=== PATIENT | female | born 1985 | race Caucasian/White ===

== ENCOUNTER 2016-07-10 13:30 | Outpatient (CLI) | payer MEDICAID ==
--- NOTE | 2016-07-10 15:38 | Ultrasound Report ---
LEFT BREAST ULTRASOUND: 07/10/2016 CLINICAL INDICATION: Palpable abnormalities. TECHNIQUE: Real-time scanning was performed with computer help desk representative static images obtained. FINDINGS: Ultrasound of the left breast was performed, directed to the palpable abnormality identifi ed by the patient at the 9 o'clock position, as well as the location described on the order at the 7 o'clock periareolar location. Unremarkable parenchymal lobules are seen at both sites. No discrete solid or cystic mass is identifi ed. No sonographically suspicious findings are seen. IMPRESSION: NEGATIVE EXAMINATION. RECOMMENDATION: ROUTINE ANNUAL SCREENING, TO COMMENCE AT AGE 40, UNLESS OTHERWISE CLINICALLY INDICATE D. BIRADS CATEGORY 1-NEGATIVE. JOB #: [id number] EXT JOB #:[id number]
--- NOTE | 2016-07-10 15:45 | Mammography Report ---
DIGITAL DIAGNOSTIC BILATERAL MAMMOGRAM: 07/10/2016 CLINICAL INDICATION: Palpable abnormality left breast. TECHNIQUE: Bilateral CC and MLO views, left true lateral view. A marker was placed at the site of pal pable abnormality identified by the patient at the time of the examination, at the 9 o'clock position approximately 10 cm from the nipple. This location is different from the site indicated on the requi sition (7 o'clock 1 cm from the nipple). This is the patient's baseline examination. FINDINGS: The breasts demonstrate scattered fibroglandular densities bilaterally. No suspicious mass es, clustered microcalcifications, or regions of architectural distortion are identified. Please also refer to left breast ultrasound of the same day. IMPRESSION: NEGATIVE EXAMINATION. RECOMMENDATION: CONTINUED CLINICAL SURVEILLANCE. ROUTINE ANNUAL SCREENING, TO COMMENCE AT AGE 40, UNL ESS OTHERWISE CLINICALLY INDICATED. BIRADS CATEGORY 1-NEGATIVE. STANDARD QUALIFYING STATEMENTS 1. This examination was reviewed with the aid of Computer-Aided Detection (CAD). 2. A negative or benign imaging report should not delay biopsy if clinically suspicious findings are present. Consider surgical consultation if warranted. More than 5% of cancers are not identified by i ing. 3. Dense breasts may obscure an underlying neoplasm. JOB #: [id number] EXT JOB #:[id number]
== END 2016-07-10 13:31 | disposition home or self-care (01) ==
LOC: DI 13:30
PROVIDERS: ATTEND Nurse Practitioner Gerontology
DX: N63 Unspecified lump in breast (principal); N64.4 Mastodynia
CPT/HCPCS: 76642; 77066

== ENCOUNTER 2017-05-16 08:00 | Outpatient (CLI) | payer MEDICAID | END 2017-05-16 08:01 | LOC: LAB.R 08:00 | PROVIDERS: ATTEND Nurse Practitioner | DX: N89.8 Other specified noninflammatory disorders of vagina (principal) | CPT/HCPCS: 87491; 87591 ==

== ENCOUNTER 2017-05-18 17:00 | Outpatient (CLI) | payer MEDICAID | END 2017-05-18 17:01 | disposition home or self-care (01) | LOC: LAB 17:00 | PROVIDERS: ATTEND Nurse Practitioner | DX: N91.2 Amenorrhea, unspecified (principal) | CPT/HCPCS: 36415; 84702 ==

== ENCOUNTER 2017-07-10 10:35 | Emergency (ER) | payer MEDICAID ==
--- NOTE | 2017-07-10 12:10 | ED Physician Documentation ---
PD HPI NECK PAIN - Stated complaint Stated Complaint: NECK/BACK PX - Chief complaint Chief Complaint: General - History obtained from History obtained from: Patient - History of Present Illness Timing - onset: How many days ago (5-6) Timing - duration: Days Timing - details: Gradual onset, Still present, Waxing and waning Location: Upper (trapezius area mostly right, with muscle pain on ROM neck and with shoulder lifting. 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 No: Trauma Similar symptoms before: Has not had sx before Recently seen: Not recently seen Review of Systems Constitutional: denies: Fever, Chills, Myalgias Nose: denies: Rhinorrhea / runny nose, Congestion Throat: denies: Sore throat Respiratory: denies: Dyspnea, Cough Skin: denies: Rash, Lesions Neurologic: denies: Focal weakness, Numbness PD PAST MEDICAL HISTORY - Past Medical History Past Medical History: No Musculoskeletal: None - Past Surgical History Past Surgical History: No - Present Medications Home Medications: Ambulatory Orders Medication Instructions Recorded Confirmed Atomoxetine HCl 07/10/17 Dexamethasone [Decadron] 4 mg PO DAILY #5 tablet 07/10/17 HYDROcod/ACETAM 5/325 [[place] 5/325] 1 tab PO Q6H PRN #15 tablet 07/10/17 Lisinopril 10 mg PO 07/10/17 07/10/17 Methocarbamol [Robaxin] 500 mg PO Q6H PRN #25 tablet 07/10/17 - Allergies Allergies/Adverse Reactions: Allergies Allergy/AdvReac Type Severity Reaction Status Date / Time No Known Drug Allergies Allergy Verified 07/10/17 11:03 - Social History Does the pt smoke?: Yes Smoking Status: Current every day smoker Does the pt drink ETOH?: Yes Does the pt have substance abuse?: No - Immunizations Immunizations are current?: Yes PD ED PE NORMAL - Vitals Vital signs reviewed: Yes - General General: Alert and oriented X 3, Well developed/nourished - Neck Neck: Supple, no meningeal sign, No bony TTP (but is tender in lateral muscle at trapezius right side mostly, without rash nor sores. Has focal most tender spot lower lateral cervical area. Trigger point injection done there. ), No adenopathy - Respiratory Respiratory: Clear bilaterally - Abdomen Abdomen: Soft, Non tender - Back Back: No spinal TTP - Derm Derm: Normal color, Warm and dry, No rash - Neuro Neuro: Alert and oriented X 3, No motor deficit, No sensory deficit Results - Vitals Vitals: Vital Signs - 24 hr 07/10/17 07/10/17 11:01 13:20 Temperature 36.5 C Heart Rate 100 103 H Respiratory 14 18 Rate Blood Pressure 140/87 H 120/90 H O2 Saturation 100 100 Oxygen O2 Source Room air PD MEDICAL DECISION MAKING - ED course Complexity details: considered differential (gradual onset in muscular distribution without red flags. ), d/w patient Departure - Departure Disposition: 01 Home, Self Care Clinical Impression: Acute strain of neck muscle Qualifiers: Encounter type: initial encounter Qualified Code(s): S16.1XXA - Strain of muscle, fascia and tendon at neck level, initial encounter Condition: Stable Record reviewed to determine appropriate education?: Yes Instructions: ED Neck Pain No Trauma Follow-Up: Sarah Jett DNP [Primary Care Provider] - Prescriptions: Dexamethasone [Decadron] 4 mg PO DAILY #5 tablet HYDROcod/ACETAM 5/325 [[place] 5/325] 1 tab PO Q6H PRN #15 tablet PRN Reason: Pain Methocarbamol [Robaxin] 500 mg PO Q6H PRN #25 tablet PRN Reason: Spasms Comments: Heat and gentle stretching for the neck muscles often. Physical treatment such as chiropractic and massage are good for this as well. Continue some anti- inflammatories such as ibuprofen or naproxen 2-3 tablets twice daily for the next week. Also add Decadron steroid anti-inflammatory orally. We did do a local injection in the neck muscles to try to help there as well. Robaxin muscle relaxant for stiffness and spasm. Add Tylenol or hydrocodone if needed for pain. This should taper down over the next several days and be improved over days to a week. Recheck if not improved during that timeframe. Discharge Date/Time: 07/10/17 13:20
[2017-07-10] MEDS ORDERED: LIDOCAINE 2% 10 ML MDV SUBQ STA (12:36)
[2017-07-10] MEDS ORDERED: TRIAMCINOLONE 40 MG/ML VIAL IM STA (12:36)
[2017-07-10] MEDS ORDERED: METHOCARBAMOL 500 MG TABLET PO STA (12:37)
[2017-07-10] MEDS ORDERED: HYDROcod/ACETAM 5/325 MG TABLET PO STA (12:37)
[2017-07-10] MEDS ORDERED: KETOROLAC 60 MG/2 ML VIAL IM STA (12:37)
[2017-07-10 13:28] VITALS: BP 120/90
== END 2017-07-10 13:20 | disposition home or self-care (01) ==
LOC: ED 10:35
DX: S16.1XXA Strain of muscle, fascia and tendon at neck level, initial encounter (principal); X58.XXXA Exposure to other specified factors, initial encounter; F17.200 Nicotine dependence, unspecified, uncomplicated
CPT/HCPCS: 96372; 99283; A9270

== ENCOUNTER 2017-08-06 11:13 | Outpatient (CLI) | payer MEDICAID ==
--- NOTE | 2017-08-06 11:52 | XRAY Report ---
Procedure Date: 08/06/2017 Accession Number: [id number] / [id number] Procedure: XRN - Cervical Spine 2 View CPT Code: FULL RESULT: EXAM: Cervical Spine 2 View DATE: 08/06/2017 11:30 AM CLINICAL HISTORY: CERVICALGIA COMPARISON: None. TECHNIQUE: 3 views. FINDINGS: Alignment: Reversal of the normal cervical lordosis. Bones: The cervical vertebral bodies and posterior elements are well visualized from the skull base through C7-T1. No fractures or bone lesions. Disks: Normal. Disk heights are maintained. Facets: No degenerative disease. Soft Tissues: Normal. No prevertebral soft tissue swelling. The visualized lung apices are clear. IMPRESSION: Reversal of the normal cervical lordosis. No evidence of acute fracture. RADIA
== END 2017-08-06 11:14 | disposition home or self-care (01) ==
LOC: DI.N 11:13
PROVIDERS: ATTEND Nurse Practitioner
DX: M54.2 Cervicalgia (principal); M41.82 Other forms of scoliosis, cervical region
CPT/HCPCS: 72040

== ENCOUNTER 2017-08-19 13:35 | Emergency (ER) | payer MEDICAID ==
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
[2017-08-19] MEDS ORDERED: IBUPROFEN 600 MG TABLET PO STA (14:28)
[2017-08-19] MEDS ORDERED: HYDROcod/ACETAM 5/325 MG TABLET PO STA (14:28)
[2017-08-19 14:47] VITALS: BP 126/96
== END 2017-08-19 14:45 | disposition home or self-care (01) ==
LOC: ED 13:35
DX: H72.91 Unspecified perforation of tympanic membrane, right ear (principal); S01.311A Laceration without foreign body of right ear, initial encounter; W51.XXXA Accidental striking against or bumped into by another person, initial encounter; F17.200 Nicotine dependence, unspecified, uncomplicated
CPT/HCPCS: 99283; A9270

== ENCOUNTER 2017-09-03 08:00 | Outpatient (CLI) | payer MEDICAID | END 2017-09-03 08:01 | LOC: LAB.N 08:00 | PROVIDERS: ATTEND Nurse Practitioner | DX: N91.2 Amenorrhea, unspecified (principal) | CPT/HCPCS: 36415; 84702 ==

== ENCOUNTER 2018-01-20 07:43 | Outpatient (CLI) | payer OTHER, MEDICAID | END 2018-01-20 23:59 | disposition critical access hospital (66) | LOC: EMS 07:43 | PROVIDERS: ATTEND Surgery | DX: M54.9 Dorsalgia, unspecified (principal); V48.4XXA Person boarding or alighting a car injured in noncollision transport accident, initial encounter; Y92.413 State road as the place of occurrence of the external cause | CPT/HCPCS: A0425; A0429; A0999 ==

== ENCOUNTER 2018-01-20 08:06 | Emergency (ER) | payer MEDICAID ==
[2018-01-20] MEDS ORDERED: HYDROmorphone 1 MG/ML CARPUJECT IVP STA ×3 (08:39→12:05)
[2018-01-20] MEDS ORDERED: ONDANSETRON 4 MG/2 ML VIAL IVP STA ×2 (08:39→11:32)
[2018-01-20 08:54] LABS: BASOPHILS # (AUTO) 0.1 10^3/uL (0.0-0.1); BASOPHILS % (AUTO) 0.7 %; EOSINOPHILS # (AUTO) 0.1 10^3/uL (0.0-0.7); EOSINOPHILS % (AUTO) 0.4 %; HGB - HEMOGLOBIN 14.4 g/dL (12.0-16.0); LYMPHOCYTES # (AUTO) 4.2 10^3/uL (1.5-3.5); LYMPHOCYTES % (AUTO) 27.7 %; MEAN CORPUSCULAR HEMOGLOBIN 31.2 pg (27.0-31.0); MEAN CORPUSCULAR HGB CONC 33.4 g/dL (32.0-36.0); MEAN CORPUSCULAR VOLUME 93.5 fL (81.0-99.0); MEAN PLATELET VOLUME 7.8 fL (7.9-10.8); MONOCYTES # (AUTO) 0.7 10^3/uL (0.0-1.0); MONOCYTES % (AUTO) 4.5 %; NEUTROPHILS # (AUTO) 10.1 10^3/uL (1.5-6.6); NEUTROPHILS % (AUTO) 66.7 %; PLT - PLATELET COUNT 359 10^3/uL (130-450); RED CELL DISTRIBUTION WIDTH 14.2 % (12.0-15.0); WHITE BLOOD COUNT 15.2 x10^3/uL (4.8-10.8)
[2018-01-20 09:06] LABS: ALBUMIN 4.8 g/dL (3.2-5.5); ALBUMIN/GLOBULIN RATIO 1.5 (1.0-2.2); BILIRUBIN,TOTAL 0.2 mg/dL (0.2-1.0); CALCIUM 8.7 mg/dL (8.5-10.3); CREATININE 0.6 mg/dL (0.4-1.0); TOTAL PROTEIN 8.1 g/dL (6.7-8.2)
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
[2018-01-20] MEDS ORDERED: LIDOCAINE PATCH 5% TOP STA (14:34)
[2018-01-20] MEDS ORDERED: PROMETHAZINE INJ 25 MG in SODIUM CHLORIDE 0.9% 50 ML IV STA (14:51)
[2018-01-20] MEDS ORDERED: oxyCODONE 5 MG TABLET PO STA (15:44)
[2018-01-20 16:42] VITALS: BP 112/53
[2018-01-20] MEDS ORDERED: SODIUM CHLORIDE 0.9% 1,000 ML IV ONE (16:47)
== END 2018-01-20 17:24 | disposition home or self-care (01) ==
LOC: EDUNIT# → ED 08:06
DX: S30.0XXA Contusion of lower back and pelvis, initial encounter (principal); S32.2XXA Fracture of coccyx, initial encounter for closed fracture; Y92.410 Unspecified street and highway as the place of occurrence of the external cause; F17.200 Nicotine dependence, unspecified, uncomplicated; F43.8 Other reactions to severe stress
CPT/HCPCS: 36415; 72100; 72220; 73502; 80053; 83690; 84702; 85025; 96365; 96366; 96375; 96376; 99284; A9270; J1170; J7040

== ENCOUNTER 2018-03-12 21:14 | Emergency (ER) | payer MEDICAID, OTHER ==
[2018-03-12] MEDS ORDERED: LORazepam 2 MG/ML VIAL ONE ×2 (21:21→21:25)
[2018-03-12] MEDS: LORazepam 2 MG/ML VIAL IVP STA ×2 (21:24→21:38)
[2018-03-12] MEDS: PHENYTOIN INJ 1,000 MG in SODIUM CHLORIDE 0.9% 100ML 100 ML IV STA (21:33)
[2018-03-12 21:39] LABS: BASOPHILS # (AUTO) 0.1 10^3/uL (0.0-0.1); BASOPHILS % (AUTO) 1.1 %; EOSINOPHILS # (AUTO) 0.1 10^3/uL (0.0-0.7); EOSINOPHILS % (AUTO) 0.6 %; HGB - HEMOGLOBIN 14.2 g/dL (12.0-16.0); LYMPHOCYTES # (AUTO) 4.3 10^3/uL (1.5-3.5); MEAN CORPUSCULAR HGB CONC 34.2 g/dL (32.0-36.0); MEAN CORPUSCULAR VOLUME 93.7 fL (81.0-99.0); MEAN PLATELET VOLUME 7.7 fL (7.9-10.8); MONOCYTES # (AUTO) 0.5 10^3/uL (0.0-1.0); MONOCYTES % (AUTO) 4.5 %; NEUTROPHILS % (AUTO) 54.8 %; PLT - PLATELET COUNT 361 10^3/uL (130-450); RED BLOOD COUNT 4.43 10^6/uL (4.20-5.40)
[2018-03-12 21:42] LABS: KETONES, SERUM (ACETEST) NEGATIVE (NEGATIVE)
[2018-03-12] MEDS ORDERED: PROPOFOL 1000 MG/100 ML 0 ML IV ONE ×2 (21:43→21:46)
[2018-03-12] MEDS ORDERED: ETOMIDATE 40 MG/20 ML VIAL IVP ONE (21:45)
[2018-03-12] MEDS ORDERED: MIDAZOLAM 2 MG/2 ML VIAL ONE (21:45)
[2018-03-12] MEDS ORDERED: ROCURONIUM 50 MG/5 ML VIAL IVP ONE (21:46)
[2018-03-12] MEDS ORDERED: SUCCINYLCHOLINE 200 MG/10 ML VIAL ONE (21:46)
[2018-03-12] MEDS ORDERED: KETAMINE 500 MG/10 ML VIAL ONE (21:46)
[2018-03-12] MEDS ORDERED: PROPOFOL 200 MG/20 ML VIAL IVP ONE (21:46)
[2018-03-12 21:49] LABS: ACETAMINOPHEN < 10 ug/mL (10-30); ALBUMIN 4.6 g/dL (3.2-5.5); ALBUMIN/GLOBULIN RATIO 1.5 (1.0-2.2); ALKALINE PHOSPHATASE 53 IU/L (42-121); ALT ALANINE AMINOTRANSFERASE 18 IU/L (10-60); AST ASPARTATE AMINOTRANSFERASE 22 IU/L (10-42); BILIRUBIN,TOTAL 0.2 mg/dL (0.2-1.0); BUN - BLOOD UREA NITROGEN 7 mg/dL (6-20); CARBON DIOXIDE - CO2 22 mmol/L (21-32); CHLORIDE 107 mmol/L (101-111); CREATININE 0.9 mg/dL (0.4-1.0); GFR - MDRD 73 (>89); GLUCOSE 84 mg/dL (70-100); LIPASE 38 U/L (22-51); SALICYLATE < 6.0 mg/dL; SODIUM 139 mmol/L (135-145); TOTAL PROTEIN 7.7 g/dL (6.7-8.2)
--- NOTE | 2018-03-12 21:51 | ED Physician Documentation ---
PD HPI SEIZURE - Stated complaint Stated Complaint: STATUS ELIPTICUS - Chief complaint Chief Complaint: Neuro - Additional information Additional information: 32-year-old female was brought in by EMS for status epilepticus. The patient according to her boyfriend has a history of seizure disorder but the boyfriend is unsure of her past medical history. The patient was at a constitution party this evening and had consumed some alcohol when she had a witnessed tonic-clonic seizure and EMS was called. EMS arrived and found the patient to be having generalized tonic-clonic movement Seizure activity. Per EMS the patient had 30 minutes of Seizure activity despite receiving 10 mg of Versed. The patient did have a period of seizure cessation but her seizure resumed upon arriving in the emergency department. The patient arrived with full generalized tonic-clonic activity.No history was obtained from the patient secondary to her state. 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 and currettage - Present Medications Home Medications: Ambulatory Orders Medication Instructions Recorded Confirmed Atomoxetine HCl 07/10/17 Dexamethasone [Decadron] 4 mg PO DAILY #5 tablet 07/10/17 HYDROcod/ACETAM 5/325 [[place] 5/325] 1 tab PO Q6H PRN #15 tablet 07/10/17 Lisinopril 10 mg PO 07/10/17 07/10/17 Methocarbamol [Robaxin] 500 mg PO Q6H PRN #25 tablet 07/10/17 HYDROcod/ACETAM 5/325 [[place] 5/325] 1 tab PO Q6H PRN #15 tablet 08/19/17 Ofloxacin 5 drops RIGHTEAR TID #1 bottle 08/19/17 Quetiapine Fumarate [Seroquel] 50 mg 08/19/17 oxyCODONE/ACET 5/325 [Percocet 5 1 - 2 each PO Q4-6H PRN #15 tablet 01/20/18 mg/325 mg] - Allergies Allergies/Adverse Reactions: Allergies Allergy/AdvReac Type Severity Reaction Status Date / Time codeine Allergy Mild Nausea Verified 08/19/17 13:57 - Social History Does the pt smoke?: Yes Smoking Status: Current every day smoker Does the pt drink ETOH?: Yes Does the pt have substance abuse?: No - Immunizations Immunizations are current?: Yes PD ED PE NORMAL - General General: Other (The patient is unresponsive with generalized shaking) - HEENT HEENT: Atraumatic, PERRL, Pharynx benign, Other (No tongue laceration) - Cardiac Cardiac: RRR (Regular tachycardia), Strong equal pulses - Respiratory Respiratory: No respiratory distress, Clear bilaterally - Abdomen Abdomen: Soft, Non distended - Derm Derm: Normal color - Extremities Extremities: No deformity - Neuro Neuro: Other (Unresponsive with generalized tonic-clonic seizure activity) - Psych Psych: Normal affect Results - Vitals Vitals: Vital Signs - 24 hr 03/12/18 03/12/18 03/12/18 21:25 21:51 22:15 Temperature 37.2 C Heart Rate 124 H 115 H 97 Respiratory 22 21 16 Rate Blood Pressure 119/53 L 120/69 105/57 L O2 Saturation 99 100 100 03/12/18 03/12/18 03/12/18 22:28 22:40 23:09 Temperature 36.3 C L Heart Rate 94 87 87 Respiratory 17 16 14 Rate Blood Pressure 103/67 104/59 L 103/68 O2 Saturation 100 100 100 03/12/18 03/13/18 03/13/18 23:38 00:03 00:18 Temperature Heart Rate 86 85 89 Respiratory 20 12 14 Rate Blood Pressure 93/62 99/59 L 99/61 O2 Saturation 96 97 97 Oxygen O2 Source Room air - Labs Labs: Laboratory Tests 03/12/18 03/12/18 03/12/18 21:29 21:29 21:29 WBC 11.0 H RBC 4.43 Hgb 14.2 Hct 41.5 MCV 93.7 MCH 32.0 H MCHC 34.2 RDW 13.0 Plt Count 361 MPV 7.7 L Neut # (Auto) 6.0 Lymph # (Auto) 4.3 H [place] # (Auto) 0.5 Eos # (Auto) 0.1 Baso # (Auto) 0.1 Absolute Nucleated RBC 0.00 Nucleated RBC % 0.0 Sodium 139 Potassium 4.5 Chloride 107 Carbon Dioxide 22 Anion Gap 10.0 BUN 7 Creatinine 0.9 Estimated GFR (MDRD) 73 L Glucose 84 Calcium 9.0 Phosphorus 4.0 Magnesium 2.0 Total Bilirubin 0.2 AST 22 ALT 18 Alkaline Phosphatase 53 Total Protein 7.7 Albumin 4.6 Globulin 3.1 Albumin/Globulin Ratio 1.5 Lipase 38 TSH 4.45 Free T4 0.87 Prolactin Urine Color Urine Clarity Urine pH Ur Specific [place] Urine Protein Urine Glucose (UA) Urine Ketones Urine Occult Blood Urine Nitrite Urine Bilirubin Urine Urobilinogen Ur Leukocyte Esterase Ur Microscopic Review Urine Culture Comments Urine HCG, Qual Salicylates < 6.0 Urine Opiates Screen Ur Oxycodone Screen Urine Methadone Screen Ur Propoxyphene Screen Acetaminophen < 10 L Ur Barbiturates Screen Ur Tricyclics Screen Ur Phencyclidine Scrn Ur Amphetamine Screen U Methamphetamines Scrn U Benzodiazepines Scrn Urine Cocaine Screen U Cannabinoids Screen Ethyl Alcohol 112.6 Serum Ketones NEGATIVE 03/12/18 03/12/18 03/12/18 21:29 22:21 22:21 WBC RBC Hgb Hct MCV MCH MCHC RDW Plt Count MPV Neut # (Auto) Lymph # (Auto) [place] # (Auto) Eos # (Auto) Baso # (Auto) Absolute Nucleated RBC Nucleated RBC % Sodium Potassium Chloride Carbon Dioxide Anion Gap BUN Creatinine Estimated GFR (MDRD) Glucose Calcium Phosphorus Magnesium Total Bilirubin AST ALT Alkaline Phosphatase Total Protein Albumin Globulin Albumin/Globulin Ratio Lipase TSH Free T4 Prolactin 54.55 Urine Color YELLOW Urine Clarity CLEAR Urine pH 6.0 Ur Specific [place] 1.015 1.015 Urine Protein NEGATIVE Urine Glucose (UA) NEGATIVE Urine Ketones NEGATIVE Urine Occult Blood NEGATIVE Urine Nitrite NEGATIVE Urine Bilirubin NEGATIVE Urine Urobilinogen 0.2 (NORMAL) Ur Leukocyte Esterase NEGATIVE Ur Microscopic Review NOT INDICATED Urine Culture Comments NOT INDICATED Urine HCG, Qual NEGATIVE Salicylates Urine Opiates Screen NEGATIVE Ur Oxycodone Screen NEGATIVE Urine Methadone Screen NEGATIVE Ur Propoxyphene Screen NEGATIVE Acetaminophen Ur Barbiturates Screen NEGATIVE Ur Tricyclics Screen NEGATIVE Ur Phencyclidine Scrn NEGATIVE Ur Amphetamine Screen NEGATIVE U Methamphetamines Scrn NEGATIVE U Benzodiazepines Scrn POSITIVE H Urine Cocaine Screen NEGATIVE U Cannabinoids Screen NEGATIVE Ethyl Alcohol Serum Ketones PD MEDICAL DECISION MAKING - ED course ED course: The patient had generalized seizure activity for roughly 35-40 minutes in the emergency department. The patient received 10 mg of Ativan and 2 mg doses and was loaded with Keppra and Dilantin. Once the seizure broke the patient Was answering questions briefly and then the high dose of benzodiazepines kicked in and the patient's been appropriately sedated. Given the prolonged seizure-like activity the patient will require transfer for further investigation with EEG. The case was discussed with the neurologist at [facility] Dr. Pat who agrees with the plan for transfer for further workup. The patient's boyfriend was updated. - Critical Care Time(min): 30 Time Includes: Direct patient care, Review records, Reassess patient, Document care, Coordinate care, Medical consult Data interpretation: Labs Procedures excluded from critical care time: EKG Departure - Departure Disposition: 02 Transfer Acute Care Hosp Clinical Impression: Status epilepticus Condition: Fair
[2018-03-12] MEDS: levETIRAcetam INJ 1,000 MG in SODIUM CHLORIDE 0.9% 100ML 100 ML IV STA (21:58)
[2018-03-12 22:26] LABS: MUDS CUTOFF CONCENTRATIONS CUTOFF CONC BELOW:
--- NOTE | 2018-03-12 22:27 | CT Report ---
Reason: Status epilepticus Procedure Date: 03/12/2018 Accession Number: [id number] / [id number] Procedure: CT - Head W/O CPT Code: FULL RESULT: EXAM: CT HEAD EXAM DATE: 03/12/2018 10:14 PM. CLINICAL HISTORY: Status epilepticus. COMPARISON: None. TECHNIQUE: Multiaxial CT images were obtained from the foramen magnum to the vertex. Reformats: Sagittal and coronal. IV contrast: None. In accordance with CT protocol optimization, one or more of the following dose reduction techniques were utilized for this exam: automated exposure control, adjustment of mA and/or KV based on patient size, or use of iterative reconstructive technique. FINDINGS: Parenchyma: No intraparenchymal hemorrhage. No evidence of mass, midline shift, or CT findings of infarction. Mccray-white differentiation is distinct. Extraaxial Spaces: Normal for age. No subdural or epidural collections identified. Ventricles: Normal in size and position. Sinuses and Orbits: Imaged paranasal sinuses, orbits, and mastoids show no significant abnormality. Bones: No evidence of fracture or calvarial defect. Other: None. IMPRESSION: 1. Negative CT head without contrast. RADIA
[2018-03-12 22:30] LABS: BILIRUBIN,URINE NEGATIVE (NEGATIVE); GLUCOSE, URINE (UA) NEGATIVE (NEGATIVE); KETONES,URINE (UA) NEGATIVE (NEGATIVE); LEUKOCYTE ESTERASE, URINE NEGATIVE (NEGATIVE); NITRITE,URINE NEGATIVE (NEGATIVE); OCCULT BLOOD,URINE NEGATIVE (NEGATIVE); PROTEIN,URINE NEGATIVE (NEGATIVE); UROBILINOGEN,URINE 0.2 (NORMAL) E.U./dL (NORMAL)
[2018-03-12 22:35] LABS: CLARITY,URINE CLEAR (CLEAR); HCG UR QUAL NEGATIVE
[2018-03-12 22:39] LABS: THYROID STIMULATING HORMONE 4.45 uIU/mL (0.34-5.60)
[2018-03-12 22:40] LABS: AMPHETAMINE SCREEN,URINE NEGATIVE (NEGATIVE); BENZODIAZEPINES SCREEN, URINE POSITIVE (NEGATIVE); COCAINE SCREEN URINE NEGATIVE (NEGATIVE); METHADONE SCREEN, URINE NEGATIVE (NEGATIVE); METHAMPHETAMINES SCREEN, URINE NEGATIVE (NEGATIVE); OPIATE SCREEN, URINE NEGATIVE (NEGATIVE); OXYCODONE SCREEN, URINE NEGATIVE (NEGATIVE); PROPOXYPHENE SCREEN, URINE NEGATIVE (NEGATIVE); TRICYCLIC ANTIDEPRESSANT,URINE NEGATIVE (NEGATIVE)
[2018-03-12 22:41] LABS: FREE T4 (FREE THYROXINE) 0.87 ng/dL (0.58-1.64)
[2018-03-12] MEDS: SODIUM CHLORIDE 0.9% 1,000 ML IV ONE (23:38)
[2018-03-13 01:05] VITALS: BP 102/67
== END 2018-03-13 01:16 | disposition short-term general hospital (02) ==
LOC: EDUNIT# → ED 21:14
DX: G40.901 Epilepsy, unspecified, not intractable, with status epilepticus (principal); I48.4 Atypical atrial flutter; I44.0 Atrioventricular block, first degree; F17.200 Nicotine dependence, unspecified, uncomplicated
CPT/HCPCS: 36415; 51702; 70450; 80053; 80306; 80307; 80320; 80329; 81001; 81003; 81025; 82009; 83690; 83735; 84100; 84146; 84439; 84443; 85025; 87086; 93005; 96361; 96365; 96367; 96375; 99285; 99291

== ENCOUNTER 2018-03-25 23:22 | Outpatient (CLI) | payer MEDICAID | END 2018-03-25 23:23 | disposition critical access hospital (66) | LOC: EMS 23:22 | PROVIDERS: ATTEND Surgery | DX: R56.9 Unspecified convulsions (principal) | CPT/HCPCS: A0425; A0427; A0999 ==

== ENCOUNTER 2018-03-25 23:54 | Emergency (ER) | payer MEDICAID ==
[2018-03-26] MEDS ORDERED: SODIUM CHLORIDE 0.9% 1,000 ML IV ONE (00:07)
--- NOTE | 2018-03-26 00:10 | ED Physician Documentation ---
History of Present Illness - Stated complaint Stated Complaint: SEIZURES - Chief complaint Chief Complaint: Neuro - Additonal information Additional information: 32-year-old female was brought in by EMS for a possible seizure. It is reported that the patient was convulsing. The patient was given Versed which stopped her convulsions and Arrives groggy and sleepy and not answering questions. No reports of trauma or injury. History is limited secondary to the patient's recent seizure and benzodiazepine administration Review of Systems Unable to obtain: Other (Status post seizure and benzodiazepine administration) PD PAST MEDICAL HISTORY - Past Medical History Cardiovascular: None Respiratory: None Neuro: None DRY ROOM OPERATOR: Ovarian cancer HEENT: None Musculoskeletal: None - Past Surgical History Past Surgical History: No /DRY ROOM OPERATOR: Dilation and currettage - Present Medications Home Medications: Ambulatory Orders Medication Instructions Recorded Confirmed Atomoxetine HCl 07/10/17 Dexamethasone [Decadron] 4 mg PO DAILY #5 tablet 07/10/17 HYDROcod/ACETAM 5/325 [[place] 5/325] 1 tab PO Q6H PRN #15 tablet 07/10/17 Lisinopril 10 mg PO DAILY 07/10/17 03/13/18 Methocarbamol [Robaxin] 500 mg PO Q6H PRN #25 tablet 07/10/17 HYDROcod/ACETAM 5/325 [[place] 5/325] 1 tab PO Q6H PRN #15 tablet 08/19/17 Ofloxacin 5 drops RIGHTEAR TID #1 bottle 08/19/17 Quetiapine Fumarate [Seroquel] 100 mg PO BID 08/19/17 03/13/18 oxyCODONE/ACET 5/325 [Percocet 5 1 - 2 each PO Q4-6H PRN #15 tablet 01/20/18 mg/325 mg] Benzphetamine HCl 25 mg PO DAILY 03/13/18 03/13/18 Duloxetine HCl 60 mg PO DAILY 03/13/18 03/13/18 Meloxicam 7.5 mg PO DAILY 03/13/18 03/13/18 Propranolol [Inderal] 10 mg PO BID 03/13/18 03/13/18 Topiramate [Topamax] 25 mg PO BID 03/13/18 03/13/18 - Allergies Allergies/Adverse Reactions: Allergies Allergy/AdvReac Type Severity Reaction Status Date / Time codeine Allergy Mild Nausea Verified 03/26/18 00:35 - Social History Does the pt smoke?: Yes Smoking Status: Current every day smoker Does the pt drink ETOH?: Yes Does the pt have substance abuse?: No - Immunizations Immunizations are current?: Yes - POLST Patient has POLST: No PD ED PE NORMAL - General General: Other (The patient is arousable, follows basic commands and no evidence of trauma) - HEENT HEENT: Atraumatic, PERRL - Cardiac Cardiac: RRR (Tachycardia with regular rhythm) - Respiratory Respiratory: No respiratory distress - Derm Derm: Normal color - Extremities Extremities: No deformity - Neuro Neuro: Other (The patient's moving all 4 extremities and has no focal neurologic deficit but is groggy) Results - Vitals Vitals: Vital Signs - 24 hr 03/25/18 03/26/18 03/26/18 23:57 00:21 00:26 Temperature 36.3 C L Heart Rate 117 H 112 H 127 H Respiratory 16 15 14 Rate Blood Pressure 109/57 L 108/64 108/64 O2 Saturation 97 100 97 03/26/18 00:32 Temperature Heart Rate Respiratory 20 Rate Blood Pressure O2 Saturation 97 Oxygen O2 Source Room air - Labs Labs: Laboratory Tests 03/26/18 00:10 WBC 8.5 RBC 4.11 L Hgb 12.9 Hct 39.0 MCV 94.9 MCH 31.5 H MCHC 33.2 RDW 13.3 Plt Count 307 MPV 7.4 L Neut # (Auto) 3.9 Lymph # (Auto) 4.0 H [place] # (Auto) 0.4 Eos # (Auto) 0.1 Baso # (Auto) 0.1 Absolute Nucleated RBC 0.00 Nucleated RBC % 0.0 PD MEDICAL DECISION MAKING - ED course ED course: Upon returning to her neurologic baseline the patient became agitated once her significant other arrived. The patient pulled out her IV and left the emergency department AGAINST MEDICAL ADVICE. She was advised to return at any point for reevaluation Departure - Departure Disposition: 07 Against Medical Advice Clinical Impression: Convulsions Qualifiers: Convulsion type: unspecified Qualified Code(s): R56.9 - Unspecified convulsions Condition: Good Instructions: ED Seizure Recurrent Ch Follow-Up: Sarah Jett DNP [Primary Care Provider] - Within 1 week Comments: Return for any worsening or any concerns
[2018-03-26 00:22] VITALS: BP 108/64
[2018-03-26 00:24] LABS: BASOPHILS # (AUTO) 0.1 10^3/uL (0.0-0.1); BASOPHILS % (AUTO) 0.8 %; EOSINOPHILS # (AUTO) 0.1 10^3/uL (0.0-0.7); EOSINOPHILS % (AUTO) 0.8 %; HGB - HEMOGLOBIN 12.9 g/dL (12.0-16.0); LYMPHOCYTES % (AUTO) 47.6 %; MEAN CORPUSCULAR HEMOGLOBIN 31.5 pg (27.0-31.0); MEAN CORPUSCULAR HGB CONC 33.2 g/dL (32.0-36.0); MEAN CORPUSCULAR VOLUME 94.9 fL (81.0-99.0); MEAN PLATELET VOLUME 7.4 fL (7.9-10.8); MONOCYTES # (AUTO) 0.4 10^3/uL (0.0-1.0); MONOCYTES % (AUTO) 4.5 %; NEUTROPHILS # (AUTO) 3.9 10^3/uL (1.5-6.6); NEUTROPHILS % (AUTO) 46.3 %; PLT - PLATELET COUNT 307 10^3/uL (130-450); RED BLOOD COUNT 4.11 10^6/uL (4.20-5.40); RED CELL DISTRIBUTION WIDTH 13.3 % (12.0-15.0); WHITE BLOOD COUNT 8.5 x10^3/uL (4.8-10.8)
[2018-03-26 00:47] LABS: ALBUMIN 3.9 g/dL (3.2-5.5); ALBUMIN/GLOBULIN RATIO 1.4 (1.0-2.2); ALKALINE PHOSPHATASE 39 IU/L (42-121); ALT ALANINE AMINOTRANSFERASE 18 IU/L (10-60); AST ASPARTATE AMINOTRANSFERASE 17 IU/L (10-42); BILIRUBIN,TOTAL 0.3 mg/dL (0.2-1.0); BUN - BLOOD UREA NITROGEN 10 mg/dL (6-20); CALCIUM 8.7 mg/dL (8.5-10.3); CARBON DIOXIDE - CO2 19 mmol/L (21-32); CHLORIDE 110 mmol/L (101-111); CREATININE 0.6 mg/dL (0.4-1.0); GFR - MDRD 116 (>89); GLUCOSE 96 mg/dL (70-100); LIPASE 33 U/L (22-51); SODIUM 140 mmol/L (135-145); TOTAL PROTEIN 6.6 g/dL (6.7-8.2)
[2018-03-26 00:48] LABS: HCG,QUALITATIVE BLOOD NEGATIVE
== END 2018-03-26 01:00 | disposition left against medical advice (07) ==
LOC: EDBD → EDUNIT# → ED 23:54
DX: R56.9 Unspecified convulsions (principal); C56.9 Malignant neoplasm of unspecified ovary; F17.200 Nicotine dependence, unspecified, uncomplicated
CPT/HCPCS: 36415; 80053; 83690; 84703; 85025; 99283; 99284

== ENCOUNTER 2018-03-26 14:54 | Outpatient (CLI) | payer MEDICAID | END 2018-03-26 14:55 | disposition critical access hospital (66) | LOC: EMS 14:54 | PROVIDERS: ATTEND Surgery | DX: R41.82 Altered mental status, unspecified (principal) | CPT/HCPCS: A0425; A0429; A0999 ==

== ENCOUNTER 2018-03-26 15:13 | Emergency (ER) | payer MEDICAID ==
--- NOTE | 2018-03-26 15:21 | ED Physician Documentation ---
PD HPI FOCAL NEURO - Stated complaint Stated Complaint: AMS - Chief complaint Chief Complaint: Neuro - History obtained from History obtained from: Patient, EMS - History of Present Illness Timing - onset: Other (This is a 32-year-old woman moved to the area about 2-1/2 years ago. Starting about 4 years ago she started to have issues with seizures and psychogenic nonepileptic seizures/pseudoseizures at a facility in [place]. She was maintained on Topamax as well as some other psychiatric medications. Recently she has had increasing pseudoseizure frequency, she thinks related to increased stress at home. She admits to heavy intermittent drinking, she denies drinking today but says she does not remember when her last drink was. She was here last night for seizure activity but abruptly signed out AGAINST MEDICAL ADVICE. She followed up in the office today and was noted to have left-sided facial droop and right-sided deficits and EMS was summoned. 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 HEENT: None Musculoskeletal: None - Past Surgical History Past Surgical History: No /CONSOLE ASSEMBLER: Dilation and currettage - Present Medications Home Medications: Ambulatory Orders Medication Instructions Recorded Confirmed Atomoxetine HCl 2 tab PO DAILY 07/10/17 03/26/18 Lisinopril 10 mg PO DAILY 07/10/17 03/26/18 Methocarbamol [Robaxin] 500 mg PO Q6H PRN #25 tablet 07/10/17 03/26/18 Quetiapine Fumarate [Seroquel] 100 mg PO DAILY PM 08/19/17 03/26/18 Benzphetamine HCl 25 mg PO DAILY 03/13/18 03/26/18 Meloxicam 7.5 mg PO DAILY 03/13/18 03/26/18 Propranolol [Inderal] 10 mg PO BID 03/13/18 03/26/18 Topiramate [Topamax] 25 mg PO BID 03/13/18 03/26/18 EPINEPHrine [Epinephrine] 0.3 mg IJ PRN PRN 03/26/18 03/26/18 Guanfacine HCl [Intuniv] 1 mg PO DAILY 03/26/18 03/26/18 Ondansetron [Ondansetron Odt] 4 mg PO Q6HR PRN 03/26/18 03/26/18 Vortioxetine Hydrobromide 10 mg PO DAILY 03/26/18 03/26/18 [Brintellix] busPIRone [Buspar] 10 mg PO BID 03/26/18 03/26/18 - Allergies Allergies/Adverse Reactions: Allergies Allergy/AdvReac Type Severity Reaction Status Date / Time codeine Allergy Mild Nausea Verified 03/26/18 00:35 - Social History Does the pt smoke?: Yes Smoking Status: Current every day smoker Does the pt drink ETOH?: Yes Does the pt have substance abuse?: No - Family History Family history: reports: Non contributory - Immunizations Immunizations are current?: Yes - POLST Patient has POLST: No PD ED PE NORMAL - Vitals Vital signs reviewed: Yes - General General: Alert and oriented X 3, Other (She is slightly somnolent with slow slurred speech and bilateral nystagmus.) - HEENT HEENT: PERRL, EOMI - Neck Neck: Supple, no meningeal sign, No bony TTP - Cardiac Cardiac: RRR, No murmur - Respiratory Respiratory: No respiratory distress, Clear bilaterally - Abdomen Abdomen: Normal bowel sounds, Soft, Non tender - Back Back: No CVA TTP, No spinal TTP - Derm Derm: Normal color, Warm and dry - Neuro Neuro: Alert and oriented X 3, Normal speech Eye Opening: Spontaneous Motor: Obeys Commands Verbal: Oriented GCS Score: 15 - Psych Psych: Normal mood, Normal affect Results - Vitals Vitals: Vital Signs - 24 hr 03/26/18 03/26/18 15:12 18:00 Temperature 36.1 C L 36.3 C L Heart Rate 96 95 Respiratory 16 19 Rate Blood Pressure 137/99 H 123/78 O2 Saturation 98 98 Oxygen O2 Source Room air - EKG (time done) 1529 Rate: Rate (enter#) (91) Rhythm: NSR [place]: Normal QRS: Low voltage Ischemia: Non specific changes Computer interpretation: Agree with computer - Labs Labs: Laboratory Tests 03/26/18 03/26/18 03/26/18 15:26 15:26 15:26 WBC 8.6 RBC 4.02 L Hgb 12.8 Hct 38.4 MCV 95.4 MCH 31.9 H MCHC 33.4 RDW 13.5 Plt Count 315 MPV 7.6 L Neut # (Auto) 4.6 Lymph # (Auto) 3.2 [place] # (Auto) 0.6 Eos # (Auto) 0.1 Baso # (Auto) 0.1 Absolute Nucleated RBC 0.00 Nucleated RBC % 0.0 Sodium 134 L Potassium 3.8 Chloride 102 Carbon Dioxide 24 Anion Gap 8.0 BUN 12 Creatinine 0.8 Estimated GFR (MDRD) 83 L Glucose 89 Calcium 9.1 Total Bilirubin 0.4 AST 18 ALT 17 Alkaline Phosphatase 45 Total Creatine Kinase 46 Total Protein 6.9 Albumin 4.1 Globulin 2.8 Albumin/Globulin Ratio 1.5 Lipase 30 TSH 3.90 Ur Specific [place] Urine HCG, Qual Salicylates < 6.0 Urine Opiates Screen Ur Oxycodone Screen Urine Methadone Screen Ur Propoxyphene Screen Acetaminophen < 10 L Ur Barbiturates Screen Ur Tricyclics Screen Ur Phencyclidine Scrn Ur Amphetamine Screen U Methamphetamines Scrn U Benzodiazepines Scrn Urine Cocaine Screen U Cannabinoids Screen Ethyl Alcohol < 5.0 03/26/18 03/26/18 16:06 16:06 WBC RBC Hgb Hct MCV MCH MCHC RDW Plt Count MPV Neut # (Auto) Lymph # (Auto) [place] # (Auto) Eos # (Auto) Baso # (Auto) Absolute Nucleated RBC Nucleated RBC % Sodium Potassium Chloride Carbon Dioxide Anion Gap BUN Creatinine Estimated GFR (MDRD) Glucose Calcium Total Bilirubin AST ALT Alkaline Phosphatase Total Creatine Kinase Total Protein Albumin Globulin Albumin/Globulin Ratio Lipase TSH Ur Specific [place] >=1.030 H Urine HCG, Qual NEGATIVE Salicylates Urine Opiates Screen NEGATIVE Ur Oxycodone Screen NEGATIVE Urine Methadone Screen NEGATIVE Ur Propoxyphene Screen NEGATIVE Acetaminophen Ur Barbiturates Screen NEGATIVE Ur Tricyclics Screen POSITIVE H Ur Phencyclidine Scrn NEGATIVE Ur Amphetamine Screen NEGATIVE U Methamphetamines Scrn NEGATIVE U Benzodiazepines Scrn NEGATIVE Urine Cocaine Screen NEGATIVE U Cannabinoids Screen NEGATIVE Ethyl Alcohol - Rads (name of study) CT Head Radiology: EMP read contemporaneously (Normal) PD MEDICAL DECISION MAKING - ED course ED course: This is a 32-year-old woman who carries a diagnosis of pseudoseizures who presents with increasing seizure frequency. She has slow slurred speech here and appears slightly altered but is a decent historian. Workup is basically negative in the emergency department and she after discussion requested transfer for definitive diagnosis and treatment and we called [facility] at 5:25 PM. She received lorazepam in the department for further seizure prophylaxis. She was accepted by Dr. Karri Mortensen at 7 PM and cobras were completed. She needs transfer to a higher level of care for neurologic consultation. She is stable for transport. Departure - Departure Disposition: 02 Transfer Acute Care Hosp Clinical Impression: Status epilepticus Convulsions Qualifiers: Convulsion type: unspecified Qualified Code(s): R56.9 - Unspecified convulsions Condition: Serious
[2018-03-26] MEDS ORDERED: SODIUM CHLORIDE 0.9% 1,000 ML IV ONE (15:23)
[2018-03-26] MEDS ORDERED: LORazepam 2 MG/ML VIAL IVP STA (15:23)
[2018-03-26 15:36] LABS: BASOPHILS # (AUTO) 0.1 10^3/uL (0.0-0.1); BASOPHILS % (AUTO) 1.1 %; EOSINOPHILS # (AUTO) 0.1 10^3/uL (0.0-0.7); HGB - HEMOGLOBIN 12.8 g/dL (12.0-16.0); LYMPHOCYTES # (AUTO) 3.2 10^3/uL (1.5-3.5); LYMPHOCYTES % (AUTO) 37.9 %; MEAN CORPUSCULAR HEMOGLOBIN 31.9 pg (27.0-31.0); MEAN CORPUSCULAR HGB CONC 33.4 g/dL (32.0-36.0); MEAN CORPUSCULAR VOLUME 95.4 fL (81.0-99.0); MEAN PLATELET VOLUME 7.6 fL (7.9-10.8); MONOCYTES # (AUTO) 0.6 10^3/uL (0.0-1.0); MONOCYTES % (AUTO) 6.7 %; NEUTROPHILS # (AUTO) 4.6 10^3/uL (1.5-6.6); NEUTROPHILS % (AUTO) 53.3 %; PLT - PLATELET COUNT 315 10^3/uL (130-450); RED BLOOD COUNT 4.02 10^6/uL (4.20-5.40); RED CELL DISTRIBUTION WIDTH 13.5 % (12.0-15.0); WHITE BLOOD COUNT 8.6 x10^3/uL (4.8-10.8)
[2018-03-26 15:46] LABS: ACETAMINOPHEN < 10 ug/mL (10-30); ALBUMIN 4.1 g/dL (3.2-5.5); ALBUMIN/GLOBULIN RATIO 1.5 (1.0-2.2); ALKALINE PHOSPHATASE 45 IU/L (42-121); ALT ALANINE AMINOTRANSFERASE 17 IU/L (10-60); AST ASPARTATE AMINOTRANSFERASE 18 IU/L (10-42); BILIRUBIN,TOTAL 0.4 mg/dL (0.2-1.0); BUN - BLOOD UREA NITROGEN 12 mg/dL (6-20); CALCIUM 9.1 mg/dL (8.5-10.3); CARBON DIOXIDE - CO2 24 mmol/L (21-32); CHLORIDE 102 mmol/L (101-111); CK- CREATINE KINASE 46 IU/L (22-269); CREATININE 0.8 mg/dL (0.4-1.0); GFR - MDRD 83 (>89); GLUCOSE 89 mg/dL (70-100); LIPASE 30 U/L (22-51); SALICYLATE < 6.0 mg/dL; SODIUM 134 mmol/L (135-145); TOTAL PROTEIN 6.9 g/dL (6.7-8.2)
--- NOTE | 2018-03-26 16:02 | CT Report ---
Reason: szs Procedure Date: 03/26/2018 Accession Number: [id number] / [id number] Procedure: CT - HEAD WO CPT Code: FULL RESULT: EXAM: CT HEAD EXAM DATE: 03/26/2018 03:46 PM. CLINICAL HISTORY: Seizures COMPARISON: HEAD W/O 03/12/2018 10:06 PM. TECHNIQUE: Multiaxial CT images were obtained from the foramen magnum to the vertex. Reformats: Sagittal and coronal. IV contrast: None. In accordance with CT protocol optimization, one or more of the following dose reduction techniques were utilized for this exam: automated exposure control, adjustment of mA and/or KV based on patient size, or use of iterative reconstructive technique. FINDINGS: Parenchyma: No intraparenchymal hemorrhage. No evidence of mass, midline shift, or CT findings of infarction. Mccray-white differentiation is distinct. Extraaxial Spaces: Normal for age. No subdural or epidural collections identified. Ventricles: Normal in size and position. Sinuses and Orbits: Imaged paranasal sinuses, orbits, and mastoids show no significant abnormality. Bones: No evidence of fracture or calvarial defect. Other: None. IMPRESSION: No acute intracranial CT abnormality. RADIA
[2018-03-26 16:15] LABS: MUDS CUTOFF CONCENTRATIONS CUTOFF CONC BELOW:
[2018-03-26 16:24] LABS: HCG UR QUAL NEGATIVE
[2018-03-26 16:31] LABS: AMPHETAMINE SCREEN,URINE NEGATIVE (NEGATIVE); BENZODIAZEPINES SCREEN, URINE NEGATIVE (NEGATIVE); COCAINE SCREEN URINE NEGATIVE (NEGATIVE); METHAMPHETAMINES SCREEN, URINE NEGATIVE (NEGATIVE); OPIATE SCREEN, URINE NEGATIVE (NEGATIVE); TRICYCLIC ANTIDEPRESSANT,URINE POSITIVE (NEGATIVE)
[2018-03-26 16:32] LABS: METHADONE SCREEN, URINE NEGATIVE (NEGATIVE); OXYCODONE SCREEN, URINE NEGATIVE (NEGATIVE); PROPOXYPHENE SCREEN, URINE NEGATIVE (NEGATIVE)
[2018-03-26] MEDS ORDERED: KETOROLAC 30 MG/ML VIAL IVP STA (16:52)
[2018-03-26 18:11] VITALS: BP 123/78
== END 2018-03-26 20:39 | disposition short-term general hospital (02) ==
LOC: EDUNIT# → ED 15:13
DX: G40.901 Epilepsy, unspecified, not intractable, with status epilepticus (principal); R47.81 Slurred speech; C56.9 Malignant neoplasm of unspecified ovary; F17.200 Nicotine dependence, unspecified, uncomplicated; R94.31 Abnormal electrocardiogram [ECG] [EKG]
CPT/HCPCS: 36415; 70450; 80053; 80306; 80307; 80320; 80329; 81025; 82550; 83690; 84443; 84703; 85025; 93005; 96361; 96374; 96375; 99283; 99284; 99285; J2060

== ENCOUNTER 2018-04-06 18:37 | Outpatient (CLI) | payer MEDICAID ==
--- NOTE | 2018-04-06 22:01 | MRI Report ---
Reason: SEIZURE DISORDER Procedure Date: 04/06/2018 Accession Number: [id number] / [id number] Procedure: MRI - Brain W/O CPT Code: FULL RESULT: EXAM: MRI BRAIN WITHOUT CONTRAST EXAM DATE: 04/06/2018 06:50 PM. CLINICAL HISTORY: SEIZURE DISORDER. COMPARISON: Prior head CT 03/26/2018. TECHNIQUE: Multiplanar, multisequence T1-weighted and fluid-sensitive MR sequences of the brain were performed. Sequences optimized for routine brain and temporal lobe evaluation. Other: None. IV Contrast: None. FINDINGS: Brain Volume: Normal for age. Parenchyma/Dura: No mass, acute infarct or hemorrhage. No white matter lesions identified. The hippocampi are symmetric in size and signal characteristics. Ventricles/Cisterns: No hydrocephalus. No abnormal extra-axial fluid collection or hemorrhage. Orbits: Symmetric and unremarkable. Sella [place]: Unremarkable. IAC: Symmetric and unremarkable. Vasculature: Normal signal flow void is seen in the major arterial structures at the skull base. Sinuses: No acute appearing sinus disease. Bones: No focal pathologic appearing marrow signal changes. Other: None. IMPRESSION: 1. Normal brain MRI. RADIA
== END 2018-04-06 18:38 | disposition home or self-care (01) ==
LOC: DI 18:37
PROVIDERS: ATTEND Nurse Practitioner
DX: G40.909 Epilepsy, unspecified, not intractable, without status epilepticus (principal)
CPT/HCPCS: 70551

== ENCOUNTER 2018-07-15 15:11 | Outpatient (CLI) | payer MEDICAID ==
[2018-07-15 18:40] LABS: HCG,QUALITATIVE BLOOD POSITIVE
== END 2018-07-15 15:12 | disposition home or self-care (01) ==
LOC: LAB.F 15:11
PROVIDERS: ATTEND Registered Nurse
DX: Z33.1 Pregnant state, incidental (principal)
CPT/HCPCS: 36415; 84703

== ENCOUNTER 2018-07-23 15:23 | Outpatient (CLI) | payer MEDICAID ==
--- NOTE | 2018-07-26 22:20 | Ultrasound Report ---
Reason: TEST POSITIVE Procedure Date: 07/23/2018 Accession Number: [id number] / [id number] Procedure: US - OB First Trimester CPT Code: FULL RESULT: EXAM: FIRST TRIMESTER OBSTETRIC ULTRASOUND (Less than 11 weeks) EXAM DATE: 07/23/2018 04:14 PM. CLINICAL HISTORY: TEST POSITIVE. LMP: Unknown. COMPARISONS: None. TECHNIQUE: Transabdominal and transvaginal ultrasound examination with static image documentation. ASSESSMENT: Gestational Sac: Single intrauterine. Mean gestational sac diameter: 15 mm = 5 weeks 5 days. Embryo: CRL (crown-rump length) 3.1 mm = 5 weeks 6 days. Cardiac activity: 123 beats per minute. Yolk sac: 2.3 mm. Amniotic fluid: Not accurately assessed at this gestational age. Early placenta: Not visible at this gestational age. Other: No perigestational fluid collection demonstrated. MATERNAL STRUCTURES: Uterus: Retroverted. Unremarkable. Cervix: Closed. Right Ovary/Adnexa: The ovary measures 3.8 x 2.8 x 2.3 cm, volume 13 cc. 2.3 cm corpus luteum.. Left Ovary/Adnexa: The ovary measures 3.0 x 2.2 x 1.9 cm, volume 7 cc. Unremarkable. Free Fluid: None. Other: None. IMPRESSION: 1. Single viable intrauterine at EGA 5 weeks 6 days with ROCÍO 03/19/2019 based on crown-rump length. 2. Assigned dating is ROCÍO 03/19/2019 based on current ultrasound. RADIA
== END 2018-07-23 15:24 | disposition home or self-care (01) ==
LOC: DI 15:23
PROVIDERS: ATTEND Obstetrics & Gynecology
DX: Z32.01 Encounter for pregnancy test, result positive (principal)
CPT/HCPCS: 76801; 76817

== ENCOUNTER 2018-08-06 14:46 | Outpatient (CLI) | payer MEDICAID ==
[2018-08-06 15:09] LABS: BASOPHILS # (AUTO) 0.1 10^3/uL (0.0-0.1); BASOPHILS % (AUTO) 0.5 %; EOSINOPHILS # (AUTO) 0.1 10^3/uL (0.0-0.7); EOSINOPHILS % (AUTO) 0.9 %; HGB - HEMOGLOBIN 12.7 g/dL (12.0-16.0); LYMPHOCYTES # (AUTO) 3.5 10^3/uL (1.5-3.5); LYMPHOCYTES % (AUTO) 30.3 %; MEAN CORPUSCULAR HEMOGLOBIN 31.8 pg (27.0-31.0); MEAN CORPUSCULAR VOLUME 93.3 fL (81.0-99.0); MEAN PLATELET VOLUME 9.6 fL (7.9-10.8); MONOCYTES # (AUTO) 0.8 10^3/uL (0.0-1.0); MONOCYTES % (AUTO) 6.6 %; NEUTROPHILS # (AUTO) 7.1 10^3/uL (1.5-6.6); NEUTROPHILS % (AUTO) 61.2 %; PLT - PLATELET COUNT 339 10^3/uL (130-450); RED CELL DISTRIBUTION WIDTH 12.7 % (12.0-15.0); WHITE BLOOD COUNT 11.6 x10^3/uL (4.8-10.8)
[2018-08-07 08:25] LABS: HEPATITIS B SURFACE ANTIGEN NON-REACTIVE (NON-REACTIVE)
[2018-08-07 15:47] LABS: HIV AG/AB 4TH GEN NON-REACTIVE (NON-REACTIVE)
== END 2018-08-06 14:47 | disposition home or self-care (01) ==
LOC: LAB 14:46
PROVIDERS: ATTEND Obstetrics & Gynecology
DX: Z36.89 Encounter for other specified antenatal screening (principal)
CPT/HCPCS: 36415; 81599; 85025; 86592; 86762; 86850; 86900; 86901; 87340; 87389

== ENCOUNTER 2018-09-08 12:30 | Observation (INO) | payer MEDICAID ==
[2018-09-08] MEDS ORDERED: SODIUM CHLORIDE 0.9% 1,000 ML IV STA (12:51)
[2018-09-08] MEDS ORDERED: ONDANSETRON 4 MG/2 ML VIAL IVP STA (12:51)
[2018-09-08 13:23] LABS: BASOPHILS # (AUTO) 0.1 10^3/uL (0.0-0.1); BASOPHILS % (AUTO) 0.7 %; EOSINOPHILS # (AUTO) 0.1 10^3/uL (0.0-0.7); EOSINOPHILS % (AUTO) 0.6 %; HGB - HEMOGLOBIN 12.7 g/dL (12.0-16.0); LYMPHOCYTES # (AUTO) 2.7 10^3/uL (1.5-3.5); LYMPHOCYTES % (AUTO) 19.4 %; MEAN CORPUSCULAR HEMOGLOBIN 31.3 pg (27.0-31.0); MEAN CORPUSCULAR HGB CONC 33.1 g/dL (32.0-36.0); MEAN CORPUSCULAR VOLUME 94.6 fL (81.0-99.0); MEAN PLATELET VOLUME 9.4 fL (7.9-10.8); MONOCYTES # (AUTO) 0.6 10^3/uL (0.0-1.0); MONOCYTES % (AUTO) 4.5 %; NEUTROPHILS # (AUTO) 10.4 10^3/uL (1.5-6.6); PLT - PLATELET COUNT 381 10^3/uL (130-450); RED BLOOD COUNT 4.06 10^6/uL (4.20-5.40); RED CELL DISTRIBUTION WIDTH 13.4 % (12.0-15.0)
[2018-09-08 13:32] LABS: ALBUMIN 4.1 g/dL (3.2-5.5); ALBUMIN/GLOBULIN RATIO 1.3 (1.0-2.2); BILIRUBIN,TOTAL 0.5 mg/dL (0.2-1.0); CALCIUM 9.5 mg/dL (8.5-10.3); CREATININE 0.8 mg/dL (0.4-1.0); TOTAL PROTEIN 7.2 g/dL (6.7-8.2)
[2018-09-08] MEDS ORDERED: HYDROmorphone 1 MG/ML CARPUJECT IVP STA ×5 (14:07→22:30)
[2018-09-08 14:10] LABS: CLARITY,URINE CLEAR (CLEAR); LEUKOCYTE ESTERASE, URINE NEGATIVE (NEGATIVE); NITRITE,URINE NEGATIVE (NEGATIVE); PROTEIN,URINE NEGATIVE (NEGATIVE); UROBILINOGEN,URINE 0.2 (NORMAL) E.U./dL (NORMAL)
[2018-09-08 14:11] LABS: BILIRUBIN,URINE NEGATIVE (NEGATIVE); GLUCOSE, URINE (UA) NEGATIVE (NEGATIVE); KETONES,URINE (UA) NEGATIVE (NEGATIVE); OCCULT BLOOD,URINE NEGATIVE (NEGATIVE)
--- NOTE | 2018-09-08 14:14 | ED Physician Documentation ---
History of Present Illness - Stated complaint Stated Complaint: FEMALE - Chief complaint Chief Complaint: Abd Pain - History obtained from History obtained from: Patient - History of Present Illness Timing: How many days ago (2) Pain level max: 9 Pain level now: 9 - Additonal information Additional information: 33-year-old female states that she had an elective approximately a week ago in [place]. This was done with what sounds like manual extraction. She has had pain since that time, became suddenly worsening today. Increased bleeding today as well. Has had nausea and vomiting. No fevers. Nothing makes it better or worse. Review of Systems Constitutional: denies: Fever, Chills Throat: denies: Sore throat Cardiac: denies: Chest pain / pressure Respiratory: denies: Cough : denies: Dysuria, Frequency, Hesitancy Skin: denies: Rash Musculoskeletal: denies: Neck pain, Back pain Neurologic: denies: Focal weakness, Numbness, Headache PD PAST MEDICAL HISTORY - Past Medical History Cardiovascular: None Respiratory: None Neuro: None Endocrine/Autoimmune: None MANGLE CATCHER: Ovarian cancer : None HEENT: None Psych: Depression, Anxiety, Bipolar disorder, Panic attacks Musculoskeletal: None Derm: None - Past Surgical History Past Surgical History: No /MANGLE CATCHER: Dilation and currettage - Present Medications Home Medications: Ambulatory Orders Medication Instructions Recorded Confirmed Atomoxetine HCl 2 tab PO DAILY 07/10/17 03/26/18 Lisinopril 10 mg PO DAILY 07/10/17 03/26/18 Methocarbamol [Robaxin] 500 mg PO Q6H PRN #25 tablet 07/10/17 03/26/18 Quetiapine Fumarate [Seroquel] 100 mg PO DAILY PM 08/19/17 03/26/18 Benzphetamine HCl 25 mg PO DAILY 03/13/18 03/26/18 Meloxicam 7.5 mg PO DAILY 03/13/18 03/26/18 Propranolol [Inderal] 10 mg PO BID 03/13/18 03/26/18 Topiramate [Topamax] 25 mg PO BID 03/13/18 03/26/18 EPINEPHrine [Epinephrine] 0.3 mg IJ PRN PRN 03/26/18 03/26/18 Guanfacine HCl [Intuniv] 1 mg PO DAILY 03/26/18 03/26/18 Ondansetron [Ondansetron Odt] 4 mg PO Q6HR PRN 03/26/18 03/26/18 Vortioxetine Hydrobromide 10 mg PO DAILY 03/26/18 03/26/18 [Brintellix] busPIRone [Buspar] 10 mg PO BID 03/26/18 03/26/18 - Allergies Allergies/Adverse Reactions: Allergies Allergy/AdvReac Type Severity Reaction Status Date / Time codeine Allergy Mild Nausea Verified 09/08/18 12:33 - Social History Does the pt smoke?: Yes Smoking Status: Current every day smoker Does the pt drink ETOH?: Yes Does the pt have substance abuse?: No - Immunizations Immunizations are current?: Yes - POLST Patient has POLST: No PD ED PE NORMAL - Vitals Vital signs reviewed: Yes - General General: Alert and oriented X 3, No acute distress, Well developed/nourished - HEENT HEENT: PERRL, Moist mucous membranes - Neck Neck: Supple, no meningeal sign - Cardiac Cardiac: RRR - Respiratory Respiratory: No respiratory distress, Clear bilaterally - Abdomen Abdomen: Soft, Non distended, Other (Diffusely tender to palpation across the lower abdomen. Positive guarding and rebound.) - Female Female : Pt declined - Back Back: No CVA TTP, No spinal TTP - Derm Derm: Warm and dry - Extremities Extremities: No edema - Neuro Neuro: Alert and oriented X 3 - Psych Psych: Normal mood, Normal affect Results - Vitals Vitals: Vital Signs - 24 hr 09/08/18 09/08/18 09/08/18 12:33 14:31 16:54 Temperature 36.8 C 36.5 C Heart Rate 115 H 90 80 Respiratory 18 12 16 Rate Blood Pressure 144/66 H 150/105 H 143/100 H O2 Saturation 98 97 100 09/08/18 09/08/18 09/08/18 18:05 19:23 20:33 Temperature 36.9 C Heart Rate 80 78 87 Respiratory 14 16 18 Rate Blood Pressure 145/98 H 156/105 H 144/103 H O2 Saturation 99 99 99 09/08/18 09/08/18 20:57 21:47 Temperature Heart Rate 77 77 Respiratory 16 16 Rate Blood Pressure 132/112 H 143/106 H O2 Saturation 100 98 Oxygen O2 Source Room air - Labs Labs: Laboratory Tests 0809/08/18 09/08/18 13:15 13:15 13:15 WBC 14.0 H RBC 4.06 L Hgb 12.7 Hct 38.4 MCV 94.6 MCH 31.3 H MCHC 33.1 RDW 13.4 Plt Count 381 MPV 9.4 Neut # (Auto) 10.4 H Lymph # (Auto) 2.7 [place] # (Auto) 0.6 Eos # (Auto) 0.1 Baso # (Auto) 0.1 Absolute Nucleated RBC 0.00 Nucleated RBC % 0.0 Sodium 139 Potassium 4.2 Chloride 105 Carbon Dioxide 23 Anion Gap 11.0 BUN 12 Creatinine 0.8 Estimated GFR (MDRD) 83 L Glucose 98 Calcium 9.5 Total Bilirubin 0.5 AST 25 ALT 27 Alkaline Phosphatase 47 Total Protein 7.2 Albumin 4.1 Globulin 3.1 Albumin/Globulin Ratio 1.3 Lipase 25 HCG, Quant 176.60 Urine Color Urine Clarity Urine pH Ur Specific [place] Urine Protein Urine Glucose (UA) Urine Ketones Urine Occult Blood Urine Nitrite Urine Bilirubin Urine Urobilinogen Ur Leukocyte Esterase Ur Microscopic Review Urine Culture Comments Blood Type Antibody Screen 09/08/18 09/08/18 13:15 13:56 WBC RBC Hgb Hct MCV MCH MCHC RDW Plt Count MPV Neut # (Auto) Lymph # (Auto) [place] # (Auto) Eos # (Auto) Baso # (Auto) Absolute Nucleated RBC Nucleated RBC % Sodium Potassium Chloride Carbon Dioxide Anion Gap BUN Creatinine Estimated GFR (MDRD) Glucose Calcium Total Bilirubin AST ALT Alkaline Phosphatase Total Protein Albumin Globulin Albumin/Globulin Ratio Lipase HCG, Quant Urine Color YELLOW Urine Clarity CLEAR Urine pH 6.0 Ur Specific [place] 1.015 Urine Protein NEGATIVE Urine Glucose (UA) NEGATIVE Urine Ketones NEGATIVE Urine Occult Blood NEGATIVE Urine Nitrite NEGATIVE Urine Bilirubin NEGATIVE Urine Urobilinogen 0.2 (NORMAL) Ur Leukocyte Esterase NEGATIVE Ur Microscopic Review NOT INDICATED Urine Culture Comments NOT INDICATED Blood Type A POSITIVE Antibody Screen NEGATIVE - Rads (name of study) CT abd/pelvis Radiology: Prelim report reviewed, EMP read contemporaneously, See rad report (No acute intra-abdominal or pelvic abnormality identified. There is probably a small amount of fluid within the endometrial cavity of the uterus. No free intraperitoneal fluid or free air. ) pelvic US Radiology: Prelim report reviewed, EMP read contemporaneously, See rad report (The endometrium is thickened and heterogeneous, particularly at the fundus. There is a 0.5 x 0.3 cm cystic structure at the fundus. This is in a similar location to the gestational sac on the prior ultrasound exam, but smaller. These findings are considered abnormal and retained products of conception may be present. 2. Arterial and venous blood flow are present to the ovaries bilaterally. ) PD MEDICAL DECISION MAKING - ED course Complexity details: reviewed results, re-evaluated patient, considered differential, d/w patient, d/w family, d/w datapower consultant ED course: 33-year-old female with abdominal pain after an elective . Concern for possible perforation, therefore CT scan was performed. This did not show any perforation. Concern for retained products of conception which were visualized on ultrasound. Discussed the case with OB, Dr. Lancaster who recommends ampicillin and gentamicin. He will take her to the operating room for further care. This document was made in part using voice recognition software. While efforts are made to proofread this document, sound alike and grammatical errors may occur. Departure - Departure Disposition: ED Transfer to [facility] Clinical Impression: Retained products of conception, Endometritis Condition: Stable
[2018-09-08] MEDS ORDERED: IOVERSOL 320 100 ML VIAL IVP ONE ×2 (14:36→14:53)
--- NOTE | 2018-09-08 15:25 | CT Report ---
Reason: diffsue abd pain, s/p d C Procedure Date: 09/08/2018 Accession Number: [id number] / [id number] Procedure: CT - Abdomen/Pelvis W CPT Code: FULL RESULT: EXAM: CT ABDOMEN AND PELVIS EXAM DATE: 09/08/2018 02:52 PM. CLINICAL HISTORY: Diffuse abdominal pain, s/p d/C. COMPARISONS: Pelvic ultrasound 07/23/2018 3:38 PM. TECHNIQUE: Routine helical CT imaging was performed through the abdomen and pelvis. IV contrast: 90 cc Optiray 320. Enteric contrast: No. Reconstructions: Coronal and sagittal. In accordance with CT protocol optimization, one or more of the following dose reduction techniques were utilized for this exam: automated exposure control, adjustment of mA and/or KV based on patient size, or use of iterative reconstructive technique. FINDINGS: Lung Bases: Unremarkable. Liver: Normal. No masses. Gallbladder/Bile Ducts: Unremarkable. Spleen: Normal size. There is a calcified granuloma near the inferior margin of the spleen (series 3 image 19). Pancreas: Normal. Adrenal Glands: Normal. Kidneys: There is a 10 mm cortical cyst in the interpolar region of the left kidney (series 3 image 27). No masses or hydronephrosis. Peritoneal Cavity/Bowel: Normal. No free fluid, free air or adenopathy. No masses or acute inflammatory process. No dilated loops of small bowel. There is a moderate amount of formed stool in the colon and rectum. The ascending colon is decompressed. The appendix is well visualized and normal. Pelvic Organs: The uterus is retroflexed. There is probably a small amount of fluid in the endometrial cavity. The uterus is otherwise unremarkable. The bilateral ovaries are unremarkable. The bladder is normal. Vasculature: No aneurysms or other significant abnormality. Bones: No significant abnormality. Other: None. IMPRESSION: No acute intra-abdominal or pelvic abnormality identified. There is probably a small amount of fluid within the endometrial cavity of the uterus. No free intraperitoneal fluid or free air. RADIA
[2018-09-08] MEDS ORDERED: SODIUM CHLORIDE 0.9% 1,000 ML IV ONE (15:48)
[2018-09-08] MEDS ORDERED: GENTAMICIN PER PHARMACY IV STA (16:13)
[2018-09-08] MEDS ORDERED: SODIUM CHLORIDE 0.9% IV STA (16:13)
[2018-09-08] MEDS ORDERED: AMPICILLIN/SULBACTAM 3 GM in SODIUM CHLORIDE 0.9% MINIBAG 100 ML IV STA (16:16)
[2018-09-08] MEDS ORDERED: MORPHINE 2 MG/ML CARPUJECT IVP STA (16:42)
[2018-09-08] MEDS ORDERED: GENTAMICIN IV ONE (17:00)
[2018-09-08] MEDS ORDERED: SODIUM CHLORIDE 0.9% IV ONE (17:00)
--- NOTE | 2018-09-08 17:01 | Ultrasound Report ---
Reason: pelvic pain s/p D C, poss retained POC? Procedure Date: 09/08/2018 Accession Number: [id number] / [id number] Procedure: US - Pelvic w/Transvag+Doppler Comp CPT Code: FULL RESULT: EXAM: PELVIC ULTRASOUND WITH DOPPLERS CLINICAL HISTORY: Pelvic pain s/p D C, poss retained POC?. COMPARISON: ABDOMEN/PELVIS W/ 09/08/2018 2:43 PM 07/23/2018 3:38 PM. Pelvic ultrasound exam 07/23/2018. TECHNIQUE: Realtime transabdominal imaging performed to identify the uterus and adnexa and as an overview of other pelvic structures, followed by transvaginal imaging for better assessment of the endometrium and adnexa, with static image documentation. Color flow imaging and Doppler spectral analysis was performed to evaluate blood flow to the ovaries given pelvic pain and clinical concern for ovarian torsion. FINDINGS: Uterus: 8.8 x 5.4 x 6.8 cm, volume 169 cc. Retroverted position. Heterogeneous echogenicity pattern. Masses: None. Endometrium: Measures up to 18 mm at the fundus. Heterogeneous endometrium. There is a cystic structure in the fundus measuring 0.5 x 0.3 cm. No focal hypervascular solid masses are appreciated. Cervix: Unremarkable. Right Ovary: 3.1 x 3.1 x 2.1 cm, volume 10.5 cc. Normal echotexture. Arterial and venous blood flow are present. PSV 8.6 cm/sec. RI 0.6. Adnexa are unremarkable. There is a 1.9 cm corpus luteum. Left Ovary: 2.6 x 1.7 x 3.1 cm, volume 7.1 cc. Normal echotexture. Arterial and venous blood flow are present. PSV 5.3 cm/sec. RI 0.5. Adnexa are unremarkable. Free Fluid: None. Other: None. IMPRESSION: 1. The endometrium is thickened and heterogeneous, particularly at the fundus. There is a 0.5 x 0.3 cm cystic structure at the fundus. This is in a similar location to the gestational sac on the prior ultrasound exam, but smaller. These findings are considered abnormal and retained products of conception may be present. 2. Arterial and venous blood flow are present to the ovaries bilaterally. RADIA
[2018-09-08] MEDS ORDERED: GLYCOPYRROLATE 1 MG/5 ML VIAL IVP ONE (19:04)
[2018-09-08] MEDS ORDERED: fentaNYL 100 MCG/2 ML VIAL IVP ONE (19:04)
[2018-09-08] MEDS ORDERED: PROPOFOL 200 MG/20 ML VIAL IVP ONE (19:04)
[2018-09-08] MEDS ORDERED: MIDAZOLAM 2 MG/2 ML VIAL IVP ONE (19:04)
[2018-09-08] MEDS ORDERED: ONDANSETRON 4 MG/2 ML VIAL IVP ONE (19:04)
[2018-09-08] MEDS ORDERED: METHYLERGONOVINE 0.2 MG/ML AMP IVP ONE (19:04)
[2018-09-08] MEDS ORDERED: LIDOCAINE-MPF 2% 5 ML VIAL IM ONE (19:04)
[2018-09-08] MEDS ORDERED: DEXAMETHASONE 4 MG/ML VIAL IVP ONE (19:04)
--- NOTE | 2018-09-08 19:10 | PREOP HISTORY & PHYSICAL ---
DATE OF SERVICE: 09/08/2018 Physician: Robert Lancaster MD IDENTIFICATION: A 33-year-old G2, P1, AB1 female. HISTORY OF PRESENT ILLNESS: Patient states that she had a suction D and C in an office setting Sunday before last. She states that she experienced a lot of pain during the procedure. She states that subsequent to this, her pain has continued. It has gotten progressively worse with time. She relates her pain is currently a 5/10. She developed chills as well as abdominal pain after her procedure. She was called and told to come to the ED for evaluation. PAST MEDICAL HISTORY: Positive for hypertension, cervical cancer in situ. PAST SURGICAL HISTORY: D and C. She has also had what appears to be a cone biopsy. ALLERGIES: CODEINE. CURRENT MEDICATIONS: Lisinopril. HABITS: Patient smokes 10 cigarettes per day. Drinks alcohol on weekends. Denies use of any drugs. Occasionally vapes THC. 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 FAMILY HISTORY: Positive for a grandmother with an unknown form of cancer. PHYSICAL EXAMINATION GENERAL: Patient is a well-developed, well-nourished white female. She is in minimal distress at this time. VITAL SIGNS: Temperature 36.5, heart rate 80, blood pressure 143/100, respiratory rate 16, saturating 100% on room air. HEENT: Pupils are equal and round. Extraocular muscles intact. Mouth is clear. Thyroid is not palpably enlarged. HEART: Regular rate and rhythm without murmurs. LUNGS: Lung heredia are clear without rales or wheezes. BACK: No spinal or CVA tenderness. ABDOMEN: Good bowel sounds. There is tenderness diffusely over the pelvis. STUDIES: Ultrasound was performed, which showed evidence of an 18 mm tissue inside the uterus. There was also evidence of a small cyst. LABORATORY DATA: Her CBC shows a white count of 14,000. Hemoglobin is 12.7. Hematocrit is 30.4. Platelets are 38.4. Electrolytes are all within normal limits. Her quantitative hCG has fallen to 176. IMPRESSION: A 33-year-old G2, P1, AB1 status post dilatation and curettage with retained products of conception. This appears to be infected at this time. So at this point, we are recommending a sharp and suction with D and C with hysteroscopy. Risks and benefits were explained to patient, including those, but not limited to bleeding, infection, injury to the pelvic organs, which include the uterus, tubes, ovaries, bowel, bladder. She is aware of the potential for DVT with PE, as well as uterine perforation. TD: 09/08/2018 17:57 MTDD
--- NOTE | 2018-09-08 22:52 | ANESTHESIA ---
Pre-Anesthesia VS, & Labs - Diagnosis vaginal bleeding s/p D&C, abd pain - Procedure Myosure D&C Vital Signs: Temp Pulse Resp BP Pulse Ox 36.9 C 71 16 136/108 H 100 09/08/18 19:23 09/08/18 22:33 09/08/18 22:33 09/08/18 22:33 09/08/18 22:33 Height 5 ft 2 in Weight (kg) 76.204 kg Body Mass Index 30.7 - NPO >8 hours - Is Patient ?: No - Lab Results Current Lab Results: Laboratory Tests 09/08/18 13:15: Blood Type A POSITIVE, Antibody Screen NEGATIVE 09/08/18 13:15: HCG, Quant 176.60 09/08/18 13:15: Sodium 139, Potassium 4.2, Chloride 105, Carbon Dioxide 23, Anion Gap 11.0, BUN 12, Creatinine 0.8, Estimated GFR (MDRD) 83 L, Glucose 98, Calcium 9.5, Total Bilirubin 0.5, AST 25, ALT 27, Alkaline Phosphatase 47, Total Protein 7.2, Albumin 4.1, Globulin 3.1, Albumin/Globulin Ratio 1.3, Lipase 25 09/08/18 13:15: WBC 14.0 H, RBC 4.06 L, Hgb 12.7, Hct 38.4, MCV 94.6, MCH 31.3 H , MCHC 33.1, RDW 13.4, Plt Count 381, MPV 9.4, Neut # (Auto) 10.4 H, Lymph # (Auto) 2.7, [place] # (Auto) 0.6, Eos # (Auto) 0.1, Baso # (Auto) 0.1, Absolute Nucleated RBC 0.00, Nucleated RBC % 0.0 Lab results reviewed: Yes Fish Bones: 09/08/18 13:15 09/08/18 13:15 Home Medications and Allergies Atomoxetine HCl 2 tab PO DAILY 07/10/17 Lisinopril 10 mg PO DAILY 07/10/17 Quetiapine Fumarate [Seroquel] 100 mg PO DAILY PM 08/19/17 Benzphetamine HCl 25 mg PO DAILY 03/13/18 Meloxicam 7.5 mg PO DAILY 03/13/18 Propranolol [Inderal] 10 mg PO BID 03/13/18 Topiramate [Topamax] 25 mg PO BID 03/13/18 EPINEPHrine [Epinephrine] 0.3 mg IJ PRN PRN 03/26/18 Guanfacine HCl [Intuniv] 1 mg PO DAILY 03/26/18 Ondansetron [Ondansetron Odt] 4 mg PO Q6HR PRN 03/26/18 Vortioxetine Hydrobromide [Brintellix] 10 mg PO DAILY 03/26/18 busPIRone [Buspar] 10 mg PO BID 03/26/18 Allergies/Adverse Reactions: Allergies Allergy/AdvReac Type Severity Reaction Status Date / Time codeine Allergy Mild Nausea Verified 09/08/18 12:33 Anes History & Medical History - Anesthetic History Anesthesia Complications: reports: No previous complications Family history of Anesthesia Complications: Denies Family history of Malignant Hyperthermia: Denies - Medical History Cardiovascular: reports: None Pulmonary: reports: None Urinary: reports: None Neuro: reports: None Musculoskeletal: reports: None Endocrine/Autoimmune: reports: None Blood Disorders: reports: None Skin: reports: None Smoking Status: Current every day smoker - Surgical History Gynecologic: Dilation and currettage Exam General: Alert, Oriented x3, Cooperative Dental: WNL Mouth Openin Fingerbreadth Neck Mobility: Normal Mallampati classification: II Thyromental Distance: 4-6 cm Respiratory: Lungs clear, Normal breath sounds Cardiovascular: Regular rate Neurological: Normal speech Mental/Cognitive Status: Alert/Oriented X3, Normal for patient Plan Anesthesia Type: General Consent for Procedure(s) Verified and Reviewed: Yes Code Status: Attempt Resuscitation ASA classification: 2-Mild systemic disease Is this case an emergency?: Yes
[2018-09-08] MEDS ORDERED: SODIUM CHLORIDE 0.9% 300 ML IV ONE (23:00)
[2018-09-08] MEDS ORDERED: BUPIVACAINE 0.25%-EPI 1:200000 PF 30 ML VIAL ONE (23:05)
[2018-09-08] MEDS ORDERED: LACTATED RINGERS 1,000 ML IV ONE (23:17)
[2018-09-08] MEDS ORDERED: METHYLERGONOVINE 0.2 MG/ML AMP ONE (23:53)
[2018-09-08] MEDS ORDERED: CARBOPROST TROMETHAMINE 250 MCG/ML AMP IM ONE (23:53)
[2018-09-09] MEDS ORDERED: oxyCODONE 5 MG TABLET PO PRN (00:17)
--- NOTE | 2018-09-09 00:30 | OPERATIVE REPORT ---
Operative Report - General Procedure Date: 09/08/18 Planned Procedure: Hysterscopic resection of retained POC Pre-Op Diagnosis: retained POR with endomyometritis Procedure Performed: Hysterscopic resection of retained POC Post Op Diagnosis: retained POR with endomyometritis - Procedure Note Primary Surgeon: Robert Lancaster MD Anesthesia Provider: Douglas Lyons Anesthesia Technique: General LMA Pathology: POC IV Fluids (mL): 700 Estimated Blood Loss (mL): 100 Urine Output (mL): 80 Complications: 1400 ml of NS deficit from Hysterscopy - Other Other Information/Narrative: Dictation # [id number]
[2018-09-09] MEDS ORDERED: HYDROmorphone 0.5 MG/0.5 ML SYRINGE ONE (00:36)
[2018-09-09] MEDS ORDERED: GENTAMICIN IV SCH (01:00)
[2018-09-09] MEDS ORDERED: GENTAMICIN PER PHARMACY 80 MG in SODIUM CHLORIDE 0.9% 100ML 100 ML IV SCH (01:00)
[2018-09-09] MEDS ORDERED: SODIUM CHLORIDE 0.9% IV SCH (01:00)
[2018-09-09 01:03] LABS: CALCIUM 7.9 mg/dL (8.5-10.3); CREATININE 0.8 mg/dL (0.4-1.0)
[2018-09-09] MEDS: LACTATED RINGERS 1,000 ML IV SCH ×2 (01:35→13:06)
[2018-09-09] MEDS: KETOROLAC 30 MG/ML VIAL IVP SCH ×4 (01:50→19:07)
[2018-09-09] MEDS: ONDANSETRON 4 MG/2 ML VIAL IVP PRN ×3 (01:58→15:00)
[2018-09-09] MEDS: ACETAMINOPHEN 500 MG TABLET PO SCH ×3 (02:10→16:53)
--- NOTE | 2018-09-09 03:28 | OPERATIVE REPORT ---
DATE OF SERVICE: 09/09/2018 Physician: Robert Lancaster MD PREOPERATIVE DIAGNOSES 1. Retained products of conception. 2. Endometritis. POSTOPERATIVE DIAGNOSES 1. Retained products of conception. 2. Endometritis. PROCEDURE PERFORMED: Hysteroscopy with resection of retained products of conception. SURGEON: Robert Lancaster MD ANESTHESIA: General via laryngeal mask airway with Douglas Lyons CRNA. FINDINGS: Uterus sounded to 9 cm. Upon inserting the hysteroscope, there is evidence of retained products of conception attached to the anterior portion of the uterus. Both cornua appear to be free of disease. PROCEDURE: Following adequate anesthesia via LMA, patient was placed in the dorsal lithotomy position in [facility]. At this point, she was prepped and draped in the usual fashion. A timeout was performed. At this point, the concerns about uterine perforations were raised. Speculum was then placed in the vagina, cervix visualized, grasped with a single-tooth tenaculum. Uterus was sounded to roughly 9 cm. At this point, it was dilated up to 6 mm, and then a Juliane resection hysteroscope was placed. At this point, the cornua were visualized both places; however, there was some difficulty with suction at this time. This was rectified, and then the resectoscope was placed and the endometrial tissue/retained products of conception removed expeditiously. The inside of the uterus was noted to be empty. Photographs were taken. At this point, there was noted to have a deficit of 1400 mL of normal saline. The procedure was immediately terminated. There was some bleeding that came from the cervix, and the patient was administered Methergine 0.2 mg IM. The bleeding stopped. A paracervical block was accomplished using 0.25% Marcaine with epinephrine, 10 mL in each uterosacral ligament. The patient tolerated the procedure well and was taken to recovery in stable condition. Sponge and needle counts correct. TD: 09/09/2018 00:28 [facility]
[2018-09-09] MEDS: HYDROmorphone 2 MG/ML VIAL IVP PRN ×9 (04:08→21:16)
[2018-09-09 05:35] LABS: BASOPHILS # (AUTO) 0.1 10^3/uL (0.0-0.1); BASOPHILS % (AUTO) 0.4 %; EOSINOPHILS % (AUTO) 0.1 %; HGB - HEMOGLOBIN 11.2 g/dL (12.0-16.0); LYMPHOCYTES # (AUTO) 1.6 10^3/uL (1.5-3.5); LYMPHOCYTES % (AUTO) 14.5 %; MEAN CORPUSCULAR HEMOGLOBIN 31.3 pg (27.0-31.0); MEAN CORPUSCULAR HGB CONC 32.7 g/dL (32.0-36.0); MEAN CORPUSCULAR VOLUME 95.8 fL (81.0-99.0); MEAN PLATELET VOLUME 9.4 fL (7.9-10.8); MONOCYTES # (AUTO) 0.2 10^3/uL (0.0-1.0); MONOCYTES % (AUTO) 1.7 %; NEUTROPHILS # (AUTO) 9.2 10^3/uL (1.5-6.6); NEUTROPHILS % (AUTO) 82.9 %; PLT - PLATELET COUNT 319 10^3/uL (130-450); RED BLOOD COUNT 3.58 10^6/uL (4.20-5.40); RED CELL DISTRIBUTION WIDTH 13.4 % (12.0-15.0); WHITE BLOOD COUNT 11.1 x10^3/uL (4.8-10.8)
[2018-09-09] MEDS ORDERED: AMPICILLIN 2 GM in SODIUM CHLORIDE 0.9% MINIBAG 100 ML IV SCH (06:00)
[2018-09-09] MEDS: NICOTINE 14 MG PATCH TOP SCH (08:01)
[2018-09-09] MEDS ORDERED: DOCUSATE SODIUM 100 MG CAPSULE PO SCH (09:00)
--- NOTE | 2018-09-09 09:18 | PROVIDER PROGRESS NOTE ---
Subjective - General Admit Date: 09/09/18 Procedure Date: 09/08/18 Post Op Days: 1 Procedure Performed: Hysterscopy with D&C - Review of Systems Cardiovascular: positive: No symptoms Gastrointestinal: positive: No symptoms, Flatus Genitourinary: positive: Pain (7/10 Pt is having difficulty with sadie control.) Objective - Patient Data Reviewed Vital Signs: Yes Vital Signs: Vital Signs x48h Temp Pulse Pulse Resp BP Pulse Ox 09/09/18 08:00 37.0 C 83 18 123/90 H 96 09/09/18 04:45 36.8 C 61 18 119/64 97 09/09/18 03:47 36.3 C L 74 16 144/106 H 97 09/09/18 02:47 36.2 C L 58 L 18 144/93 H 98 09/09/18 02:22 36.2 C L 62 18 148/95 H 98 09/09/18 01:26 36.0 C L 88 18 98 Weight: Weight 09/07/18 09/08/18 09/09/18 23:59 23:59 23:59 Weight (kg) 76.204 kg Intake & Output: Intake and Output Totals x24h 09/07/18 09/08/18 09/09/18 23:59 23:59 23:59 Intake Total 2170.5 1513.667 Output Total 950 Balance 2170.5 563.667 - Lab Results Lab Results: 09/09/18 05:25 09/09/18 00:51 Other Lab Results: Lab Results x24hrs 09/09/18 09/09/18 09/08/18 Range/Units 05:25 00:51 13:56 WBC 11.1 H (4.8-10.8) x10^3/uL RBC 3.58 L (4.20-5.40) 10^6/uL Hgb 11.2 L (12.0-16.0) g/dL Hct 34.3 L (37.0-47.0) % MCV 95.8 (81.0-99.0) fL MCH 31.3 H (27.0-31.0) pg MCHC 32.7 (32.0-36.0) g/dL RDW 13.4 (12.0-15.0) % Plt Count 319 (130-450) 10^3/uL MPV 9.4 (7.9-10.8) fL Neut # (Auto) 9.2 H (1.5-6.6) 10^3/uL Lymph # (Auto) 1.6 (1.5-3.5) 10^3/uL Carver # (Auto) 0.2 (0.0-1.0) 10^3/uL Eos # (Auto) 0.0 (0.0-0.7) 10^3/uL Baso # (Auto) 0.1 (0.0-0.1) 10^3/uL Absolute Nucleated RBC 0.00 x10^3/uL Nucleated RBC % 0.0 /100WBC Sodium 142 (135-145) mmol/L Potassium 3.7 (3.5-5.0) mmol/L Chloride 109 (101-111) mmol/L Carbon Dioxide 21 (21-32) mmol/L Anion Gap 12.0 (6-13) BUN 7 (6-20) mg/dL Creatinine 0.8 (0.4-1.0) mg/dL Estimated GFR (MDRD) 83 L (>89) Glucose 100 (70-100) mg/dL Calcium 7.9 L (8.5-10.3) mg/dL Total Bilirubin (0.2-1.0) mg/dL AST (10-42) IU/L ALT (10-60) IU/L Alkaline Phosphatase (42-121) IU/L Total Protein (6.7-8.2) g/dL Albumin (3.2-5.5) g/dL Globulin (2.1-4.2) g/dL Albumin/Globulin Ratio (1.0-2.2) Lipase (22-51) U/L HCG, Quant mIU/mL Urine Color YELLOW Urine Clarity CLEAR (CLEAR) Urine pH 6.0 (5.0-7.5) PH Ur Specific Monroe 1.015 (1.002-1.030) Urine Protein NEGATIVE (NEGATIVE) mg/dL Urine Glucose (UA) NEGATIVE (NEGATIVE) mg/dL Urine Ketones NEGATIVE (NEGATIVE) mg/dL Urine Occult Blood NEGATIVE (NEGATIVE) Urine Nitrite NEGATIVE (NEGATIVE) Urine Bilirubin NEGATIVE (NEGATIVE) Urine Urobilinogen 0.2 (NORMAL) (NORMAL) E.U./dL Ur Leukocyte Esterase NEGATIVE (NEGATIVE) Ur Microscopic Review NOT INDICATED Urine Culture Comments NOT INDICATED Blood Type Antibody Screen 09/08/18 09/08/18 09/08/18 Range/Units 13:15 13:15 13:15 WBC (4.8-10.8) x10^3/uL RBC (4.20-5.40) 10^6/uL Hgb (12.0-16.0) g/dL Hct (37.0-47.0) % MCV (81.0-99.0) fL MCH (27.0-31.0) pg MCHC (32.0-36.0) g/dL RDW (12.0-15.0) % Plt Count (130-450) 10^3/uL MPV (7.9-10.8) fL Neut # (Auto) (1.5-6.6) 10^3/uL Lymph # (Auto) (1.5-3.5) 10^3/uL Carver # (Auto) (0.0-1.0) 10^3/uL Eos # (Auto) (0.0-0.7) 10^3/uL Baso # (Auto) (0.0-0.1) 10^3/uL Absolute Nucleated RBC x10^3/uL Nucleated RBC % /100WBC Sodium 139 (135-145) mmol/L Potassium 4.2 (3.5-5.0) mmol/L Chloride 105 (101-111) mmol/L Carbon Dioxide 23 (21-32) mmol/L Anion Gap 11.0 (6-13) BUN 12 (6-20) mg/dL Creatinine 0.8 (0.4-1.0) mg/dL Estimated GFR (MDRD) 83 L (>89) Glucose 98 (70-100) mg/dL Calcium 9.5 (8.5-10.3) mg/dL Total Bilirubin 0.5 (0.2-1.0) mg/dL AST 25 (10-42) IU/L ALT 27 (10-60) IU/L Alkaline Phosphatase 47 (42-121) IU/L Total Protein 7.2 (6.7-8.2) g/dL Albumin 4.1 (3.2-5.5) g/dL Globulin 3.1 (2.1-4.2) g/dL Albumin/Globulin Ratio 1.3 (1.0-2.2) Lipase 25 (22-51) U/L HCG, Quant 176.60 mIU/mL Urine Color Urine Clarity (CLEAR) Urine pH (5.0-7.5) PH Ur Specific Monroe (1.002-1.030) Urine Protein (NEGATIVE) mg/dL Urine Glucose (UA) (NEGATIVE) mg/dL Urine Ketones (NEGATIVE) mg/dL Urine Occult Blood (NEGATIVE) Urine Nitrite (NEGATIVE) Urine Bilirubin (NEGATIVE) Urine Urobilinogen (NORMAL) E.U./dL Ur Leukocyte Esterase (NEGATIVE) Ur Microscopic Review Urine Culture Comments Blood Type A POSITIVE Antibody Screen NEGATIVE 09/08/18 Range/Units 13:15 WBC 14.0 H (4.8-10.8) x10^3/uL RBC 4.06 L (4.20-5.40) 10^6/uL Hgb 12.7 (12.0-16.0) g/dL Hct 38.4 (37.0-47.0) % MCV 94.6 (81.0-99.0) fL MCH 31.3 H (27.0-31.0) pg MCHC 33.1 (32.0-36.0) g/dL RDW 13.4 (12.0-15.0) % Plt Count 381 (130-450) 10^3/uL MPV 9.4 (7.9-10.8) fL Neut # (Auto) 10.4 H (1.5-6.6) 10^3/uL Lymph # (Auto) 2.7 (1.5-3.5) 10^3/uL Carver # (Auto) 0.6 (0.0-1.0) 10^3/uL Eos # (Auto) 0.1 (0.0-0.7) 10^3/uL Baso # (Auto) 0.1 (0.0-0.1) 10^3/uL Absolute Nucleated RBC 0.00 x10^3/uL Nucleated RBC % 0.0 /100WBC Sodium (135-145) mmol/L Potassium (3.5-5.0) mmol/L Chloride (101-111) mmol/L Carbon Dioxide (21-32) mmol/L Anion Gap (6-13) BUN (6-20) mg/dL Creatinine (0.4-1.0) mg/dL Estimated GFR (MDRD) (>89) Glucose (70-100) mg/dL Calcium (8.5-10.3) mg/dL Total Bilirubin (0.2-1.0) mg/dL AST (10-42) IU/L ALT (10-60) IU/L Alkaline Phosphatase (42-121) IU/L Total Protein (6.7-8.2) g/dL Albumin (3.2-5.5) g/dL Globulin (2.1-4.2) g/dL Albumin/Globulin Ratio (1.0-2.2) Lipase (22-51) U/L HCG, Quant mIU/mL Urine Color Urine Clarity (CLEAR) Urine pH (5.0-7.5) PH Ur Specific Monroe (1.002-1.030) Urine Protein (NEGATIVE) mg/dL Urine Glucose (UA) (NEGATIVE) mg/dL Urine Ketones (NEGATIVE) mg/dL Urine Occult Blood (NEGATIVE) Urine Nitrite (NEGATIVE) Urine Bilirubin (NEGATIVE) Urine Urobilinogen (NORMAL) E.U./dL Ur Leukocyte Esterase (NEGATIVE) Ur Microscopic Review Urine Culture Comments Blood Type Antibody Screen - Current Medications Current Medications: Current Medications Generic Name Dose Route Start Last Admin Trade Name Freq PRN Reason Stop Dose Admin Acetaminophen 1,000 mg 09/09/18 01:00 09/09/18 08:08 Tylenol PO 1,000 mg Q8H BRANDY Administration Hydromorphone HCl 2 mg 09/09/18 03:52 09/09/18 08:01 Dilaudid (Vial) IVP 2 mg Q2H PRN Administration PAIN Ampicillin Sodium 2 gm/ Sodium 100 mls @ 100 mls/hr 09/09/18 06:00 09/09/18 07:15 Chloride IV Infused Q6HR BRANDY Infusion Lactated Ringer's 1,000 mls @ 100 mls/hr 09/09/18 01:00 09/09/18 07:53 Lr IV 100 mls/hr .Q10H BRANDY Infusion Gentamicin Sulfate 80 mg/ 102 mls @ 200 mls/hr 09/09/18 01:00 09/09/18 03:07 Sodium Chloride IV Infused Q8H BRANDY Infusion Ketorolac Tromethamine 30 mg 09/09/18 01:00 09/09/18 06:32 Toradol Inj (30mg) IVP 09/14/18 00:59 30 mg Q6H BRANDY Administration Nicotine 1 patch 09/09/18 09:00 09/09/18 08:01 Nicoderm TOP 1 patch DAILY BRANDY Administration Ondansetron HCl 4 mg 09/09/18 01:43 09/09/18 08:01 Zofran Inj IVP 4 mg Q6HR PRN Administration Nausea / Vomiting - Physical Exam General Appearance: positive: Mild distress (working with pain control) Respiratory: positive: Chest non-tender, No respiratory distress, Breath sounds nml Cardiovascular: positive: Regular rate & rhythm, No murmur, No gallop Abdomen: positive: Nml bowel sounds, No distention, Tenderness (generalized tenderness without rebound) Back: negative: CVA tenderness (R), CVA tenderness (L) Skin: positive: Color nml, No rash, Warm, Dry Neurologic/Psychiatric: positive: Oriented x3 Impression/Plan - Problem List Problem List: S/P hysterscopy with resection of retained POC. retension od 1400 ml NS. white count decreasing. bowel function returning. continue with pain control. antibiotics per pharmacy.
[2018-09-09] MEDS: oxyCODONE 5 MG TABLET PO PRN ×4 (09:55→22:54)
[2018-09-09] MEDS: DOCUSATE SODIUM 100 MG CAPSULE PO SCH ×2 (11:58→21:15)
[2018-09-09] MEDS: AMPICILLIN/SULBACTAM 3 GM in SODIUM CHLORIDE 0.9% MINIBAG 100 ML IV SCH ×2 (11:58→19:23)
[2018-09-09] MEDS: PROCHLORPERAZINE 10 MG/2 ML VIAL IVP PRN ×3 (13:22→21:15)
[2018-09-09] MEDS ORDERED: SODIUM CHLORIDE FLUSH 0.9% 10 ML SYRINGE ONE ×2 (16:57→17:13)
[2018-09-09] MEDS ORDERED: PROPANOLOL PO SCH (21:00)
[2018-09-09] MEDS ORDERED: QUEtiapine 100 MG TABLET PO SCH (21:00)
[2018-09-09] MEDS ORDERED: busPIRone 5 MG TABLET PO SCH (21:00)
[2018-09-09] MEDS: TOPIRAMATE 25 MG TABLET PO SCH (21:15)
[2018-09-09] MEDS: QUEtiapine 100 MG TABLET PO SCH (21:15)
[2018-09-09] MEDS: GENTAMICIN IV SCH (21:16)
[2018-09-09] MEDS: SODIUM CHLORIDE 0.9% IV SCH (21:16)
[2018-09-09] MEDS ORDERED: SODIUM CHLORIDE 0.9% 100ML 100 ML IV ONE (21:19)
[2018-09-10] MEDS: LACTATED RINGERS 1,000 ML IV SCH ×3 (00:37→21:24)
[2018-09-10] MEDS: AMPICILLIN/SULBACTAM 3 GM in SODIUM CHLORIDE 0.9% MINIBAG 100 ML IV SCH ×4 (00:37→17:32)
[2018-09-10] MEDS: HYDROmorphone 2 MG/ML VIAL IVP PRN ×5 (00:37→09:50)
[2018-09-10] MEDS: PROCHLORPERAZINE 10 MG/2 ML VIAL IVP PRN ×2 (01:18→05:15)
[2018-09-10] MEDS: KETOROLAC 30 MG/ML VIAL IVP SCH ×2 (01:19→06:54)
[2018-09-10] MEDS: ACETAMINOPHEN 500 MG TABLET PO SCH ×3 (01:19→17:32)
[2018-09-10] MEDS ORDERED: SODIUM CHLORIDE FLUSH 0.9% 10 ML SYRINGE ONE ×7 (01:32→22:32)
[2018-09-10 05:53] LABS: BASOPHILS # (AUTO) 0.1 10^3/uL (0.0-0.1); BASOPHILS % (AUTO) 0.6 %; EOSINOPHILS # (AUTO) 0.1 10^3/uL (0.0-0.7); EOSINOPHILS % (AUTO) 1.1 %; HGB - HEMOGLOBIN 9.2 g/dL (12.0-16.0); LYMPHOCYTES % (AUTO) 47.7 %; MEAN CORPUSCULAR HEMOGLOBIN 32.3 pg (27.0-31.0); MEAN CORPUSCULAR HGB CONC 32.7 g/dL (32.0-36.0); MEAN CORPUSCULAR VOLUME 98.6 fL (81.0-99.0); MEAN PLATELET VOLUME 9.8 fL (7.9-10.8); MONOCYTES # (AUTO) 0.5 10^3/uL (0.0-1.0); MONOCYTES % (AUTO) 6.3 %; NEUTROPHILS # (AUTO) 3.7 10^3/uL (1.5-6.6); NEUTROPHILS % (AUTO) 43.9 %; PLT - PLATELET COUNT 275 10^3/uL (130-450); RED BLOOD COUNT 2.85 10^6/uL (4.20-5.40); RED CELL DISTRIBUTION WIDTH 13.5 % (12.0-15.0); WHITE BLOOD COUNT 8.4 x10^3/uL (4.8-10.8)
[2018-09-10 06:02] LABS: ALBUMIN 3.2 g/dL (3.2-5.5); ALBUMIN/GLOBULIN RATIO 1.4 (1.0-2.2); BILIRUBIN,TOTAL 0.5 mg/dL (0.2-1.0); CALCIUM 8.1 mg/dL (8.5-10.3); CREATININE 0.7 mg/dL (0.4-1.0); TOTAL PROTEIN 5.5 g/dL (6.7-8.2)
[2018-09-10] MEDS: ONDANSETRON 4 MG/2 ML VIAL IVP PRN (07:03)
[2018-09-10] MEDS: oxyCODONE 5 MG TABLET PO PRN ×4 (07:42→19:53)
[2018-09-10] MEDS ORDERED: BRINTELLIX 10 MG PO SCH (09:00)
[2018-09-10] MEDS ORDERED: LISINOPRIL 5 MG TABLET PO SCH (09:00)
[2018-09-10] MEDS ORDERED: [UNRECOGNIZED DRUG - OTHER] PO SCH (09:00)
[2018-09-10] MEDS: QUEtiapine 100 MG TABLET PO SCH ×2 (09:22→21:24)
[2018-09-10] MEDS: DOCUSATE SODIUM 100 MG CAPSULE PO SCH ×2 (09:22→21:25)
[2018-09-10] MEDS: POLYETHYLENE GLYCOL 3350 17 GM PACKET PO SCH (09:22)
[2018-09-10] MEDS: TOPIRAMATE 25 MG TABLET PO SCH ×2 (09:22→21:26)
[2018-09-10] MEDS: lamoTRIgine 25 MG TABLET PO SCH (09:22)
[2018-09-10] MEDS: NICOTINE 14 MG PATCH TOP SCH (09:23)
[2018-09-10] MEDS: NIFEdipine ER 30 MG TABLET PO SCH (09:50)
[2018-09-10 11:18] LABS: BASOPHILS # (AUTO) 0.1 10^3/uL (0.0-0.1); BASOPHILS % (AUTO) 0.6 %; EOSINOPHILS # (AUTO) 0.1 10^3/uL (0.0-0.7); EOSINOPHILS % (AUTO) 0.8 %; HGB - HEMOGLOBIN 9.2 g/dL (12.0-16.0); LYMPHOCYTES # (AUTO) 3.8 10^3/uL (1.5-3.5); MEAN CORPUSCULAR HEMOGLOBIN 31.7 pg (27.0-31.0); MEAN CORPUSCULAR HGB CONC 32.6 g/dL (32.0-36.0); MEAN CORPUSCULAR VOLUME 97.2 fL (81.0-99.0); MEAN PLATELET VOLUME 9.2 fL (7.9-10.8); MONOCYTES # (AUTO) 0.5 10^3/uL (0.0-1.0); MONOCYTES % (AUTO) 5.2 %; NEUTROPHILS # (AUTO) 4.2 10^3/uL (1.5-6.6); NEUTROPHILS % (AUTO) 49.1 %; PLT - PLATELET COUNT 266 10^3/uL (130-450); RED CELL DISTRIBUTION WIDTH 13.4 % (12.0-15.0); WHITE BLOOD COUNT 8.6 x10^3/uL (4.8-10.8)
[2018-09-10] MEDS: IBUPROFEN 800 MG TABLET PO PRN ×2 (11:19→21:25)
[2018-09-10] MEDS: GUANFACINE 2 MG PO SCH (11:20)
[2018-09-10 11:31] LABS: ALBUMIN 3.3 g/dL (3.2-5.5); ALBUMIN/GLOBULIN RATIO 1.4 (1.0-2.2); BILIRUBIN,TOTAL 0.3 mg/dL (0.2-1.0); CALCIUM 8.4 mg/dL (8.5-10.3); CREATININE 0.8 mg/dL (0.4-1.0); TOTAL PROTEIN 5.6 g/dL (6.7-8.2)
[2018-09-10 13:30] LABS: GENTAMICIN,RANDOM 1.1 ug/mL
[2018-09-10] MEDS: ARIPIPRAZOLE PO SCH (16:48)
[2018-09-10] MEDS: SODIUM CHLORIDE 0.9% IV SCH (22:45)
[2018-09-10] MEDS: GENTAMICIN IV SCH (22:45)
[2018-09-11] MEDS: ACETAMINOPHEN 500 MG TABLET PO SCH ×4 (00:31→16:59)
[2018-09-11] MEDS: oxyCODONE 5 MG TABLET PO PRN ×5 (00:32→16:59)
[2018-09-11] MEDS: AMPICILLIN/SULBACTAM 3 GM in SODIUM CHLORIDE 0.9% MINIBAG 100 ML IV SCH ×4 (00:35→17:30)
[2018-09-11] MEDS: IBUPROFEN 800 MG TABLET PO PRN ×2 (00:35→11:40)
[2018-09-11] MEDS: TOPIRAMATE 25 MG TABLET PO SCH (09:03)
[2018-09-11] MEDS: NIFEdipine ER 30 MG TABLET PO SCH (09:03)
[2018-09-11] MEDS: DOCUSATE SODIUM 100 MG CAPSULE PO SCH (09:03)
[2018-09-11] MEDS: NICOTINE 14 MG PATCH TOP SCH (09:03)
[2018-09-11] MEDS: ARIPIPRAZOLE PO SCH (09:04)
[2018-09-11] MEDS: GUANFACINE 2 MG PO SCH (09:04)
[2018-09-11] MEDS: POLYETHYLENE GLYCOL 3350 17 GM PACKET PO SCH (09:04)
[2018-09-11] MEDS: QUEtiapine 100 MG TABLET PO SCH (09:15)
[2018-09-11] MEDS: lamoTRIgine 25 MG TABLET PO SCH (09:16)
[2018-09-11] MEDS ORDERED: SODIUM CHLORIDE FLUSH 0.9% 10 ML SYRINGE ONE ×3 (10:33→12:43)
[2018-09-11] MEDS: LACTATED RINGERS 1,000 ML IV SCH ×2 (11:19→13:19)
[2018-09-11 15:57] VITALS: BP 130/84
--- NOTE | 2018-09-11 18:44 | POST OP PROGRESS NOTE ---
Subjective - General Admit Date: 09/09/18 Procedure Date: 09/08/18 Post Op Days: 3 Procedure Performed: Hysterscopy with D&C - Review of Systems General: positive: No symptoms (C/O pelvic pain improving.). negative: Fever Cardiovascular: positive: No symptoms Gastrointestinal: positive: No symptoms, Flatus Genitourinary: positive: Pain (7/10 Pt is having difficulty with sadie control.)
--- NOTE | 2018-09-11 18:48 | PROVIDER PROGRESS NOTE ---
Subjective - General Admit Date: 09/09/18 Procedure Date: 09/08/18 Post Op Days: 3 Procedure Performed: Hysterscopy with D&C - Review of Systems General: positive: No symptoms (C/O pelvic pain improving.). negative: Fever Cardiovascular: positive: No symptoms Gastrointestinal: positive: No symptoms, Flatus Genitourinary: positive: Pain (7/10 Pt is having difficulty with sadie control.) Objective - Patient Data Reviewed Vital Signs: Yes Vital Signs: Vital Signs x48h Temp Pulse Resp BP Pulse Ox 09/11/18 15:00 37.2 C 66 16 130/84 H 98 09/11/18 11:42 36.6 C Intake & Output: Intake and Output Totals x24h 09/09/18 09/10/18 09/11/18 23:59 23:59 23:59 Intake Total 4152.501 5395.000 2640.500 Output Total 2750 5350 205 Balance 1402.501 45.000 2435.500 - Lab Results Lab Results: 09/10/18 11:10 09/10/18 11:10 - Current Medications Current Medications: Current Medications Generic Name Dose Route Start Last Admin Trade Name Freq PRN Reason Stop Dose Admin Acetaminophen 1,000 mg 09/09/18 01:00 09/11/18 16:59 Tylenol PO 1,000 mg Q8H BRANDY Administration Docusate Sodium 100 mg 09/09/18 10:45 09/11/18 09:03 Colace 100mg Capsule PO 100 mg BID BRANDY Administration Lactated Ringer's 1,000 mls @ 100 mls/hr 09/09/18 01:00 09/11/18 13:19 Lr IV Not Given .Q10H BRANDY Ampicillin Sodium/Sulbactam 100 mls @ 200 mls/hr 09/09/18 12:00 09/11/18 17:30 Sodium 3 gm/ Sodium Chloride IV Not Given Q6HR BRANDY Gentamicin Sulfate 420 mg/ 110.5 mls @ 110.5 mls/hr 09/09/18 22:00 09/11/18 00:21 Sodium Chloride IV Infused Q24H BRANDY Infusion Ibuprofen 800 mg 09/10/18 09:20 09/11/18 11:40 Motrin PO 800 mg BID PRN Administration PAIN Lamotrigine 50 mg 09/10/18 09:00 09/11/18 09:16 Lamictal PO 50 mg DAILY BRANDY Administration Nicotine 1 patch 09/09/18 09:00 09/11/18 09:03 Nicoderm TOP 1 patch DAILY BRANDY Administration Nifedipine 30 mg 09/10/18 09:00 09/11/18 09:03 Procardia Xl PO 30 mg DAILY BRANDY Administration Ondansetron HCl 4 mg 09/09/18 01:43 09/10/18 07:03 Zofran Inj IVP 4 mg Q6HR PRN Administration Nausea / Vomiting Oxycodone HCl 10 mg 09/09/18 09:13 09/11/18 16:59 Roxicodone PO 10 mg Q4HR PRN Administration PAIN Aripiprazole 4 Mg 1 each 09/10/18 18:00 09/11/18 09:04 Tablet PO Not Given DAILY BRANDY Guanfacin Er 2 Mg 1 each 09/10/18 09:00 09/11/18 09:04 PO Not Given DAILY BRANDY Polyethylene Glycol 17 gm 09/10/18 09:00 09/11/18 09:04 Miralax PO 17 gm DAILY BRANDY Administration Prochlorperazine Edisylate 10 mg 09/09/18 13:07 09/10/18 05:15 Compazine Inj IVP 10 mg Q4HR PRN Administration Nausea / Vomiting Quetiapine Fumarate 100 mg 09/09/18 21:00 09/11/18 09:15 Seroquel PO 100 mg BID BRANDY Administration Ranitidine HCl 150 mg 09/09/18 10:00 09/11/18 09:03 Zantac PO 150 mg DAILY BRANDY Administration Topiramate 25 mg 09/09/18 21:00 09/11/18 09:03 Topamax PO 25 mg BID BRANDY Administration - Physical Exam General Appearance: positive: No acute distress, Alert Eyes Bilateral: positive: Normal inspection Respiratory: positive: Chest non-tender, No respiratory distress, Breath sounds nml Cardiovascular: positive: Regular rate & rhythm, No murmur, No gallop Abdomen: positive: Nml bowel sounds, Tenderness (Supra pubic mild). negative: No distention, Rebound Back: negative: CVA tenderness (R), CVA tenderness (L) Neurologic/Psychiatric: positive: Oriented x3 Impression/Plan - Problem List Problem List: POD # 3 Afebrile 48 hours Improving Send home with instructions to rTC clinic next week. Discharge meds Augmentin 875/125 Oxycodone 10 mg #20 Colace 100 mg
[2018-09-11] MEDS ORDERED: AMOX/CLAV 875 MG/125 MG TABLET PO SCH ×2 (19:00→21:00)
--- NOTE | 2018-09-18 12:51 | DISCHARGE SUMMARY ---
Physician: Robert Lancaster MD DATE OF ADMISSION: 09/09/2018 DATE OF DISCHARGE: 09/11/2018 ADMITTING DIAGNOSES 1. Status post dilatation and curettage for therapeutic . 2. Post-abortal endometritis. DISCHARGE DIAGNOSES 1. Status post dilatation and curettage for therapeutic . 2. Post-abortal endometritis. PROCEDURE PERFORMED: Hysteroscopic resection of retained products of conception. HISTORY OF PRESENT ILLNESS: Patient is a 33-year-old is 2, para 1, AB 1 female who had a suction D and C done in [place] the Sunday before last. She had difficulty with a lot of pain during the procedure. She also states that the pain continued. This has gotten progressively worse with time. She has had chills, but has been unable to document any fevers. She presented to the ED for evaluation. At the time of evaluation, she had a very tender uterus and she had an ultrasound, which showed evidence of 1.8 mm tissue inside the uterus. For this reason, she was taken to the operating room for hysteroscopy with resection of retained POC. LABORATORIES: CBC on admission showed a white count of 14.0 with a left shift, hemoglobin was 12.7. Postoperatively, her white count fell to 8.6 and her hemoglobin also fell to 9.2. She had no further bleeding. Platelet count remained stable with a michael on discharge of 266. Electrolytes were all within normal limits. Her quantitative hCG on admission was 176.6. ULTRASOUND: Report showed evidence of a 1.8 cm retained products of conception. PATHOLOGY: Report showed evidence of fragments of endometrium, decidualized myometrium, but no chorionic villi identified. HOSPITAL COURSE: Patient was taken to the operating room, at which time a hysteroscopic resection of the endometrial tissue was performed. Her postoperative course was remarkable in that she had difficulty with pain control. Because of the issues of infection, she was placed on Unasyn as well as gentamicin. Her tenderness on the uterus did decrease at the time. However, she still had some difficulty pain with discharge. DISCHARGE MEDICATIONS 1. Augmentin 2. Motrin. 3. Oxycodone. 4. Colace. She is instructed to follow up in the clinic in roughly 1 week. TD: 09/18/2018 12:30 [facility]
== END 2018-09-11 19:05 | disposition home or self-care (01) ==
LOC: ED 12:30 → SDS 17:57 → MS2 09-09 00:17 → OBS 09-10 23:41
PROVIDERS: ADMIT Obstetrics & Gynecology; ATTEND Obstetrics & Gynecology
PROC: 10D18ZZ Extraction of Products of Conception, Retained, Via Natural or Artificial Opening Endoscopic (ICD-10-PCS; principal; 2018-09-08 23:00)
DX: O07.0 Genital tract and pelvic infection following failed attempted termination of pregnancy (principal); F31.9 Bipolar disorder, unspecified; F41.0 Panic disorder [episodic paroxysmal anxiety]; I10 Essential (primary) hypertension; F17.210 Nicotine dependence, cigarettes, uncomplicated; Z85.43 Personal history of malignant neoplasm of ovary; Z79.899 Other long term (current) drug therapy
CPT/HCPCS: 36415; 59812; 74177; 76830; 76856; 80048; 80053; 80170; 81003; 83690; 84702; 85025; 86850; 86900; 86901; 93975; 96361; 96365; 96366; 96367; 96375; 96376; 99284; 99285; A9270; G0378; J1170; J1580; J7120; Q9967; 81001; 87086

== ENCOUNTER 2018-11-08 08:00 | Outpatient (CLI) | payer MEDICAID | END 2018-11-08 23:59 | disposition home or self-care (01) | LOC: LAB.R 08:00 | PROVIDERS: ATTEND Obstetrics & Gynecology | DX: Z32.01 Encounter for pregnancy test, result positive (principal); O23.41 Unspecified infection of urinary tract in pregnancy, first trimester | CPT/HCPCS: 87086 ==

== ENCOUNTER 2018-11-16 08:43 | Outpatient (CLI) | payer MEDICAID ==
--- NOTE | 2018-11-16 11:24 | Ultrasound Report ---
Reason: POSITIVE TEST Procedure Date: 11/16/2018 Accession Number: [id number] / [id number] Procedure: US - OB First Trimester CPT Code: FULL RESULT: EXAM: FIRST TRIMESTER OBSTETRIC ULTRASOUND (Less than 11 weeks) EXAM DATE: 11/16/2018 08:46 AM. CLINICAL HISTORY: POSITIVE TEST. History of termination in October 2018. LMP: 09/16/2018. COMPARISONS: PEL NON OB W/TV DOP 09/08/2018 4:02 PM Pelvic ultrasound 07/23/2018.. TECHNIQUE: Transabdominal and transvaginal ultrasound examination with static image documentation. CLINICAL DATES: EGA 8 weeks 5 days with ROCÍO 06/23/2019 based on LMP. ASSESSMENT: Gestational Sac: There is an irregular flattened probable intrauterine gestational sac. Mean gestational sac diameter: 17.3 mm = 6 weeks 4 days. Alternatively, this could represent perigestational fluid collection around a very small ovoid gestational sac. Embryo: Not visualized. Cardiac activity: Not visualized. Yolk sac: There is a probable ovoid yolk sac measuring 4.4 mm. Alternatively, this could represent a very small gestational sac. Amniotic fluid: Not accurately assessed at this gestational age. Early placenta: Not visible at this gestational age. Other: As noted above, irregular flattened fluid collection in the endometrial space could represent a partially collapsed gestational sac or perigestational fluid. MATERNAL STRUCTURES: Uterus: Retroverted. Unremarkable. Cervix: Closed. Right Ovary/Adnexa: The ovary measures 3.3 x 2.7 x 4.7 cm, volume 21.9 cc. There is a corpus luteum measuring 1.9 x 1.5 x 2.0. Left Ovary/Adnexa: The ovary measures 2.8 x 1.7 x 3.7 cm, volume 9.4 cc. Unremarkable. Free Fluid: None. Other: None. IMPRESSION: There is an irregular flattened intrauterine fluid collection which contains a very small 4.4 mm ovoid cystic structure. This may represent a collapsing gestational sac containing a yolk sac. Alternatively, this could represent a tiny gestational sac with adjacent perigestational fluid collection. No embryo visualized. Findings are consistent with intrauterine of uncertain viability. Recommend correlation with serial beta-hCG, and follow-up ultrasound in 7-10 days to assess for viability. ALLIE The call report notification system was initiated by Dr. Adi Stover at 11:20 AM on 11/16/2018. ADDENDUM: 11/16/18 11:31 The above call report findings were discussed with network security consultant covering physician Dr. Lancaster by Dr. Adi Stover at 11:31 AM on 11/16/2018.
== END 2018-11-16 08:44 | disposition home or self-care (01) ==
LOC: DI 08:43
PROVIDERS: ATTEND Obstetrics & Gynecology
DX: Z32.01 Encounter for pregnancy test, result positive (principal)
CPT/HCPCS: 76801

== ENCOUNTER 2018-11-22 09:04 | Outpatient (CLI) | payer MEDICAID | END 2018-11-22 09:05 | disposition home or self-care (01) | LOC: LAB 09:04 | PROVIDERS: ATTEND Obstetrics & Gynecology | DX: Z32.01 Encounter for pregnancy test, result positive (principal) | CPT/HCPCS: 36415; 84702; 86850; 86900; 86901 ==

== ENCOUNTER 2018-11-25 09:22 | Outpatient (CLI) | payer MEDICAID | END 2018-11-25 09:23 | disposition home or self-care (01) | LOC: LAB 09:22 | PROVIDERS: ATTEND Obstetrics & Gynecology | DX: Z32.01 Encounter for pregnancy test, result positive (principal) | CPT/HCPCS: 36415; 84702 ==

== ENCOUNTER 2018-11-26 14:58 | Outpatient (CLI) | payer MEDICAID ==
--- NOTE | 2018-11-27 19:05 | Ultrasound Report ---
Reason: TEST POSITIVE Procedure Date: 11/26/2018 Accession Number: [id number] / [id number] Procedure: US - OB First Trimester CPT Code: FULL RESULT: EXAM: FIRST TRIMESTER OBSTETRIC ULTRASOUND (Less than 11 weeks) EXAM DATE: 11/26/2018 03:13 PM. CLINICAL HISTORY: TEST POSITIVE. LMP: Uncertain. COMPARISONS: OB FIRST TRIMESTER 11/16/2018 8:46 AM. TECHNIQUE: Transabdominal and transvaginal ultrasound examination with static image documentation. CLINICAL DATES: EGA unknown ASSESSMENT: Gestational Sac: Single intrauterine. Mean gestational sac diameter: 12 mm = 6 weeks 0 days. Embryo: Questionable pole CRL (crown-rump length) 3 mm = 5 weeks 6 days. Cardiac activity: Not seen . Yolk sac: 3 mm. Amniotic fluid: Not accurately assessed at this gestational age. Early placenta: Not visible at this gestational age. Other: Small 2 x 1.4 cm perigestational fluid collection demonstrated. MATERNAL STRUCTURES: Uterus: Retroverted. Unremarkable. Cervix: Closed. Right Ovary/Adnexa: The ovary measures 4.2 x 2.1 x 2.7 cm, volume 12.3 cc. Unremarkable. 2.4 x 1.7 x 1.7 cm corpus luteum cyst Left Ovary/Adnexa: The ovary measures 2.8 x 1.7 x 3 cm, volume 7.5 cc. Unremarkable. Free Fluid: None. Other: None. IMPRESSION: Intrauterine gestational and yolk sacs are seen with a questionable pole and no cardiac activity. A small perigestational hemorrhages present. Suggest follow-up ultrasound in 7-10 days for reassessment of viability.
== END 2018-11-26 14:59 | disposition home or self-care (01) ==
LOC: DI 14:58
PROVIDERS: ATTEND Obstetrics & Gynecology
DX: Z32.01 Encounter for pregnancy test, result positive (principal); N83.11 Corpus luteum cyst of right ovary
CPT/HCPCS: 76801; 76817

== ENCOUNTER 2018-11-29 09:08 | Outpatient (CLI) | payer MEDICAID | END 2018-11-29 09:09 | disposition home or self-care (01) | LOC: LAB 09:08 | PROVIDERS: ATTEND Obstetrics & Gynecology | DX: Z32.01 Encounter for pregnancy test, result positive (principal) | CPT/HCPCS: 36415; 84702 ==

== ENCOUNTER 2018-12-06 19:07 | Outpatient (CLI) | payer MEDICAID ==
--- NOTE | 2018-12-10 13:26 | Ultrasound Report ---
Reason: TEST POSITIVE Procedure Date: 12/06/2018 Accession Number: [id number] / [id number] Procedure: US - OB First Trimester CPT Code: Final Report FULL RESULT: EXAM: FIRST TRIMESTER OBSTETRIC ULTRASOUND (Less than 11 weeks) EXAM DATE: 12/06/2018 07:45 PM. CLINICAL HISTORY: test positive. Follow-up OB ultrasound for IUP of unclear viability. Rising hCG but abnormal pattern. LMP: Presently stated as unsure. The LMP was stated as 09/16/2018 at the time of the first ultrasound on 11/16/2018. COMPARISONS: OB FIRST TRIMESTER 11/26/2018 3:13 PM. Ultrasound 11/16/2018. TECHNIQUE: Transabdominal and transvaginal ultrasound examination with static image documentation. CLINICAL DATES: EGA 11 weeks 4 days with ROCÍO 06/23/2019 based on physician stated and based on the previously provided LMP. ASSESSMENT: Gestational Sac: Single intrauterine. Mean gestational sac diameter: 15 mm = 6 weeks 2 days. Embryo: CRL (crown-rump length) 6 mm = 6 weeks 3 days. Cardiac activity: 119 beats per minute. Yolk sac: 4 mm. Amniotic fluid: Not accurately assessed at this gestational age. Early placenta: Not visible at this gestational age. Other: No perigestational fluid collection demonstrated. MATERNAL STRUCTURES: Uterus: Retroverted. Unremarkable. Cervix: Closed. Right Ovary/Adnexa: The ovary measures 2.8 x 1.9 x 4.0 cm, volume 11.6 cc. Unremarkable apart from a 1.9 cm presumed corpus luteum, previously measuring 2.4 cm. Left Ovary/Adnexa: The ovary measures 2.2 x 1.5 x 2.3 cm, volume 4 cc. Unremarkable. Free Fluid: None. Other: None. IMPRESSION: 1. Single viable intrauterine at EGA 6 weeks 3 days with ROCÍO 07/29/2019 based on crown-rump length, which is discordant with clinical dates. 2. Assigned dating is ROCÍO 07/29/2019 based on current ultrasound (CRL). ALLIE
== END 2018-12-06 19:08 | disposition home or self-care (01) ==
LOC: DI 19:07
PROVIDERS: ATTEND Obstetrics & Gynecology
DX: Z32.01 Encounter for pregnancy test, result positive (principal)
CPT/HCPCS: 76801; 76817

== ENCOUNTER 2018-12-16 08:16 | Outpatient (CLI) | payer MEDICAID ==
--- NOTE | 2018-12-19 05:08 | Ultrasound Report ---
Reason: Procedure Date: 12/16/2018 Accession Number: [id number] / [id number] Procedure: US - OB First Trimester CPT Code: Final Report FULL RESULT: EXAM: FIRST TRIMESTER OBSTETRIC ULTRASOUND (Less than 11 weeks) EXAM DATE: 12/16/2018 09:20 AM. CLINICAL HISTORY: . LMP: Unknown. COMPARISONS: OB FIRST TRIMESTER 12/06/2018 7:20 PM. TECHNIQUE: Transabdominal and transvaginal ultrasound examination with static image documentation. CLINICAL DATES: EGA 7 weeks 6 days with ROCÍO 07/29/2019 based on prior ultrasound. ASSESSMENT: Gestational Sac: Single intrauterine. Mean gestational sac diameter: 19.8 mm = 6 weeks 6 days. Embryo: CRL (crown-rump length) 15.2 mm = 7 weeks 6 days. Cardiac activity: 173 beats per minute. Yolk sac: 3 mm. Amniotic fluid: Not accurately assessed at this gestational age. Early placenta: Not visible at this gestational age. Other: No perigestational fluid collection demonstrated. MATERNAL STRUCTURES: Uterus: Retroverted. Unremarkable. Cervix: Closed. Right Ovary/Adnexa: The ovary measures 3.4 x 2.4 x 2.3 cm, volume 10 cc. Unremarkable. Left Ovary/Adnexa: The ovary measures 3.4 x 2.0 x 1.9 cm, volume 7 cc. Unremarkable. Free Fluid: None. Other: None. IMPRESSION: 1. Single viable intrauterine at EGA 7 weeks 6 days with ROCÍO 07/29/2019 based on crown-rump length, which is concordant with previous ultrasound. 2. Assigned dating is ROCÍO 07/29/2019 based on previous ultrasound. RADIA
== END 2018-12-16 08:17 | disposition home or self-care (01) ==
LOC: DI 08:16
PROVIDERS: ATTEND Obstetrics & Gynecology
DX: Z33.1 Pregnant state, incidental (principal)
CPT/HCPCS: 76801; 76817

== ENCOUNTER 2019-01-05 10:28 | Emergency (ER) | payer MEDICAID ==
[2019-01-05 10:49] LABS: BILIRUBIN,URINE NEGATIVE (NEGATIVE); GLUCOSE, URINE (UA) NEGATIVE (NEGATIVE); KETONES,URINE (UA) TRACE mg/dL (NEGATIVE); LEUKOCYTE ESTERASE, URINE TRACE (NEGATIVE); NITRITE,URINE NEGATIVE (NEGATIVE); OCCULT BLOOD,URINE LARGE (NEGATIVE); PROTEIN,URINE TRACE mg/dL (NEGATIVE); UROBILINOGEN,URINE 0.2 (NORMAL) E.U./dL (NORMAL)
[2019-01-05 10:54] LABS: CLARITY,URINE CLEAR (CLEAR)
[2019-01-05 11:05] LABS: BACTERIA,URINE Rare /HPF (None Seen); HCG UR QUAL POSITIVE; RBC,URINE 0-5 /HPF (0-5); SQUAMOUS EPITHELIAL CELL,UR FEW Squamous (<= Few)
--- NOTE | 2019-01-05 12:04 | ED Physician Documentation ---
PD HPI FEMALE - Stated complaint Stated Complaint: 10 WKS PREG/BLEEDING - Chief complaint Chief Complaint: Abd Pain - Additional information Additional information: Patient was actually seen by Dr. Flores in the chart was opened by me in error. 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: Ovarian cancer : None HEENT: None Psych: Depression, Anxiety, Bipolar disorder, Panic attacks Musculoskeletal: None Derm: None - Past Surgical History Past Surgical History: No /ENROLLMENT MANAGEMENT VICE PRESIDENT: Dilation and currettage - Present Medications Home Medications: Ambulatory Orders Medication Instructions Recorded Confirmed Quetiapine Fumarate [Seroquel] 100 mg PO BID 08/19/17 09/09/18 EPINEPHrine [Epinephrine] 0.3 mg IJ PRN PRN 03/26/18 03/26/18 Lamotrigine [Lamotrigine ER] 50 mg PO DAILY 09/09/18 09/09/18 Nifedipine [Nifedipine ER] 30 mg PO DAILY 09/09/18 09/09/18 Hydrocodone/Acetaminophen 1 - 2 each PO Q6H PRN #7 tablet 01/05/19 [Hydrocodon-Acetaminophen 5-325] Ondansetron Odt [Zofran] 4 mg TL Q6H PRN #10 tablet 01/05/19 - Allergies Allergies/Adverse Reactions: Allergies Allergy/AdvReac Type Severity Reaction Status Date / Time codeine Allergy Mild Nausea Verified 01/05/19 10:33 - Social History Does the pt smoke?: Yes Smoking Status: Current every day smoker Does the pt drink ETOH?: Yes Does the pt have substance abuse?: No - Immunizations Immunizations are current?: Yes - POLST Patient has POLST: No Results - Vitals Vitals: Vital Signs - 24 hr 01/05/19 01/05/19 01/05/19 10:30 13:50 15:10 Temperature 36.9 C 36.7 C Heart Rate 93 75 77 Respiratory 18 18 18 Rate Blood Pressure 126/70 126/80 124/81 H O2 Saturation 99 98 100 Oxygen O2 Source Room air - Labs Labs: Laboratory Tests 01/05/19 01/05/19 01/05/19 10:00 12:07 12:07 WBC 9.0 RBC 4.39 Hgb 13.4 Hct 40.3 MCV 91.8 MCH 30.5 MCHC 33.3 RDW 12.9 Plt Count 339 MPV 9.9 Neut # (Auto) 5.2 Lymph # (Auto) 2.9 [place] # (Auto) 0.6 Eos # (Auto) 0.1 Baso # (Auto) 0.1 Absolute Nucleated RBC 0.00 Nucleated RBC % 0.0 Sodium Potassium Chloride Carbon Dioxide Anion Gap BUN Creatinine Estimated GFR (MDRD) Glucose Calcium Total Bilirubin AST ALT Alkaline Phosphatase Total Protein Albumin Globulin Albumin/Globulin Ratio Lipase Urine Color YELLOW Urine Clarity CLEAR Urine pH 6.0 Ur Specific [place] 1.025 Urine Protein TRACE Urine Glucose (UA) NEGATIVE Urine Ketones TRACE Urine Occult Blood LARGE H Urine Nitrite NEGATIVE Urine Bilirubin NEGATIVE Urine Urobilinogen 0.2 (NORMAL) Ur Leukocyte Esterase TRACE H Urine RBC 0-5 Urine WBC 0-3 Ur Squamous Epith Cells FEW Squamous Urine Bacteria Rare Ur Microscopic Review INDICATED Urine Culture Comments INDICATED Urine HCG, Qual POSITIVE Blood Type A POSITIVE 01/05/19 12:07 WBC RBC Hgb Hct MCV MCH MCHC RDW Plt Count MPV Neut # (Auto) Lymph # (Auto) [place] # (Auto) Eos # (Auto) Baso # (Auto) Absolute Nucleated RBC Nucleated RBC % Sodium 136 Potassium 4.3 Chloride 102 Carbon Dioxide 27 Anion Gap 7.0 BUN 11 Creatinine 0.6 Estimated GFR (MDRD) 115 Glucose 100 Calcium 10.0 Total Bilirubin 0.5 AST 17 ALT 19 Alkaline Phosphatase 33 L Total Protein 7.3 Albumin 4.5 Globulin 2.8 Albumin/Globulin Ratio 1.6 Lipase 34 Urine Color Urine Clarity Urine pH Ur Specific [place] Urine Protein Urine Glucose (UA) Urine Ketones Urine Occult Blood Urine Nitrite Urine Bilirubin Urine Urobilinogen Ur Leukocyte Esterase Urine RBC Urine WBC Ur Squamous Epith Cells Urine Bacteria Ur Microscopic Review Urine Culture Comments Urine HCG, Qual Blood Type Departure - Departure Disposition: Home, Self Care Clinical Impression: Miscarriage Condition: Good Instructions: ED Miscarriage Incom Follow-Up: Maria Luisa Yoo MD [Provider Admit Priv/Credential] - Tomorrow Prescriptions: Hydrocodone/Acetaminophen [Hydrocodon-Acetaminophen 5-325] 1 - 2 each PO Q6H PRN #7 tablet PRN Reason: pain Ondansetron Odt [Zofran] 4 mg TL Q6H PRN #10 tablet PRN Reason: Nausea / Vomiting Comments: You unfortunately appear to be having a miscarriage today. Please follow-up with your OB tomorrow in clinic, they can discuss with you the options of giving some medications to help expel the products from your uterus, or other treatments if needed. If you are having severe persistent bleeding, or if the pain is not controlled with medications we have given you, or you are having other concerning symptoms return to the emergency department. Try using nonnarcotic medication such as Tylenol and ibuprofen for your pain, and you may use the Vicodin sparingly if needed for breakthrough pain. You may also use the Zofran for nausea, do not combine this with Reglan, together they might lead to arrhythmias of the heart. Do not drink alcohol or drive while taking narcotic pain medication. Note that many narcotic pain relievers also contain Tylenol/acetaminophen. Please ensure that your total dose of acetaminophen from all sources does not exceed 3 g (3000 mg) per day. You may get constipated while on this medication. Take a stool softener such as Colace twice a day while you are on it. Also add an [id number]-rbi-[id number] laxative such as senna or MiraLAX on any day that you do not have a bowel movement. If you received a narcotic pain medication or sedative while in the emergency department, do not drive for the next 24 hours. Discharge Date/Time: 01/05/19 15:12
--- NOTE | 2019-01-05 12:07 | ED Physician Documentation ---
History of Present Illness - Stated complaint Stated Complaint: 10 WKS PREG/BLEEDING - Chief complaint Chief Complaint: Abd Pain - Additonal information Additional information: This is a G2, P1 33-year-old female at 10 weeks by LMP who follows with Dr. Garcia Of OB who presents with bleeding. Patient states that this began 48 hours ago, she had a slight amount of spotting after intercourse and this is progressed to a bit more bleeding. She denies any cramping. She did have an ultrasound which showed intrauterine with cardiac activity noted. She denies any pain, does have slight nausea. No vomiting. No dysuria. She does not know her blood type. 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: Dilation and currettage - Present Medications Home Medications: Ambulatory Orders Medication Instructions Recorded Confirmed Quetiapine Fumarate [Seroquel] 100 mg PO BID 08/19/17 09/09/18 EPINEPHrine [Epinephrine] 0.3 mg IJ PRN PRN 03/26/18 03/26/18 Lamotrigine [Lamotrigine ER] 50 mg PO DAILY 09/09/18 09/09/18 Nifedipine [Nifedipine ER] 30 mg PO DAILY 09/09/18 09/09/18 Hydrocodone/Acetaminophen 1 - 2 each PO Q6H PRN #7 tablet 01/05/19 [Hydrocodon-Acetaminophen 5-325] Ondansetron Odt [Zofran] 4 mg TL Q6H PRN #10 tablet 01/05/19 Ibuprofen 800 mg PO Q6HR PRN #30 tablet 01/07/19 Methocarbamol 500 mg PO TID PRN #15 tablet 01/07/19 Oxycodone HCl/Acetaminophen 1 - 2 each PO Q6H PRN #12 tablet 01/07/19 [Percocet 5-325 mg Tablet] - Allergies Allergies/Adverse Reactions: Allergies Allergy/AdvReac Type Severity Reaction Status Date / Time codeine Allergy Mild Nausea Verified 01/07/19 16:25 - Social History Does the pt smoke?: Yes Smoking Status: Current every day smoker Does the pt drink ETOH?: Yes Does the pt have substance abuse?: No - Immunizations Immunizations are current?: Yes - POLST Patient has POLST: No PD ED PE NORMAL - Vitals Vital signs reviewed: Yes - General General: Alert and oriented X 3, No acute distress - HEENT HEENT: PERRL - Neck Neck: Supple, no meningeal sign - Cardiac Cardiac: RRR, No murmur - Respiratory Respiratory: Clear bilaterally - Abdomen Abdomen: Soft, Non tender, Non distended - Derm Derm: Warm and dry - Extremities Extremities: No deformity - Neuro Neuro: Alert and oriented X 3 - Psych Psych: Normal mood, Normal affect Results - Vitals Vitals: Oxygen O2 Source Room air - Labs Labs: Microbiology 01/05/19 10:00 Urine Culture - Final Urine,Clean Catch NO AEROBIC GROWTH AT 24 HOURS Laboratory Tests 01/05/19 01/05/19 01/05/19 10:00 12:07 12:07 WBC 9.0 RBC 4.39 Hgb 13.4 Hct 40.3 MCV 91.8 MCH 30.5 MCHC 33.3 RDW 12.9 Plt Count 339 MPV 9.9 Neut # (Auto) 5.2 Lymph # (Auto) 2.9 [place] # (Auto) 0.6 Eos # (Auto) 0.1 Baso # (Auto) 0.1 Absolute Nucleated RBC 0.00 Nucleated RBC % 0.0 Sodium Potassium Chloride Carbon Dioxide Anion Gap BUN Creatinine Estimated GFR (MDRD) Glucose Calcium Total Bilirubin AST ALT Alkaline Phosphatase Total Protein Albumin Globulin Albumin/Globulin Ratio Lipase Urine Color YELLOW Urine Clarity CLEAR Urine pH 6.0 Ur Specific [place] 1.025 Urine Protein TRACE Urine Glucose (UA) NEGATIVE Urine Ketones TRACE Urine Occult Blood LARGE H Urine Nitrite NEGATIVE Urine Bilirubin NEGATIVE Urine Urobilinogen 0.2 (NORMAL) Ur Leukocyte Esterase TRACE H Urine RBC 0-5 Urine WBC 0-3 Ur Squamous Epith Cells FEW Squamous Urine Bacteria Rare Ur Microscopic Review INDICATED Urine Culture Comments INDICATED Urine HCG, Qual POSITIVE Blood Type A POSITIVE 01/05/19 12:07 WBC RBC Hgb Hct MCV MCH MCHC RDW Plt Count MPV Neut # (Auto) Lymph # (Auto) [place] # (Auto) Eos # (Auto) Baso # (Auto) Absolute Nucleated RBC Nucleated RBC % Sodium 136 Potassium 4.3 Chloride 102 Carbon Dioxide 27 Anion Gap 7.0 BUN 11 Creatinine 0.6 Estimated GFR (MDRD) 115 Glucose 100 Calcium 10.0 Total Bilirubin 0.5 AST 17 ALT 19 Alkaline Phosphatase 33 L Total Protein 7.3 Albumin 4.5 Globulin 2.8 Albumin/Globulin Ratio 1.6 Lipase 34 Urine Color Urine Clarity Urine pH Ur Specific [place] Urine Protein Urine Glucose (UA) Urine Ketones Urine Occult Blood Urine Nitrite Urine Bilirubin Urine Urobilinogen Ur Leukocyte Esterase Urine RBC Urine WBC Ur Squamous Epith Cells Urine Bacteria Ur Microscopic Review Urine Culture Comments Urine HCG, Qual Blood Type PD MEDICAL DECISION MAKING - ED course Complexity details: considered differential (Miscarriage, threatened miscarriage, montrell-gestational bleed, UTI) ED course: Pt presents with bleeding and cramping in , abdomen is benign and labs are unremarkable and her blood type is Rh+. US unfortunately shows no cardiac activity, consistent with demise. I discussed this result with the patient. I also spoke with Dr. Carr of OB, who states that patient can follow up in clinic tomorrow for re-evaluation and discussion of treatment options. Contact information for OB was provided to the patient. I discussed return precautions and prescribed pain and nausea medications for symptom control in the interim, with instructions on safe use. Patient agrees and was discharged home in the care of her partner. Departure - Departure Disposition: 01 Home, Self Care Clinical Impression: Miscarriage Condition: Good Instructions: ED Miscarriage Incom Follow-Up: Maria Luisa Yoo MD [Provider Admit Priv/Credential] - Tomorrow Prescriptions: Hydrocodone/Acetaminophen [Hydrocodon-Acetaminophen 5-325] 1 - 2 each PO Q6H PRN #7 tablet PRN Reason: pain Ondansetron Odt [Zofran] 4 mg TL Q6H PRN #10 tablet PRN Reason: Nausea / Vomiting Comments: You unfortunately appear to be having a miscarriage today. Please follow-up with your OB tomorrow in clinic, they can discuss with you the options of giving some medications to help expel the products from your uterus, or other treatments if needed. If you are having severe persistent bleeding, or if the pain is not controlled with medications we have given you, or you are having other concerning symptoms return to the emergency department. Try using nonnarcotic medication such as Tylenol and ibuprofen for your pain, and you may use the Vicodin sparingly if needed for breakthrough pain. You may also use the Zofran for nausea, do not combine this with Reglan, together they might lead to arrhythmias of the heart. Do not drink alcohol or drive while taking narcotic pain medication. Note that many narcotic pain relievers also contain Tylenol/acetaminophen. Please ensure that your total dose of acetaminophen from all sources does not exceed 3 g (3000 mg) per day. You may get constipated while on this medication. Take a stool softener such as Colace twice a day while you are on it. Also add an [id number] laxative such as senna or MiraLAX on any day that you do not have a bowel movement. If you received a narcotic pain medication or sedative while in the emergency department, do not drive for the next 24 hours. Discharge Date/Time: 01/05/19 15:12
[2019-01-05 12:43] LABS: BASOPHILS # (AUTO) 0.1 10^3/uL (0.0-0.1); BASOPHILS % (AUTO) 0.7 %; EOSINOPHILS # (AUTO) 0.1 10^3/uL (0.0-0.7); EOSINOPHILS % (AUTO) 1.4 %; HGB - HEMOGLOBIN 13.4 g/dL (12.0-16.0); LYMPHOCYTES # (AUTO) 2.9 10^3/uL (1.5-3.5); LYMPHOCYTES % (AUTO) 32.4 %; MEAN CORPUSCULAR HEMOGLOBIN 30.5 pg (27.0-31.0); MEAN CORPUSCULAR HGB CONC 33.3 g/dL (32.0-36.0); MEAN CORPUSCULAR VOLUME 91.8 fL (81.0-99.0); MEAN PLATELET VOLUME 9.9 fL (7.9-10.8); MONOCYTES # (AUTO) 0.6 10^3/uL (0.0-1.0); NEUTROPHILS # (AUTO) 5.2 10^3/uL (1.5-6.6); NEUTROPHILS % (AUTO) 58.2 %; PLT - PLATELET COUNT 339 10^3/uL (130-450); RED BLOOD COUNT 4.39 10^6/uL (4.20-5.40); RED CELL DISTRIBUTION WIDTH 12.9 % (12.0-15.0)
[2019-01-05 13:12] LABS: ALBUMIN 4.5 g/dL (3.2-5.5); ALBUMIN/GLOBULIN RATIO 1.6 (1.0-2.2); BILIRUBIN,TOTAL 0.5 mg/dL (0.2-1.0); CREATININE 0.6 mg/dL (0.4-1.0); TOTAL PROTEIN 7.3 g/dL (6.7-8.2)
--- NOTE | 2019-01-05 13:55 | Ultrasound Report ---
Reason: Bleeding, 10 wks preg Procedure Date: 01/05/2019 Accession Number: [id number] / [id number] Procedure: US - OB First Trimester CPT Code: Final Report FULL RESULT: EXAM: FIRST TRIMESTER OBSTETRIC ULTRASOUND (Less than 11 weeks) EXAM DATE: 01/05/2019 01:39 PM. CLINICAL HISTORY: Bleeding, 10 wks preg. LMP: Unknown. COMPARISONS: Obstetric ultrasound from 12/16/2018. TECHNIQUE: Transabdominal and transvaginal ultrasound examination with static image documentation. CLINICAL DATES: EGA 10 weeks 5 days with ROCÍO 07/29/2019 based on prior ultrasound. ASSESSMENT: Gestational Sac: Single intrauterine. Mean gestational sac diameter: 36.7 mm = 9 weeks 0 days. Embryo: CRL (crown-rump length) 19.6 mm = 8 weeks 4 days. Cardiac activity: None detected. Yolk sac: Not evaluated. Amniotic fluid: Not accurately assessed at this gestational age. Early placenta: Not visible at this gestational age. Other: There is a small crescentic hypoechoic collection inferior to the gestational sac, which may represent small montrell-gestational hemorrhage. It measures 1.4 x 0.5 x 1.2 cm. MATERNAL STRUCTURES: Uterus: Retroverted. Unremarkable. Cervix: Closed. Right Ovary/Adnexa: The ovary measures 4.2 x 1.9 x 2.1 cm, volume 8.8 cc. There is a corpus luteum measuring 1.8 x 1.8 x 0.9 cm. Left Ovary/Adnexa: The ovary measures 2.7 x 1.6 x 2.6 cm, volume 5.7 cc. Unremarkable. Free Fluid: None. Other: None. IMPRESSION: Intrauterine with discordant size (compared to gestational age from prior ultrasound) and no detectable cardiac activity. Findings are compatible with failed early . ALLIE The call report notification system was initiated by Dr. Emanuel Peralta at 01:46 PM on 01/05/2019. The above call report findings were discussed with Dr. Faheem Flores by Dr. Emanuel Peralta at 01:53 PM on 01/05/2019.
[2019-01-05 15:11] VITALS: BP 124/81
== END 2019-01-05 15:12 | disposition home or self-care (01) ==
LOC: ED 10:28
DX: O03.9 Complete or unspecified spontaneous abortion without complication (principal); F17.200 Nicotine dependence, unspecified, uncomplicated
CPT/HCPCS: 36415; 76801; 76817; 80053; 81001; 81003; 81025; 83690; 85025; 86900; 86901; 87086; 99284

== ENCOUNTER 2019-01-06 10:49 | Day surgery (SDC) | payer MEDICAID ==
[2019-01-06] MEDS ORDERED: DEXAMETHASONE 4 MG/ML VIAL IVP ONE (10:50)
[2019-01-06] MEDS ORDERED: PROPOFOL 200 MG/20 ML VIAL IVP ONE (10:50)
[2019-01-06] MEDS ORDERED: LACTATED RINGERS 1,000 ML IV ONE ×2 (11:06→13:36)
[2019-01-06] MEDS ORDERED: LIDOCAINE 1%-EPI 1:100000 20 ML MDV ONE (11:08)
[2019-01-06] MEDS ORDERED: ACETAMINOPHEN 1,000 MG/100 ML 100 ML IV ONE (11:37)
--- NOTE | 2019-01-06 11:40 | ANESTHESIA ---
Pre-Anesthesia VS, & Labs - Diagnosis Missed AB - Procedure Suction D&C Vital Signs: Temp Pulse Resp BP Pulse Ox 36.6 C 89 16 112/72 100 01/06/19 11:07 01/06/19 11:07 01/06/19 11:07 01/06/19 11:07 01/06/19 11:07 Height 5 ft 2 in Weight (kg) 79.3 kg Body Mass Index 30.7 - NPO Last Fluid Intake: 0630 milk - Is Patient ?: Yes (missed AB) Home Medications and Allergies Quetiapine Fumarate [Seroquel] 100 mg PO BID 08/19/17 EPINEPHrine [Epinephrine] 0.3 mg IJ PRN PRN 03/26/18 Lamotrigine [Lamotrigine ER] 50 mg PO DAILY 09/09/18 Nifedipine [Nifedipine ER] 30 mg PO DAILY 09/09/18 Allergies/Adverse Reactions: Allergies Allergy/AdvReac Type Severity Reaction Status Date / Time codeine Allergy Mild Nausea Verified 01/05/19 10:33 Anes History & Medical History - Anesthetic History Anesthesia Complications: reports: No previous complications - Medical History Cardiovascular: reports: Hypertension Pulmonary: reports: None Gastrointestinal: reports: None Urinary: reports: None Neuro: reports: None Musculoskeletal: reports: None Endocrine/Autoimmune: reports: None Blood Disorders: reports: None Skin: reports: Eczema Smoking Status: Former smoker (Quit 10 Weeks ago) Psychosocial: reports: Anxiety, Other (PTSD) - Surgical History Gynecologic: Dilation and currettage Exam General: Alert, Oriented x3, Cooperative, No acute distress Dental: WNL Mouth Openin Fingerbreadth Neck Mobility: Normal Mallampati classification: II Thyromental Distance: greater than 6 cm Respiratory: Lungs clear, Normal breath sounds, No respiratory distress, No accessory muscle use Cardiovascular: Regular rate, Normal S1, Normal S2, No murmurs Mental/Cognitive Status: Alert/Oriented X3, Normal for patient Plan Anesthesia Type: General Consent for Procedure(s) Verified and Reviewed: Yes Code Status: Attempt Resuscitation ASA classification: 2-Mild systemic disease Is this case an emergency?: No
[2019-01-06] MEDS ORDERED: fentaNYL 100 MCG/2 ML VIAL ONE (11:50)
[2019-01-06] MEDS ORDERED: CITRIC ACID/SODIUM CITRATE 15 ML UDC PO ONE (11:50)
[2019-01-06] MEDS ORDERED: HYDROcod/ACETAM 5/325 MG TABLET PO PRN (12:52)
[2019-01-06] MEDS ORDERED: ONDANSETRON 4 MG/2 ML VIAL IVP PRN (12:52)
[2019-01-06] MEDS ORDERED: IBUPROFEN 600 MG TABLET PO PRN (12:55)
[2019-01-06] MEDS ORDERED: MIDAZOLAM 2 MG/2 ML VIAL ONE (13:03)
[2019-01-06] MEDS ORDERED: KETOROLAC 15 MG/ML VIAL ONE ×2 (13:11→13:12)
[2019-01-06] MEDS: HYDROmorphone 0.5 MG/0.5 ML SYRINGE IVP PRN ×2 (13:27→13:35)
[2019-01-06 14:32] VITALS: BP 116/73
--- NOTE | 2019-01-06 16:04 | OPERATIVE REPORT ---
DATE OF SERVICE: 01/06/2019 Physician: Adams Carr DO PREOPERATIVE DIAGNOSIS: Missed . POSTOPERATIVE DIAGNOSIS: Missed . PROCEDURE PERFORMED: Suction dilation and evacuation. SURGEON: Adams Carr DO ANESTHESIA: General. ESTIMATED BLOOD LOSS: 250 mL WOUND CLASSIFICATION: 2. COUNTS: Sponge count was correct. Needle count was not indicated. SURGICAL FINDINGS: The uterus sounded to a depth of 11 cm. The cervix was only slightly dilated. T he uterus is retroflexed. When the patient was relaxed, there was a grade 2-3 uterine prolapse. PROCEDURE IN DETAIL: The patient was taken to the operative suite, placed on the surgical table in s upine position. Under general anesthesia, she was placed in [place] stirrups, prepped and draped in th e usual fashion. A timeout then took place. Once the timeout was complete, a weighted speculum was placed in the vaginal vault and the cervix visualized. A single-tooth tenaculum was placed onto the anterior lip of the cervix. The cervix was then dilated to 10 mm. An 8 mm suction curette was then advanced through the straightened endocervical canal into the endometrial cavity. It is of note that prior to dilating the cervix, the uterus had been sounded to a depth of 11 cm. The suction curette did remove a large amount of tissue. Polyp forceps were then used, which found some remnants of tiss ue. A sharp curette was then used to loosen further products of conception. Once these were removed , no further bleeding was noted. The uterus was then explored and no other signs of products of conc eption were noted. The single-tooth tenaculum was removed from the anterior lip of the cervix. No s igns of bleeding were noted. Hemostasis followed. The vaginal vault was then cleared of all blood c lots and debris. The weighted speculum was removed from the vaginal vault. The patient was taken to recovery room in stable condition. TD: 01/06/2019 13:06
== END 2019-01-06 10:50 | disposition home or self-care (01) ==
LOC: SDS 10:49
PROVIDERS: ATTEND Obstetrics & Gynecology
PROC: 10D17ZZ Extraction of Products of Conception, Retained, Via Natural or Artificial Opening (ICD-10-PCS; principal; 2019-01-06 12:00)
DX: O02.1 Missed abortion (principal); I10 Essential (primary) hypertension; F17.210 Nicotine dependence, cigarettes, uncomplicated
CPT/HCPCS: 59820; A9270; J0131; J1170; J7120

== ENCOUNTER 2019-01-07 16:11 | Emergency (ER) | payer MEDICAID ==
--- NOTE | 2019-01-07 16:44 | ED Physician Documentation ---
History of Present Illness - Stated complaint Stated Complaint: FEMALE - POST OP - Chief complaint Chief Complaint: Abd Pain - Additonal information Additional information: This is a 33-year-old female who I saw recently, presents with increasing abdominal pain after a D&C. Patient had a miscarriage which was diagnosed on ultrasound, she followed up with OB and had a dilation and evacuation in the OR yesterday with Dr. Carr, she had some pain afterwards but this was controlled by pain medications. This morning she had increasing pain and she also has had some nausea. She states the pain is severe and located mostly over the left lower quadrant but also extending to the suprapubic region and towards the right lower quadrant. She describes it as cramping and constant. She has not had any significant vaginal bleeding. She tried taking ibuprofen, in addition to some hydrocodone, and this did not give her significant relief. No fever. Review of Systems Constitutional: denies: Fever Cardiac: denies: Chest pain / pressure Respiratory: denies: Dyspnea GI: reports: Abdominal Pain, Nausea : denies: Dysuria Skin: denies: Rash PD PAST MEDICAL HISTORY - Past Medical History Cardiovascular: Hypertension Respiratory: None Neuro: None Endocrine/Autoimmune: None GI: None BUSINESS OFFICE SPECIALIST: Ovarian cancer : None HEENT: None Psych: Depression, Anxiety, Post traumatic stress disorder Musculoskeletal: None Derm: Eczema - Past Surgical History Past Surgical History: No /BUSINESS OFFICE SPECIALIST: Dilation and currettage - Present Medications Home Medications: Ambulatory Orders Medication Instructions Recorded Confirmed Quetiapine Fumarate [Seroquel] 100 mg PO BID 08/19/17 09/09/18 EPINEPHrine [Epinephrine] 0.3 mg IJ PRN PRN 03/26/18 03/26/18 Lamotrigine [Lamotrigine ER] 50 mg PO DAILY 09/09/18 09/09/18 Nifedipine [Nifedipine ER] 30 mg PO DAILY 09/09/18 09/09/18 Hydrocodone/Acetaminophen 1 - 2 each PO Q6H PRN #7 tablet 01/05/19 [Hydrocodon-Acetaminophen 5-325] Ondansetron Odt [Zofran] 4 mg TL Q6H PRN #10 tablet 01/05/19 Ibuprofen 800 mg PO Q6HR PRN #30 tablet 01/07/19 Methocarbamol 500 mg PO TID PRN #15 tablet 01/07/19 Oxycodone HCl/Acetaminophen 1 - 2 each PO Q6H PRN #12 tablet 01/07/19 [Percocet 5-325 mg Tablet] - Allergies Allergies/Adverse Reactions: Allergies Allergy/AdvReac Type Severity Reaction Status Date / Time codeine Allergy Mild Nausea Verified 01/07/19 16:25 - Social History Does the pt smoke?: Yes Smoking Status: Former smoker (Quit 10 Weeks ago) Does the pt drink ETOH?: Yes Does the pt have substance abuse?: No - Immunizations Immunizations are current?: Yes - POLST Patient has POLST: No PD ED PE NORMAL - Vitals Vital signs reviewed: Yes - General General: Alert and oriented X 3, Other (Uncomfortable but nontoxic-appearing) - HEENT HEENT: PERRL - Neck Neck: Supple, no meningeal sign - Cardiac Cardiac: RRR, No murmur - Respiratory Respiratory: Clear bilaterally - Abdomen Abdomen: Other (Abdomen is nondistended, she is tenderness to pubic region in the left lower quadrant, to lesser extent in the right lower quadrant. Upper abdomen is nontender) - Derm Derm: Warm and dry - Extremities Extremities: No deformity - Neuro Neuro: Alert and oriented X 3 - Psych Psych: Normal mood, Normal affect Results - Vitals Vitals: Vital Signs - 24 hr 01/07/19 01/07/19 01/07/19 16:25 19:30 21:50 Temperature 36.8 C 36.2 C L 36.4 C L Heart Rate 106 H 81 73 Respiratory 17 12 12 Rate Blood Pressure 137/85 H 124/90 H 109/77 O2 Saturation 99 99 98 01/07/19 23:34 Temperature 36.9 C Heart Rate 74 Respiratory 20 Rate Blood Pressure 138/93 H O2 Saturation 98 Oxygen O2 Source Room air - Labs Labs: Laboratory Tests 01/07/19 01/07/19 01/07/19 17:16 17:16 19:03 WBC 9.6 RBC 3.94 L Hgb 11.7 L Hct 35.4 L MCV 89.8 MCH 29.7 MCHC 33.1 RDW 12.9 Plt Count 320 MPV 9.5 Neut # (Auto) 4.0 Lymph # (Auto) 4.9 H [place] # (Auto) 0.6 Eos # (Auto) 0.1 Baso # (Auto) 0.1 Absolute Nucleated RBC 0.00 Nucleated RBC % 0.0 Sodium 139 Potassium 4.0 Chloride 104 Carbon Dioxide 25 Anion Gap 10.0 BUN 11 Creatinine 0.8 Estimated GFR (MDRD) 83 L Glucose 101 H Calcium 9.4 Total Bilirubin 0.4 AST 18 ALT 18 Alkaline Phosphatase 33 L Total Protein 7.3 Albumin 4.4 Globulin 2.9 Albumin/Globulin Ratio 1.5 Lipase 32 Urine Color YELLOW Urine Clarity CLEAR Urine pH 7.0 Ur Specific [place] 1.010 Urine Protein NEGATIVE Urine Glucose (UA) NEGATIVE Urine Ketones NEGATIVE Urine Occult Blood TRACE-INTA Urine Nitrite NEGATIVE Urine Bilirubin NEGATIVE Urine Urobilinogen 0.2 (NORMAL) Ur Leukocyte Esterase NEGATIVE Ur Microscopic Review NOT INDICATED Urine Culture Comments NOT INDICATED - Rads (name of study) US pelvic Radiology: Other (Generally indistinct endometrial complex, appears to be normal flow to ovaries) CT abd/pelvis W Radiology: Other (No acute process, mild endometrial thickening and stool in the colon) PD MEDICAL DECISION MAKING - ED course Complexity details: considered differential (Hematoma, post-surgical pain, post- surgical complication, ovarian torsion, diverticulitis, UTI) ED course: Pt is very uncomfortable on exam, she was given morphine and zofran. I spoke with Dr. Carr who recommended US. Labs show a mild anemia, but only slightly less than prior values and patient is not having bleeding. No leukocytosis. UA negative for infection. US results reviewed with Dr. Carr, who states the endometrial complex seen is expected post-procedure. He suggested that potentially pain could be from a devolving fibroid that had it's blood flow disrupted. I re-evaluated patient, who continued to be in signficiant pain. She required multiple doses of IV pain medication. CT abd/pelvis was obtained to rule out other abdominal process and was unremarkable. On re-evaluation she is feeling somewhat improved. I reviewed the results and patient requested to go home. Her vital signs are unremarkable and she is not having any signficant bleeding. I discussed strict return precuations, close SUBSTATION OPERATOR HELPER follow up, and pain control. Pt agrees and was discharged in the care of her partner. Departure - Departure Disposition: 01 Home, Self Care Clinical Impression: Abdominal pain Condition: Good Follow-Up: Adams Carr DO [Provider Admit Priv/Credential] - Within 3 Days Prescriptions: Ibuprofen 800 mg PO Q6HR PRN #30 tablet PRN Reason: Pain Methocarbamol 500 mg PO TID PRN #15 tablet PRN Reason: Pain Oxycodone HCl/Acetaminophen [Percocet 5-325 mg Tablet] 1 - 2 each PO Q6H PRN #12 tablet PRN Reason: pain Comments: You were seen today for abdominal pain, this is likely secondary to pain from the procedure yesterday. Sometimes if blood is disrupted to a fibroid the fibroid will start to degenerate, which can be quite painful. Your ultrasound and CT did not show signs of any other unexpected process today. You may take the medications as prescribed for pain, use the narcotic medication sparingly and only if necessary. The methocarbamol can also be sedating, so do not take these at the same time, Stagger them. Please follow-up with Dr. Carr in the next week. If you are developing fever, severe pain that is not controlled with these medications, persistent vomiting, or other concerning symptoms return to the emergency department Discharge Date/Time: 01/07/19 23:50
[2019-01-07] MEDS ORDERED: ONDANSETRON 4 MG/2 ML VIAL IVP STA ×2 (16:55→23:20)
[2019-01-07] MEDS ORDERED: SODIUM CHLORIDE 0.9% 1,000 ML IV ONE (16:55)
[2019-01-07] MEDS ORDERED: MORPHINE 2 MG/ML CARPUJECT IVP STA ×2 (16:55→17:46)
[2019-01-07 17:21] LABS: BASOPHILS # (AUTO) 0.1 10^3/uL (0.0-0.1); BASOPHILS % (AUTO) 0.8 %; MEAN PLATELET VOLUME 9.5 fL (7.9-10.8); MONOCYTES % (AUTO) 5.9 %; RED CELL DISTRIBUTION WIDTH 12.9 % (12.0-15.0)
[2019-01-07 17:27] LABS: EOSINOPHILS # (AUTO) 0.1 10^3/uL (0.0-0.7); EOSINOPHILS % (AUTO) 0.9 %; HGB - HEMOGLOBIN 11.7 g/dL (12.0-16.0); LYMPHOCYTES # (AUTO) 4.9 10^3/uL (1.5-3.5); LYMPHOCYTES % (AUTO) 50.6 %; MEAN CORPUSCULAR HEMOGLOBIN 29.7 pg (27.0-31.0); MEAN CORPUSCULAR HGB CONC 33.1 g/dL (32.0-36.0); MEAN CORPUSCULAR VOLUME 89.8 fL (81.0-99.0); MONOCYTES # (AUTO) 0.6 10^3/uL (0.0-1.0); NEUTROPHILS % (AUTO) 41.4 %; PLT - PLATELET COUNT 320 10^3/uL (130-450); RED BLOOD COUNT 3.94 10^6/uL (4.20-5.40); WHITE BLOOD COUNT 9.6 x10^3/uL (4.8-10.8)
[2019-01-07 17:34] LABS: ALBUMIN 4.4 g/dL (3.2-5.5); ALBUMIN/GLOBULIN RATIO 1.5 (1.0-2.2); BILIRUBIN,TOTAL 0.4 mg/dL (0.2-1.0); CALCIUM 9.4 mg/dL (8.5-10.3); CREATININE 0.8 mg/dL (0.4-1.0); TOTAL PROTEIN 7.3 g/dL (6.7-8.2)
[2019-01-07] MEDS ORDERED: HYDROmorphone 1 MG/ML CARPUJECT IVP STA ×2 (18:11→21:02)
[2019-01-07 19:08] LABS: BILIRUBIN,URINE NEGATIVE (NEGATIVE); GLUCOSE, URINE (UA) NEGATIVE (NEGATIVE); KETONES,URINE (UA) NEGATIVE (NEGATIVE); LEUKOCYTE ESTERASE, URINE NEGATIVE (NEGATIVE); NITRITE,URINE NEGATIVE (NEGATIVE); OCCULT BLOOD,URINE TRACE-INTA (NEGATIVE); PROTEIN,URINE NEGATIVE (NEGATIVE); UROBILINOGEN,URINE 0.2 (NORMAL) E.U./dL (NORMAL)
[2019-01-07 19:16] LABS: CLARITY,URINE CLEAR (CLEAR)
--- NOTE | 2019-01-07 19:23 | Ultrasound Report ---
Reason: Dilation and evacuation yest, increased pain, L>R Procedure Date: 01/07/2019 Accession Number: [id number] / [id number] Procedure: US - Pelvic w/Transvag+Doppler Comp CPT Code: Final Report FULL RESULT: EXAM: PELVIC ULTRASOUND WITH DOPPLERS CLINICAL HISTORY: Dilation and evacuation yest, increased pain, left worse than right. COMPARISON: Early OB ultrasound 01/05/2019. TECHNIQUE: Realtime transabdominal pelvic scan, with image documentation. Patient declined transvaginal scan. Color flow imaging and Doppler spectral analysis was performed to evaluate blood flow to the ovaries given pelvic pain and clinical concern for ovarian torsion. FINDINGS: Uterus: Retroverted 11.1 x 5.7 x 7.4 cm, volume 244 cc. Previous intrauterine gestational sac and embryo are no longer seen. Indistinct endometrial complex, where seen estimated at 13.6 mm thick. No focal mass identified. Cervix: No gross abnormality identified. Right Ovary: 2.3 x 1.6 x 1.1 cm, volume 2.1 cc. No cyst or focal lesion identified. Arterial and venous blood flow are present, though evaluation is technically difficult and somewhat limited. Left Ovary: Likely seen, 2.1 x 1.6 x 1.5 cm, volume 2.7 cc. No cyst or focal lesion identified. Some Doppler signal present within. Evaluation is technically limited. Free Fluid: None. Other: No obvious adnexal mass. Patient requested termination of exam due to pain. IMPRESSION: 1. Interval evacuation of endometrial contents. Generally indistinct endometrial complex. No focal mass identified. 2. Technically limited transabdominal evaluation of the ovaries. Doppler flow are likely present bilaterally. Patient declined transvaginal scan. 3. No obvious adnexal mass or free fluid. No apparent abnormality to explain the reported pain. RADIA
[2019-01-07] MEDS ORDERED: HYDROmorphone 2 MG/ML VIAL IVP STA ×2 (19:37→23:20)
[2019-01-07] MEDS ORDERED: IOVERSOL 320 100 ML VIAL IVP ONE ×2 (21:20→21:48)
--- NOTE | 2019-01-07 22:23 | CT Report ---
Reason: D C yesterday. severe LLQ pain Procedure Date: 01/07/2019 Accession Number: [id number] / [id number] Procedure: CT - Abdomen/Pelvis W CPT Code: Final Report FULL RESULT: EXAM: CT ABDOMEN AND PELVIS EXAM DATE: 01/07/2019 09:45 PM. CLINICAL HISTORY: D AND C yesterday. Severe LLQ pain. COMPARISONS: ABDOMEN/PELVIS W/ 09/08/2018 2:43 PM. TECHNIQUE: Routine helical CT imaging was performed through the abdomen and pelvis. IV contrast: OPTI 320 100ML. Enteric contrast: No. Reconstructions: Coronal and sagittal. In accordance with CT protocol optimization, one or more of the following dose reduction techniques were utilized for this exam: automated exposure control, adjustment of mA and/or KV based on patient size, or use of iterative reconstructive technique. FINDINGS: Lung Bases: Mild bibasilar atelectasis. Liver: Normal. No masses. Gallbladder/Bile Ducts: Unremarkable. Spleen: Normal. Pancreas: Normal. Adrenal Glands: Normal. Kidneys: Small left renal cyst. No masses or hydronephrosis. Peritoneal Cavity/Bowel: No bowel obstruction seen. No free air or free fluid. Moderate stool in the colon. No diverticulitis seen. No lymphadenopathy. Appendix appears normal. Pelvic Organs: Mild endometrial thickening or fluid. The visualized pelvic organs are otherwise unremarkable. Vasculature: No aneurysms or other significant abnormality. Bones: No significant abnormality. Other: None. IMPRESSION: 1. No acute inflammatory or obstructive process seen in the abdomen or pelvis. 2. Mild endometrial thickening or fluid. 3. Moderate stool in the colon. RADIA
[2019-01-07 23:35] VITALS: BP 138/93
== END 2019-01-07 23:50 | disposition home or self-care (01) ==
LOC: ED 16:11
DX: R10.32 Left lower quadrant pain (principal); I10 Essential (primary) hypertension; Z87.891 Personal history of nicotine dependence; Z98.890 Other specified postprocedural states
CPT/HCPCS: 36415; 74177; 76830; 76856; 80053; 81003; 83690; 85025; 93975; 96361; 96374; 96375; 96376; 99284; J1170; Q9967; 81001; 87086

== ENCOUNTER 2019-02-22 06:04 | Emergency (ER) | payer MEDICAID ==
[2019-02-22 07:31] VITALS: BP 122/96
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
[2019-02-22] MEDS ORDERED: KETOROLAC 60 MG/2 ML VIAL IM STA (07:38)
[2019-02-22] MEDS ORDERED: HYDROcod/ACETAM 5/325 MG TABLET PO STA (08:44)
--- NOTE | 2019-02-22 08:55 | XRAY Report ---
Reason: trauma; pain Procedure Date: 02/22/2019 Accession Number: [id number] / [id number] Procedure: XR - Wrist 3 View LT CPT Code: Final Report FULL RESULT: EXAM: LEFT WRIST RADIOGRAPHY EXAM DATE: 02/22/2019 08:21 AM. CLINICAL HISTORY: Trauma; pain. COMPARISON: None available. TECHNIQUE: 3 views. FINDINGS: Bones: Normal. No fractures or bone lesions. Joints: Normal. No subluxations. Soft Tissues: Normal. No soft tissue swelling. IMPRESSION: Negative left wrist. RADIA
--- NOTE | 2019-02-22 08:57 | XRAY Report ---
Reason: trauma; pain Procedure Date: 02/22/2019 Accession Number: [id number] / [id number] Procedure: XR - Elbow 3 View LT CPT Code: Final Report FULL RESULT: EXAM: LEFT ELBOW RADIOGRAPHY EXAM DATE: 02/22/2019 08:22 AM. CLINICAL HISTORY: Trauma; pain. COMPARISON: None. TECHNIQUE: 3 views. FINDINGS: Bones: There is an acute intra-articular fracture of the anterior aspect of the radial head without significant displacement. Distal humerus and proximal ulna are intact. Joints: Moderate joint effusion. No subluxation. No narrowing or osteophyte formation. Soft Tissues: Normal. No soft tissue swelling. IMPRESSION: Left radial head fracture without significant displacement. RADIA
--- NOTE | 2019-02-22 08:58 | XRAY Report ---
Reason: trauma; pain Procedure Date: 02/22/2019 Accession Number: [id number] / [id number] Procedure: XR - Knee 4 View LT CPT Code: Final Report FULL RESULT: EXAM: LEFT KNEE RADIOGRAPHY EXAM DATE: 02/22/2019 08:22 AM. CLINICAL HISTORY: Trauma; pain. COMPARISON: None. TECHNIQUE: 4 views. FINDINGS: Bones: Normal. No fractures or bone lesions. Joints: Normal. No effusion. No subluxations. Soft Tissues: Normal. No soft tissue swelling. IMPRESSION: Normal left knee radiography. RADIA
== END 2019-02-22 09:27 | disposition home or self-care (01) ==
LOC: ED 06:04
DX: S52.125A Nondisplaced fracture of head of left radius, initial encounter for closed fracture (principal); S83.92XA Sprain of unspecified site of left knee, initial encounter; S80.02XA Contusion of left knee, initial encounter; Y04.2XXA Assault by strike against or bumped into by another person, initial encounter; I10 Essential (primary) hypertension; Z87.891 Personal history of nicotine dependence
CPT/HCPCS: 29105; 73080; 73110; 73564; 96372; 99284; A9270

== ENCOUNTER 2019-02-24 14:24 | Emergency (ER) | payer MEDICAID ==
[2019-02-24] MEDS ORDERED: oxyCODONE 5 MG TABLET PO STA (15:51)
--- NOTE | 2019-02-24 15:53 | ED Physician Documentation ---
History of Present Illness - Stated complaint Stated Complaint: MED REFILL, KNEE PX - Chief complaint Chief Complaint: General - History obtained from History obtained from: Patient - History of Present Illness Timing: Other (She was seen here a couple of days ago with a radial head fracture and a knee sprain, she is run out of medications for the pain and needs more plus, the medicine was not strong enough to begin with. No new injuries. She is not driving today.) Review of Systems Constitutional: reports: Reviewed and negative Cardiac: reports: Reviewed and negative Respiratory: reports: Reviewed and negative PD PAST MEDICAL HISTORY - Past Medical History Cardiovascular: Hypertension Respiratory: None Neuro: None Endocrine/Autoimmune: None GI: None FEATHER SHAPER: Ovarian cancer : None HEENT: None Psych: Depression, Anxiety, Post traumatic stress disorder Musculoskeletal: None Derm: Eczema - Past Surgical History Past Surgical History: No /FEATHER SHAPER: Dilation and currettage - Present Medications Home Medications: Ambulatory Orders Medication Instructions Recorded Confirmed Quetiapine Fumarate [Seroquel] 100 mg PO BID 08/19/17 09/09/18 EPINEPHrine [Epinephrine] 0.3 mg IJ PRN PRN 03/26/18 03/26/18 Lamotrigine [Lamotrigine ER] 50 mg PO DAILY 09/09/18 09/09/18 NIFEdipine [Nifedipine ER] 30 mg PO DAILY 09/09/18 09/09/18 Hydrocodone/Acetaminophen 1 - 2 each PO Q6H PRN #7 tablet 01/05/19 [Hydrocodon-Acetaminophen 5-325] Ondansetron Odt [Zofran] 4 mg TL Q6H PRN #10 tablet 01/05/19 Ibuprofen 800 mg PO Q6HR PRN #30 tablet 01/07/19 Oxycodone HCl/Acetaminophen 1 - 2 each PO Q6H PRN #12 tablet 01/07/19 [Percocet 5-325 mg Tablet] methocarbamoL [Methocarbamol] 500 mg PO TID PRN #15 tablet 01/07/19 Hydrocodone/Acetaminophen 1 - 2 each PO Q6H PRN #14 tablet 02/22/19 [Hydrocodon-Acetaminophen 5-325] Oxycodone HCl/Acetaminophen 1 - 2 each PO Q6H PRN #14 tablet 02/24/19 [Percocet 5-325 mg Tablet] - Allergies Allergies/Adverse Reactions: Allergies Allergy/AdvReac Type Severity Reaction Status Date / Time codeine Allergy Mild Nausea Verified 01/07/19 16:25 - Social History Does the pt smoke?: Yes Smoking Status: Former smoker Does the pt drink ETOH?: Yes Does the pt have substance abuse?: No - Immunizations Immunizations are current?: Yes - POLST Patient has POLST: No PD ED PE NORMAL - Vitals Vital signs reviewed: Yes - General General: Alert and oriented X 3, No acute distress - Extremities Extremities: Other (Left arm is in a splint, fingers are pink warm and dry with good refill and motion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, Normal speech Results - Vitals Vitals: Vital Signs - 24 hr 02/24/19 14:36 Temperature 36.6 C Heart Rate 102 H Respiratory 16 Rate Blood Pressure 143/99 H O2 Saturation 100 Oxygen O2 Source Room air Departure - Departure Disposition: 01 Home, Self Care Clinical Impression: Fracture of radial head, left, closed Qualifiers: Encounter type: subsequent encounter Fracture alignment: nondisplaced Fracture healing: with routine healing Qualified Code(s): S52.125D - Nondisplaced fracture of head of left radius, subsequent encounter for closed fracture with routine healing Condition: Good Record reviewed to determine appropriate education?: Yes Prescriptions: Oxycodone HCl/Acetaminophen [Percocet 5-325 mg Tablet] 1 - 2 each PO Q6H PRN #14 tablet PRN Reason: pain Comments: Follow through with the referrals as you are ready planning, return for new or worsening symptoms. Keep the splint on and dry. Do not drink or drive while taking narcotic pain medication. Note that many narcotic pain relievers also contain Tylenol/acetaminophen. Please ensure that your total dose of acetaminophen from all sources does not exceed 3 g (3000 mg) per day. You may get constipated while on this medication. Take a stool softener such as Colace twice a day while you are on it. Also add an [id number] laxative such as senna or MiraLAX on any day that you do not have a bowel movement. If you received a narcotic pain medication or sedative while in the emergency department, do not drive for the next 24 hours.
[2019-02-24 16:00] VITALS: BP 140/96
== END 2019-02-24 16:00 | disposition home or self-care (01) ==
LOC: ED 14:24
DX: S52.125A Nondisplaced fracture of head of left radius, initial encounter for closed fracture (principal); X58.XXXA Exposure to other specified factors, initial encounter; Z76.0 Encounter for issue of repeat prescription; I10 Essential (primary) hypertension; Z87.891 Personal history of nicotine dependence
CPT/HCPCS: 99282; 99283; A9270

== ENCOUNTER 2019-03-24 13:32 | Emergency (ER) | payer MEDICAID ==
[2019-03-24 13:50] VITALS: BP 126/65
== END 2019-03-24 14:30 | disposition left against medical advice (07) ==
LOC: ED 13:32
DX: Z53.21 Procedure and treatment not carried out due to patient leaving prior to being seen by health care provider (principal)

== ENCOUNTER 2019-08-06 16:26 | Outpatient (CLI) | payer MEDICAID ==
--- NOTE | 2019-08-07 12:13 | Ultrasound Report ---
PROCEDURE: OB First Trimester INDICATIONS: POSITIVE PREG TEST OUTSIDE/PRIOR DATING DATA: Last menstrual period (LMP): 06/20/2019. LMP-based estimated date of delivery (ROCÍO): 03/26/2020. First dating scan (date and location): 08/06/[address] Yoo's office. Estimated date of delivery (ROCÍO) from first dating scan: 03/26/2020. TECHNIQUE: Real-time scanning was performed of the fetus and maternal pelvic organs, with image documentation. COMPARISON: None. FINDINGS: Embryo: There is an intrauterine with a gestational sac, yolk sac, and pole visualiz ed. The crown-rump length measures approximately 1.2 cm corresponding to a gestational age of 7 weeks 2 days. There is heart motion with a rate of 1 45 bpm. No perigestational fluid collections. Measurement variability in dating: +/- 4 weeks by LMP, +/- 7 days by mean sac diameter (use before 6 weeks gestation if crown-rump length not able to be measured), +/- 5 days by crown-rump length (6-12 weeks gestation). Maternal organs: The ovaries appear grossly within normal size limits. There is a thick-walled cyst i n the left ovary measuring up to approximately 2.6 cm likely representing a corpus luteal cyst. Limit ed images through the kidneys demonstrate no hydronephrosis. There is a probable column of Guill[place] in the right kidney. A left renal cyst is noted measuring up to 1.6 cm. IMPRESSION: 1. Single living intrauterine with calculated gestational age of 7 weeks 2 days correspondi ng to an estimated delivery date of 03/18/2020. 2. Probable corpus luteal cyst in the left ovary. Reviewed by: Héctor Dominguez MD on 08/07/2019 12:12 PM PDT Approved by: Héctor Dominguez MD on 08/07/2019 12:12 PM PDT Station ID: [id number]
--- NOTE | 2019-08-08 10:58 | Ultrasound Report ---
PROCEDURE: OB Transvaginal INDICATIONS: POSITIVE PREG TEST, DATING TECHNIQUE: Sonographic images of the maternal pelvic organs are identified. COMPARISON: None. FINDINGS: Intrauterine is identified with heart rate of 145 bpm. [place]-rump length measures 1.8 cm corresponding to 7 weeks 2 days. Left corpus luteal cyst is present. Probable maternal column of Guillermo is noted in the right kidney. Left renal cyst is present. IMPRESSION: 1. Single live intrauterine with ultrasound gestational age of 7 weeks 2 days corresponding to ultrasound ROCÍO of 03/26/2020. Reviewed by: Maylin Dennis MD on 08/08/2019 10:57 AM PDT Approved by: Maylin Dennis MD on 08/08/2019 10:57 AM PDT Station ID: [id number]
== END 2019-08-06 16:27 | disposition home or self-care (01) ==
LOC: DI 16:26
PROVIDERS: ATTEND Obstetrics & Gynecology
DX: Z32.01 Encounter for pregnancy test, result positive (principal)
CPT/HCPCS: 76801; 76817

== ENCOUNTER 2019-08-19 07:00 | Outpatient (CLI) | payer MEDICAID ==
[2019-08-19 19:25] LABS: BILIRUBIN,URINE NEGATIVE (NEGATIVE); GLUCOSE, URINE (UA) NEGATIVE (NEGATIVE); KETONES,URINE (UA) NEGATIVE (NEGATIVE); LEUKOCYTE ESTERASE, URINE NEGATIVE (NEGATIVE); NITRITE,URINE NEGATIVE (NEGATIVE); OCCULT BLOOD,URINE NEGATIVE (NEGATIVE); PROTEIN,URINE NEGATIVE (NEGATIVE); UROBILINOGEN,URINE 0.2 (NORMAL) E.U./dL (NORMAL)
[2019-08-19 19:40] LABS: CLARITY,URINE CLEAR (CLEAR)
[2019-08-19 19:41] LABS: BACTERIA,URINE None Seen /HPF (None Seen); RBC,URINE None Seen /HPF (0-5); SQUAMOUS EPITHELIAL CELL,UR MANY Squamous (<= Few)
[2019-08-19 22:22] LABS: TRICHOMONAS VAGINALIS DNA NEGATIVE (NEGATIVE)
== END 2019-08-19 23:59 | disposition home or self-care (01) ==
LOC: LAB.R 07:00
PROVIDERS: ATTEND Obstetrics & Gynecology
DX: Z36.89 Encounter for other specified antenatal screening (principal)
CPT/HCPCS: 81001; 87086; 87491; 87591; 87661

== ENCOUNTER 2019-12-10 15:20 | Outpatient (CLI) | payer MEDICAID ==
--- NOTE | 2019-12-11 08:48 | Ultrasound Report ---
PROCEDURE: OB Detailed Eval INDICATIONS: ENCOUNTER FOR OTHER SPECIFIED SCREENING OUTSIDE/PRIOR DATING DATA: Last menstrual period (LMP): 06/20/2019. LMP-based estimated date of delivery (ROCÍO): 03/26/2020. First dating scan (date and location): 08/06/2019. Estimated date of delivery (ROCÍO) from first dating scan: 03/22/2020. TECHNIQUE: Real-time scanning was performed of the fetus, with image documentation and biometric measurements. Endovaginal scanning: Performed COMPARISON: None. FINDINGS: General: A single living intrauterine gestation is present. Presentation: Cephalic with spine to maternal left Placenta: Placental position is posterior, without previa. Amniotic fluid index: 14.5 cm, normal at the 47th percentile for gestational age. heart rate: 136 beats per minute. Maternal cervical canal: 4.6 cm long and closed biometrics: Biparietal diameter: 6.2 centimeters Head circumference: 23.2 centimeters Abdominal circumference: 21.8 cm Femur length: 4.9 cm Estimated gestational age from initial scan: not applicable. Composite gestational age from present scan: 25 weeks 3 days Estimated weight and percentile: 894 g, 76th percentile Measurement variability in biometric dating: +/- 10 days from 12-20 weeks gestation, +/- 2 weeks from 20-30 weeks gestation, +/- 3 weeks at 30 weeks gestation or later. Anatomic survey: Neuro: Ventricles are normal at less than 10 mm. Cisterna magna is normal at 3-11 mm. Cerebellum i s normal in size and morphology. Nuchal skin fold: Normal at less than 6 mm between 14 and 20 weeks gestational age. Face: Nose and lips, facial profile are normal. Spine: No evidence for spina bifida. Heart: 4-chambered heart is present, with normal ventricular outflow tracts. Diaphragm: Diaphragm is intact. Stomach: Left-sided stomach is present. Kidneys: No hydronephrosis. Normal is less than 5 mm in 2nd trimester, less than 7 mm in 3rd trimester. Cord: 3 vessel cord has orthotopic insertion. Bladder: Normal in size. Extremities: All 4 extremities are visualized. IMPRESSION: Normal anatomic survey. Reviewed by: Rohan Barrios MD on 12/11/2019 8:46 AM PST Approved by: Rohan Barrios MD on 12/11/2019 8:46 AM PST Station ID: [id number]
== END 2019-12-10 15:21 | disposition home or self-care (01) ==
LOC: DI 15:20
PROVIDERS: ATTEND Obstetrics & Gynecology
DX: O09.892 Supervision of other high risk pregnancies, second trimester (principal); Z3A.25 25 weeks gestation of pregnancy
CPT/HCPCS: 76811

== ENCOUNTER 2020-01-14 07:41 | Outpatient (CLI) | payer MEDICAID ==
[2020-01-14 09:01] LABS: HGB - HEMOGLOBIN 11.2 g/dL (12.0-16.0); MEAN CORPUSCULAR HEMOGLOBIN 30.5 pg (27.0-31.0); MEAN CORPUSCULAR HGB CONC 32.7 g/dL (32.0-36.0); MEAN CORPUSCULAR VOLUME 93.5 fL (81.0-99.0); MEAN PLATELET VOLUME 9.7 fL (7.9-10.8); RED BLOOD COUNT 3.67 10^6/uL (4.20-5.40); RED CELL DISTRIBUTION WIDTH 12.8 % (12.0-15.0); WHITE BLOOD COUNT 10.7 x10^3/uL (4.8-10.8)
== END 2020-01-14 07:42 | disposition home or self-care (01) ==
LOC: LAB 07:41
PROVIDERS: ATTEND Obstetrics & Gynecology
DX: O09.899 Supervision of other high risk pregnancies, unspecified trimester (principal); Z13.21 Encounter for screening for nutritional disorder
CPT/HCPCS: 36415; 82306; 82950; 85027

== ENCOUNTER 2020-01-27 10:48 | Outpatient (CLI) | payer MEDICAID ==
[2020-01-27 11:03] LABS: MEAN CORPUSCULAR HEMOGLOBIN 30.5 pg (27.0-31.0); MEAN CORPUSCULAR HGB CONC 32.7 g/dL (32.0-36.0); MEAN CORPUSCULAR VOLUME 93.4 fL (81.0-99.0); MEAN PLATELET VOLUME 9.4 fL (7.9-10.8); RED BLOOD COUNT 3.93 10^6/uL (4.20-5.40); RED CELL DISTRIBUTION WIDTH 12.8 % (12.0-15.0); WHITE BLOOD COUNT 10.8 x10^3/uL (4.8-10.8)
[2020-01-27 11:16] LABS: ALBUMIN 3.3 g/dL (3.2-5.5); ALBUMIN/GLOBULIN RATIO 0.9 (1.0-2.2); BILIRUBIN,TOTAL 0.3 mg/dL (0.2-1.0); CALCIUM 9.1 mg/dL (8.5-10.3); CREATININE 0.6 mg/dL (0.4-1.0); TOTAL PROTEIN 6.9 g/dL (6.7-8.2)
[2020-01-27 12:59] LABS: CREATININE,URINE 182.8 mg/dL; PROTEIN/CREATININE RATIO,URINE 0.1 (<=0.2)
== END 2020-01-27 10:49 | disposition home or self-care (01) ==
LOC: LAB 10:48
PROVIDERS: ATTEND Obstetrics & Gynecology
DX: O09.899 Supervision of other high risk pregnancies, unspecified trimester (principal); Z13.21 Encounter for screening for nutritional disorder
CPT/HCPCS: 36415; 80053; 82306; 82570; 84156; 85027

== ENCOUNTER 2020-02-09 13:22 | Outpatient (CLI) | payer MEDICAID ==
[2020-02-09 13:42] LABS: HGB - HEMOGLOBIN 12.3 g/dL (12.0-16.0); MEAN CORPUSCULAR HEMOGLOBIN 30.1 pg (27.0-31.0); MEAN CORPUSCULAR VOLUME 91.4 fL (81.0-99.0); MEAN PLATELET VOLUME 9.8 fL (7.9-10.8); RED BLOOD COUNT 4.08 10^6/uL (4.20-5.40); RED CELL DISTRIBUTION WIDTH 13.5 % (12.0-15.0); WHITE BLOOD COUNT 11.8 x10^3/uL (4.8-10.8)
[2020-02-09 13:47] LABS: ALBUMIN 3.3 g/dL (3.2-5.5); ALBUMIN/GLOBULIN RATIO 0.9 (1.0-2.2); BILIRUBIN,TOTAL 0.4 mg/dL (0.2-1.0); CREATININE 0.6 mg/dL (0.4-1.0); TOTAL PROTEIN 6.9 g/dL (6.7-8.2)
== END 2020-02-09 13:23 | disposition home or self-care (01) ==
LOC: LAB 13:22
PROVIDERS: ATTEND Obstetrics & Gynecology
DX: O09.899 Supervision of other high risk pregnancies, unspecified trimester (principal); O10.919 Unspecified pre-existing hypertension complicating pregnancy, unspecified trimester; Z3A.00 Weeks of gestation of pregnancy not specified
CPT/HCPCS: 36415; 80053; 84443; 85027

== ENCOUNTER 2020-02-19 15:31 | Outpatient (CLI) | payer MEDICAID ==
--- NOTE | 2020-02-20 08:48 | Ultrasound Report ---
PROCEDURE: OB F/U or Repeat INDICATIONS: SUPERVISION OF HIGH RISK OUTSIDE/PRIOR DATING DATA: Last menstrual period (LMP): 06/20/2019 LMP-based estimated date of delivery (ROCÍO): 03/26/2020. First dating scan (date and location): 08/06/2019. Estimated date of delivery (ROCÍO) from first dating scan: 03/22/2020. TECHNIQUE: Real-time scanning was performed of the fetus, with image documentation and biometric measurements. Endovaginal scanning: Not performed COMPARISON: 08/06/2019, 12/10/2019. FINDINGS: General: A single living intrauterine gestation is present. Presentation: Cephalic Placenta: Placental position is posterior, without previa. Amniotic fluid index: 14.8 cm, 55th percentile for gestational age.Largest pocket measures 4.7 cm. heart rate: 158 beats per minute. biometrics: Biparietal diameter: 8.5 cm, 33 weeks 3 days Head circumference: 31.8 cm, 35 weeks 6 days Abdominal circumference: 33.8 cm, 37 weeks 5 days Femur length: 6.9 cm, 35 weeks 3 days Estimated gestational age from initial scan: 35 weeks 3 days Composite gestational age from present scan: 35 weeks 6 days Estimated weight and percentile: 2967 g, 79th percentile Measurement variability in biometric dating: +/- 10 days from 12-20 weeks gestation, +/- 2 weeks from 20-30 weeks gestation, +/- 3 weeks at 30 weeks gestation or more. Other: Not applicable. IMPRESSION: Single living intrauterine fetus in cephalic presentation. Expected interval growth as above Reviewed by: Randolph Beatty MD on 02/20/2020 8:46 AM PST Approved by: Randolph Beatty MD on 02/20/2020 8:46 AM PST Station ID: [id number]
== END 2020-02-19 15:32 | disposition home or self-care (01) ==
LOC: DI 15:31
PROVIDERS: ATTEND Obstetrics & Gynecology
DX: O09.893 Supervision of other high risk pregnancies, third trimester (principal); Z36.88 Encounter for antenatal screening for fetal macrosomia

== ENCOUNTER 2020-03-02 08:00 | Outpatient (CLI) | payer MEDICAID | END 2020-03-02 23:59 | disposition home or self-care (01) | LOC: LAB.R 08:00 | PROVIDERS: ATTEND Obstetrics & Gynecology | DX: Z36.85 Encounter for antenatal screening for Streptococcus B (principal) | CPT/HCPCS: 87797 ==

== ENCOUNTER 2020-03-19 19:52 | Inpatient (IN) | payer MEDICAID ==
[2020-03-19] MEDS ORDERED: miSOPROStoL 200 MCG TABLET BC PRN (20:47)
[2020-03-19] MEDS ORDERED: SODIUM CHLORIDE FLUSH 0.9% 10 ML SYRINGE IVP PRN (20:47)
[2020-03-19] MEDS ORDERED: fentaNYL 100 MCG/2 ML VIAL IVP PRN (20:47)
[2020-03-19] MEDS ORDERED: TRANEXAMIC ACID IN NACL 1,000 MG/100 ML BAG IV PRN (20:47)
[2020-03-19] MEDS ORDERED: OXYTOCIN 10 UNIT/ML VIAL IM PRN (20:47)
[2020-03-19] MEDS ORDERED: LACTATED RINGERS 1,000 ML IV PRN (20:47)
[2020-03-19] MEDS ORDERED: OXYTOCIN/SODIUM CHLORIDE 500 ML IV PRN (20:47)
[2020-03-19] MEDS ORDERED: CARBOPROST TROMETHAMINE 250 MCG/ML AMP IM PRN (20:47)
[2020-03-19] MEDS ORDERED: TERBUTALINE 1 MG/ML VIAL SUBQ PRN (20:47)
[2020-03-19] MEDS ORDERED: LIDOCAINE-MPF 1% 30 ML VIAL ID PRN (20:47)
[2020-03-19] MEDS ORDERED: METHYLERGONOVINE 0.2 MG/ML VIAL IM PRN (20:47)
--- NOTE | 2020-03-19 20:57 | HISTORY & PHYSICAL EXAMINATION ---
Admit History - Smoking Status: Current every day smoker - Other Maternal History Other Maternal History: CC: IOL for chronic HTN HPI: Here for IOL Pt didnt follow up after her echo, not seen since 37w. ROS: no vag bleeding, leaking of fluid, or decreased movement. Some contractions that were pretty painful today. No cough, fever, or ill contacts. PMH: Seizure disorder Bipolar 1, depression, PTSD, anxiety Chronic headaches Hypothyroid Chronic hypertension PSH: D&C x3 Allergies: NKDA. Codeine causes stomach pain. Meds: Levothyroxine 50mcg daily, Iron, Vit D, PNV, ASA 81mg, lamictal 100mg daily, abilify 5mg daily, Adderall 30mg extended daily, folate, seroquil 100mg daily SH: Routine THC use for nausea. Quit smoking early preg. No alcohol or drug use. FH: no anesthesia problems OB hx: . Term vaginal delivery 8# uncomplicated. TAB x1, SAB with D&C x1 Dating: US on 08/16/2019 at 7w2d gives ROCÍO 03/18/2019; definitive LMP 06/20/19--> ROCÍO 03/26/2019 A pos/Rub imm NIPT 46 XX with MFM. Normal NT. AFP ordered but not completed. FAS 76%ile, 3VC CL 4.7 cm posterior echo with mild tricuspid regurg, cleared for delivery here. 02/19/20 EFW 79%ile Tdap 01/27/20 Glucola 103 Influenza given HSV: Denies. GBS neg O: AVSS Alert, smiling, NAD. States she is going to have a panic attack but appears calm and composed Abd soft, nt/nd Fundus nontender Vertex by miguel. 8.75# by miguel SVE 2/long/high/posterior/firm A/P: 34yo at 40w1d by 7w US, here for IOL due to chronic HTN. --IOL: not ripe, not nona, will start with misoprostol and transition to pitocin PRN. --Fetus: Normal anatomy except for tricuspid regurg. 79%ile on 02/19/20. Normal genetic screening. Category 1 NST -- Tricuspid regurg on echo. Peds cardiology recommends no cardiology evel or echo unless there are new concerns. Echo recommended at 1- 2mos of life with Cardiology at [facility]. --Labor: GBS neg, wants nitrox, may want an epidural but wants to avoid. --HTN: entered on nifedipine, was on Lisinopril prior to that. Now off meds. Will get PIH labs. --Bipolar 1 and other mood disorders: continue current meds --Hypothyroid: last TSH high-normal at 5.2. Recheck now. Continue replacement. --: watch mood carefully. s/p Tdap and flu vax. Rh +, RI, -- NOT recommended on Adderall. Patient plans to stop adderall so that she can feed. Peds notified of maternofetal history. Meds/Allgy - Home Medications Home Medications: Ambulatory Orders Medication Instructions Recorded Confirmed Quetiapine Fumarate [Seroquel] 100 mg PO BID 08/19/17 09/09/18 EPINEPHrine [Epinephrine] 0.3 mg IJ PRN PRN 03/26/18 03/26/18 Lamotrigine [Lamotrigine ER] 50 mg PO DAILY 09/09/18 09/09/18 NIFEdipine [Nifedipine ER] 30 mg PO DAILY 09/09/18 09/09/18 Hydrocodone/Acetaminophen 1 - 2 each PO Q6H PRN #7 tablet 01/05/19 [Hydrocodon-Acetaminophen 5-325] Ondansetron Odt [Zofran] 4 mg TL Q6H PRN #10 tablet 01/05/19 Ibuprofen 800 mg PO Q6HR PRN #30 tablet 01/07/19 Oxycodone HCl/Acetaminophen 1 - 2 each PO Q6H PRN #12 tablet 01/07/19 [Percocet 5-325 mg Tablet] methocarbamoL [Methocarbamol] 500 mg PO TID PRN #15 tablet 01/07/19 Hydrocodone/Acetaminophen 1 - 2 each PO Q6H PRN #14 tablet 02/22/19 [Hydrocodon-Acetaminophen 5-325] Oxycodone HCl/Acetaminophen 1 - 2 each PO Q6H PRN #14 tablet 02/24/19 [Percocet 5-325 mg Tablet] Cefdinir 300 mg PO BID #20 capsule 09/15/19 Oxycodone HCl/Acetaminophen 1 - 2 each PO Q6H PRN #7 tablet 09/15/19 [Percocet 5-325 mg Tablet] Phenazopyridine HCl [Pyridium] 200 mg PO TID PRN #6 tablet 09/15/19 - Allergies Allergies/Adverse Reactions: Allergies Allergy/AdvReac Type Severity Reaction Status Date / Time codeine Allergy Mild Nausea Verified 09/15/19 13:11 acetaminophen [From Vicodin] Allergy Nausea Verified 09/15/19 13:11 hydrocodone [From Vicodin] Allergy Nausea Verified 09/15/19 13:11
[2020-03-19 21:23] LABS: BASOPHILS % (AUTO) 0.4 %; EOSINOPHILS # (AUTO) 0.1 10^3/uL (0.0-0.7); EOSINOPHILS % (AUTO) 0.5 %; HGB - HEMOGLOBIN 12.9 g/dL (12.0-16.0); LYMPHOCYTES # (AUTO) 2.7 10^3/uL (1.5-3.5); LYMPHOCYTES % (AUTO) 25.3 %; MEAN CORPUSCULAR HEMOGLOBIN 30.3 pg (27.0-31.0); MEAN CORPUSCULAR HGB CONC 33.6 g/dL (32.0-36.0); MEAN CORPUSCULAR VOLUME 90.1 fL (81.0-99.0); MEAN PLATELET VOLUME 10.1 fL (7.9-10.8); MONOCYTES # (AUTO) 0.7 10^3/uL (0.0-1.0); MONOCYTES % (AUTO) 6.8 %; NEUTROPHILS # (AUTO) 7.1 10^3/uL (1.5-6.6); NEUTROPHILS % (AUTO) 66.1 %; PLT - PLATELET COUNT 281 10^3/uL (130-450); RED BLOOD COUNT 4.26 10^6/uL (4.20-5.40); RED CELL DISTRIBUTION WIDTH 13.9 % (12.0-15.0); WHITE BLOOD COUNT 10.8 x10^3/uL (4.8-10.8)
[2020-03-19] MEDS: miSOPROStoL 100 MCG TABLET BC SCH (21:41)
[2020-03-19] MEDS: ARIPiprazole 5 MG TABLET PO SCH (22:04)
[2020-03-19] MEDS: QUEtiapine 100 MG TABLET PO SCH (22:05)
[2020-03-19 22:11] LABS: CREATININE,URINE 128.5 mg/dL; PROTEIN/CREATININE RATIO,URINE 0.1 (<=0.2)
[2020-03-19] MEDS: ONDANSETRON 4 MG/2 ML VIAL IVP PRN (22:34)
[2020-03-19] MEDS: SODIUM CHLORIDE FLUSH 0.9% 10 ML SYRINGE IVP SCH (22:34)
[2020-03-19 23:11] LABS: ALBUMIN 3.1 g/dL (3.2-5.5); ALBUMIN/GLOBULIN RATIO 0.8 (1.0-2.2); BILIRUBIN,TOTAL 0.2 mg/dL (0.2-1.0); CALCIUM 10.1 mg/dL (8.5-10.3); CREATININE 0.7 mg/dL (0.4-1.0); TOTAL PROTEIN 6.8 g/dL (6.7-8.2)
[2020-03-19] MEDS: ZOLPIDEM 5 MG TABLET PO PRN (23:19)
[2020-03-19] MEDS: DOCUSATE SODIUM 100 MG CAPSULE PO SCH (23:19)
[2020-03-20] MEDS: miSOPROStoL 100 MCG TABLET BC SCH (02:08)
[2020-03-20] MEDS: FAMOTIDINE 20 MG/2 ML VIAL IVP PRN ×2 (03:26→21:19)
[2020-03-20] MEDS: SODIUM CHLORIDE FLUSH 0.9% 10 ML SYRINGE IVP SCH ×3 (03:27→21:20)
[2020-03-20] MEDS ORDERED: OXYTOCIN/SODIUM CHLORIDE 500 ML IV SCH (07:00)
[2020-03-20] MEDS: DOCUSATE SODIUM 100 MG CAPSULE PO SCH ×2 (08:32→19:26)
[2020-03-20] MEDS ORDERED: ARIPiprazole 5 MG TABLET PO SCH (09:00)
[2020-03-20] MEDS: ONDANSETRON 4 MG/2 ML VIAL IVP PRN ×2 (09:41→16:51)
[2020-03-20] MEDS ORDERED: ROPIVACAINE 0.2% 200 MG/100 ML BAG EP ONE (09:48)
--- NOTE | 2020-03-20 10:30 | ANESTHESIA ---
Pre-Anesthesia VS, & Labs - Diagnosis Active Labor - Procedure Vaginal delivery Vital Signs: Temp Pulse Resp BP Pulse Ox 36.6 C 03/19/20 22:17 Height: 5 ft 4 in Weight (kg): 97.069 kg Body Mass Index: 36.7 BMI Classification: Obese - NPO Other (labor) - Is Patient ?: Yes - Lab Results Current Lab Results: Laboratory Tests 03/19/20 21:15: Sodium 137, Potassium 3.7, Chloride 103, Carbon Dioxide 22, Anion Gap 12.0, BUN 14, Creatinine 0.7, Estimated GFR (MDRD) 96, Glucose 95, Calcium 10.1, Total Bilirubin 0.2, AST 20, ALT 22, Alkaline Phosphatase 112, Total Protein 6.8, Albumin 3.1 L, Globulin 3.7, Albumin/Globulin Ratio 0.8 L 03/19/20 21:15: Blood Type A POSITIVE, Antibody Screen NEGATIVE 03/19/20 21:15: TSH 5.38 03/19/20 21:15: WBC 10.8, RBC 4.26, Hgb 12.9, Hct 38.4, MCV 90.1, MCH 30.3, MCHC 33.6, RDW 13.9, Plt Count 281, MPV 10.1, Neut # (Auto) 7.1 H, Lymph # (Auto) 2.7, [place] # (Auto) 0.7, Eos # (Auto) 0.1, Baso # (Auto) 0.0, Absolute Nucleated RBC 0.00, Nucleated RBC % 0.0 Fish Bones: 03/19/20 21:15 03/19/20 21:15 Home Medications and Allergies Active Medications Acetaminophen (Acetaminophen 325 Mg Tablet) 650 mg PO Q6H PRN PRN Reason: pain Aripiprazole (Aripiprazole 5 Mg Tablet) 5 mg PO HS [facility] Last Admin: 03/19/20 22:04 Dose: 5 mg Documented by: Carboprost Tromethamine (Carboprost Tromethamine 250 Mcg/Ml Amp) 250 mcg IM Q15 M PRN PRN Reason: Step 4: Hemorrhage protocol Stop: 03/24/20 20:47 Docusate Sodium (Docusate Sodium 100 Mg Capsule) 100 mg PO BID [facility] Last Admin: 03/20/20 08:32 Dose: Not Given Documented by: Famotidine (Famotidine 20 Mg/2 Ml Vial) 20 mg IVP BID PRN PRN Reason: Heartburn Last Admin: 03/20/20 03:26 Dose: 20 mg Documented by: Fentanyl (Fentanyl 100 Mcg/2 Ml Vial) 50 mcg IVP Q1H PRN PRN Reason: PAIN Last Admin: 03/20/20 09:20 Dose: 50 mcg Documented by: Oxytocin/Sodium Chloride (Pitocin/Sodium Chloride) 500 mls @ 999 mls/hr IV PRN PRN; Protocol PRN Reason: POST- HEMORR PREVENTION Stop: 03/24/20 20:47 Tranexamic Acid (Tranexamic 1,000 Mg/100ml-Nacl) 1,000 mg in 100 mls @ 600 mls/hr IV .ONCE PRN PRN Reason: EBL >1200mL and within 3hr Stop: 03/24/20 20:47 Lactated Ringer's (Lr) 1,000 mls @ 150 mls/hr IV .Q6H40M PRN PRN Reason: med use or vomiting Last Admin: 03/20/20 08:18 Dose: 150 mls/hr Documented by: Oxytocin/Sodium Chloride (Pitocin/Sodium Chloride) 500 mls @ 1 mls/hr IV TITR BRANDY; Protocol Lamotrigine (Lamotrigine 100 Mg Tablet) 100 mg PO DAILY BRANDY Levothyroxine Sodium (Levothyroxine 25 Mcg Tablet) 50 mcg PO QDAC BRANDY Lidocaine HCl (Lidocaine-Mpf 1% 30 Ml Vial) 30 ml ID .ONCE PRN PRN Reason: PERINEAL REPAIR Stop: 03/24/20 20:47 Methylergonovine Maleate (Methylergonovine 0.2 Mg/Ml Vial) 0.2 mg IM .ONCE PRN PRN Reason: Step 2: Hemorrhage protocol Stop: 03/24/20 20:47 Metoclopramide HCl (Metoclopramide 10 Mg/2 Ml Vial) 10 mg IVP Q6H PRN PRN Reason: Nausea / Vomiting Misoprostol (Misoprostol 200 Mcg Tablet) 800 mcg BC .ONCE PRN PRN Reason: Step 3: Hemorrhage protocol Stop: 03/24/20 20:47 Ondansetron HCl (Ondansetron 4 Mg/2 Ml Vial) 4 mg IVP Q4H PRN PRN Reason: Nausea / Vomiting Last Admin: 03/20/20 09:41 Dose: 4 mg Documented by: Oxytocin (Oxytocin 10 Unit/Ml Vial) 10 unit IM .ONCE PRN PRN Reason: Step one: If no IV access Stop: 03/24/20 20:47 Quetiapine Fumarate (Quetiapine 100 Mg Tablet) 100 mg PO QPM [facility] Last Admin: 03/19/20 22:05 Dose: 100 mg Documented by: Sodium Chloride (Sodium Chloride Flush 0.9% 10 Ml Syringe) 10 ml IVP PRN PRN PRN Reason: NEEDED PER PROVIDER ORDERS Sodium Chloride (Sodium Chloride Flush 0.9% 10 Ml Syringe) 10 ml IVP 0100,0900,1700 [facility] Last Admin: 03/20/20 03:27 Dose: 10 ml Documented by: Terbutaline Sulfate (Terbutaline 1 Mg/Ml Vial) 0.25 mg SUBQ Q1H PRN PRN Reason: category 3 tracing w/MD order Zolpidem Tartrate (Zolpidem 5 Mg Tablet) 5 mg PO QPM PRN PRN Reason: Insomnia Last Admin: 03/19/20 23:19 Dose: 5 mg Documented by: Quetiapine Fumarate [Seroquel] 100 mg PO BID 08/19/17 EPINEPHrine [Epinephrine] 0.3 mg IJ PRN PRN 03/26/18 Lamotrigine [Lamotrigine ER] 50 mg PO DAILY 09/09/18 NIFEdipine [Nifedipine ER] 30 mg PO DAILY 09/09/18 Allergies/Adverse Reactions: Allergies Allergy/AdvReac Type Severity Reaction Status Date / Time codeine Allergy Mild Nausea Verified 09/15/19 13:11 acetaminophen [From Vicodin] Allergy Nausea Verified 09/15/19 13:11 hydrocodone [From Vicodin] Allergy Nausea Verified 09/15/19 13:11 Anes History & Medical History - Anesthetic History Anesthesia Complications: reports: No previous complications - Medical History Cardiovascular: reports: Hypertension (chronic) Pulmonary: reports: None Gastrointestinal: reports: None Urinary: reports: None Neuro: reports: Seizure disorder Musculoskeletal: reports: None Endocrine/Autoimmune: reports: HyPOthyroidism Blood Disorders: reports: None Skin: reports: Eczema Smoking Status: Current every day smoker Psychosocial: reports: Depression (Bipolar 1), Cannabis History of Cancer?: No - Surgical History Gynecologic: Dilation and currettage - Obstetrical History : 4 Parity: 1 Events: positive: Other (Chronic hypertension) Exam General: Alert, Oriented x3, Cooperative, No acute distress Dental: WNL Mouth Openin Fingerbreadth Neck Mobility: Normal Mallampati classification: II Thyromental Distance: 4-6 cm Mental/Cognitive Status: Alert/Oriented X3, Normal for patient Plan Anesthesia Type: Epidural (With dural puncture) Consent for Procedure(s) Verified and Reviewed: Yes Code Status: Attempt Resuscitation ASA classification: 1-Healthy patient Is this case an emergency?: No
[2020-03-20] MEDS ORDERED: ePHEDrine 50 MG/ML VIAL IVP PRN (10:32)
[2020-03-20] MEDS ORDERED: NALOXONE 0.4 MG/ML VIAL IVP PRN (10:32)
[2020-03-20] MEDS ORDERED: ROPIVACAINE 0.2% 200 MG/100 ML BAG EP PRN (10:32)
[2020-03-20] MEDS: METOCLOPRAMIDE 10 MG/2 ML VIAL IVP PRN (10:55)
[2020-03-20] MEDS: DEXTROSE 5%-LACTATED RINGERS 1,000 ML IV SCH (11:10)
[2020-03-20] MEDS ORDERED: CALCIUM CARBONATE CHEW 500 MG TABLET PO PRN (11:11)
[2020-03-20] MEDS: lamoTRIgine 100 MG TABLET PO SCH ×2 (11:27→12:06)
[2020-03-20] MEDS: LEVOTHYROXINE 25 MCG TABLET PO SCH ×2 (11:27→12:06)
--- NOTE | 2020-03-20 14:50 | PROVIDER PROGRESS NOTE ---
Subjective - Subjective Subjective: Pt assessed around 12:15 and again now. Received an epidural and is comfortable--having occasional vaginal pressure and that is all. SVE check prior to epidural was 4-5cm. Tracing category 1. SVE check 2h later was 5-6h with contraction frequency 2-3 in 10min. Pitocin augmention was restarted at 1mU/min and increased to 3mU/min. Around 13:30, pt developed variables with late timing, michael 110-120, and then one with a michael of 80. Pit turned off. Pt was found to have SROM clear. SVE 7-8cm, head well-applied, no cord. Repositioned frequently, oxygen applied, terbutaline drawn up at bedside but not given. IUPC placed without difficulty. Amnioinfusion bolus started. Baby had maintained a normal baseline throughout, did have a period of minimal variability. Now baseline is 140, mod variablity present, no accel, no decel. UC spontaneous 3 in 10min, individual UC with MVU 25-30. Recheck SVE with IUPC placement was 8/80/0. Ephedrine given for SBP in 90s. Will give fetus time to recover, consider resuming pitocin PRN. Objective - Vital Signs/Intake & Output Intake & Output: Intake & Output 03/17/20 03/18/20 03/19/20 03/20/20 23:59 23:59 23:59 23:59 Intake Total 2500 Output Total 225 Balance 2275 - Lab Results Fish Bones: 03/19/20 21:15 03/19/20 21:15 Other Labs: Lab Results x24hrs 03/19/20 03/19/20 03/19/20 Range/Units 21:50 21:15 21:15 WBC (4.8-10.8) x10^3/uL RBC (4.20-5.40) 10^6/uL Hgb (12.0-16.0) g/dL Hct (37.0-47.0) % MCV (81.0-99.0) fL MCH (27.0-31.0) pg MCHC (32.0-36.0) g/dL RDW (12.0-15.0) % Plt Count (130-450) 10^3/uL MPV (7.9-10.8) fL Neut # (Auto) (1.5-6.6) 10^3/uL Lymph # (Auto) (1.5-3.5) 10^3/uL [place] # (Auto) (0.0-1.0) 10^3/uL Eos # (Auto) (0.0-0.7) 10^3/uL Baso # (Auto) (0.0-0.1) 10^3/uL Absolute Nucleated RBC x10^3/uL Nucleated RBC % /100WBC Sodium 137 (135-145) mmol/L Potassium 3.7 (3.5-5.0) mmol/L Chloride 103 (101-111) mmol/L Carbon Dioxide 22 (21-32) mmol/L Anion Gap 12.0 (6-13) BUN 14 (6-20) mg/dL Creatinine 0.7 (0.4-1.0) mg/dL Estimated GFR (MDRD) 96 (>89) Glucose 95 (70-100) mg/dL Calcium 10.1 (8.5-10.3) mg/dL Total Bilirubin 0.2 (0.2-1.0) mg/dL AST 20 (10-42) IU/L ALT 22 (10-60) IU/L Alkaline Phosphatase 112 (42-121) IU/L Total Protein 6.8 (6.7-8.2) g/dL Albumin 3.1 L (3.2-5.5) g/dL Globulin 3.7 (2.1-4.2) g/dL Albumin/Globulin Ratio 0.8 L (1.0-2.2) TSH (0.34-5.60) uIU/mL Urine Creatinine 128.5 mg/dL Ur Total Protein Timed 13 mg/dL Protein/Creatinin Ratio 0.1 (<=0.2) Blood Type A POSITIVE Antibody Screen NEGATIVE 03/19/20 03/19/20 Range/Units 21:15 21:15 WBC 10.8 (4.8-10.8) x10^3/uL RBC 4.26 (4.20-5.40) 10^6/uL Hgb 12.9 (12.0-16.0) g/dL Hct 38.4 (37.0-47.0) % MCV 90.1 (81.0-99.0) fL MCH 30.3 (27.0-31.0) pg MCHC 33.6 (32.0-36.0) g/dL RDW 13.9 (12.0-15.0) % Plt Count 281 (130-450) 10^3/uL MPV 10.1 (7.9-10.8) fL Neut # (Auto) 7.1 H (1.5-6.6) 10^3/uL Lymph # (Auto) 2.7 (1.5-3.5) 10^3/uL [place] # (Auto) 0.7 (0.0-1.0) 10^3/uL Eos # (Auto) 0.1 (0.0-0.7) 10^3/uL Baso # (Auto) 0.0 (0.0-0.1) 10^3/uL Absolute Nucleated RBC 0.00 x10^3/uL Nucleated RBC % 0.0 /100WBC Sodium (135-145) mmol/L Potassium (3.5-5.0) mmol/L Chloride (101-111) mmol/L Carbon Dioxide (21-32) mmol/L Anion Gap (6-13) BUN (6-20) mg/dL Creatinine (0.4-1.0) mg/dL Estimated GFR (MDRD) (>89) Glucose (70-100) mg/dL Calcium (8.5-10.3) mg/dL Total Bilirubin (0.2-1.0) mg/dL AST (10-42) IU/L ALT (10-60) IU/L Alkaline Phosphatase (42-121) IU/L Total Protein (6.7-8.2) g/dL Albumin (3.2-5.5) g/dL Globulin (2.1-4.2) g/dL Albumin/Globulin Ratio (1.0-2.2) TSH 5.38 (0.34-5.60) uIU/mL Urine Creatinine mg/dL Ur Total Protein Timed mg/dL Protein/Creatinin Ratio (<=0.2) Blood Type Antibody Screen
--- NOTE | 2020-03-20 15:26 | PROVIDER PROGRESS NOTE ---
Subjective - Subjective Subjective: Pt complaining of chest pain, chest tightness, and a feeling of SOB. Sensations are mild. Discomfort is midline substernal. No radiation. Not worse with a deep breath. No cough, no hemoptysis, no jaw pain, no shoulder pain, no feeling of disassociation. Feels shaky and has felt pretty anxious. Sensation started during a period of decelerations with multiple interventions for intrauterine rescusitation. Pt has never had a panic attack before, hasn't felt like this before, no hx of cardiopulmnary issues, neg FH of VTE or early DC. VSS. Cor RRR no murmurs. Lungs CTA bilat. LE with 1+ symmetric edema, no erythema, no warmth, no cord. Ddx includes acute cardiac event--will get EKG; AFE but VS are stable and onset was gradual and sx are mild; PE but VS are stab le, not pleuritic, normal LE exam; panic attack which is most likely--pt with a hx of anxiety, started with an anxious point during labor, onset was gradual; positioning issue also possible with pt hunched in bed a bit, large-breasted. EKG NSR. Will observe. Objective - Vital Signs/Intake & Output Vital Signs: Vital Signs x48h Temp 03/20/20 15:00 97.9 F Intake & Output: Intake & Output 03/17/20 03/18/20 03/19/20 03/20/20 23:59 23:59 23:59 23:59 Intake Total 2500 Output Total 255 Balance 2245 - Lab Results Fish Bones: 03/19/20 21:15 03/19/20 21:15 Other Labs: Lab Results x24hrs 03/19/20 03/19/20 03/19/20 Range/Units 21:50 21:15 21:15 WBC (4.8-10.8) x10^3/uL RBC (4.20-5.40) 10^6/uL Hgb (12.0-16.0) g/dL Hct (37.0-47.0) % MCV (81.0-99.0) fL MCH (27.0-31.0) pg MCHC (32.0-36.0) g/dL RDW (12.0-15.0) % Plt Count (130-450) 10^3/uL MPV (7.9-10.8) fL Neut # (Auto) (1.5-6.6) 10^3/uL Lymph # (Auto) (1.5-3.5) 10^3/uL [place] # (Auto) (0.0-1.0) 10^3/uL Eos # (Auto) (0.0-0.7) 10^3/uL Baso # (Auto) (0.0-0.1) 10^3/uL Absolute Nucleated RBC x10^3/uL Nucleated RBC % /100WBC Sodium 137 (135-145) mmol/L Potassium 3.7 (3.5-5.0) mmol/L Chloride 103 (101-111) mmol/L Carbon Dioxide 22 (21-32) mmol/L Anion Gap 12.0 (6-13) BUN 14 (6-20) mg/dL Creatinine 0.7 (0.4-1.0) mg/dL Estimated GFR (MDRD) 96 (>89) Glucose 95 (70-100) mg/dL Calcium 10.1 (8.5-10.3) mg/dL Total Bilirubin 0.2 (0.2-1.0) mg/dL AST 20 (10-42) IU/L ALT 22 (10-60) IU/L Alkaline Phosphatase 112 (42-121) IU/L Total Protein 6.8 (6.7-8.2) g/dL Albumin 3.1 L (3.2-5.5) g/dL Globulin 3.7 (2.1-4.2) g/dL Albumin/Globulin Ratio 0.8 L (1.0-2.2) TSH (0.34-5.60) uIU/mL Urine Creatinine 128.5 mg/dL Ur Total Protein Timed 13 mg/dL Protein/Creatinin Ratio 0.1 (<=0.2) Blood Type A POSITIVE Antibody Screen NEGATIVE 03/19/20 03/19/20 Range/Units 21:15 21:15 WBC 10.8 (4.8-10.8) x10^3/uL RBC 4.26 (4.20-5.40) 10^6/uL Hgb 12.9 (12.0-16.0) g/dL Hct 38.4 (37.0-47.0) % MCV 90.1 (81.0-99.0) fL MCH 30.3 (27.0-31.0) pg MCHC 33.6 (32.0-36.0) g/dL RDW 13.9 (12.0-15.0) % Plt Count 281 (130-450) 10^3/uL MPV 10.1 (7.9-10.8) fL Neut # (Auto) 7.1 H (1.5-6.6) 10^3/uL Lymph # (Auto) 2.7 (1.5-3.5) 10^3/uL [place] # (Auto) 0.7 (0.0-1.0) 10^3/uL Eos # (Auto) 0.1 (0.0-0.7) 10^3/uL Baso # (Auto) 0.0 (0.0-0.1) 10^3/uL Absolute Nucleated RBC 0.00 x10^3/uL Nucleated RBC % 0.0 /100WBC Sodium (135-145) mmol/L Potassium (3.5-5.0) mmol/L Chloride (101-111) mmol/L Carbon Dioxide (21-32) mmol/L Anion Gap (6-13) BUN (6-20) mg/dL Creatinine (0.4-1.0) mg/dL Estimated GFR (MDRD) (>89) Glucose (70-100) mg/dL Calcium (8.5-10.3) mg/dL Total Bilirubin (0.2-1.0) mg/dL AST (10-42) IU/L ALT (10-60) IU/L Alkaline Phosphatase (42-121) IU/L Total Protein (6.7-8.2) g/dL Albumin (3.2-5.5) g/dL Globulin (2.1-4.2) g/dL Albumin/Globulin Ratio (1.0-2.2) TSH 5.38 (0.34-5.60) uIU/mL Urine Creatinine mg/dL Ur Total Protein Timed mg/dL Protein/Creatinin Ratio (<=0.2) Blood Type Antibody Screen
--- NOTE | 2020-03-20 17:50 | DELIVERY NOTE ---
Delivery Note - Labor Labor: positive: Spontaneous - Delivery Method Delivery Method: positive: Spontaneous vaginal delivery - Presentation Presentation: positive: Vertex - Nuchal Cord Nuchal Cord: positive: None - Amniotic Fluid Description Amniotic Fluid Description: positive: Clear - Episiotomy Type Episiotomy Type: positive: None - Laceration Laceration: positive: 2nd degree - Suture Suture Type: positive: Vicryl Suture Size: positive: 2-0 (Normal anatomy restored. Pt with a rectocele discrete defect that she had prior to delivery.) - Delivery Outcome Delivery Outcome: positive: Livebirth - [place]: positive: Placed in direct skin contact with mother, Suctioned, Stimulated, Warmed sex: positive: Female : Apgars 8/8 - Cord Cord: positive: 3 vessels - Placenta Placenta: positive: Intact, Spontaneous - Estimated Blood Loss Estimated Blood Loss (in cc): 250 - Post Delivery Events Post Delivery Events: positive: Shoulder dystocia - Delivery Comments (Free Text/Narrative) Delivery Comments (Free Text/Narrative): Patient induced at 40w for chronic HTN. Induced with misoprostol and pitocin, received an epidural, SROM clear fluid, amnioinfusion and IUPC for variables that resolved with tx. Pushed to deliver head. SARA position. Shoulder dystocia anticipated with the of the head and so ready with a step stool and Mc. [place]ons. Head of bed flattened. Delivered with suprapubic pressure. I heard an audible pop consistent with possible clavicle fracture--peds notified. 20 sec dystocia. No nuchal. Otherwise uncomplicated delivery.
[2020-03-20] MEDS: ACETAMINOPHEN 325 MG TABLET PO PRN (19:26)
[2020-03-20] MEDS ORDERED: KETOROLAC 30 MG/ML VIAL IVP SCH (20:00)
[2020-03-20] MEDS: HYDROmorphone 2 MG TABLET PO PRN (21:20)
[2020-03-20] MEDS: QUEtiapine 100 MG TABLET PO SCH (22:30)
[2020-03-20] MEDS: hydrOXYzine PAMOATE 25 MG CAPSULE PO PRN (22:30)
[2020-03-20] MEDS: ARIPiprazole 5 MG TABLET PO SCH (22:31)
[2020-03-21] MEDS: DEXTROSE 5%-LACTATED RINGERS 1,000 ML IV SCH (00:01)
[2020-03-21] MEDS: ACETAMINOPHEN 325 MG TABLET PO PRN ×4 (01:38→20:39)
[2020-03-21] MEDS: IBUPROFEN 600 MG TABLET PO PRN ×4 (01:38→20:39)
[2020-03-21] MEDS: HYDROmorphone 2 MG TABLET PO PRN ×4 (04:20→23:44)
[2020-03-21] MEDS ORDERED: MAGNESIUM HYDROXIDE 2,400 MG/30 ML UDC PO PRN (04:48)
[2020-03-21] MEDS: DOCUSATE SODIUM 100 MG CAPSULE PO SCH ×2 (05:03→20:39)
[2020-03-21] MEDS: hydrOXYzine PAMOATE 25 MG CAPSULE PO PRN ×3 (05:25→20:39)
[2020-03-21] MEDS: METOCLOPRAMIDE 10 MG/2 ML VIAL IVP PRN (05:27)
[2020-03-21] MEDS: SODIUM CHLORIDE FLUSH 0.9% 10 ML SYRINGE IVP SCH ×2 (05:28→14:48)
[2020-03-21] MEDS: LEVOTHYROXINE 25 MCG TABLET PO SCH (08:24)
[2020-03-21] MEDS: lamoTRIgine 100 MG TABLET PO SCH (11:19)
[2020-03-21] MEDS: polyethylene glycoL 3350 17 GM PACKET PO PRN (12:51)
[2020-03-21 13:46] LABS: BILIRUBIN,URINE NEGATIVE (NEGATIVE); GLUCOSE, URINE (UA) NEGATIVE (NEGATIVE); KETONES,URINE (UA) NEGATIVE (NEGATIVE); LEUKOCYTE ESTERASE, URINE NEGATIVE (NEGATIVE); NITRITE,URINE NEGATIVE (NEGATIVE); OCCULT BLOOD,URINE NEGATIVE (NEGATIVE); PH,URINE 6.5 PH (5.0-7.5); PROTEIN,URINE NEGATIVE (NEGATIVE); UROBILINOGEN,URINE 0.2 (NORMAL) E.U./dL (NORMAL)
[2020-03-21 14:00] LABS: CLARITY,URINE CLEAR (CLEAR)
[2020-03-21 14:16] LABS: BACTERIA,URINE Rare /HPF (None Seen); RBC,URINE 0-5 /HPF (0-5); SQUAMOUS EPITHELIAL CELL,UR RARE Squamous (<= Few)
[2020-03-21] MEDS: FAMOTIDINE 20 MG/2 ML VIAL IVP PRN (14:48)
[2020-03-21] MEDS ORDERED: MAGNESIUM CITRATE 296 ML BOTTLE PO PRN (16:21)
--- NOTE | 2020-03-21 16:25 | PROVIDER PROGRESS NOTE ---
Subjective - Subjective Subjective: Having 8-12/10 abdominal pain, cramping, with some stabbing lateral pains, all below the umbilicus, worse when , meds don't seem to make it much better. Having VB like a period, feels able to empty her bladder fully, had 2 moderate-sized BMs and worried that she isn't cleared out but doesn't feel constipated either. Good latch and breasts are OK. Reports mood is OK and not feeling different without the adderall. Objective - Vital Signs/Intake & Output Reviewed Vital Signs: Yes Vital Signs: Vital Signs x48h Temp Pulse Resp BP Pulse Ox 03/21/20 11:00 97.7 F 82 17 130/79 99 Intake & Output: Intake & Output 03/18/20 03/19/20 03/20/20 03/21/20 23:59 23:59 23:59 23:59 Intake Total 2500 2380 Output Total 2755 1050 Balance -255 1330 - Lab Results Fish Bones: 03/19/20 21:15 03/19/20 21:15 Other Labs: Lab Results x24hrs 03/21/20 Range/Units 13:00 Urine Color LIGHT YELLOW Urine Clarity CLEAR (CLEAR) Urine pH 6.5 (5.0-7.5) PH Ur Specific [place] 1.020 (1.002-1.030) Urine Protein NEGATIVE (NEGATIVE) mg/dL Urine Glucose (UA) NEGATIVE (NEGATIVE) mg/dL Urine Ketones NEGATIVE (NEGATIVE) mg/dL Urine Occult Blood NEGATIVE (NEGATIVE) Urine Nitrite NEGATIVE (NEGATIVE) Urine Bilirubin NEGATIVE (NEGATIVE) Urine Urobilinogen 0.2 (NORMAL) (NORMAL) E.U./dL Ur Leukocyte Esterase NEGATIVE (NEGATIVE) Urine RBC 0-5 (0-5) /HPF Urine WBC 0-3 (0-5) /HPF Ur Squamous Epith Cells RARE Squamous (<= Few) Urine Bacteria Rare (None Seen) /HPF Urine Culture Comments NOT INDICATED - Other Results/Comments Other Results/Comments: Alert, smiling, resting in bed, NAD Abd soft. Tender only over the uterus, is moderate. No rebound or guarding. No tenderness with palpation above the umbilicus. LE with 1+ edema to knee, no erythema or cord. A/P: 34yo P2 POD #1 s/p at term, physically doing well but complianing of severe cramping pain worse with c/w uterine pain. Tender over the uterus but no fever or tachycardia to suggest infection. UA is normal. Midline pain likely not constipation. But offered pt AXR to eval volume of stool inside and she declines. Would like something to clean her out and so will give mag citrate. Doubt incarceration with ability to void and able to palpate fundus on exam. Doubt abnormal lower uterine segment with lack of excessive bleeding. Reminded her that she will not get narcs rx'ed for home use. Mood stable per pt, on all of her admit meds except for the adderall, seems to be tolerating well. Having significant anxiety but is acting appropriately and caring for baby well.
[2020-03-21] MEDS: ZOLPIDEM 5 MG TABLET PO PRN (20:55)
[2020-03-21] MEDS: QUEtiapine 100 MG TABLET PO SCH (20:55)
[2020-03-21] MEDS: ARIPiprazole 5 MG TABLET PO SCH (20:55)
[2020-03-22] MEDS: IBUPROFEN 600 MG TABLET PO PRN ×2 (02:45→08:35)
[2020-03-22] MEDS: ACETAMINOPHEN 325 MG TABLET PO PRN ×2 (02:46→08:32)
[2020-03-22] MEDS: hydrOXYzine PAMOATE 25 MG CAPSULE PO PRN (03:24)
[2020-03-22] MEDS: bisacodyL 5 MG TABLET PO PRN ×2 (03:44→08:34)
[2020-03-22] MEDS: HYDROmorphone 2 MG TABLET PO PRN (05:29)
[2020-03-22 07:50] VITALS: BP 138/79
--- NOTE | 2020-03-22 08:10 | Discharge Plan ---
Discharge Plan Problem Reviewed?: Yes Disposition: Home, Self Care Condition: Good Prescriptions: Acetaminophen [Acetaminophen Extra Strength] 1,000 mg PO Q6H PRN #45 tab PRN Reason: Pain Docusate Sodium 100Mg Capsule [Colace 100Mg Capsule] 100 mg PO BID PRN #30 cap PRN Reason: to soften stool Ibuprofen [Motrin] 600 mg PO Q6H PRN #30 tab PRN Reason: Pain Levothyroxine [Synthroid] 0.5 tab PO QDAC #45 Diet: Regular Shower Restrictions: No Driving Restrictions: No Additional Instructions or Follow Up instructions: Nothing in the vagina for 6 weeks: No intercourse, tampons, douching Call for: -Fever greater than 100.5 -Pain that worsens over time -Heavy bleeding in which you are soaking a pad an hour for 2 hours in a row -Incisions that become hot, firm, or open -Worsening of mood, hallucinations, feeling like you want to hurt yourself or others -If one leg is swollen, hot, and tender Ok to shower, drive, and walk up stairs FOLLOW UP IMMEDIATELY IF YOU HAVE HALLUCINATIONS No Smoking: If you smoke, Please STOP! Call for help. Follow-up with: Maria Luisa Yoo MD [Provider Admit Priv/Credential] - 2 Weeks
[2020-03-22] MEDS: LEVOTHYROXINE 25 MCG TABLET PO SCH (08:33)
[2020-03-22] MEDS: DOCUSATE SODIUM 100 MG CAPSULE PO SCH (08:34)
[2020-03-22] MEDS: lamoTRIgine 100 MG TABLET PO SCH (08:36)
[2020-03-22] MEDS: polyethylene glycoL 3350 17 GM PACKET PO PRN (08:36)
--- NOTE | 2020-03-22 08:41 | DISCHARGE SUMMARY ---
Physician: Bernadine Alva MD DATE OF ADMISSION: 03/20/2020 DATE OF DISCHARGE: ADMISSION DIAGNOSES 1. Chronic hypertension. 2. Intrauterine at 40 weeks 1 day. 3. Bipolar I. 4. Hypothyroid. 5. Attention-deficit hyperactivity disorder. DISCHARGE DIAGNOSES 1. Status post spontaneous vaginal delivery at term. 2. Should dystocia. 3. Hypothyroid. 4. Bipolar. 5. Hypertension. 6. Attention-deficit hyperactivity disorder. PROCEDURES: On 03/20/2020, spontaneous vaginal delivery of a liveborn female, weight 9 pounds 4 ounc es, Apgars 8 at one minute and 8 at five minutes. There was a 20-second shoulder dystocia relieved b y Jessica and suprapubic pressure. Estimated blood loss was 250 mL. HOSPITAL COURSE: The patient was admitted for induction due to her gestational age and chronic hyper tension. She was induced with misoprostol followed by Pitocin. She received an epidural for pain co ntrol. She delivered as listed above. Hypertension was not an issue throughout her hospitalization. Her blood pressures were only elevated during contractions. She had normal PIH labs and a normal protein to creatinine ratio. Hypothyroid. The patient's last TSH was 5. Recheck here was 5.3. We will increase her levothyroxin e from 50 mcg daily to 61 mcg daily. Attention-deficit hyperactivity disorder. The patient was advised that she either needs to not breas tfeed or to stop her Adderall. If she does choose to breastfeed, she opted to stop her Adderall. We had a discussion about how her mood situation seems precarious with all of her other medications and that functionality is very important, especially in the period. Did discuss that she nee ds to consider strongly before she stops one of her mood medications. She did opt to do so. She varela s have followup with her psychiatrist later on this month. She is to continue all of her other home medications including: Seroquel, Abilify and Lamictal. Patient's course was remarkable for significant anxiety surrounding her bowel movements an d her cramping abdominal pain. She was having bowel movements, but had a sensation of being backed u p. She declined an abdominal x-ray. She received milk of magnesia, MiraLAX, Colace, and magnesium c itrate. She was having bowel movements, but said that she did not feel completely "emptied out." He r lower abdominal pain was described as cramping in nature. It was severe, up to a 12/10. She recei vanessa Dilaudid for this, which she knew that she would not get at discharge. She did have an episode o f urinary retention, treated with a catheter for about 12 hours. She had a negative UA, no signs of infection, no signs of endomyometritis other than her uterine tenderness. Her bleeding was normal. Her pain flared with . We discussed that this is normal and that the crampin g tends to be worse with every . She will follow up p.r.n. worsening. By day number 2, she was eating, ambulating, and urinating without difficulties. She was well with a good latch. She did not have any heavy bleeding. She rated her mood as go od. She was afebrile with normal vital signs. Alert and pleasant, in no apparent distress. Abdomen was soft, nontender, nondistended. Fundus firm at the umbilicus and diffusely tender, as is her bas radha. There is trace lower extremity edema bilaterally. DISCHARGE PRECAUTIONS: Routine precautions given. Special emphasis on mood with followup immediately p.r.n. suicidal ideation, homicidal ideation or hallucinations. FOLLOWUP: In [address] Yoo. DISCHARGE DISPOSITION: Home. CONDITION: Good. MEDICATION EDITS 1. Stop Adderall. 2. Ibuprofen. 3. Tylenol. 4. Colace p.r.n. pain. 5. Levothyroxine 112 mcg 1/2 tablet daily. TD: 03/22/2020 08:21
--- NOTE | 2020-03-22 13:40 | Labor Flowsheet ---
Labor Flowsheet Datetime Report Generated by CPN: 03/22/2020 13:40 Datetime: 03/22/2020 07:50 Pulse: 82 SpO2 (%): 97 Datetime: 03/22/2020 07:49 VITAL SIGNS NBP Sys/Melany/Mean (mmHg): 138 : 79 : 92 Datetime: 03/20/2020 21:00 Stage of : Datetime: 03/20/2020 18:32 COMMUNICATION Communication: Report Given to @ Claudine RN Datetime: 03/20/2020 18:30 Respirations: 16 Pain Presence: None/Denies Datetime: 03/20/2020 18:15 PAIN Pain Scale: 0 Datetime: 03/20/2020 17:39 Temperature (C): 36.9 Membranes Ruptured Date/Time: 03/20/2020 13:52 Datetime: 03/20/2020 17:28 Pain Type: Burning Pain Location: Perineum Datetime: 03/20/2020 17:27 Comments: Head delivered at 1726, 30 second shoulder dystocia, sheri and suprapubic pressure ap plied with delivery of . APGARS 8/8 Datetime: 03/20/2020 17:25 UTERINE ACTIVITY Monitor Mode: Palpation Frequency (min): 2-3 Quality: Strong Duration (sec): 60-90 Pattern: Normal: <= 5 Contractions in 10 Minutes Resting Tone (Palpate): Relaxed FHR Baseline Rate : 120 STAGE 2 Pushing: Coached on Pushing Pushing Position: Pushing with Contractions Pushing Progress: Descent with Pushing; with Pushing; Pushing Effectively with Contraction s Datetime: 03/20/2020 17:22 Contraction Comments: IUPC out Datetime: 03/20/2020 17:20 ASSESSMENT A Monitor Mode: External US Variability: Moderate 6-25 bpm Accelerations: 15X15 Oxygen Method: Room Air LaborFlag: Labor Datetime: 03/20/2020 17:17 I/O Interventions: Duong Discontinued Datetime: 03/20/2020 17:15 Decelerations: None Category: Category I Datetime: 03/20/2020 17:13 VAGINAL EXAM Dilatation (cm): 10.0 Effacement (%): 100 Station: 1 Exam by: Vaginal Exam Comments: at bedside, patient complete, start to push Provider Reviewed Strip: Yes Communication Comments: at bedside Datetime: 03/20/2020 16:55 Pain Relief Measures: Comfort Measures Pain Coping: Talking Through Contractions Patient Position/Activity: High Fowlers Comfort Measures: Breathing/Relaxation Anesthesia Level Check: T4- Nipple Line Datetime: 03/20/2020 16:52 Antiemetics/Antacids: Zofran (mg) @ 4 Datetime: 03/20/2020 16:51 Nausea/Vomiting: Present Datetime: 03/20/2020 16:49 MEDICATIONS Pitocin (milliunits): Decreased to @ 0.5 Datetime: 03/20/2020 16:28 Medication Comments: per MD order increased pitocin to 2mmu with tachystystole. Datetime: 03/20/2020 15:33 Vital Sign Comments: EKG WNL per Dr. Davis Datetime: 03/20/2020 15:30 Monitor Interventions for FHR: Ultrasound Adjusted Datetime: 03/20/2020 15:02 Anesthesia Comments: Dr.Artie notified patient epidural level above T4 Datetime: 03/20/2020 15:01 Patient Care Comments: Pt reporting shortness/difficulty breathing and chest heaviness. Primary RN and provider notified. Datetime: 03/20/2020 14:52 Amnioinfusion: Continues Datetime: 03/20/2020 14:30 PATIENT CARE IV/Blood Work: New IV Bag Hung Datetime: 03/20/2020 14:24 Maternal Comments: patient c/o of difficulty breathing. repositioned and improved respirations Datetime: 03/20/2020 14:15 Monitor Interventions for UA: [place] Adjusted Actions for Decelerations: Side to Side; Sterile Vaginal Exam Oxygen Amount (LPM): 10 Datetime: 03/20/2020 13:52 Membranes Rupture Method: Spontaneous Amniotic Fluid Color: Clear Amniotic Fluid Amount: Large Datetime: 03/20/2020 13:25 Hygiene: Michelle Care Datetime: 03/20/2020 12:27 Notification Reason: Status Update; Status; Labor Status; Membrane Status; Uterine Activity; Pain; Maternal Vital Sign Change; Bleeding Datetime: 03/20/2020 11:42 Breath Sounds, Left: Clear and Equal Breath Sounds, Right: Clear and Equal Datetime: 03/20/2020 10:25 Vaginal Bleeding: None Cervix, Consistency: Moderate Cervix, Position: Posterior Datetime: 03/20/2020 09:55 Epidural Procedure: Loading Dose Datetime: 03/20/2020 09:44 PROCEDURE TIME OUT Procedure Verify: Correct Patient Identity; Correct Side and Site are Marked; Accurate Procedure Co nsent Form; Agreement on Procedure to be Done; Correct Patient Position; Relevant Images and Results are Properly Labeled and Displayed ANESTHESIA Anesthesia Plans: Epidural Epidural Positioning: Sitting Datetime: 03/20/2020 09:22 Analgesics/Sedatives: Fentanyl (mcg) @ 50 Datetime: 03/20/2020 09:19 Pain Assessment Comments: nitrous discontinued, fentanyl per patient request. Anesthesia notified Datetime: 03/20/2020 08:03 MATERNAL ASSESSMENT Level of Consciousness: Alert Headache: Denies RUQ Epigastric Pain: Denies Datetime: 03/20/2020 08:01 Membrane Comments: loss of mucous plug per patient Datetime: 03/20/2020 06:59 Pitocin Checklist: At Least 1 Acceleration of 15 bpm x 15 Seconds in 30 Minutes or Adequate Variabi lity; No More than 1 Late Deceleration Occurred in Past 30 Minutes; No More than 2 Variable Decelerat ions > 60 Seconds in Duration and decreasing >60 bpm in 30 minutes; No More than 5 Uterine Contractio ns in 10 Minutes for any 20 Minute Interval; Uterus Palpates Soft between Contractions Datetime: 03/20/2020 02:11 Cervical Ripening Agents: Cytotec @
== END 2020-03-22 13:15 | disposition home or self-care (01) | DRG 806 ==
LOC: WFO 19:52 → FBP 19:54 → WFO 20:46 → FBP 20:47 → OBSVTOIN 03-20 09:39
PROVIDERS: ADMIT Obstetrics & Gynecology; ATTEND Obstetrics & Gynecology
PROC: 10E0XZZ Delivery of Products of Conception, External Approach (ICD-10-PCS; principal; 2020-03-20)
PROC: 0KQM0ZZ Repair Perineum Muscle, Open Approach (ICD-10-PCS; 2020-03-20)
DX: O10.92 Unspecified pre-existing hypertension complicating childbirth (principal); O99.324 Drug use complicating childbirth; Z37.0 Single live birth; F12.90 Cannabis use, unspecified, uncomplicated; O66.0 Obstructed labor due to shoulder dystocia; O70.1 Second degree perineal laceration during delivery; O99.344 Other mental disorders complicating childbirth; F31.9 Bipolar disorder, unspecified; F90.1 Attention-deficit hyperactivity disorder, predominantly hyperactive type; O99.284 Endocrine, nutritional and metabolic diseases complicating childbirth; E03.9 Hypothyroidism, unspecified; Z3A.40 40 weeks gestation of pregnancy; O90.89 Other complications of the puerperium, not elsewhere classified; R33.9 Retention of urine, unspecified; R10.30 Lower abdominal pain, unspecified
CPT/HCPCS: 80053; 81001; 82570; 84156; 84443; 85025; 86850; 86900; 86901; 93005; 96365; 96375; A9270; G0378; J2765; J7120; 87086

== ENCOUNTER 2020-03-29 14:01 | Emergency (ER) | payer MEDICAID ==
--- NOTE | 2020-03-29 14:45 | ED Physician Documentation ---
PD HPI FEMALE - Stated complaint Stated Complaint: FEMALE /POST CHILDBIRTH - Chief complaint Chief Complaint: Abd Pain - History obtained from History obtained from: Patient - History of Present Illness Timing - onset: How many days ago (few) Timing - duration: Days (few) Timing - details: Gradual onset (She is 9 days post with small tear and has been having decreasing amount of vaginal bleeding, but still persisting. Few days of pelvic pain, particularly near lower vaginal opening, and noted a malodor vaginally and a very tender lump at vaginal opening. Called OB office and referred ER.), Still present Associated symptoms: Vaginal bleeding, Vaginal discharge (dark blood with mucous, has some malodor for few days.). No: Fever Contributing factors: Other (she is about 9 days post , .) Recently seen: Admitted Review of Systems Constitutional: denies: Fever, Chills Nose: denies: Rhinorrhea / runny nose, Congestion Throat: denies: Sore throat Respiratory: denies: Cough GI: denies: Abdominal Pain, Vomiting, Diarrhea : reports: Discharge, Vaginal bleeding (mild, decreasing since delivery.). denies: Dysuria PD PAST MEDICAL HISTORY - Past Medical History Past Medical History: Yes Cardiovascular: Hypertension Respiratory: None Neuro: Seizure disorder Endocrine/Autoimmune: HyPOthyroidism GI: None [employer]ER: Ovarian cancer : None HEENT: None Psych: Depression, Anxiety, Post traumatic stress disorder Musculoskeletal: None Derm: Eczema - Past Surgical History Past Surgical History: Yes /[employer]: Dilation and currettage - Present Medications Home Medications: Ambulatory Orders Medication Instructions Recorded Confirmed Quetiapine Fumarate [Seroquel] 100 mg PO BID 08/19/17 09/09/18 EPINEPHrine [Epinephrine] 0.3 mg IJ PRN PRN 03/26/18 03/26/18 Lamotrigine [Lamotrigine ER] 50 mg PO DAILY 09/09/18 09/09/18 NIFEdipine [Nifedipine ER] 30 mg PO DAILY 09/09/18 09/09/18 Hydrocodone/Acetaminophen 1 - 2 each PO Q6H PRN #7 tablet 01/05/19 [Hydrocodon-Acetaminophen 5-325] Ondansetron Odt [Zofran] 4 mg TL Q6H PRN #10 tablet 01/05/19 Ibuprofen 800 mg PO Q6HR PRN #30 tablet 01/07/19 Oxycodone HCl/Acetaminophen 1 - 2 each PO Q6H PRN #12 tablet 01/07/19 [Percocet 5-325 mg Tablet] methocarbamoL [Methocarbamol] 500 mg PO TID PRN #15 tablet 01/07/19 Hydrocodone/Acetaminophen 1 - 2 each PO Q6H PRN #14 tablet 02/22/19 [Hydrocodon-Acetaminophen 5-325] Oxycodone HCl/Acetaminophen 1 - 2 each PO Q6H PRN #14 tablet 02/24/19 [Percocet 5-325 mg Tablet] Cefdinir 300 mg PO BID #20 capsule 09/15/19 Oxycodone HCl/Acetaminophen 1 - 2 each PO Q6H PRN #7 tablet 09/15/19 [Percocet 5-325 mg Tablet] Phenazopyridine HCl [Pyridium] 200 mg PO TID PRN #6 tablet 09/15/19 Acetaminophen [Acetaminophen Extra 1,000 mg PO Q6H PRN #45 tab 03/22/20 Strength] Docusate Sodium 100Mg Capsule 100 mg PO BID PRN #30 cap 03/22/20 [Colace 100Mg Capsule] Ibuprofen [Motrin] 600 mg PO Q6H PRN #30 tab 03/22/20 Levothyroxine [Synthroid] 0.5 tab PO QDAC #45 03/22/20 Oxycodone HCl/Acetaminophen 1 each PO Q6H PRN #14 tab 03/29/20 [Percocet 5-325 mg Tablet] metroNIDAZOLE [Flagyl] 500 mg PO BID #14 tab 03/29/20 - Allergies Allergies/Adverse Reactions: Allergies Allergy/AdvReac Type Severity Reaction Status Date / Time codeine Allergy Mild Nausea Verified 03/29/20 14:03 acetaminophen [From Vicodin] Allergy Nausea Verified 03/29/20 14:03 hydrocodone [From Vicodin] Allergy Nausea Verified 03/29/20 14:03 - Social History Does the pt smoke?: No Smoking Status: Never smoker Does the pt drink ETOH?: No Does the pt have substance abuse?: No Substance Use and Type: Marijuana - Immunizations Immunizations are current?: Yes - POLST Patient has POLST: No PD ED PE NORMAL - Vitals Vital signs reviewed: Yes - General General: Alert and oriented X 3, No acute distress, Well developed/nourished - Abdomen Abdomen: Normal bowel sounds, Soft, Non tender, Non distended - Female Female : [place] present, Other (Posterior vaginal opening with sutures intact without apparent swelling. Just inside the introitus is rounded mucosal colored 2-3 cm sized, tender nonfluctuant area raised from the vaginal wall. The vault deeper with mucoid discharge with some dark blood and malodor. ) - Rectal Rectal: Deferred - Back Back: No CVA TTP Results - Vitals Vitals: Vital Signs - 24 hr 03/29/20 03/29/20 14:03 16:10 Temperature 36.6 C 36.8 C Heart Rate 68 67 Respiratory 16 19 Rate Blood Pressure 170/95 H 146/79 H O2 Saturation 100 97 Oxygen O2 Source Room air - Labs Labs: Laboratory Tests 03/29/20 03/29/20 03/29/20 14:25 14:56 14:56 WBC 8.2 RBC 4.71 Hgb 14.1 Hct 42.7 MCV 90.7 MCH 29.9 MCHC 33.0 RDW 13.4 Plt Count 363 MPV 9.1 Neut # (Auto) 4.4 Lymph # (Auto) 2.9 Wilkin # (Auto) 0.5 Eos # (Auto) 0.3 Baso # (Auto) 0.1 Absolute Nucleated RBC 0.00 Nucleated RBC % 0.0 Sodium 140 Potassium 4.0 Chloride 104 Carbon Dioxide 24 Anion Gap 12.0 BUN 32 H Creatinine 0.9 Estimated GFR (MDRD) 72 L Glucose 97 Calcium 9.9 Total Bilirubin 0.4 AST 19 ALT 63 H Alkaline Phosphatase 90 Total Protein 7.0 Albumin 3.5 Globulin 3.5 Albumin/Globulin Ratio 1.0 Lipase 43 Urine Color YELLOW Urine Clarity CLEAR Urine pH 5.5 Ur Specific [place] >=1.030 H Urine Protein NEGATIVE Urine Glucose (UA) NEGATIVE Urine Ketones NEGATIVE Urine Occult Blood LARGE H Urine Nitrite NEGATIVE Urine Bilirubin NEGATIVE Urine Urobilinogen 0.2 (NORMAL) Ur Leukocyte Esterase SMALL H Urine RBC 11-25 H Urine WBC 11-25 H Urine WBC Clumps PRESENT Ur Squamous Epith Cells RARE Squamous Urine Bacteria Rare Ur Microscopic Review INDICATED Urine Culture Comments INDICATED C. glabrata (PCR) C. krusei (PCR) Judith species DNA T. vaginalis (PCR) Bact Vaginosis (PCR) 03/29/20 15:30 WBC RBC Hgb Hct MCV MCH MCHC RDW Plt Count MPV Neut # (Auto) Lymph # (Auto) [place] # (Auto) Eos # (Auto) Baso # (Auto) Absolute Nucleated RBC Nucleated RBC % Sodium Potassium Chloride Carbon Dioxide Anion Gap BUN Creatinine Estimated GFR (MDRD) Glucose Calcium Total Bilirubin AST ALT Alkaline Phosphatase Total Protein Albumin Globulin Albumin/Globulin Ratio Lipase Urine Color Urine Clarity Urine pH Ur Specific [place] Urine Protein Urine Glucose (UA) Urine Ketones Urine Occult Blood Urine Nitrite Urine Bilirubin Urine Urobilinogen Ur Leukocyte Esterase Urine RBC Urine WBC Urine WBC Clumps Ur Squamous Epith Cells Urine Bacteria Ur Microscopic Review Urine Culture Comments C. glabrata (PCR) NEGATIVE C. krusei (PCR) NEGATIVE Judith species DNA NEGATIVE T. vaginalis (PCR) NEGATIVE Bact Vaginosis (PCR) NEGATIVE PD MEDICAL DECISION MAKING - ED course Complexity details: considered differential (Clinically with some odor and mucoid discharge that could be c/w BV. The lump appears swollen mucosal tissue locally. Not appearing infected/abscess. ), d/w patient, d/w senior wind energy consultant (Dr. Yoo, who is unable to come to ED for couple of hours due to other pateint care. Asked that we do pelvic/exam/cultures. ) Departure - Departure Disposition: 01 Home, Self Care Clinical Impression: Bacterial vaginitis, Vaginal discharge, Swelling of vagina, state Condition: Stable Record reviewed to determine appropriate education?: Yes Follow-Up: Maria Luisa Yoo MD [Provider Admit Priv/Credential] - Prescriptions: metroNIDAZOLE [Flagyl] 500 mg PO BID #14 tab Oxycodone HCl/Acetaminophen [Percocet 5-325 mg Tablet] 1 each PO Q6H PRN #14 tab PRN Reason: pain Comments: Cleansing soaks in warm water in the bathtub 2-3 times daily. No intravaginal cleansing directly though. Metronidazole twice daily for a week for presumed bacterial vaginitis. The culture will result tomorrow to better confirm that. Will call if it needs to be modified or changed. Continue with ibuprofen 3 times a day. Add Tylenol or oxycodone as needed for pain. Contacts Dr. Yoo's office if not improving well in the next 2 to 3 days and have them "squeeze you in" per Dr. Yoo's direction for a follow-up appointment sooner. Otherwise if you are improving then your follow-up appointment on the first as scheduled. Discharge Date/Time: 03/29/20 16:42
[2020-03-29 15:06] LABS: BASOPHILS # (AUTO) 0.1 10^3/uL (0.0-0.1); EOSINOPHILS # (AUTO) 0.3 10^3/uL (0.0-0.7); EOSINOPHILS % (AUTO) 3.1 %; HGB - HEMOGLOBIN 14.1 g/dL (12.0-16.0); LYMPHOCYTES # (AUTO) 2.9 10^3/uL (1.5-3.5); LYMPHOCYTES % (AUTO) 35.8 %; MEAN CORPUSCULAR HEMOGLOBIN 29.9 pg (27.0-31.0); MEAN CORPUSCULAR VOLUME 90.7 fL (81.0-99.0); MEAN PLATELET VOLUME 9.1 fL (7.9-10.8); MONOCYTES # (AUTO) 0.5 10^3/uL (0.0-1.0); MONOCYTES % (AUTO) 5.5 %; NEUTROPHILS # (AUTO) 4.4 10^3/uL (1.5-6.6); NEUTROPHILS % (AUTO) 53.7 %; PLT - PLATELET COUNT 363 10^3/uL (130-450); RED BLOOD COUNT 4.71 10^6/uL (4.20-5.40); RED CELL DISTRIBUTION WIDTH 13.4 % (12.0-15.0); WHITE BLOOD COUNT 8.2 x10^3/uL (4.8-10.8)
[2020-03-29 15:16] LABS: ALBUMIN 3.5 g/dL (3.2-5.5); BILIRUBIN,TOTAL 0.4 mg/dL (0.2-1.0); CALCIUM 9.9 mg/dL (8.5-10.3); CREATININE 0.9 mg/dL (0.4-1.0)
[2020-03-29 15:19] LABS: BILIRUBIN,URINE NEGATIVE (NEGATIVE); GLUCOSE, URINE (UA) NEGATIVE (NEGATIVE); KETONES,URINE (UA) NEGATIVE (NEGATIVE); LEUKOCYTE ESTERASE, URINE SMALL (NEGATIVE); NITRITE,URINE NEGATIVE (NEGATIVE); OCCULT BLOOD,URINE LARGE (NEGATIVE); PH,URINE 5.5 PH (5.0-7.5); PROTEIN,URINE NEGATIVE (NEGATIVE); UROBILINOGEN,URINE 0.2 (NORMAL) E.U./dL (NORMAL)
[2020-03-29 15:20] LABS: CLARITY,URINE CLEAR (CLEAR)
[2020-03-29 15:31] LABS: BACTERIA,URINE Rare /HPF (None Seen); SQUAMOUS EPITHELIAL CELL,UR RARE Squamous (<= Few); WBC CLUMPS,URINE PRESENT
[2020-03-29] MEDS ORDERED: oxyCODONE 5 MG TABLET PO STA (15:33)
[2020-03-29] MEDS ORDERED: metroNIDAZOLE 250 MG TABLET PO STA (16:10)
[2020-03-29 16:11] VITALS: BP 146/79
[2020-03-29 17:32] LABS: CANDIDA GROUP DNA NEGATIVE (NEGATIVE); CANDIDA KRUSEI DNA NEGATIVE (NEGATIVE); TRICHOMONAS VAGINALIS DNA NEGATIVE (NEGATIVE)
== END 2020-03-29 16:42 | disposition home or self-care (01) ==
LOC: ED 14:01
DX: O86.13 Vaginitis following delivery (principal); B96.89 Other specified bacterial agents as the cause of diseases classified elsewhere; O99.893 Other specified diseases and conditions complicating puerperium; N89.8 Other specified noninflammatory disorders of vagina; O10.93 Unspecified pre-existing hypertension complicating the puerperium
CPT/HCPCS: 36415; 80053; 81001; 83690; 85025; 87086; 87481; 87661; 87801; 99283; A9270; 81003

== ENCOUNTER 2020-04-06 12:40 | Observation (INO) | payer MEDICAID ==
[2020-04-06] MEDS ORDERED: LABETALOL 20 MG/4 ML SYRINGE IVP ONE (13:03)
[2020-04-06] MEDS ORDERED: MAGNESIUM SULFATE 4 GRAM 4 GM/50 ML BAG IV ONE (13:03)
[2020-04-06] MEDS ORDERED: NIFEdipine 10 MG CAPSULE PO PRN (13:08)
[2020-04-06 13:23] LABS: BASOPHILS # (AUTO) 0.1 10^3/uL (0.0-0.1); BASOPHILS % (AUTO) 1.4 %; EOSINOPHILS # (AUTO) 0.2 10^3/uL (0.0-0.7); EOSINOPHILS % (AUTO) 2.2 %; HCT - HEMATOCRIT 43.5 % (37.0-47.0); HGB - HEMOGLOBIN 14.4 g/dL (12.0-16.0); LYMPHOCYTES # (AUTO) 2.4 10^3/uL (1.5-3.5); LYMPHOCYTES % (AUTO) 32.7 %; MEAN CORPUSCULAR HEMOGLOBIN 29.8 pg (27.0-31.0); MEAN CORPUSCULAR HGB CONC 33.1 g/dL (32.0-36.0); MEAN CORPUSCULAR VOLUME 90.1 fL (81.0-99.0); MEAN PLATELET VOLUME 9.6 fL (7.9-10.8); MONOCYTES # (AUTO) 0.5 10^3/uL (0.0-1.0); MONOCYTES % (AUTO) 6.6 %; NEUTROPHILS # (AUTO) 4.2 10^3/uL (1.5-6.6); PLT - PLATELET COUNT 353 10^3/uL (130-450); RED BLOOD COUNT 4.83 10^6/uL (4.20-5.40); RED CELL DISTRIBUTION WIDTH 13.2 % (12.0-15.0); WHITE BLOOD COUNT 7.3 x10^3/uL (4.8-10.8)
[2020-04-06 13:35] LABS: ALBUMIN 4.1 g/dL (3.2-5.5); ALBUMIN/GLOBULIN RATIO 1.3 (1.0-2.2); BILIRUBIN,TOTAL 0.5 mg/dL (0.2-1.0); CALCIUM 9.8 mg/dL (8.5-10.3); INR 1.2 (0.8-1.2); POTASSIUM 4.2 mmol/L (3.5-5.0); PT - PROTHROMBIN TIME 13.3 secs (9.9-12.6); TOTAL PROTEIN 7.3 g/dL (6.7-8.2)
[2020-04-06 13:48] LABS: PARTIAL THROMBOPLASTIN TIME 34.1 secs (24.9-33.3)
[2020-04-06] MEDS: MAGNESIUM SULFATE IN WATER 20 GM/500 ML IV.SOLN IV SCH ×2 (14:00→23:58)
[2020-04-06] MEDS ORDERED: LACTATED RINGERS 1,000 ML IV SCH (14:00)
[2020-04-06 15:55] LABS: CREATININE,URINE 65.2 mg/dL; PROTEIN/CREATININE RATIO,URINE 0.2 (<=0.2)
[2020-04-06] MEDS ORDERED: HYDROCORTISONE 25 MG SUPPOSITORY PR PRN (17:38)
[2020-04-06] MEDS ORDERED: WITCH HAZEL/GLYCERIN 1 PAD TOP PRN (17:39)
[2020-04-06] MEDS ORDERED: SIMETHICONE CHEW 80 MG TABLET PO PRN (17:40)
[2020-04-06] MEDS ORDERED: HYDROCORTISONE 1% CREAM 28 GM TUBE PR PRN (17:40)
--- NOTE | 2020-04-06 18:02 | HISTORY & PHYSICAL EXAMINATION ---
Chief Complaint - Chief Complaint Chief Complaint: Pre-eclampsia with severe features History of Present Illness - Admitted From Admitted From:: clinic - History Obtained From Records Reviewed: yes History obtained from: patient - History of Present Illness HPI Comment/Other: Patient is a 34 yo s/p on 03/20/2020 now admitted iw pre-eclampsia with severe features. had been complicated by CHTN, seizure disorder, and BPd with po lypharmacy. Patient was seen in [facility] on 04/05/20 with elevated blood pressures, with DBPs as high as 107. Higher than pre-delivery pressures. has chronic eadaches and again had unrelenting headache. Started on labetalol 100 mg po bid. Warning signs were reviewed. Patient presented again to clinic this am with epistaxis, generalized feeling of being unwell. Systolic BPs were in the 190s. Decision was made to admit patient to L&D for magnesium infusion. Vision changes limited to blurred vision. Occ spots prior to admission. Pain in perineum and in abdomen. GONSALES not improved with acetaminophen or ibuprofen (Ibuprofen discontinued on admission). Patient is pumpng and dumping while in-patient. has soco with [employer] tomorrow to work out medications and to determine if it is safe to BF. "not doing well" off of her medications. 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: reports: Ovarian cancer : reports: None HEENT: reports: None Psych: reports: Depression, Anxiety, Post traumatic stress disorder Musculoskeletal: reports: None Derm: reports: Eczema MRSA Hx?: No - Past Surgical History /SECRETARY TO [employer] COMMISSIONERS: reports: Dilation and currettage - POLST Patient has POLST: No Meds/Allgy - Home Medications Home Medications: Ambulatory Orders Medication Instructions Recorded Confirmed Quetiapine Fumarate [Seroquel] 100 mg PO BID 08/19/17 09/09/18 EPINEPHrine [Epinephrine] 0.3 mg IJ PRN PRN 03/26/18 03/26/18 Lamotrigine [Lamotrigine ER] 50 mg PO DAILY 09/09/18 09/09/18 NIFEdipine [Nifedipine ER] 30 mg PO DAILY 09/09/18 09/09/18 Hydrocodone/Acetaminophen 1 - 2 each PO Q6H PRN #7 tablet 01/05/19 [Hydrocodon-Acetaminophen 5-325] Ondansetron Odt [Zofran] 4 mg TL Q6H PRN #10 tablet 01/05/19 Ibuprofen 800 mg PO Q6HR PRN #30 tablet 01/07/19 Oxycodone HCl/Acetaminophen 1 - 2 each PO Q6H PRN #12 tablet 01/07/19 [Percocet 5-325 mg Tablet] methocarbamoL [Methocarbamol] 500 mg PO TID PRN #15 tablet 01/07/19 Hydrocodone/Acetaminophen 1 - 2 each PO Q6H PRN #14 tablet 02/22/19 [Hydrocodon-Acetaminophen 5-325] Oxycodone HCl/Acetaminophen 1 - 2 each PO Q6H PRN #14 tablet 02/24/19 [Percocet 5-325 mg Tablet] Cefdinir 300 mg PO BID #20 capsule 09/15/19 Oxycodone HCl/Acetaminophen 1 - 2 each PO Q6H PRN #7 tablet 09/15/19 [Percocet 5-325 mg Tablet] Phenazopyridine HCl [Pyridium] 200 mg PO TID PRN #6 tablet 09/15/19 Acetaminophen [Acetaminophen Extra 1,000 mg PO Q6H PRN #45 tab 03/22/20 Strength] Docusate Sodium 100Mg Capsule 100 mg PO BID PRN #30 cap 03/22/20 [Colace 100Mg Capsule] Ibuprofen [Motrin] 600 mg PO Q6H PRN #30 tab 03/22/20 Levothyroxine [Synthroid] 0.5 tab PO QDAC #45 03/22/20 Oxycodone HCl/Acetaminophen 1 each PO Q6H PRN #14 tab 03/29/20 [Percocet 5-325 mg Tablet] metroNIDAZOLE [Flagyl] 500 mg PO BID #14 tab 03/29/20 - Allergies Allergies/Adverse Reactions: Allergies Allergy/AdvReac Type Severity Reaction Status Date / Time codeine Allergy Mild Nausea Verified 03/29/20 14:03 acetaminophen [From Vicodin] Allergy Nausea Verified 03/29/20 14:03 hydrocodone [From Vicodin] Allergy Nausea Verified 03/29/20 14:03 Review of Systems - Other Findings Other Findings: As per HPI, otherwsie remaining systems are negative Exam - Vital Signs Reviewed Vital Signs: Yes Vital Signs: Vital Signs x48h Temp Pulse Resp BP BP Pulse Ox 04/06/20 15:59 18 141/94 H 04/06/20 14:45 18 142/87 H 100 04/06/20 13:46 138/90 H 04/06/20 13:41 142/101 H 04/06/20 13:31 140/100 H 04/06/20 13:25 142/90 H 04/06/20 13:17 145/106 H 04/06/20 13:10 97 18 155/88 H 100 04/06/20 12:50 98.1 F 115 H 20 159/97 H 100 - Physical Exam General Appearance: positive: No acute distress Respiratory: positive: No respiratory distress, Breath sounds nml Cardiovascular: positive: Regular rate & rhythm Peripheral Pulses: positive: 2+ Abdomen: positive: Non-tender, No distention, Other (soft. No RUQ tenderness) Skin: positive: Color nml, No rash, Warm Extremities: positive: Non-tender, No pedal edema Conclusion/Plan - Lab Results Fish Bones: 04/06/20 13:20 04/06/20 13:20 - Other Other Results/Comments: PREECLAMPSIA: Pre-eclampsia with severe features by BP and GONSALES: -Not sending urine studies given contamination with lochia -Meeting criteria based on severe range BPs and GONSALES -Starting magnesium 4 g bolus with 2g/hr infusion -Labs wnl, possible hemoconcentration -DC ibuprofen. Head and abd pain persisting with acetaminophen. Ok with oxycodone while in-patient -Labetalol 200 mg po bid at baseline BPD: but pumping and dumping until telepsych visit -Not funcitoning well off medications. May DC if cannot manage symptoms wthout change in medications -Pumping to maintain volume until decision process complete -Ordering baseline medications Seroquel 100 mg po QPM Abilify 5 mg Qday Lamictal as below SEIZURE DISORDER: -Low threshold for magnsium given baseline seizure risk -Cont lamotrigine 300 mg po QAM In-patient care for 24 hours of mag infusion and control of BPs
[2020-04-06] MEDS: ACETAMINOPHEN 500 MG TABLET PO PRN (18:10)
[2020-04-06] MEDS: ONDANSETRON ODT 4 MG TABLET TL PRN (18:12)
[2020-04-06] MEDS: oxyCODONE 5 MG TABLET PO PRN ×2 (18:12→21:59)
[2020-04-06] MEDS: DOCUSATE SODIUM 100 MG CAPSULE PO PRN ×2 (18:12→20:56)
[2020-04-06] MEDS: PROMETHAZINE 25 MG TABLET PO PRN (20:56)
[2020-04-06] MEDS: QUEtiapine 100 MG TABLET PO SCH (20:56)
[2020-04-06] MEDS ORDERED: METOCLOPRAMIDE 10 MG TABLET PO SCH (21:00)
[2020-04-07] MEDS: ACETAMINOPHEN 500 MG TABLET PO PRN ×4 (02:31→16:10)
[2020-04-07] MEDS: PROMETHAZINE 25 MG TABLET PO PRN ×2 (05:47→19:25)
[2020-04-07] MEDS: oxyCODONE 5 MG TABLET PO PRN ×4 (05:49→19:59)
[2020-04-07] MEDS: MAGNESIUM SULFATE IN WATER 20 GM/500 ML IV.SOLN IV SCH (06:47)
[2020-04-07] MEDS ORDERED: LEVOTHYROXINE 25 MCG TABLET PO SCH (07:00)
[2020-04-07] MEDS: lamoTRIgine 100 MG TABLET PO SCH (08:48)
[2020-04-07] MEDS: FERROUS SULFATE 325 MG TABLET PO SCH (08:49)
[2020-04-07] MEDS: DOCUSATE SODIUM 100 MG CAPSULE PO PRN ×2 (08:49→19:25)
[2020-04-07] MEDS ORDERED: lamoTRIgine 25 MG TABLET PO SCH (09:00)
[2020-04-07] MEDS ORDERED: lamoTRIgine 100 MG TABLET PO SCH (09:00)
[2020-04-07] MEDS ORDERED: CHOLECALCIFEROL 25 MCG TABLET PO SCH (09:00)
[2020-04-07] MEDS ORDERED: ARIPiprazole 5 MG TABLET PO SCH (09:00)
--- NOTE | 2020-04-07 11:45 | PROVIDER PROGRESS NOTE ---
Subjective - Prog Note Date Prog Note Date: 04/07/20 Prog Note Time: 08:00 - Subjective Subjective: GONSALES persists this am. No vision change. No RUQ pain. Lowered magnesium to 1g/hr overnight as patient was symptomatic. Blurred vision patient attributes to mag. No vision change/scotomata. No RUQ pain. BPs remain in mild range. Objective - Vital Signs/Intake & Output Vital Signs: Vital Signs x48h Temp Pulse Resp BP Pulse Ox 04/07/20 09:00 98.2 F 88 16 126/80 99 04/07/20 05:00 97.7 F 84 16 113/71 98 Intake & Output: Intake & Output 04/04/20 04/05/20 04/06/20 04/07/20 23:59 23:59 23:59 23:59 Intake Total 498.333 340.833 Output Total 1200 1150 Balance -701.667 -809.167 - Objective General Appearance: positive: No acute distress Respiratory: positive: No respiratory distress, Breath sounds nml Cardiovascular: positive: Regular rate & rhythm Abdomen: positive: Other (S&NT/ND. No RUQ TTP) Skin: positive: Color nml, No rash, Warm, Dry Extremities: positive: Non-tender, No pedal edema - Lab Results Fish Bones: 04/06/20 13:20 04/06/20 13:20 Other Labs: Lab Results x24hrs 04/07/20 04/06/20 04/06/20 Range/Units 06:41 14:40 14:30 WBC (4.8-10.8) x10^3/uL RBC (4.20-5.40) 10^6/uL Hgb (12.0-16.0) g/dL Hct (37.0-47.0) % MCV (81.0-99.0) fL MCH (27.0-31.0) pg MCHC (32.0-36.0) g/dL RDW (12.0-15.0) % Plt Count (130-450) 10^3/uL MPV (7.9-10.8) fL Neut # (Auto) (1.5-6.6) 10^3/uL Lymph # (Auto) (1.5-3.5) 10^3/uL Delta # (Auto) (0.0-1.0) 10^3/uL Eos # (Auto) (0.0-0.7) 10^3/uL Baso # (Auto) (0.0-0.1) 10^3/uL Absolute Nucleated RBC x10^3/uL Nucleated RBC % /100WBC PT (9.9-12.6) secs INR (0.8-1.2) APTT (24.9-33.3) secs Fibrinogen (220-496) mg/dL Sodium (135-145) mmol/L Potassium (3.5-5.0) mmol/L Chloride (101-111) mmol/L Carbon Dioxide (21-32) mmol/L Anion Gap (6-13) BUN (6-20) mg/dL Creatinine (0.4-1.0) mg/dL Estimated GFR (MDRD) (>89) Glucose (70-100) mg/dL Calcium (8.5-10.3) mg/dL Magnesium 5.9 H* (1.7-2.8) mg/dL Total Bilirubin (0.2-1.0) mg/dL AST (10-42) IU/L ALT (10-60) IU/L Alkaline Phosphatase (42-121) IU/L Total Protein (6.7-8.2) g/dL Albumin (3.2-5.5) g/dL Globulin (2.1-4.2) g/dL Albumin/Globulin Ratio (1.0-2.2) Urine Creatinine 65.2 mg/dL Ur Total Protein Timed 15 mg/dL Protein/Creatinin Ratio 0.2 (<=0.2) Coronavirus (PCR) NEGATIVE 04/06/20 04/06/20 04/06/20 Range/Units 13:20 13:20 13:20 WBC 7.3 (4.8-10.8) x10^3/uL RBC 4.83 (4.20-5.40) 10^6/uL Hgb 14.4 (12.0-16.0) g/dL Hct 43.5 (37.0-47.0) % MCV 90.1 (81.0-99.0) fL MCH 29.8 (27.0-31.0) pg MCHC 33.1 (32.0-36.0) g/dL RDW 13.2 (12.0-15.0) % Plt Count 353 (130-450) 10^3/uL MPV 9.6 (7.9-10.8) fL Neut # (Auto) 4.2 (1.5-6.6) 10^3/uL Lymph # (Auto) 2.4 (1.5-3.5) 10^3/uL Delta # (Auto) 0.5 (0.0-1.0) 10^3/uL Eos # (Auto) 0.2 (0.0-0.7) 10^3/uL Baso # (Auto) 0.1 (0.0-0.1) 10^3/uL Absolute Nucleated RBC 0.00 x10^3/uL Nucleated RBC % 0.0 /100WBC PT 13.3 H (9.9-12.6) secs INR 1.2 (0.8-1.2) APTT 34.1 H (24.9-33.3) secs Fibrinogen 430 (220-496) mg/dL Sodium 139 (135-145) mmol/L Potassium 4.2 (3.5-5.0) mmol/L Chloride 103 (101-111) mmol/L Carbon Dioxide 24 (21-32) mmol/L Anion Gap 12.0 (6-13) BUN 15 (6-20) mg/dL Creatinine 1.0 (0.4-1.0) mg/dL Estimated GFR (MDRD) 63 L (>89) Glucose 101 H (70-100) mg/dL Calcium 9.8 (8.5-10.3) mg/dL Magnesium (1.7-2.8) mg/dL Total Bilirubin 0.5 (0.2-1.0) mg/dL AST 28 (10-42) IU/L ALT 49 (10-60) IU/L Alkaline Phosphatase 84 (42-121) IU/L Total Protein 7.3 (6.7-8.2) g/dL Albumin 4.1 (3.2-5.5) g/dL Globulin 3.2 (2.1-4.2) g/dL Albumin/Globulin Ratio 1.3 (1.0-2.2) Urine Creatinine mg/dL Ur Total Protein Timed mg/dL Protein/Creatinin Ratio (<=0.2) Coronavirus (PCR) Assessment/Plan - Problem List (1) Preeclampsia in period Impression: Cont magnesium for 24 hours BPs in mild to normal range No symptoms Reduced mag infusion to 1g/hr. DC magnesium at 24 hours Observe for BPs/resumption of symptoms Anticipate DC home tomorrow am, possibly this pm is blood pressures are *very* well controlled.
[2020-04-07] MEDS: ONDANSETRON ODT 4 MG TABLET TL PRN (16:10)
[2020-04-07] MEDS: QUEtiapine 100 MG TABLET PO SCH (19:59)
[2020-04-07] MEDS ORDERED: LIDOCAINE VISCOUS 2% 15 ML UDC MM PRN (21:42)
[2020-04-07] MEDS: LABETALOL 100 MG TABLET PO SCH (21:45)
[2020-04-07] MEDS: AMOX/CLAV 875 MG/125 MG TABLET PO SCH (21:54)
[2020-04-07] MEDS ORDERED: GABAPENTIN 400 MG CAPSULE PO ONE (22:00)
[2020-04-08] MEDS: oxyCODONE 5 MG TABLET PO PRN ×2 (05:01→09:00)
[2020-04-08] MEDS: ACETAMINOPHEN 500 MG TABLET PO PRN (05:01)
[2020-04-08] MEDS: PROMETHAZINE 25 MG TABLET PO PRN (05:05)
--- NOTE | 2020-04-08 07:51 | Discharge Plan ---
Discharge Plan Problem Reviewed?: Yes Disposition: Home, Self Care Condition: Good Activity Restrictions: Additional Comments (See delivery instructions Nothing inthe vagina for additioanl 2 weeks Call for headache that does not improve with pain medication, black spots or sparkly lights infield of vision, pain in the right upper part of the belly.) Health Concerns: If you are able to check your blood pressure at home, check once daily. Call if the top number is greater than 160 or the bottom number is greater than 110 No Smoking: If you smoke, Please STOP! Call for help. Follow-up with: Maria Luisa Yoo MD [Provider Admit Priv/Credential] -
[2020-04-08 08:59] VITALS: BP 135/88
[2020-04-08] MEDS: FERROUS SULFATE 325 MG TABLET PO SCH (09:00)
[2020-04-08] MEDS: LABETALOL 100 MG TABLET PO SCH (09:00)
[2020-04-08] MEDS: lamoTRIgine 100 MG TABLET PO SCH (09:01)
[2020-04-08] MEDS: AMOX/CLAV 875 MG/125 MG TABLET PO SCH (09:01)
--- NOTE | 2020-04-08 10:39 | PROVIDER PROGRESS NOTE ---
Subjective - Prog Note Date Prog Note Date: 04/08/20 Prog Note Time: 08:00 - Subjective Subjective: Magnesium was discontinued yesterday afternoon. Blood pressures are in mild to normal range. Headache improved. Patient had a tooth break overnight. Novision change/RUQ pain. Voiding. Tolerating po. Doing well. Objective - Vital Signs/Intake & Output Reviewed Vital Signs: Yes Vital Signs: Vital Signs x48h Temp Pulse Resp BP Pulse Ox 04/08/20 08:59 98.2 F 91 16 135/88 H 100 04/08/20 05:20 81 15 131/80 H 98 Intake & Output: Intake & Output 04/05/20 04/06/20 04/07/20 04/08/20 23:59 23:59 23:59 23:59 Intake Total 498.333 340.833 Output Total 1200 1150 Balance -701.667 -809.167 - Objective General Appearance: positive: No acute distress Neck: positive: Nml inspection Respiratory: positive: No respiratory distress, Breath sounds nml Cardiovascular: positive: Regular rate & rhythm Peripheral Pulses: 2+ Radial (R), 2+ Radial (L) Abdomen: positive: Non-tender Skin: positive: Color nml, No rash, Warm, Dry Extremities: positive: Non-tender Neurologic/Psychiatric: positive: Oriented x3 - Lab Results Fish Bones: 04/06/20 13:20 04/06/20 13:20 Assessment/Plan - Problem List (1) Preeclampsia in period Impression: Patient has been off magnesium since yesterday afternoon BPs in mild to normal range and no symptoms Discharging to home with precautions FU in one week or sooner if necessary
== END 2020-04-08 09:17 | disposition home or self-care (01) ==
LOC: WFO 12:40 → FBP 12:41 → WFO 14:48 → FBP 14:48
PROVIDERS: ADMIT Obstetrics & Gynecology; ATTEND Obstetrics & Gynecology
DX: O11.5 Pre-existing hypertension with pre-eclampsia, complicating the puerperium (principal); O10.93 Unspecified pre-existing hypertension complicating the puerperium; O99.355 Diseases of the nervous system complicating the puerperium; G40.909 Epilepsy, unspecified, not intractable, without status epilepticus; O99.285 Endocrine, nutritional and metabolic diseases complicating the puerperium; E03.9 Hypothyroidism, unspecified; O99.345 Other mental disorders complicating the puerperium; Z85.43 Personal history of malignant neoplasm of ovary; F41.9 Anxiety disorder, unspecified; F32.9 Major depressive disorder, single episode, unspecified; F43.10 Post-traumatic stress disorder, unspecified; O90.89 Other complications of the puerperium, not elsewhere classified; K08.89 Other specified disorders of teeth and supporting structures; Z79.899 Other long term (current) drug therapy; Z20.822 Contact with and (suspected) exposure to COVID-19; Z79.891 Long term (current) use of opiate analgesic; Z79.1 Long term (current) use of non-steroidal anti-inflammatories (NSAID)
CPT/HCPCS: 36415; 80053; 82570; 83735; 84156; 85025; 85384; 85610; 85730; 87635; 96365; 96366; 96376; A9270; G0378; J3490; J7120; Q0162; Q0169; J3475

== ENCOUNTER 2020-07-25 16:31 | Emergency (ER) | payer MEDICAID ==
[2020-07-25 17:07] LABS: BASOPHILS # (AUTO) 0.1 10^3/uL (0.0-0.1); BASOPHILS % (AUTO) 1.1 %; EOSINOPHILS # (AUTO) 0.1 10^3/uL (0.0-0.7); HCT - HEMATOCRIT 39.5 % (37.0-47.0); HGB - HEMOGLOBIN 13.2 g/dL (12.0-16.0); LYMPHOCYTES # (AUTO) 2.5 10^3/uL (1.5-3.5); LYMPHOCYTES % (AUTO) 35.2 %; MEAN CORPUSCULAR HEMOGLOBIN 30.1 pg (27.0-31.0); MEAN CORPUSCULAR HGB CONC 33.4 g/dL (32.0-36.0); MEAN CORPUSCULAR VOLUME 90.2 fL (81.0-99.0); MEAN PLATELET VOLUME 9.6 fL (7.9-10.8); MONOCYTES # (AUTO) 0.4 10^3/uL (0.0-1.0); MONOCYTES % (AUTO) 5.7 %; NEUTROPHILS % (AUTO) 56.9 %; PLT - PLATELET COUNT 309 10^3/uL (130-450); RED BLOOD COUNT 4.38 10^6/uL (4.20-5.40); RED CELL DISTRIBUTION WIDTH 14.1 % (12.0-15.0); WHITE BLOOD COUNT 7.1 x10^3/uL (4.8-10.8)
[2020-07-25 17:20] LABS: ALBUMIN 4.7 g/dL (3.2-5.5); ALBUMIN/GLOBULIN RATIO 1.7 (1.0-2.2); BILIRUBIN,TOTAL 0.7 mg/dL (0.2-1.0); CALCIUM 9.9 mg/dL (8.5-10.3); POTASSIUM 4.2 mmol/L (3.5-5.0); TOTAL PROTEIN 7.4 g/dL (6.7-8.2)
[2020-07-25 18:15] LABS: BILIRUBIN,URINE NEGATIVE (NEGATIVE); GLUCOSE, URINE (UA) NEGATIVE (NEGATIVE); KETONES,URINE (UA) NEGATIVE (NEGATIVE); LEUKOCYTE ESTERASE, URINE NEGATIVE (NEGATIVE); NITRITE,URINE NEGATIVE (NEGATIVE); OCCULT BLOOD,URINE NEGATIVE (NEGATIVE); PROTEIN,URINE NEGATIVE (NEGATIVE); UROBILINOGEN,URINE 0.2 (NORMAL) E.U./dL (NORMAL)
[2020-07-25 18:17] LABS: CLARITY,URINE CLEAR (CLEAR)
[2020-07-25] MEDS ORDERED: KETOROLAC 30 MG/ML VIAL IVP STA (18:31)
[2020-07-25] MEDS ORDERED: DROPERIDOL 5 MG/2 ML VIAL IVP STA (18:31)
--- NOTE | 2020-07-25 18:49 | ED Physician Documentation ---
History of Present Illness - Stated complaint Stated Complaint: HIGH BP,DIZZY,FATIGUE,GONSALES - Chief complaint Chief Complaint: Neuro - History obtained from History obtained from: Patient - History of Present Illness Timing: Today Pain level max: 10 Pain level now: 10 - Additonal information Additional information: Patient is a 35-year-old female who presents to the emergency department stating that she had high blood pressure today at home. She states she was feeling lightheaded, had a headache, similar to prior. Patient also states that she felt generally weak. No focal neurological deficits. Nothing made it better or worse. Still complaining of a headache. Did not take anything for this. Has not eaten or drink today. Denies any possibility of . Review of Systems Ten Systems: 10 systems reviewed and negative Constitutional: denies: Fever, Chills Eyes: reports: Photophobia Nose: denies: Rhinorrhea / runny nose, Congestion Throat: denies: Sore throat Cardiac: denies: Chest pain / pressure Respiratory: denies: Dyspnea GI: reports: Nausea. denies: Abdominal Pain, Vomiting, Diarrhea : denies: Dysuria, Now EGA Skin: denies: Rash Musculoskeletal: denies: Neck pain, Back pain Neurologic: reports: Headache (Gradual onset, holoacranial, similar to prior migraines) PD PAST MEDICAL HISTORY - Past Medical History Past Medical History: Yes Cardiovascular: Hypertension Respiratory: None Neuro: Migraines, Seizure disorder Endocrine/Autoimmune: HyPOthyroidism GI: None RN TRANSITION: Ovarian cancer : None HEENT: None Psych: Depression, Anxiety, Post traumatic stress disorder Musculoskeletal: None Derm: Eczema - Past Surgical History Past Surgical History: Yes /RN TRANSITION: Dilation and currettage - Present Medications Home Medications: Ambulatory Orders Medication Instructions Recorded Confirmed Quetiapine Fumarate [Seroquel] 100 mg PO BID 08/19/17 07/25/20 EPINEPHrine [Epinephrine] 0.3 mg IJ PRN PRN 03/26/18 07/25/20 Lamotrigine [Lamotrigine ER] 50 mg PO DAILY 09/09/18 07/25/20 NIFEdipine [Nifedipine ER] 30 mg PO DAILY 09/09/18 07/25/20 Acetaminophen [Acetaminophen Extra 1,000 mg PO Q6H PRN #45 tab 03/22/20 07/25/20 Strength] Ibuprofen [Motrin] 600 mg PO Q6H PRN #30 tab 03/22/20 07/25/20 - Allergies Allergies/Adverse Reactions: Allergies Allergy/AdvReac Type Severity Reaction Status Date / Time codeine Allergy Mild Nausea Verified 07/25/20 16:44 acetaminophen [From Vicodin] Allergy Nausea Verified 07/25/20 16:44 hydrocodone [From Vicodin] Allergy Nausea Verified 07/25/20 16:44 - Social History Does the pt smoke?: No Smoking Status: Former smoker Does the pt drink ETOH?: No Does the pt have substance abuse?: No - Immunizations Immunizations are current?: Yes - POLST Patient has POLST: No PD ED PE NORMAL - Vitals Vital signs reviewed: Yes - General General: Alert and oriented X 3, No acute distress, Well developed/nourished - HEENT HEENT: Atraumatic, PERRL, EOMI, Ears normal, Moist mucous membranes, Pharynx benign - Neck Neck: Supple, no meningeal sign - Cardiac Cardiac: RRR, Strong equal pulses - Respiratory Respiratory: No respiratory distress, Clear bilaterally - Abdomen Abdomen: Soft, Non tender, Non distended - Back Back: No spinal TTP - Derm Derm: Warm and dry - Extremities Extremities: No edema, No calf tenderness / cord - Neuro Neuro: Alert and oriented X 3, wire charger 2-12 intact, No motor deficit, No sensory deficit, Normal speech Eye Opening: Spontaneous Motor: Obeys Commands Verbal: Oriented GCS Score: 15 - Psych Psych: Normal mood, Normal affect Results - Vitals Vitals: Vital Signs - 24 hr 07/25/20 07/25/20 07/25/20 16:39 17:13 18:31 Temperature 35.6 C L 37 C Heart Rate 91 90 96 Respiratory 18 18 20 Rate Blood Pressure 148/96 H 137/95 H 143/100 H O2 Saturation 99 97 98 07/25/20 20:02 Temperature 36.4 C L Heart Rate 84 Respiratory 22 Rate Blood Pressure 149/93 H O2 Saturation 99 Oxygen O2 Source Room air - Labs Labs: Laboratory Tests 07/25/20 07/25/20 07/25/20 17:02 17:02 17:55 WBC 7.1 RBC 4.38 Hgb 13.2 Hct 39.5 MCV 90.2 MCH 30.1 MCHC 33.4 RDW 14.1 Plt Count 309 MPV 9.6 Neut # (Auto) 4.0 Lymph # (Auto) 2.5 [place] # (Auto) 0.4 Eos # (Auto) 0.1 Baso # (Auto) 0.1 Absolute Nucleated RBC 0.00 Nucleated RBC % 0.0 Sodium 144 Potassium 4.2 Chloride 109 Carbon Dioxide 24 Anion Gap 11.0 BUN 10 Creatinine 1.0 Estimated GFR (MDRD) 63 L Glucose 99 Calcium 9.9 Total Bilirubin 0.7 AST 25 ALT 35 Alkaline Phosphatase 37 L Total Protein 7.4 Albumin 4.7 Globulin 2.7 Albumin/Globulin Ratio 1.7 Lipase 32 Urine Color YELLOW Urine Clarity CLEAR Urine pH 6.0 Ur Specific Tiona >=1.030 H Urine Protein NEGATIVE Urine Glucose (UA) NEGATIVE Urine Ketones NEGATIVE Urine Occult Blood NEGATIVE Urine Nitrite NEGATIVE Urine Bilirubin NEGATIVE Urine Urobilinogen 0.2 (NORMAL) Ur Leukocyte Esterase NEGATIVE Ur Microscopic Review NOT INDICATED Urine Culture Comments NOT INDICATED PD MEDICAL DECISION MAKING - ED course Complexity details: considered differential, d/w patient ED course: 35-year-old female with a headache today. Feels better after Toradol, Droperidol and IV fluids. No residual dizziness. Blood pressure decreased on its own. No chest pain. No shortness of breath. Tolerating p.o. without difficulty. Patient counseled regarding signs and symptoms for which I believe and urgent re-evaluation would be necessary. Patient with good understanding of and agreement to plan and is comfortable going home at this time This document was made in part using voice recognition software. While efforts are made to proofread this document, sound alike and grammatical errors may occur. Departure - Departure Disposition: 01 Home, Self Care Clinical Impression: Dehydration Migraine Qualifiers: Migraine type: unspecified Status migrainosus presence: without status migrainosus Intractability: not intractable Qualified Code(s): G43.909 - Migraine, unspecified, not intractable, without status migrainosus Hypertension Qualifiers: Hypertension type: unspecified Qualified Code(s): I10 - Essential (primary) hypertension Condition: Good Instructions: ED Dehydration, ED Headache Migraine Follow-Up: Yasmeen Hines ARNP [Primary Care Provider] - Within 1 week Comments: Make sure you are drinking plenty of water at home. Follow-up with your doctor for further care. Return if you worsen. Discharge Date/Time: 07/25/20 20:05
[2020-07-25] MEDS ORDERED: SODIUM CHLORIDE 0.9% 1,000 ML IV STA (19:05)
[2020-07-25 20:05] VITALS: BP 149/93
== END 2020-07-25 20:05 | disposition home or self-care (01) ==
LOC: ED 16:31
DX: G43.909 Migraine, unspecified, not intractable, without status migrainosus (principal); E86.0 Dehydration; I10 Essential (primary) hypertension; Z87.891 Personal history of nicotine dependence
CPT/HCPCS: 36415; 80053; 81001; 81003; 83690; 85025; 87086; 96374; 96375; 99284

== ENCOUNTER 2020-08-14 06:30 | Emergency (ER) | payer OTHER, MEDICAID ==
--- NOTE | 2020-08-14 06:44 | ED Physician Documentation ---
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 She felt the needle prick pain, but no bleeding from finger.) Location: LUE (radial side middle finger middle phalanx.) Quality / character: Other (no bleeding. Minimal local tenderness.) Review of Systems Neurologic: denies: Focal weakness, Numbness PD PAST MEDICAL HISTORY - Past Medical History Cardiovascular: Hypertension Respiratory: None Neuro: Migraines, Seizure disorder Endocrine/Autoimmune: HyPOthyroidism GI: None BRICK KILN BURNER: Ovarian cancer : None HEENT: None Psych: Depression, Anxiety, Post traumatic stress disorder Musculoskeletal: None Derm: Eczema - Past Surgical History Past Surgical History: Yes /BRICK KILN BURNER: Dilation and currettage - Present Medications Home Medications: Ambulatory Orders Medication Instructions Recorded Confirmed Quetiapine Fumarate [Seroquel] 100 mg PO BID 08/19/17 08/14/20 EPINEPHrine [Epinephrine] 0.3 mg IJ PRN PRN 03/26/18 08/14/20 Lamotrigine [Lamotrigine ER] 50 mg PO DAILY 09/09/18 08/14/20 NIFEdipine [Nifedipine ER] 30 mg PO DAILY 09/09/18 08/14/20 Acetaminophen [Acetaminophen Extra 1,000 mg PO Q6H PRN #45 tab 03/22/20 08/14/20 Strength] Ibuprofen [Motrin] 600 mg PO Q6H PRN #30 tab 03/22/20 08/14/20 - Allergies Allergies/Adverse Reactions: Allergies Allergy/AdvReac Type Severity Reaction Status Date / Time codeine Allergy Mild Nausea Verified 08/14/20 06:54 acetaminophen [From Vicodin] Allergy Nausea Verified 08/14/20 06:54 hydrocodone [From Vicodin] Allergy Nausea Verified 08/14/20 06:54 - Social History Does the pt smoke?: No Smoking Status: Former smoker Does the pt drink ETOH?: No Does the pt have substance abuse?: No - Immunizations Immunizations are current?: Yes - POLST Patient has POLST: No PD ED PE NORMAL - Vitals Vital signs reviewed: Yes - General General: Alert and oriented X 3, Well developed/nourished - Derm Derm: Normal color, Warm and dry - Extremities Extremities: Other (middle left finger radial side middle phalanx with minimally perceptible skin puncture without bleeding. Good ROM of the finger without pain. ) - Neuro Neuro: No motor deficit, No sensory deficit Results - Vitals Vitals: Vital Signs - 24 hr 08/14/20 06:35 Temperature 36.5 C Heart Rate 103 H Respiratory 14 Rate Blood Pressure 140/93 H O2 Saturation 100 Oxygen O2 Source Room air PD MEDICAL DECISION MAKING - ED course Complexity details: considered differential (Given she had not gotten blood into the needle as yet (no flash) and did not cause bleeding from her finger, would sound like a very low risk/nonrisk exposure. ), d/w patient Departure - Departure Disposition: 01 Home, Self Care Clinical Impression: Employee exposure to blood, Puncture wound Condition: Stable Record reviewed to determine appropriate education?: Yes Instructions: ED Wound Puncture General Follow-Up: Yasmeen Hines ARNP [Primary Care Provider] - Comments: This sounds essentially has a very low risk exposure or essentially a nonexposure to blood borne pathogens. We did do the needlestick exposure just to allow employee health to follow through and have documentation. However a do not feel there is a need for any prophylactic medications or such. Recheck if signs of infection at the puncture site. Follow-up with employee health who will likely contact you in the next several days or so.
[2020-08-14 06:54] VITALS: BP 140/93
[2020-08-14 08:18] LABS: ALBUMIN 5.2 g/dL (3.2-5.5); ALBUMIN/GLOBULIN RATIO 1.7 (1.0-2.2); BILIRUBIN,TOTAL 0.6 mg/dL (0.2-1.0); CALCIUM 10.4 mg/dL (8.5-10.3); CREATININE 1.1 mg/dL (0.4-1.0); TOTAL PROTEIN 8.3 g/dL (6.7-8.2)
[2020-08-17 14:06] LABS: HEPATITIS C ANTIBODY NON-REACTIVE (NON-REACTIVE)
[2020-08-17 16:25] LABS: HIV AG/AB 4TH GEN NON-REACTIVE (NON-REACTIVE)
== END 2020-08-14 08:06 | disposition home or self-care (01) ==
LOC: ED 06:30
DX: Z77.21 Contact with and (suspected) exposure to potentially hazardous body fluids (principal); S61.233A Puncture wound without foreign body of left middle finger without damage to nail, initial encounter; W46.0XXA Contact with hypodermic needle, initial encounter; Y93.F9 Activity, other caregiving; Y92.230 Patient room in hospital as the place of occurrence of the external cause; Y99.0 Civilian activity done for income or pay
CPT/HCPCS: 36415; 80053; 86317; 86803; 87389; 99282; 99283

== ENCOUNTER 2020-09-16 15:00 | Outpatient (CLI) | payer MEDICAID ==
[2020-09-16 19:46] LABS: BACTERIAL VAGINOSIS DNA NEGATIVE (NEGATIVE); CANDIDA GLABRATA DNA NEGATIVE (NEGATIVE); CANDIDA GROUP DNA NEGATIVE (NEGATIVE); CANDIDA KRUSEI DNA NEGATIVE (NEGATIVE); TRICHOMONAS VAGINALIS DNA NEGATIVE (NEGATIVE)
[2020-09-16 20:33] LABS: CHLAMYDIA TRACHOMATIS DNA NEGATIVE (NEGATIVE); NEISSERIA GONORRHOEAE DNA NEGATIVE (NEGATIVE); TRICHOMONAS VAGINALIS DNA NEGATIVE (NEGATIVE)
== END 2020-09-16 23:59 | disposition home or self-care (01) ==
LOC: LAB.WC 15:00
PROVIDERS: ATTEND Obstetrics & Gynecology
DX: N76.0 Acute vaginitis (principal)
CPT/HCPCS: 87491; 87591; 87661; 87801

== ENCOUNTER 2020-10-26 23:00 | Outpatient (CLI) | payer MEDICAID ==
[2020-10-26 23:48] LABS: THYROID STIMULATING HORMONE 36.38 uIU/mL (0.34-5.60)
[2020-10-27 05:37] LABS: CHLAMYDIA TRACHOMATIS DNA NEGATIVE (NEGATIVE); NEISSERIA GONORRHOEAE DNA NEGATIVE (NEGATIVE); TRICHOMONAS VAGINALIS DNA NEGATIVE (NEGATIVE)
[2020-10-27 06:03] LABS: FREE T4 (FREE THYROXINE) 0.52 ng/dL (0.58-1.64)
[2020-10-27 06:18] LABS: BACTERIAL VAGINOSIS DNA NEGATIVE (NEGATIVE); CANDIDA GLABRATA DNA NEGATIVE (NEGATIVE); CANDIDA GROUP DNA NEGATIVE (NEGATIVE); CANDIDA KRUSEI DNA NEGATIVE (NEGATIVE); TRICHOMONAS VAGINALIS DNA NEGATIVE (NEGATIVE)
== END 2020-10-26 23:01 | disposition home or self-care (01) ==
LOC: LAB 23:00
PROVIDERS: ATTEND Obstetrics & Gynecology
DX: E03.9 Hypothyroidism, unspecified (principal); N76.0 Acute vaginitis; Z12.4 Encounter for screening for malignant neoplasm of cervix
CPT/HCPCS: 36415; 84439; 84443; 87491; 87591; 87661; 87801

== ENCOUNTER 2020-10-28 02:37 | Emergency (ER) | payer MEDICAID ==
[2020-10-28] MEDS ORDERED: ONDANSETRON ODT 4 MG TABLET TL STA (02:59)
[2020-10-28 03:11] LABS: BILIRUBIN,URINE NEGATIVE (NEGATIVE); GLUCOSE, URINE (UA) NEGATIVE (NEGATIVE); KETONES,URINE (UA) NEGATIVE (NEGATIVE); LEUKOCYTE ESTERASE, URINE NEGATIVE (NEGATIVE); NITRITE,URINE NEGATIVE (NEGATIVE); OCCULT BLOOD,URINE LARGE (NEGATIVE); PH,URINE 5.5 PH (5.0-7.5); PROTEIN,URINE NEGATIVE (NEGATIVE); UROBILINOGEN,URINE 0.2 (NORMAL) E.U./dL (NORMAL)
[2020-10-28 03:13] LABS: CLARITY,URINE CLEAR (CLEAR); HCG UR QUAL NEGATIVE
[2020-10-28 03:17] LABS: BACTERIA,URINE Rare /HPF (None Seen); SQUAMOUS EPITHELIAL CELL,UR RARE Squamous (<= Few); WBC,URINE 0-3 /HPF (0-5)
--- NOTE | 2020-10-28 03:42 | ED Physician Documentation ---
History of Present Illness - Stated complaint Stated Complaint: FEMALE , NAUSEA, CRAMPS - Chief complaint Chief Complaint: Abd Pain - History obtained from History obtained from: Patient - Additonal information Additional information: 35-year-old woman With history of IUD placement 4 months ago, recently kicked over 6 months ago, presents with sensation of IUD strings poking her since yesterday and heavy vaginal bleeding since yesterday, increasing late this evening's that she went through 5 pads in an hour, soaked through. Patient denies urinary symptoms. does endorse some lower abdominal cramping. Review of Systems : reports: Vaginal bleeding. 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: Ovarian cancer : None HEENT: None Psych: Depression, Anxiety, Post traumatic stress disorder Musculoskeletal: None Derm: Eczema - Past Surgical History Past Surgical History: Yes /SENIOR EXECUTIVE COMPENSATION ANALYST: Dilation and currettage - Present Medications Home Medications: Ambulatory Orders Medication Instructions Recorded Confirmed Quetiapine Fumarate [Seroquel] 100 mg PO BID 08/19/17 08/14/20 EPINEPHrine [Epinephrine] 0.3 mg IJ PRN PRN 03/26/18 08/14/20 Lamotrigine [Lamotrigine ER] 50 mg PO DAILY 09/09/18 08/14/20 NIFEdipine [Nifedipine ER] 30 mg PO DAILY 09/09/18 08/14/20 Acetaminophen [Acetaminophen Extra 1,000 mg PO Q6H PRN #45 tab 03/22/20 08/14/20 Strength] Ibuprofen [Motrin] 600 mg PO Q6H PRN #30 tab 03/22/20 08/14/20 - Allergies Allergies/Adverse Reactions: Allergies Allergy/AdvReac Type Severity Reaction Status Date / Time codeine Allergy Mild Nausea Verified 10/28/20 02:48 acetaminophen [From Vicodin] Allergy Nausea Verified 10/28/20 02:48 hydrocodone [From Vicodin] Allergy Nausea Verified 10/28/20 02:48 - Social History Does the pt smoke?: No Smoking Status: Never smoker Does the pt drink ETOH?: No Does the pt have substance abuse?: No - Immunizations Immunizations are current?: Yes - POLST Patient has POLST: No PD ED PE NORMAL - Vitals Vital signs reviewed: Yes - General General: Alert and oriented X 3, No acute distress, Well developed/nourished - HEENT HEENT: Atraumatic, PERRL, EOMI - Neck Neck: Supple, no meningeal sign - Abdomen Abdomen: Non tender, Non distended - Female Female : 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 BRB in vaginal vault. IUD wire visible protruding from cervical os. active bright red blood from cervical os. ) - Back Back: No CVA TTP - Derm Derm: Normal color - Neuro Neuro: Alert and oriented X 3 - Psych Psych: Normal mood, Normal affect Results - Vitals Vitals: Vital Signs - 24 hr 10/28/20 10/28/20 02:48 02:51 Temperature 36.6 C 36.6 C Heart Rate 87 87 Respiratory 17 17 Rate Blood Pressure 147/97 H 147/97 H O2 Saturation 98 98 Oxygen O2 Source Room air - Labs Labs: Laboratory Tests 10/28/20 10/28/20 03:05 03:05 Urine Color YELLOW Urine Clarity CLEAR Urine pH 5.5 Ur Specific [place] 1.025 Urine Protein NEGATIVE Urine Glucose (UA) NEGATIVE Urine Ketones NEGATIVE Urine Occult Blood LARGE H Urine Nitrite NEGATIVE Urine Bilirubin NEGATIVE Urine Urobilinogen 0.2 (NORMAL) Ur Leukocyte Esterase NEGATIVE Urine RBC 11-25 H Urine WBC 0-3 Ur Squamous Epith Cells RARE Squamous Urine Bacteria Rare Urine Culture Comments NOT INDICATED Urine HCG, Qual NEGATIVE PD MEDICAL DECISION MAKING - ED course ED course: d/w Dr. Yoo in regards to IUD wire protruding from cervical os and active vaginal bleeding. she will come evaluate.
[2020-10-28] MEDS ORDERED: ACETAMINOPHEN 325 MG TABLET PO STA (04:16)
[2020-10-28 04:20] LABS: BASOPHILS # (AUTO) 0.1 10^3/uL (0.0-0.1); BASOPHILS % (AUTO) 1.1 %; EOSINOPHILS # (AUTO) 0.1 10^3/uL (0.0-0.7); EOSINOPHILS % (AUTO) 0.8 %; HCT - HEMATOCRIT 43.5 % (37.0-47.0); HGB - HEMOGLOBIN 14.5 g/dL (12.0-16.0); LYMPHOCYTES # (AUTO) 2.6 10^3/uL (1.5-3.5); LYMPHOCYTES % (AUTO) 33.5 %; MEAN CORPUSCULAR HEMOGLOBIN 30.3 pg (27.0-31.0); MEAN CORPUSCULAR HGB CONC 33.3 g/dL (32.0-36.0); MEAN CORPUSCULAR VOLUME 90.8 fL (81.0-99.0); MEAN PLATELET VOLUME 9.6 fL (7.9-10.8); MONOCYTES # (AUTO) 0.4 10^3/uL (0.0-1.0); MONOCYTES % (AUTO) 5.3 %; NEUTROPHILS # (AUTO) 4.5 10^3/uL (1.5-6.6); NEUTROPHILS % (AUTO) 59.2 %; PLT - PLATELET COUNT 364 10^3/uL (130-450); RED BLOOD COUNT 4.79 10^6/uL (4.20-5.40); RED CELL DISTRIBUTION WIDTH 12.5 % (12.0-15.0); WHITE BLOOD COUNT 7.6 x10^3/uL (4.8-10.8)
[2020-10-28 04:28] LABS: CALCIUM 10.1 mg/dL (8.5-10.3); CREATININE 1.1 mg/dL (0.4-1.0); POTASSIUM 4.3 mmol/L (3.5-5.0)
[2020-10-28] MEDS ORDERED: KETOROLAC 15 MG/ML VIAL IM STA (04:39)
[2020-10-28 04:58] VITALS: BP 142/91
--- NOTE | 2020-10-28 05:26 | CONSULTATION NOTE ---
Referring Provider Name of Referring Provider:: Dr. Dao Consult Date: 10/28/20 History of Present Illness - History of Present Illness HPI Comment/Other: Patient is a 35 yo who presented to the ED with pelvic pain and heavy vaginal bleeding. Patient had a Mirena IUD placed on 09/15/20, about 6 weeks s/p most recent delivery. She noted that she was having heavier than average bleeding. She had a cycle after placement of her IUD. She had no bleeding again until this week. She had to change her pad about 3 times in an hour, but has not been saturating pads. She noticed her IUD strings jsut inside the vagina, which seemed odd to her. She has been having heavy cycles and soaked her clothing at work earlier this week. No recent IC. Last IC was three weeks ago. No pain and partner did not comment on the presence of the IUD. She would like the IUD to remain in place, if possible. However, if it is falling out, she would like it removed. She had her thyroid levels checked earlier this week and her TSH was elevated at 36.38 with T4 low at 0.52. Has been having increase in weight since time of her delivery. Had post pre-eclampsia wth severe features. Currenltly on lisinopril. Past Medical History: Seizures Bipolar Depression PTSD Anxiety Tobacco abuse Chronic headaches Past Surgical History: Dilatation & Curettage x3 History - Past Medical History Cardiovascular: reports: Hypertension Respiratory: reports: None Neuro: reports: Migraines, Seizure disorder Endocrine/Autoimmune: reports: HyPOthyroidism GI: reports: None SEISMOGRAPH SUPERVISOR: reports: Ovarian cancer : reports: None HEENT: reports: None Psych: reports: Depression, Anxiety, Post traumatic stress disorder Musculoskeletal: reports: None Derm: reports: Eczema MRSA Hx?: No - Past Surgical History /SEISMOGRAPH SUPERVISOR: reports: Dilation and currettage - POLST Patient has POLST: No Meds/Allgy - Home Medications Home Medications: Ambulatory Orders Medication Instructions Recorded Confirmed Quetiapine Fumarate [Seroquel] 100 mg PO BID 08/19/17 08/14/20 EPINEPHrine [Epinephrine] 0.3 mg IJ PRN PRN 03/26/18 08/14/20 Lamotrigine [Lamotrigine ER] 50 mg PO DAILY 09/09/18 08/14/20 NIFEdipine [Nifedipine ER] 30 mg PO DAILY 09/09/18 08/14/20 Acetaminophen [Acetaminophen Extra 1,000 mg PO Q6H PRN #45 tab 03/22/20 08/14/20 Strength] Ibuprofen [Motrin] 600 mg PO Q6H PRN #30 tab 03/22/20 08/14/20 - Allergies Allergies/Adverse Reactions: Allergies Allergy/AdvReac Type Severity Reaction Status Date / Time codeine Allergy Mild Nausea Verified 10/28/20 02:48 acetaminophen [From Vicodin] Allergy Nausea Verified 10/28/20 02:48 hydrocodone [From Vicodin] Allergy Nausea Verified 10/28/20 02:48 Review of Systems - Other Findings Other Findings: As per HPI, otherwise remaining systems are negative Exam - Vital Signs Reviewed Vital Signs: Yes Vital Signs: Vital Signs x48h Temp Pulse Resp BP Pulse Ox 10/28/20 04:51 97.9 F 79 16 142/91 H 98 10/28/20 04:50 97.7 F 81 16 140/98 H 99 10/28/20 02:51 97.9 F 87 17 147/97 H 98 10/28/20 02:48 97.9 F 87 17 147/97 H 98 - Physical Exam General Appearance: positive: No acute distress, Mild distress Respiratory: positive: No respiratory distress Cardiovascular: positive: Other (RR) Abdomen: positive: Non-tender, No distention Back: positive: Nml inspection Skin: positive: Color nml Extremities: positive: No pedal edema Neurologic/Psychiatric: positive: Oriented x3 Comments/Other: PELVIC: NEFG. Moderate blood flow. Normal BSUMA, Vagina is rugated and estrogenized. Mild tomoderate flow in vaginal vault. Long IUD strings noted. Cervix appears marginally dilated. BMW performed. Cervical os dialted to 1 cm and shaft of IUD in palpable in the endocervical canal. No CMT. No fundal tenderness. Speculum was replaced. Patient provided consent for IUD removal. IUD strings were grasped with ring forceps and the IUD was removed without difficulty. It was examined by patient and provider and was found to be intact. Procedure was well tolerated and without complication. Conclusion/Plan - Lab Results Fish Bones: 10/28/20 04:14 10/28/20 04:14 - Other Other Results/Comments: IUD removal due to partial expulsion Patient is feeling cramping. Recommend toradol for pain management. Will fu in clinic for contraception/IUD insertion. Blood flow on high end of normal but does not require intervention at this time. FU in clinic.
== END 2020-10-28 05:18 | disposition home or self-care (01) ==
LOC: ED 02:37
DX: T83.39XA Other mechanical complication of intrauterine contraceptive device, initial encounter (principal); Y84.8 Other medical procedures as the cause of abnormal reaction of the patient, or of later complication, without mention of misadventure at the time of the procedure; I10 Essential (primary) hypertension
CPT/HCPCS: 36415; 80048; 81001; 81025; 85025; 96372; 99283; A9270; Q0162; 87086

== ENCOUNTER 2021-01-08 02:00 | Emergency (ER) | payer MEDICAID ==
[2021-01-08] MEDS ORDERED: METOCLOPRAMIDE 10 MG TABLET PO STA (02:33)
--- NOTE | 2021-01-08 02:37 | ED Physician Documentation ---
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 patient states she vomited once and it was mostly spit. Also with nausea yesterday and abdominal pain gradual in onset, mild, sharp/dull in quality, nonradiating, located just under the left ribcage. patient endorses headache as well (BL frontal aching gradual onset nonradiating). denies fever, diarrhea, urinary sx. she did have mild uri symptoms recently that have resolved. patient has an iud and does not believe she could be . Review of Systems Ten Systems: 10 systems reviewed and negative Constitutional: reports: Fatigue. denies: Fever Cardiac: denies: Chest pain / pressure Respiratory: denies: Dyspnea GI: reports: Abdominal Pain, Nausea, Vomiting. 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 : None HEENT: None Psych: Depression, Anxiety, Bipolar disorder, Post traumatic stress disorder Musculoskeletal: None Derm: Eczema - Past Surgical History Past Surgical History: Yes /APPELLATE LAW CLERK: Dilation and currettage - Present Medications Home Medications: Ambulatory Orders Medication Instructions Recorded Confirmed Quetiapine Fumarate [Seroquel] 100 mg PO BID 08/19/17 08/14/20 EPINEPHrine [Epinephrine] 0.3 mg IJ PRN PRN 03/26/18 08/14/20 Lamotrigine [Lamotrigine ER] 50 mg PO DAILY 09/09/18 08/14/20 NIFEdipine [Nifedipine ER] 30 mg PO DAILY 09/09/18 08/14/20 Acetaminophen [Acetaminophen Extra 1,000 mg PO Q6H PRN #45 tab 03/22/20 08/14/20 Strength] Ibuprofen [Motrin] 600 mg PO Q6H PRN #30 tab 03/22/20 08/14/20 Meclizine [Antivert] 12.5 mg PO Q6H PRN #20 tablet 01/08/21 Ondansetron Odt [Zofran Odt] 4 mg TL Q6H PRN #10 tablet 01/08/21 Phentermine HCl 15 mg PO 01/08/21 - Allergies Allergies/Adverse Reactions: Allergies Allergy/AdvReac Type Severity Reaction Status Date / Time codeine Allergy Mild Nausea Verified 10/28/20 02:48 acetaminophen [From Vicodin] Allergy Nausea Verified 10/28/20 02:48 hydrocodone [From Vicodin] Allergy Nausea Verified 10/28/20 02:48 - Social History Does the pt smoke?: No Smoking Status: Never smoker Does the pt drink ETOH?: Yes Does the pt have substance abuse?: No - Immunizations Immunizations are current?: Yes - POLST Patient has POLST: No PD ED PE NORMAL - Vitals Vital signs reviewed: Yes - General General: Alert and oriented X 3, No acute distress, Well developed/nourished - HEENT HEENT: Atraumatic, PERRL, EOMI - Neck Neck: Supple, no meningeal sign - Cardiac Cardiac: RRR - Respiratory Respiratory: No respiratory distress, Clear bilaterally - Abdomen Abdomen: Non tender, Non distended - Back Back: No CVA TTP - Derm Derm: Normal color, Warm and dry - Extremities Extremities: No deformity - Neuro Neuro: Alert and oriented X 3, microbiology lab technician 2-12 intact, No motor deficit, No sensory deficit, Normal speech - Psych Psych: Normal mood, Normal affect Results - Vitals Vitals: Vital Signs - 24 hr 01/08/21 01/08/21 01/08/21 02:06 04:25 06:14 Temperature 36.6 C 35.7 C L Heart Rate 109 H 100 98 Respiratory 20 16 16 Rate Blood Pressure 127/96 H 144/88 H 120/77 O2 Saturation 99 100 100 Oxygen O2 Source Room air - EKG (time done) 0247 Rate: Rate (enter#) (88) Rhythm: NSR [place]: Normal Intervals: Normal [place] QRS: Normal Ischemia: Normal ST segments - Labs Labs: Laboratory Tests 01/08/21 01/08/21 01/08/21 02:51 03:55 03:55 WBC RBC Hgb Hct MCV MCH MCHC RDW Plt Count MPV Neut # (Auto) Lymph # (Auto) [place] # (Auto) Eos # (Auto) Baso # (Auto) Absolute Nucleated RBC Nucleated RBC % Sodium Potassium Chloride Carbon Dioxide Anion Gap BUN Creatinine Estimated GFR (MDRD) Glucose POC Whole Bld Glucose 86 Calcium Total Bilirubin AST ALT Alkaline Phosphatase Total Protein Albumin Globulin Albumin/Globulin Ratio Lipase Urine Color YELLOW Urine Clarity CLEAR Urine pH 6.5 Ur Specific [place] 1.015 Urine Protein NEGATIVE Urine Glucose (UA) NEGATIVE Urine Ketones NEGATIVE Urine Occult Blood SMALL H Urine Nitrite NEGATIVE Urine Bilirubin NEGATIVE Urine Urobilinogen 0.2 (NORMAL) Ur Leukocyte Esterase NEGATIVE Urine RBC 0-5 Urine WBC 0-3 Ur Squamous Epith Cells FEW Squamous Urine Bacteria None Seen Urine Culture Comments NOT INDICATED Urine HCG, Qual NEGATIVE 01/08/21 01/08/21 04:00 04:00 WBC 8.3 RBC 4.49 Hgb 13.2 Hct 39.4 MCV 87.8 MCH 29.4 MCHC 33.5 RDW 12.5 Plt Count 329 MPV 9.4 Neut # (Auto) 5.1 Lymph # (Auto) 2.7 [place] # (Auto) 0.4 Eos # (Auto) 0.0 Baso # (Auto) 0.1 Absolute Nucleated RBC 0.00 Nucleated RBC % 0.0 Sodium 132 L Potassium 3.6 Chloride 98 L Carbon Dioxide 24 Anion Gap 10.0 BUN 11 Creatinine 0.9 Estimated GFR (MDRD) 71 L Glucose 97 POC Whole Bld Glucose Calcium 9.2 Total Bilirubin 0.5 AST 19 ALT 20 Alkaline Phosphatase 53 Total Protein 7.5 Albumin 4.4 Globulin 3.1 Albumin/Globulin Ratio 1.4 Lipase 27 Urine Color Urine Clarity Urine pH Ur Specific [place] Urine Protein Urine Glucose (UA) Urine Ketones Urine Occult Blood Urine Nitrite Urine Bilirubin Urine Urobilinogen Ur Leukocyte Esterase Urine RBC Urine WBC Ur Squamous Epith Cells Urine Bacteria Urine Culture Comments Urine HCG, Qual PD MEDICAL DECISION MAKING - ED course ED course: 35yF p/w multiple medical complaints including dizziness, headache, abdominal pain, back pain, nausea, and fatigue. Vital signs and exam largely unremarkable except for some mild tachycardia. plan to treat headache, nausea. nausea and dizziness improved with symptomatic care. patient will f/u with ent for potential vertigo. return precautions given. Departure - Departure Disposition: 01 Home, Self Care Clinical Impression: Dizziness, Vomiting, Headache Condition: Stable Instructions: ED Dizziness [facility]O Follow-Up: Arnie Mario MD [Physician No Access] - Prescriptions: Meclizine [Antivert] 12.5 mg PO Q6H PRN #20 tablet PRN Reason: Dizziness Ondansetron Odt [Zofran Odt] 4 mg TL Q6H PRN #10 tablet PRN Reason: Nausea / Vomiting Comments: You were seen in the emergency department for dizziness, nausea, vomiting, headache. Your labwork showed no emergent findings. Please follow up with ENT and take meclizine and zofran as needed for your symptoms. return to the ED if you have new or worsening symptoms or other concerns.
[2021-01-08] MEDS ORDERED: IBUPROFEN 600 MG TABLET PO STA (02:39)
[2021-01-08] MEDS ORDERED: PROCHLORPERAZINE 10 MG/2 ML VIAL IVP STA (03:47)
[2021-01-08] MEDS ORDERED: SODIUM CHLORIDE 0.9% 1,000 ML IV STA (03:47)
[2021-01-08] MEDS ORDERED: LIDOCAINE JELLY 2% 6 ML JEL.PF.APP TOP STA (03:48)
[2021-01-08 04:37] LABS: BASOPHILS # (AUTO) 0.1 10^3/uL (0.0-0.1); BASOPHILS % (AUTO) 0.6 %; EOSINOPHILS % (AUTO) 0.5 %; HCT - HEMATOCRIT 39.4 % (37.0-47.0); HGB - HEMOGLOBIN 13.2 g/dL (12.0-16.0); LYMPHOCYTES # (AUTO) 2.7 10^3/uL (1.5-3.5); LYMPHOCYTES % (AUTO) 32.2 %; MEAN CORPUSCULAR HEMOGLOBIN 29.4 pg (27.0-31.0); MEAN CORPUSCULAR HGB CONC 33.5 g/dL (32.0-36.0); MEAN CORPUSCULAR VOLUME 87.8 fL (81.0-99.0); MEAN PLATELET VOLUME 9.4 fL (7.9-10.8); MONOCYTES # (AUTO) 0.4 10^3/uL (0.0-1.0); MONOCYTES % (AUTO) 5.1 %; NEUTROPHILS # (AUTO) 5.1 10^3/uL (1.5-6.6); NEUTROPHILS % (AUTO) 61.4 %; PLT - PLATELET COUNT 329 10^3/uL (130-450); RED BLOOD COUNT 4.49 10^6/uL (4.20-5.40); RED CELL DISTRIBUTION WIDTH 12.5 % (12.0-15.0); WHITE BLOOD COUNT 8.3 x10^3/uL (4.8-10.8)
[2021-01-08 04:40] LABS: BILIRUBIN,URINE NEGATIVE (NEGATIVE); GLUCOSE, URINE (UA) NEGATIVE (NEGATIVE); KETONES,URINE (UA) NEGATIVE (NEGATIVE); LEUKOCYTE ESTERASE, URINE NEGATIVE (NEGATIVE); NITRITE,URINE NEGATIVE (NEGATIVE); OCCULT BLOOD,URINE SMALL (NEGATIVE); PH,URINE 6.5 PH (5.0-7.5); PROTEIN,URINE NEGATIVE (NEGATIVE); UROBILINOGEN,URINE 0.2 (NORMAL) E.U./dL (NORMAL)
[2021-01-08 04:43] LABS: HCG UR QUAL NEGATIVE
[2021-01-08 04:50] LABS: BACTERIA,URINE None Seen /HPF (None Seen); CLARITY,URINE CLEAR (CLEAR); RBC,URINE 0-5 /HPF (0-5); SQUAMOUS EPITHELIAL CELL,UR FEW Squamous (<= Few); WBC,URINE 0-3 /HPF (0-5)
[2021-01-08 04:51] LABS: ALBUMIN 4.4 g/dL (3.2-5.5); ALBUMIN/GLOBULIN RATIO 1.4 (1.0-2.2); BILIRUBIN,TOTAL 0.5 mg/dL (0.2-1.0); CALCIUM 9.2 mg/dL (8.5-10.3); CREATININE 0.9 mg/dL (0.4-1.0); POTASSIUM 3.6 mmol/L (3.5-5.0); TOTAL PROTEIN 7.5 g/dL (6.7-8.2)
[2021-01-08] MEDS ORDERED: ONDANSETRON 4 MG/2 ML VIAL IVP STA (05:06)
[2021-01-08] MEDS ORDERED: MECLIZINE 12.5 MG TABLET PO STA (05:06)
[2021-01-08 06:15] VITALS: BP 120/77
== END 2021-01-08 06:49 | disposition home or self-care (01) ==
LOC: ED 02:00
DX: R42 Dizziness and giddiness (principal); R11.2 Nausea with vomiting, unspecified; R51.9 Headache, unspecified; R10.9 Unspecified abdominal pain; M54.9 Dorsalgia, unspecified; R53.83 Other fatigue; R00.0 Tachycardia, unspecified; I10 Essential (primary) hypertension; E03.9 Hypothyroidism, unspecified
CPT/HCPCS: 36415; 80053; 81001; 81025; 83690; 85025; 93005; 96374; 96375; 99284; A9270; 87086

== ENCOUNTER 2021-02-07 09:51 | Outpatient (CLI) | payer MEDICAID ==
[2021-02-07 10:31] LABS: ALBUMIN 4.3 g/dL (3.2-5.5); ALBUMIN/GLOBULIN RATIO 1.5 (1.0-2.2); ALKALINE PHOSPHATASE 51 IU/L (42-121); ALT ALANINE AMINOTRANSFERASE 16 IU/L (10-60); AST ASPARTATE AMINOTRANSFERASE 16 IU/L (10-42); BILIRUBIN,TOTAL 0.2 mg/dL (0.2-1.0); BUN - BLOOD UREA NITROGEN 17 mg/dL (6-20); CALCIUM 9.3 mg/dL (8.5-10.3); CARBON DIOXIDE - CO2 24 mmol/L (21-32); CHLORIDE 103 mmol/L (101-111); CHOL/HDL RATIO 4.7 (<4.4); CHOLESTEROL 214 mg/dL; CREATININE 0.9 mg/dL (0.4-1.0); CRP HIGH SENSITIVITY 1.1 mg/L; GFR - MDRD 71 (>89); GLUCOSE 92 mg/dL (70-100); HDL CHOLESTEROL 46 mg/dL; LDL CHOLESTEROL,CALCULATED 119 mg/dL; LDL/HDL RATIO 2.6 (<4.4); POTASSIUM 4.3 mmol/L (3.5-5.0); SODIUM 136 mmol/L (135-145); TOTAL PROTEIN 7.2 g/dL (6.7-8.2); TRIGLYCERIDES 244 mg/dL; VLDL CHOLESTEROL 49 mg/dL
[2021-02-07 10:42] LABS: THYROID STIMULATING HORMONE 41.63 uIU/mL (0.34-5.60)
[2021-02-07 20:25] LABS: FREE T4 (FREE THYROXINE) 0.6 ng/dL (0.58-1.64)
[2021-02-07 20:56] LABS: ESTIMATED AVERAGE GLUCOSE 114 mg/dL (70-100); HEMOGLOBIN A1c% 5.6 % (4.27-6.07)
== END 2021-02-07 09:52 | disposition home or self-care (01) ==
LOC: LAB 09:51
PROVIDERS: ATTEND Obstetrics & Gynecology
DX: E03.9 Hypothyroidism, unspecified (principal); Z13.1 Encounter for screening for diabetes mellitus; Z68.38 Body mass index [BMI] 38.0-38.9, adult; Z13.220 Encounter for screening for lipoid disorders; Z71.3 Dietary counseling and surveillance
CPT/HCPCS: 36415; 80053; 80061; 83036; 83721; 84439; 84443; 86141

== ENCOUNTER 2021-05-16 12:38 | Outpatient (CLI) | payer OTHER, MEDICAID ==
--- NOTE | 2021-05-16 14:26 | XRAY Report ---
PROCEDURE: Thoracic Spine 2 View INDICATIONS: STRAIN OF MUSCLE AND TENDON OF BACK WALL OF THORAX TECHNIQUE: 2 views of the thoracic spine were acquired. COMPARISON: None. FINDINGS: Bones: No fractures or dislocations. No suspicious bony lesions. 12 pairs of ribs are noted, and a ppear intact where visualized. Rudimentary ribs at T12. Soft tissues: No paravertebral stripe thickening. IMPRESSION: No significant abnormality. Reviewed by: Dallin Patten MD on 05/16/2021 2:24 PM PDT Approved by: Dallin Patten MD on 05/16/2021 2:24 PM PDT Station ID: [id number]
--- NOTE | 2021-05-16 14:27 | XRAY Report ---
PROCEDURE: Cervical Spine w/Flex/Ext INDICATIONS: NECK ARTHRALGIA TECHNIQUE: 7 views of the cervical spine were acquired. COMPARISON: None. FINDINGS: Bones: No fractures or dislocations to the T1 level. No suspicious bony lesions. There is normal r hugo of motion between flexion and extension, with preserved normal bony alignment. No bony neural fo raminal stenosis is appreciated. Mild posterior endplate osteophytosis at C5-6. Soft tissues: Prevertebral soft tissues are normal in thickness. IMPRESSION: No significant abnormality. Reviewed by: Dallin Patten MD on 05/16/2021 2:26 PM PDT Approved by: Dallin Patten MD on 05/16/2021 2:26 PM PDT Station ID: [id number]
--- NOTE | 2021-05-16 14:27 | XRAY Report ---
PROCEDURE: Lumbar Spine 2 View INDICATIONS: MUSCLE STRAIN TECHNIQUE: 2 views of the lumbar spine were acquired. COMPARISON: None. FINDINGS: Bones: 5 [id number] vertebrae are present. There is normal bony alignment. No vertebral body compression fractures. No suspicious bony lesions. Mild facet arthrosis at L5-S1 versus prominence o f superimposed osseous structures. Soft tissues: Overlying bowel gas pattern is normal. No suspicious soft tissue calcifications. An intrauterine device is seen. IMPRESSION: No significant abnormality. Reviewed by: Dallin Patten MD on 05/16/2021 2:26 PM PDT Approved by: Dallin Patten MD on 05/16/2021 2:26 PM PDT Station ID: [id number]
--- NOTE | 2021-05-16 17:05 | XRAY Report ---
PROCEDURE: Elbow 2 View RT INDICATIONS: ELBOW ARTHROPATHY TECHNIQUE: 3 views of the elbow were acquired. COMPARISON: None FINDINGS: Bones: No fractures or dislocations. No suspicious bony lesions. Soft tissues: No elbow joint effusion. No suspicious soft tissue calcifications. IMPRESSION: Unremarkable right elbow radiographs Reviewed by: Domenic Padilla MD on 05/16/2021 4:04 PM AKDT Approved by: Domenic Padilla MD on 05/16/2021 4:04 PM AKDT Station ID: [id number]
== END 2021-05-16 12:39 | disposition home or self-care (01) ==
LOC: DI 12:38
PROVIDERS: ATTEND Registered Nurse
DX: S39.012A Strain of muscle, fascia and tendon of lower back, initial encounter (principal); M12.821 Other specific arthropathies, not elsewhere classified, right elbow; S29.012A Strain of muscle and tendon of back wall of thorax, initial encounter; M54.2 Cervicalgia

== ENCOUNTER 2021-06-16 13:46 | Outpatient (CLI) | payer OTHER, MEDICAID ==
--- NOTE | 2021-06-16 15:01 | MRI Report ---
PROCEDURE: Cervical Spine W/O INDICATIONS: NECK ARTHRALGIA TECHNIQUE: Noncontrast sagittal T1 spin echo and T2 fast spin echo, sagittal STIR, foraminal oblique sagittal T2 fast spin echo, and axial gradient echo or T2 fast spin echo through the cervical spine. COMPARISON: None. FINDINGS: Image quality: Excellent. Alignment and Curvature: There is loss of normal cervical lordosis. There is mild kyphosis at C4-C6. Roughly 3 mm of retrolisthesis of C5 on C6 is present. Bone Marrow: Marrow demonstrates normal overall signal. Mild reactive signal within the endplates a djacent to the C4-C5, C5-C6, and C6-C7 intervertebral discs. Spinal Cord: Visualized spinal cord has normal size and signal. No cerebellar tonsillar herniation. Paraspinous Soft Tissues: No paravertebral masses. Prevertebral soft tissues are normal in thicknes s. C2-C3: Normal in appearance. C3-C4: Normal in appearance. C4-C5: Mild disc desiccation and diffuse disc bulge. Minimal canal stenosis. No foraminal stenosis. C5-C6: Mild disc desiccation and diffuse disc bulge. Minimal canal stenosis. No foraminal stenosis. C6-C7: Mild diffuse disc bulge. No significant canal, nor foraminal stenosis. C7-T1: Normal in appearance. IMPRESSION: 1. Mild multilevel disc disease, causing minimal canal stenosis. No foraminal stenosis. No neural imp ingement. 2. Loss of normal cervical lordosis, suggestive of muscle spasm. Reviewed by: Nicanor Clarke MD on 06/16/2021 3:00 PM PDT Approved by: Nicanor Clarke MD on 06/16/2021 3:00 PM PDT Station ID: [id number]
== END 2021-06-16 13:47 | disposition home or self-care (01) ==
LOC: DI 13:46
PROVIDERS: ATTEND Registered Nurse
DX: M50.321 Other cervical disc degeneration at C4-C5 level (principal)

== ENCOUNTER 2021-08-02 19:22 | Emergency (ER) | payer MEDICAID ==
[2021-08-02] MEDS ORDERED: LORazepam 2 MG/ML VIAL IVP STA ×2 (19:30→19:47)
--- NOTE | 2021-08-02 19:36 | ED Physician Documentation ---
PD HPI SEIZURE - Stated complaint Stated Complaint: SZ - History obtained from History obtained from: Family - Additional information Additional information: 36-year-old woman presents by private vehicle with . She had a seizure last night and then has been seizing all day today. She is seizing on arrival and I am unable to obtain any history from her so the history is from her significant other who is at the bedside. Her medication list includes: Lamotrigine 150 mg 2 tabs a day Lisinopril 20 mg once a day Levothyroxine 50 mcg once a day Duloxetine 30 mg once a day Amphetamine salts 30 mg once a day Quetiapine 100 mg at night Metformin 500 mg p.o. twice daily Clonazepam 1 tablet twice a day. 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: Ovarian cancer : None HEENT: None Psych: Depression, Anxiety, Bipolar disorder, Post traumatic stress disorder Musculoskeletal: None Derm: Eczema - Past Surgical History Past Surgical History: Yes /SCHOOL COORDINATOR: Dilation and currettage - Present Medications Home Medications: Ambulatory Orders Medication Instructions Recorded Confirmed Quetiapine Fumarate [Seroquel] 100 mg PO BID 08/19/17 08/14/20 EPINEPHrine [Epinephrine] 0.3 mg IJ PRN PRN 03/26/18 08/14/20 Lamotrigine [Lamotrigine ER] 50 mg PO DAILY 09/09/18 08/14/20 NIFEdipine [Nifedipine ER] 30 mg PO DAILY 09/09/18 08/14/20 Acetaminophen [Acetaminophen Extra 1,000 mg PO Q6H PRN #45 tab 03/22/20 08/14/20 Strength] Ibuprofen [Motrin] 600 mg PO Q6H PRN #30 tab 03/22/20 08/14/20 Meclizine [Antivert] 12.5 mg PO Q6H PRN #20 tablet 01/08/21 Ondansetron Odt [Zofran Odt] 4 mg TL Q6H PRN #10 tablet 01/08/21 Phentermine HCl 15 mg PO 01/08/21 - Allergies Allergies/Adverse Reactions: Allergies Allergy/AdvReac Type Severity Reaction Status Date / Time codeine Allergy Mild Nausea Verified 08/02/21 19:49 acetaminophen [From Vicodin] Allergy Nausea Verified 08/02/21 19:49 hydrocodone [From Vicodin] Allergy Nausea Verified 08/02/21 19:49 - Social History Does the pt smoke?: No Smoking Status: Never smoker Does the pt drink ETOH?: Yes Does the pt have substance abuse?: No - Immunizations Immunizations are current?: Yes - POLST Patient has POLST: No PD ED PE NORMAL - Vitals Vital signs reviewed: Yes - General General: Other (She is unresponsive with jaw clenched and facial twitching and clonic motion of the upper more than lower extremities) - HEENT HEENT: Other (Dilated pupils, symmetric) - Neck Neck: Supple, no meningeal sign, No bony TTP - Cardiac Cardiac: RRR, No murmur - Respiratory Respiratory: No respiratory distress, Clear bilaterally - Abdomen Abdomen: Non tender - Derm Derm: Normal color, Warm and dry - Extremities Extremities: No edema, No calf tenderness / cord - Neuro Eye Opening: None Motor: Abnormal Flexion (seizing) Verbal: None GCS Score: 5 Results - Vitals Vitals: Vital Signs - 24 hr 08/02/21 08/02/21 08/02/21 19:44 19:49 21:11 Temperature 37.1 C 37.1 C Heart Rate 104 H 107 H 107 H Respiratory 24 16 16 Rate Blood Pressure 149/124 H 140/109 H 140/109 H O2 Saturation 100 100 100 08/02/21 22:00 Temperature 36.5 C Heart Rate 99 Respiratory 16 Rate Blood Pressure 134/100 H O2 Saturation 99 Oxygen O2 Source Mechanical ventilator - EKG (time done) 1945 Rate: Rate (enter#) (110) Rhythm: Sinus tachycardia [place]: Normal Intervals: Normal HI QRS: Low voltage Ischemia: Non specific changes. No: ST elevation c/w ischemia, ST depression - Labs Labs: Laboratory Tests 08/02/21 08/02/21 08/02/21 19:27 19:35 19:35 WBC 7.8 RBC 4.70 Hgb 13.8 Hct 42.2 MCV 89.8 MCH 29.4 MCHC 32.7 RDW 13.4 Plt Count 318 MPV 9.7 Neut # (Auto) 3.4 Lymph # (Auto) 3.6 H Crook # (Auto) 0.7 Eos # (Auto) 0.1 Baso # (Auto) 0.1 Absolute Nucleated RBC 0.00 Nucleated RBC % 0.0 Bld Gas Analysis Time Sample Site ABG pH ABG pCO2 ABG pO2 ABG HCO3 ABG Total CO2 ABG O2 Saturation ABG Base Excess [place] Test Respiration Rate O2 Delivery Device Vent Mode FiO2 Tidal Volume PEEP Sodium 140 Potassium 4.6 Chloride 101 Carbon Dioxide 28 Anion Gap 11.0 BUN 16 Creatinine 1.3 H Estimated GFR (MDRD) 46 L Glucose 101 H POC Whole Bld Glucose 101 H Calcium 9.4 Total Bilirubin < 0.2 L AST 21 ALT 19 Alkaline Phosphatase 57 Total Protein 7.1 Albumin 4.5 Globulin 2.6 Albumin/Globulin Ratio 1.7 Lipase 38 TSH Prolactin Urine Color Urine Clarity Urine pH Ur Specific [place]yer Urine Protein Urine Glucose (UA) Urine Ketones Urine Occult Blood Urine Nitrite Urine Bilirubin Urine Urobilinogen Ur Leukocyte Esterase Ur Microscopic Review Urine Culture Comments Urine HCG, Qual Nasal Adenovirus (PCR) Nasal B. parapertussis DNA (PCR) Nasal Coronavir 229E PCR Nasal Coronavir HKU1 PCR Nasal Coronavir NL63 PCR Nasal Coronavir OC43 PCR Nasal Enterovir/Rhinovir PCR Nasal Influenza B PCR Nasal Influenza A PCR Nasal Parainfluen 1 PCR Nasal Parainfluen 2 PCR Nasal Parainfluen 3 PCR Nasal Parainfluen 4 PCR Nasal RSV (PCR) Nasal B.pertussis DNA PCR Nasal C.pneumoniae (PCR) Blade Human Metapneumo PCR Nasal M.pneumoniae (PCR) Nasal SARS-CoV-2 (PCR) Salicylates < 6.0 Urine Opiates Screen Ur Oxycodone Screen Urine Methadone Screen Ur Propoxyphene Screen Acetaminophen < 10 L Ur Barbiturates Screen Ur Tricyclics Screen Ur Phencyclidine Scrn Ur Amphetamine Screen U Methamphetamines Scrn U Benzodiazepines Scrn Urine Cocaine Screen U Cannabinoids Screen Ethyl Alcohol < 5.0 08/02/21 08/02/21 08/02/21 19:35 20:55 21:10 WBC RBC Hgb Hct MCV MCH MCHC RDW Plt Count MPV Neut # (Auto) Lymph # (Auto) Crook # (Auto) Eos # (Auto) Baso # (Auto) Absolute Nucleated RBC Nucleated RBC % Bld Gas Analysis Time Sample Site ABG pH ABG pCO2 ABG pO2 ABG HCO3 ABG Total CO2 ABG O2 Saturation ABG Base Excess [place] Test Respiration Rate O2 Delivery Device Vent Mode FiO2 Tidal Volume PEEP Sodium Potassium Chloride Carbon Dioxide Anion Gap BUN Creatinine Estimated GFR (MDRD) Glucose POC Whole Bld Glucose Calcium Total Bilirubin AST ALT Alkaline Phosphatase Total Protein Albumin Globulin Albumin/Globulin Ratio Lipase TSH 3.79 Prolactin 16.69 Urine Color YELLOW Urine Clarity CLEAR Urine pH 6.5 Ur Specific [place]yer 1.025 Urine Protein NEGATIVE Urine Glucose (UA) NEGATIVE Urine Ketones NEGATIVE Urine Occult Blood NEGATIVE Urine Nitrite NEGATIVE Urine Bilirubin NEGATIVE Urine Urobilinogen 0.2 (NORMAL) Ur Leukocyte Esterase NEGATIVE Ur Microscopic Review NOT INDICATED Urine Culture Comments NOT INDICATED Urine HCG, Qual NEGATIVE Nasal Adenovirus (PCR) NOT DETECTED Nasal B. parapertussis DNA (PCR) NOT DETECTED Nasal Coronavir 229E PCR NOT DETECTED Nasal Coronavir HKU1 PCR NOT DETECTED Nasal Coronavir NL63 PCR NOT DETECTED Nasal Coronavir OC43 PCR NOT DETECTED Nasal Enterovir/Rhinovir PCR NOT DETECTED Nasal Influenza B PCR NOT DETECTED Nasal Influenza A PCR NOT DETECTED Nasal Parainfluen 1 PCR NOT DETECTED Nasal Parainfluen 2 PCR NOT DETECTED Nasal Parainfluen 3 PCR NOT DETECTED Nasal Parainfluen 4 PCR NOT DETECTED Nasal RSV (PCR) NOT DETECTED Nasal B.pertussis DNA PCR NOT DETECTED Nasal C.pneumoniae (PCR) NOT DETECTED Blade Human Metapneumo PCR NOT DETECTED Nasal M.pneumoniae (PCR) NOT DETECTED Nasal SARS-CoV-2 (PCR) NOT DETECTED Salicylates Urine Opiates Screen NEGATIVE Ur Oxycodone Screen NEGATIVE Urine Methadone Screen NEGATIVE Ur Propoxyphene Screen NEGATIVE Acetaminophen Ur Barbiturates Screen POSITIVE H Ur Tricyclics Screen POSITIVE H Ur Phencyclidine Scrn NEGATIVE Ur Amphetamine Screen POSITIVE H U Methamphetamines Scrn NEGATIVE U Benzodiazepines Scrn POSITIVE H Urine Cocaine Screen NEGATIVE U Cannabinoids Screen NEGATIVE Ethyl Alcohol 08/02/21 21:16 WBC RBC Hgb Hct MCV MCH MCHC RDW Plt Count MPV Neut # (Auto) Lymph # (Auto) Crook # (Auto) Eos # (Auto) Baso # (Auto) Absolute Nucleated RBC Nucleated RBC % Bld Gas Analysis Time 2117 Sample Site RIGHT RADIAL ABG pH 7.52 H ABG pCO2 29 L ABG pO2 280 H* ABG HCO3 23.3 ABG Total CO2 24.1 ABG O2 Saturation 99 H ABG Base Excess 1.4 [place] Test POSITIVE Respiration Rate 16 O2 Delivery Device VENTILATOR Vent Mode SIMV FiO2 100.00 Tidal Volume 550 PEEP 5 Sodium Potassium Chloride Carbon Dioxide Anion Gap BUN Creatinine Estimated GFR (MDRD) Glucose POC Whole Bld Glucose Calcium Total Bilirubin AST ALT Alkaline Phosphatase Total Protein Albumin Globulin Albumin/Globulin Ratio Lipase TSH Prolactin Urine Color Urine Clarity Urine pH Ur Specific [place] Urine Protein Urine Glucose (UA) Urine Ketones Urine Occult Blood Urine Nitrite Urine Bilirubin Urine Urobilinogen Ur Leukocyte Esterase Ur Microscopic Review Urine Culture Comments Urine HCG, Qual Nasal Adenovirus (PCR) Nasal B. parapertussis DNA (PCR) Nasal Coronavir 229E PCR Nasal Coronavir HKU1 PCR Nasal Coronavir NL63 PCR Nasal Coronavir OC43 PCR Nasal Enterovir/Rhinovir PCR Nasal Influenza B PCR Nasal Influenza A PCR Nasal Parainfluen 1 PCR Nasal Parainfluen 2 PCR Nasal Parainfluen 3 PCR Nasal Parainfluen 4 PCR Nasal RSV (PCR) Nasal B.pertussis DNA PCR Nasal C.pneumoniae (PCR) Blade Human Metapneumo PCR Nasal M.pneumoniae (PCR) Nasal SARS-CoV-2 (PCR) Salicylates Urine Opiates Screen Ur Oxycodone Screen Urine Methadone Screen Ur Propoxyphene Screen Acetaminophen Ur Barbiturates Screen Ur Tricyclics Screen Ur Phencyclidine Scrn Ur Amphetamine Screen U Methamphetamines Scrn U Benzodiazepines Scrn Urine Cocaine Screen U Cannabinoids Screen Ethyl Alcohol Procedures - Intubation Provider: Emergency physician Medications: Propofol (200mg IVP), Succinylcholine (200mg IVP) Blade: Glidescope Tube: Size-enter number (7.5), Cuffed Confirmation: Direct visualization, Bilateral breath sounds, End tidal CO2, Pulse ox, Chest xray Complications: No compications PD MEDICAL DECISION MAKING - ED course ED course: 36-year-old woman with history of seizure disorder presents with status epilepticus. Attended to immediately and given 2 mg of IV lorazepam without improvement and this was repeated. Subsequently loaded with 1 g of Keppra, still in status and the decision to intubate was made. She stopped seizing after the administration of propofol and a propofol drip was started and she was also loaded with phenobarbital, I had to use lower than the usual dose of 15 mg/kg as the maximum amount we had in the hospital was 1170 mg. Given her critical illness and likely need for neurologic consultation search for a bed at a tertiary facility was undertaken around 8:30 PM. She was tentatively excepted to [facility] by Dr. Bartlett on at 916 pending bed availability. - Critical Care Time(min): 65 Time Includes: Direct patient care, Review records, Reassess patient, Document care, Coordinate care, Medical consult, Family consult for tx dec Data interpretation: Labs, Pulse ox Procedures included in critical care time: Peripheral IV Procedures excluded from critical care time: Intubation, EKG Departure - Departure Disposition: 02 Transfer Acute Care Hosp Clinical Impression: Status epilepticus Condition: Critical Discharge Date/Time: 08/02/21 22:40
[2021-08-02 19:43] LABS: BASOPHILS # (AUTO) 0.1 10^3/uL (0.0-0.1); BASOPHILS % (AUTO) 0.8 %; EOSINOPHILS # (AUTO) 0.1 10^3/uL (0.0-0.7); EOSINOPHILS % (AUTO) 1.4 %; HCT - HEMATOCRIT 42.2 % (37.0-47.0); HGB - HEMOGLOBIN 13.8 g/dL (12.0-16.0); LYMPHOCYTES # (AUTO) 3.6 10^3/uL (1.5-3.5); MEAN CORPUSCULAR HEMOGLOBIN 29.4 pg (27.0-31.0); MEAN CORPUSCULAR HGB CONC 32.7 g/dL (32.0-36.0); MEAN CORPUSCULAR VOLUME 89.8 fL (81.0-99.0); MEAN PLATELET VOLUME 9.7 fL (7.9-10.8); MONOCYTES # (AUTO) 0.7 10^3/uL (0.0-1.0); MONOCYTES % (AUTO) 8.3 %; NEUTROPHILS # (AUTO) 3.4 10^3/uL (1.5-6.6); NEUTROPHILS % (AUTO) 43.2 %; PLT - PLATELET COUNT 318 10^3/uL (130-450); RED CELL DISTRIBUTION WIDTH 13.4 % (12.0-15.0); WHITE BLOOD COUNT 7.8 x10^3/uL (4.8-10.8)
[2021-08-02] MEDS ORDERED: levETIRAcetam INJ 1,000 MG in SODIUM CHLORIDE 0.9% 100ML 100 ML IV STA (19:47)
[2021-08-02 20:07] LABS: ACETAMINOPHEN < 10 ug/mL (10-30); ALBUMIN 4.5 g/dL (3.2-5.5); ALBUMIN/GLOBULIN RATIO 1.7 (1.0-2.2); ALKALINE PHOSPHATASE 57 IU/L (42-121); ALT ALANINE AMINOTRANSFERASE 19 IU/L (10-60); AST ASPARTATE AMINOTRANSFERASE 21 IU/L (10-42); BILIRUBIN,TOTAL < 0.2 mg/dL (0.2-1.0); BUN - BLOOD UREA NITROGEN 16 mg/dL (6-20); CALCIUM 9.4 mg/dL (8.5-10.3); CARBON DIOXIDE - CO2 28 mmol/L (21-32); CHLORIDE 101 mmol/L (101-111); CREATININE 1.3 mg/dL (0.4-1.0); ETOH - ETHANOL < 5.0 mg/dL; GFR - MDRD 46 (>89); GLUCOSE 101 mg/dL (70-100); LIPASE 38 U/L (22-51); POTASSIUM 4.6 mmol/L (3.5-5.0); SALICYLATE < 6.0 mg/dL; SODIUM 140 mmol/L (135-145); TOTAL PROTEIN 7.1 g/dL (6.7-8.2)
[2021-08-02 20:13] LABS: THYROID STIMULATING HORMONE 3.79 uIU/mL (0.34-5.60)
[2021-08-02] MEDS ORDERED: SUCCINYLCHOLINE 200 MG/10 ML VIAL IVP STA (20:15)
[2021-08-02] MEDS ORDERED: PROPOFOL 200 MG/20 ML VIAL IVP STA (20:15)
[2021-08-02] MEDS ORDERED: PHENobarbital 65 MG/ML VIAL IV STA (20:16)
[2021-08-02 20:19] LABS: PROLACTIN 16.69 ng/mL
[2021-08-02] MEDS ORDERED: PHENobarbital 65 MG/ML VIAL ONE ×5 (20:41→20:46)
[2021-08-02] MEDS ORDERED: PROPOFOL 1000 MG/100 ML 1,000 MG/100 ML BOTTLE IV SCH (21:00)
[2021-08-02 21:14] LABS: MUDS CUTOFF CONCENTRATIONS CUTOFF CONC BELOW:
[2021-08-02 21:16] LABS: BILIRUBIN,URINE NEGATIVE (NEGATIVE); GLUCOSE, URINE (UA) NEGATIVE (NEGATIVE); KETONES,URINE (UA) NEGATIVE (NEGATIVE); LEUKOCYTE ESTERASE, URINE NEGATIVE (NEGATIVE); NITRITE,URINE NEGATIVE (NEGATIVE); OCCULT BLOOD,URINE NEGATIVE (NEGATIVE); PH,URINE 6.5 PH (5.0-7.5); PROTEIN,URINE NEGATIVE (NEGATIVE); UROBILINOGEN,URINE 0.2 (NORMAL) E.U./dL (NORMAL)
[2021-08-02 21:18] LABS: CLARITY,URINE CLEAR (CLEAR); HCG UR QUAL NEGATIVE
[2021-08-02 21:20] LABS: ABG BASE EXCESS 1.4 mmol/L (-2.0-3.0); ABG HCO3 23.3 mmol/L (22.0-26.0); ABG MODE OF VENTILATION SIMV; ABG OXYGEN SATURATION 99 % (94-98); ABG PCO2 29 mmHg (34-45); ABG PH 7.52 (7.35-7.45); ABG TCO2 24.1 MMOL/L (21.0-29.0); ALLEN TEST POSITIVE
[2021-08-02 21:21] LABS: ABG RESPIRATORY RATE 16 b/min
[2021-08-02 21:22] LABS: ABG PO2 280 mmHg (80-100)
[2021-08-02 21:29] LABS: AMPHETAMINE SCREEN,URINE POSITIVE (NEGATIVE); BARBITURATE SCREEN,UR POSITIVE (NEGATIVE); BENZODIAZEPINES SCREEN, URINE POSITIVE (NEGATIVE); COCAINE SCREEN URINE NEGATIVE (NEGATIVE); METHADONE SCREEN, URINE NEGATIVE (NEGATIVE); METHAMPHETAMINES SCREEN, URINE NEGATIVE (NEGATIVE); OPIATE SCREEN, URINE NEGATIVE (NEGATIVE); OXYCODONE SCREEN, URINE NEGATIVE (NEGATIVE); PROPOXYPHENE SCREEN, URINE NEGATIVE (NEGATIVE); THC CANNABINOID SCREEN, URINE NEGATIVE (NEGATIVE); TRICYCLIC ANTIDEPRESSANT,URINE POSITIVE (NEGATIVE)
--- NOTE | 2021-08-02 21:51 | CT Report ---
PROCEDURE: HEAD WO INDICATIONS: status epilepticus TECHNIQUE: Noncontrast 5 mm thick angled axial sections acquired from the foramen magnum to the vertex. For rad iation dose reduction, the following was used: automated exposure control, adjustment of mA and/or k V according to patient size. COMPARISON: 03/26/2018. FINDINGS: Image quality: There is motion artifact limiting evaluation. CSF spaces: Basal cisterns are patent. No extra-axial fluid collections. Ventricles are normal in size and shape. Brain: No definite intracranial hemorrhage, mass, or mass effect. Mccray-white matter interface appea rs grossly preserved, with evaluation limited due to motion artifact. Skull and face: Calvarium and visualized facial bones are intact, without suspicious lesions. Sinuses: Visualized sinuses and mastoids are clear. IMPRESSION: 1. Limited study demonstrates no definite acute intracranial abnormality. Reviewed by: Héctor Corral MD on 08/02/2021 9:50 PM PDT Approved by: Héctor Corral MD on 08/02/2021 9:50 PM PDT Station ID: [id number]
[2021-08-02] MEDS ORDERED: PROPOFOL 1000 MG/100 ML 1,000 MG/100 ML BOTTLE IV STA (21:56)
[2021-08-02 22:03] VITALS: BP 134/100
[2021-08-02 22:25] LABS: B. PARAPERTUSSIS- RESP PCR PAN NOT DETECTED; B. PERTUSSIS- RESP PCR PANEL NOT DETECTED; C. PNEUMONIAE- RESP PCR PANEL NOT DETECTED; CORONAVIRUS 229E-RESP PCR NOT DETECTED; CORONAVIRUS HKU1-RESP PCR NOT DETECTED; CORONAVIRUS NL63-RESP PCR NOT DETECTED; CORONAVIRUS OC43-RESP PCR NOT DETECTED; HUMAN METAPNEUMOVIRUS NOT DETECTED; INFLUENZA A- RESP PCR PANEL NOT DETECTED; INFLUENZA B - RESP PCR PANEL NOT DETECTED; M. PNEUMONIAE- RESP PCR PANEL NOT DETECTED; PARAINFLUENZA VIRUS 1 NOT DETECTED; PARAINFLUENZA VIRUS 2 NOT DETECTED; PARAINFLUENZA VIRUS 3 NOT DETECTED; PARAINFLUENZA VIRUS 4 NOT DETECTED; RHINOVIRUS/ENTEROVIRUS NOT DETECTED; RSV- RESP PCR PANEL NOT DETECTED; SARS-CoV-2 -RESP PCR PANEL NOT DETECTED
--- NOTE | 2021-08-02 22:31 | XRAY Report ---
PROCEDURE: Chest for Line Placement INDICATIONS: post intubation TECHNIQUE: One view of the chest was acquired. COMPARISON: None. FINDINGS: Surgical changes and devices: There is an endotracheal tube with the tip approximately 4 cm from the rinku. A nasogastric tube extends into the stomach with the tip not included on the current study.. Lungs and pleura: There are low lung volumes with pulmonary vascular prominence likely representing pulmonary edema. No definite pleural effusions or pneumothorax. Mediastinum: Mediastinal contours appear prominent likely due to portable technique and low lung vol umes. Heart size is normal. Bones and chest wall: No suspicious bony lesions. Overlying soft tissues appear unremarkable. IMPRESSION: 1. Low lung volumes with pulmonary vascular prominence likely representing pulmonary edema. Reviewed by: Héctor Corral MD on 08/02/2021 10:30 PM PDT Approved by: Héctor Corral MD on 08/02/2021 10:30 PM PDT Station ID: [id number]
== END 2021-08-02 22:40 | disposition short-term general hospital (02) ==
LOC: ED 19:22
DX: G40.901 Epilepsy, unspecified, not intractable, with status epilepticus (principal); I10 Essential (primary) hypertension; Z20.822 Contact with and (suspected) exposure to COVID-19
CPT/HCPCS: 31500; 36415; 51702; 70450; 80053; 80306; 80307; 80320; 80329; 81003; 81025; 82803; 83690; 84146; 84443; 85025; 87633; 93005; 94002; 96365; 96375; 99285; 99291; J0330; J2060; 81001; 87086

== ENCOUNTER 2021-09-01 11:17 | Outpatient (CLI) | payer MEDICAID | END 2021-09-01 11:18 | disposition critical access hospital (66) | LOC: EMS 11:17 | DX: R56.9 Unspecified convulsions (principal) | CPT/HCPCS: A0425; A0427; A0999 ==

== ENCOUNTER 2021-09-01 11:34 | Emergency (ER) | payer MEDICAID ==
[2021-09-01] MEDS ORDERED: SODIUM CHLORIDE 0.9% 1,000 ML IV STA ×2 (11:39→14:28)
[2021-09-01 11:59] LABS: BASOPHILS # (AUTO) 0.1 10^3/uL (0.0-0.1); BASOPHILS % (AUTO) 0.5 %; EOSINOPHILS # (AUTO) 0.1 10^3/uL (0.0-0.7); EOSINOPHILS % (AUTO) 0.6 %; HGB - HEMOGLOBIN 12.7 g/dL (12.0-16.0); LYMPHOCYTES # (AUTO) 2.4 10^3/uL (1.5-3.5); LYMPHOCYTES % (AUTO) 24.5 %; MEAN CORPUSCULAR HEMOGLOBIN 30.3 pg (27.0-31.0); MEAN CORPUSCULAR HGB CONC 33.4 g/dL (32.0-36.0); MEAN CORPUSCULAR VOLUME 90.7 fL (81.0-99.0); MEAN PLATELET VOLUME 9.5 fL (7.9-10.8); MONOCYTES # (AUTO) 0.6 10^3/uL (0.0-1.0); MONOCYTES % (AUTO) 6.5 %; NEUTROPHILS # (AUTO) 6.6 10^3/uL (1.5-6.6); NEUTROPHILS % (AUTO) 67.6 %; PLT - PLATELET COUNT 323 10^3/uL (130-450); RED BLOOD COUNT 4.19 10^6/uL (4.20-5.40); RED CELL DISTRIBUTION WIDTH 13.8 % (12.0-15.0); WHITE BLOOD COUNT 9.7 x10^3/uL (4.8-10.8)
[2021-09-01 12:22] LABS: ALBUMIN 4.4 g/dL (3.2-5.5); ALBUMIN/GLOBULIN RATIO 1.5 (1.0-2.2); BILIRUBIN,TOTAL 0.5 mg/dL (0.2-1.0); CALCIUM 10.3 mg/dL (8.5-10.3); CREATININE 1.5 mg/dL (0.4-1.0); POTASSIUM 4.6 mmol/L (3.5-5.0); TOTAL PROTEIN 7.4 g/dL (6.7-8.2)
[2021-09-01] MEDS ORDERED: LORazepam 2 MG/ML VIAL IVP STA (12:44)
--- NOTE | 2021-09-01 13:07 | CT Report ---
PROCEDURE: CT brain without contrast INDICATIONS: ALOC TECHNIQUE: Noncontrast 4.5 mm thick angled axial sections acquired from the foramen magnum to the vertex. For r adiation dose reduction, the following was used: automated exposure control, adjustment of mA and/or kV according to patient size. COMPARISON: None. FINDINGS: Image quality: Excellent. CSF spaces: Basal cisterns are patent. No extra-axial fluid collections. Ventricles are normal in size and shape. Brain: No midline shift. No intracranial masses or hemorrhage. Mccray-white matter interface is norm al. Skull and face: Calvarium and visualized facial bones are intact, without suspicious lesions. Sinuses: Visualized sinuses and mastoids are clear. IMPRESSION: Unremarkable CT of the brain Reviewed by: Domenic Padilla MD on 09/01/2021 12:06 PM ZAK Approved by: Domenic Padilla MD on 09/01/2021 12:06 PM ZAK Station ID: [id number]
[2021-09-01 15:11] VITALS: BP 135/77
--- NOTE | 2021-09-01 15:12 | ED Physician Documentation ---
History of Present Illness - Stated complaint Stated Complaint: ALOC - Chief complaint Chief Complaint: Neuro - History obtained from History obtained from: Patient, Family, EMS - Additonal information Additional information: The patient is brought to the emergency department by EMS for chief complaint of seizure. The patient has a longstanding history of seizure disorder but according to her significant other, she has also just seemed to be very sedated and slow since discharge from [facility] a month ago. The patient at that time was found to be in status epilepticus and was intubated and transferred to [facility]. She was discharged a few days later, And subsequently, underwent addition of Zyprexa to her medication regimen, as well as an increase in the dose of Seroquel that she is taking. The patient states that she did fairly feel "drugged", but does feel very slow and tired. She cannot speak well because her tongue and lips do not seem to want to move. She also states that when she sits down, she feels too tired to get up a lot of the time. Her significant other states that she seems to be hallucinating sometimes and that he feels that she is in a mental fog a lot of the time. She is a patient of Noemi Odonnell, but is not scheduled to see Noemi until September 16. The patient has a history of psychiatric issues and states that her mental health provider has upped her meds recently because the patient was having a difficult time coping with life stressors. Today, the patient seemed to have was described as a grand mal seizure by EMS and was transported here to the emergency department. As far as they know the patient has been taking her medications as directed, though her significant other does state that the patient found an extra tablet of one of her medications (not sure exactly which) and took it along with her night meds last night. Review of Systems Ten Systems: 10 systems reviewed and negative Constitutional: reports: Fatigue Eyes: reports: Reviewed and negative Ears: reports: Reviewed and negative Nose: reports: Reviewed and negative Throat: reports: Reviewed and negative Cardiac: reports: Reviewed and negative Respiratory: reports: Reviewed and negative GI: reports: Reviewed and negative : reports: Reviewed and negative Skin: reports: Reviewed and negative Musculoskeletal: reports: Reviewed and negative Neurologic: reports: Seizure, Confused, Altered mental status Psychiatric: reports: Reviewed and negative Endocrine: reports: Reviewed and negative Immunocompromised: reports: Reviewed and negative PD PAST MEDICAL HISTORY - Past Medical History Cardiovascular: Hypertension Respiratory: None Neuro: Migraines, Seizure disorder Endocrine/Autoimmune: HyPOthyroidism GI: None 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 : None HEENT: None Psych: Depression, Anxiety, Bipolar disorder, Post traumatic stress disorder Musculoskeletal: None Derm: Eczema - Past Surgical History Past Surgical History: Yes /STOCK REPAIRER: Dilation and currettage - Present Medications Home Medications: Ambulatory Orders Medication Instructions Recorded Confirmed Quetiapine Fumarate [Seroquel] 100 mg PO BID 08/19/17 08/14/20 EPINEPHrine [Epinephrine] 0.3 mg IJ PRN PRN 03/26/18 08/14/20 Lamotrigine [Lamotrigine ER] 50 mg PO DAILY 09/09/18 08/14/20 NIFEdipine [Nifedipine ER] 30 mg PO DAILY 09/09/18 08/14/20 Acetaminophen [Acetaminophen Extra 1,000 mg PO Q6H PRN #45 tab 03/22/20 08/14/20 Strength] Ibuprofen [Motrin] 600 mg PO Q6H PRN #30 tab 03/22/20 08/14/20 Meclizine [Antivert] 12.5 mg PO Q6H PRN #20 tablet 01/08/21 Ondansetron Odt [Zofran Odt] 4 mg TL Q6H PRN #10 tablet 01/08/21 Phentermine HCl 15 mg PO 01/08/21 - Allergies Allergies/Adverse Reactions: Allergies Allergy/AdvReac Type Severity Reaction Status Date / Time codeine Allergy Mild Nausea Verified 08/02/21 19:49 acetaminophen [From Vicodin] Allergy Nausea Verified 08/02/21 19:49 hydrocodone [From Vicodin] Allergy Nausea Verified 08/02/21 19:49 - Social History Does the pt smoke?: No Smoking Status: Never smoker Does the pt drink ETOH?: Yes Does the pt have substance abuse?: No - Immunizations Immunizations are current?: Yes - POLST Patient has POLST: No PD ED PE NORMAL - Vitals Vital signs reviewed: Yes - General General: No acute distress, Well developed/nourished, Other (The patient is awake and does answer questions appropriately but appears somewhat drowsy and speaks unclearly, almost as if her tongue is Edematous, though it is not.) - HEENT HEENT: Atraumatic, PERRL, EOMI, Moist mucous membranes, Other (Patient does not have any swelling of her tongue, though her articulation is somewhat poor, due to what appears to be decreased movement in both her lips and her tongue.) - Neck Neck: Supple, no meningeal sign - Cardiac Cardiac: RRR, No murmur, Strong equal pulses - Respiratory Respiratory: No respiratory distress, Clear bilaterally - Abdomen Abdomen: Soft, Non tender, Non distended - Derm Derm: Normal color, Warm and dry, No rash - Extremities Extremities: No deformity, No edema - Neuro Neuro: Alert and oriented X 3, Other (Discernible, but somewhat unclear speech secondary to decreased movement of the Tongue lips and mandible. Patient seems to answer questions appropriately, but does pick at monitor leads and pulse ox sticker. He is moving all 4 extremities without difficulty. Somewhat drowsy, but awake.) - Psych Psych: Normal mood, Normal affect Results - Vitals Vitals: Vital Signs - 24 hr 09/01/21 12:04 Temperature 36.5 C Heart Rate 92 Respiratory 15 Rate Blood Pressure 104/94 H O2 Saturation 99 Oxygen O2 Source Room air - Labs Labs: Laboratory Tests 09/01/21 09/01/21 11:51 11:51 WBC 9.7 RBC 4.19 L Hgb 12.7 Hct 38.0 MCV 90.7 MCH 30.3 MCHC 33.4 RDW 13.8 Plt Count 323 MPV 9.5 Neut # (Auto) 6.6 Lymph # (Auto) 2.4 [place] # (Auto) 0.6 Eos # (Auto) 0.1 Baso # (Auto) 0.1 Absolute Nucleated RBC 0.00 Nucleated RBC % 0.0 Sodium 140 Potassium 4.6 Chloride 101 Carbon Dioxide 28 Anion Gap 11.0 BUN 23 H Creatinine 1.5 H Estimated GFR (MDRD) 39 L Glucose 82 Calcium 10.3 Total Bilirubin 0.5 AST 25 ALT 27 Alkaline Phosphatase 58 Total Protein 7.4 Albumin 4.4 Globulin 3.0 Albumin/Globulin Ratio 1.5 Lipase 27 - Rads (name of study) CT head Radiology: Final report received, EMP read indepedently, See rad report (Unremarkable) PD MEDICAL DECISION MAKING - ED course Complexity details: reviewed old records, reviewed results, re-evaluated patient, considered differential, d/w patient, d/w family ED course: The patient was worked up with labs and CT scan of the head which were unremarkable. She was given 2 L of 0.9 normal saline. I reviewed P previous records regarding her last visit for seizures. I also reviewed her medications. I was concerned about the number of psychotropic and sedative meds the patient is on, including Seroquel, Zyprexa, Cymbalta, and clonazepam. I suspected that the patient's medications were too much and that she was overly sedated from them. The patient would have occasional posturing and twitches of her arm, but she seemed to immediately be mentally normal, and could also be aroused out of the twitches. As such, it really was not convinced that these were actual seizures. We had a long conversation between the patient and her significant other and myself regarding her medications. The patient apparently actually does not see a neurologist and instead, sees angie White, for her primary care, and a mental health provider named sure he for her psychiatric issues. She states that her psychiatric provider is the one who has adjusted her psych meds according to the patient's reported needs. I discussed with the patient and her that I could adjust some of the medications myself, but if the doses of recently being put up, due to patient's stated needs, then it most likely would be better for the same providers to adjust doses down again or even decide on a different regimen. The patient and her significant other are agreeable. At this point in time, she is stable for discharge home. Departure - Departure Disposition: 01 Home, Self Care Clinical Impression: Seizure Adverse effects of medication Qualifiers: Encounter type: initial encounter Qualified Code(s): T50.905A - Adverse effect of unspecified drugs, medicaments and biological substances, initial encounter Condition: Stable Instructions: ED Seizure Recurrent, ED Drug React Adverse Other Comments: While it sounds like you had a seizure earlier, The biggest concern at this point is that your medication regimen is adversely affecting you and causing oversedation and slowing of your nervous system. Some of the twitches that you are having, along with the fatigue and difficulty speaking are most likely more due to your meds then to actual seizures. It is very important that you follow- up with your primary care provider to go over your meds as soon as possible. You should also follow-up with your mental health provider and let them know the troubles you are having so they can decide whether to adjust her doses down or to switch you to something else that we will take care of your mental health needs but not be so sedating. Please also ask Basil Flora to refer you to a neurologist who can more effectively manage your seizure medication.
== END 2021-09-01 15:41 | disposition home or self-care (01) ==
LOC: ED 11:34
DX: R56.9 Unspecified convulsions (principal); T50.905A Adverse effect of unspecified drugs, medicaments and biological substances, initial encounter; I10 Essential (primary) hypertension
CPT/HCPCS: 36415; 70450; 80053; 83690; 85025; 96361; 96374; 99284; J2060

== ENCOUNTER 2021-10-14 20:21 | Outpatient (CLI) | payer MEDICAID | END 2021-10-14 20:22 | disposition critical access hospital (66) | LOC: EMS 20:21 | DX: R56.9 Unspecified convulsions (principal) | CPT/HCPCS: A0425; A0427; A0999 ==

== ENCOUNTER 2021-10-14 20:34 | Emergency (ER) | payer MEDICAID ==
[2021-10-14] MEDS ORDERED: SODIUM CHLORIDE 0.9% 1,000 ML IV STA (20:40)
[2021-10-14] MEDS ORDERED: LORazepam 2 MG/ML VIAL IVP STA ×4 (20:40→22:57)
[2021-10-14] MEDS ORDERED: levETIRAcetam INJ 1,000 MG in SODIUM CHLORIDE 0.9% 100ML 100 ML IV STA (20:48)
[2021-10-14] MEDS ORDERED: levETIRAcetam INJ 2,000 MG in SODIUM CHLORIDE 0.9% 100ML 100 ML IV STA (20:51)
[2021-10-14 21:08] LABS: BASOPHILS # (AUTO) 0.1 10^3/uL (0.0-0.1); BASOPHILS % (AUTO) 0.9 %; EOSINOPHILS # (AUTO) 0.1 10^3/uL (0.0-0.7); EOSINOPHILS % (AUTO) 1.2 %; HCT - HEMATOCRIT 39.8 % (37.0-47.0); HGB - HEMOGLOBIN 13.4 g/dL (12.0-16.0); LYMPHOCYTES # (AUTO) 3.9 10^3/uL (1.5-3.5); LYMPHOCYTES % (AUTO) 42.5 %; MEAN CORPUSCULAR HEMOGLOBIN 30.6 pg (27.0-31.0); MEAN CORPUSCULAR HGB CONC 33.7 g/dL (32.0-36.0); MEAN CORPUSCULAR VOLUME 90.9 fL (81.0-99.0); MEAN PLATELET VOLUME 9.3 fL (7.9-10.8); MONOCYTES # (AUTO) 0.7 10^3/uL (0.0-1.0); MONOCYTES % (AUTO) 7.9 %; NEUTROPHILS # (AUTO) 4.3 10^3/uL (1.5-6.6); NEUTROPHILS % (AUTO) 47.2 %; PLT - PLATELET COUNT 415 10^3/uL (130-450); RED BLOOD COUNT 4.38 10^6/uL (4.20-5.40); WHITE BLOOD COUNT 9.2 x10^3/uL (4.8-10.8)
[2021-10-14 21:22] LABS: ACETAMINOPHEN < 10 ug/mL (10-30); ALBUMIN 4.9 g/dL (3.2-5.5); ALBUMIN/GLOBULIN RATIO 1.6 (1.0-2.2); ALKALINE PHOSPHATASE 72 IU/L (42-121); ALT ALANINE AMINOTRANSFERASE 47 IU/L (10-60); AST ASPARTATE AMINOTRANSFERASE 25 IU/L (10-42); BILIRUBIN,TOTAL 0.3 mg/dL (0.2-1.0); BUN - BLOOD UREA NITROGEN 16 mg/dL (6-20); CARBON DIOXIDE - CO2 26 mmol/L (21-32); CHLORIDE 103 mmol/L (101-111); CREATININE 1.2 mg/dL (0.4-1.0); ETOH - ETHANOL < 5.0 mg/dL; GFR - MDRD 51 (>89); GLUCOSE 93 mg/dL (70-100); LIPASE 45 U/L (22-51); MAGNESIUM 2.2 mg/dL (1.7-2.8); POTASSIUM 4.6 mmol/L (3.5-5.0); SALICYLATE < 6.0 mg/dL; SODIUM 139 mmol/L (135-145)
[2021-10-14] MEDS ORDERED: PHENobarbital 65 MG/ML VIAL IV STA (21:51)
[2021-10-14] MEDS ORDERED: PROPOFOL 200 MG/20 ML VIAL IVP STA (21:55)
[2021-10-14] MEDS ORDERED: SUCCINYLCHOLINE 200 MG/10 ML VIAL IVP STA (21:56)
[2021-10-14] MEDS ORDERED: PHENobarbital 65 MG/ML VIAL ONE ×3 (22:25→22:32)
--- NOTE | 2021-10-14 22:33 | ED Physician Documentation ---
PD HPI SEIZURE - Stated complaint Stated Complaint: SEIZURE - Chief complaint Chief Complaint: Neuro - History obtained from History obtained from: EMS - Additional information Additional information: Patient brought in by EMS for evaluation of seizures. Per EMS she has been seizing for at least 30 minutes prior to their arrival and has had continued seizure activity throughout their involvement. She was given 2.5 mg of IM Versed and then 2.5 mg of IV Versed without any change. Per the clinical product manager, patient has a seizure disorder and stated she had been out of her medications for 3 days. However there still are medications and her blister pack and bottles that have come with her. She is on lamotrigine and clonazepam in addition to other medications. History is limited as no family is present and patient is not able to provide any history.Patient is actively seizing upon arrival. 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: Ovarian cancer : None HEENT: None Psych: Depression, Anxiety, Bipolar disorder, Post traumatic stress disorder Musculoskeletal: None Derm: Eczema - Past Surgical History Past Surgical History: Yes /HATCHERY ATTENDANT: Dilation and currettage - Present Medications Home Medications: Ambulatory Orders Medication Instructions Recorded Confirmed Quetiapine Fumarate [Seroquel] 100 mg PO BID 08/19/17 08/14/20 EPINEPHrine [Epinephrine] 0.3 mg IJ PRN PRN 03/26/18 08/14/20 Lamotrigine [Lamotrigine ER] 50 mg PO DAILY 09/09/18 08/14/20 NIFEdipine [Nifedipine ER] 30 mg PO DAILY 09/09/18 08/14/20 Acetaminophen [Acetaminophen Extra 1,000 mg PO Q6H PRN #45 tab 03/22/20 08/14/20 Strength] Ibuprofen [Motrin] 600 mg PO Q6H PRN #30 tab 03/22/20 08/14/20 Meclizine [Antivert] 12.5 mg PO Q6H PRN #20 tablet 01/08/21 Ondansetron Odt [Zofran Odt] 4 mg TL Q6H PRN #10 tablet 01/08/21 Phentermine HCl 15 mg PO 01/08/21 - Allergies Allergies/Adverse Reactions: Allergies Allergy/AdvReac Type Severity Reaction Status Date / Time codeine Allergy Mild Nausea Verified 08/02/21 19:49 acetaminophen [From Vicodin] Allergy Nausea Verified 08/02/21 19:49 hydrocodone [From Vicodin] Allergy Nausea Verified 08/02/21 19:49 - Social History Does the pt smoke?: No Smoking Status: Never smoker Does the pt drink ETOH?: Yes Does the pt have substance abuse?: No - Immunizations Immunizations are current?: Yes - POLST Patient has POLST: No PD ED PE NORMAL - General General: Other (Seizing, jaw clenched; ) - HEENT HEENT: Atraumatic, PERRL, EOMI - Neck Neck: Supple, no meningeal sign - Cardiac Cardiac: No murmur, Strong equal pulses, Other (Tachycardia, normal rhythm) - Respiratory Respiratory: No respiratory distress, Clear bilaterally - Abdomen Abdomen: Soft, Non tender, Non distended - Derm Derm: Warm and dry - Neuro Neuro: Other (Facial twitching, tonic clonic movements of upper extremities, Legs appear stiff and feet are down pointing) Eye Opening: None Motor: Abnormal Flexion Verbal: None GCS Score: 5 Results - Vitals Vitals: Vital Signs - 24 hr 10/14/21 10/14/21 10/14/21 20:46 21:00 21:30 Temperature 37 C Heart Rate 136 H 128 H 122 H Respiratory 32 H 20 18 Rate Blood Pressure 147/112 H 166/132 H O2 Saturation 94 95 95 10/14/21 10/14/21 10/14/21 22:00 22:08 22:23 Temperature 35.8 C L Heart Rate 113 H 123 H Respiratory 18 23 Rate Blood Pressure 197/123 H 137/123 H O2 Saturation 95 95 10/14/21 10/14/21 10/14/21 22:28 22:30 23:00 Temperature Heart Rate 110 H 108 H 100 Respiratory 15 18 20 Rate Blood Pressure 137/117 H 165/100 H 161/137 H O2 Saturation 98 99 98 10/14/21 10/15/21 10/15/21 23:30 00:55 02:09 Temperature Heart Rate 100 90 86 Respiratory 20 18 Rate Blood Pressure 133/79 H 146/101 H O2 Saturation 98 97 10/15/21 10/15/21 10/15/21 02:30 02:52 03:00 Temperature Heart Rate 82 82 81 Respiratory 18 18 18 Rate Blood Pressure 143/101 H 143/101 H 141/94 H O2 Saturation 98 98 98 10/15/21 10/15/21 10/15/21 03:30 03:35 04:00 Temperature Heart Rate 56 L 56 L 88 Respiratory 15 18 Rate Blood Pressure 165/59 H 144/94 H O2 Saturation 95 100 10/15/21 04:30 Temperature Heart Rate 91 Respiratory 18 Rate Blood Pressure 143/105 H O2 Saturation 99 Oxygen O2 Source Mechanical ventilator - EKG (time done) 0127 Rate: Rate (enter#) (90) Rhythm: NSR Ischemia: No: ST elevation c/w ischemia - Labs Labs: Laboratory Tests 10/14/21 10/14/21 10/14/21 21:00 21:00 21:00 WBC 9.2 RBC 4.38 Hgb 13.4 Hct 39.8 MCV 90.9 MCH 30.6 MCHC 33.7 RDW 14.0 Plt Count 415 MPV 9.3 Neut # (Auto) 4.3 Lymph # (Auto) 3.9 H Hill # (Auto) 0.7 Eos # (Auto) 0.1 Baso # (Auto) 0.1 Absolute Nucleated RBC 0.00 Nucleated RBC % 0.0 Sodium 139 Potassium 4.6 Chloride 103 Carbon Dioxide 26 Anion Gap 10.0 BUN 16 Creatinine 1.2 H Estimated GFR (MDRD) 51 L Glucose 93 Calcium 10.0 Magnesium 2.2 Total Bilirubin 0.3 AST 25 ALT 47 Alkaline Phosphatase 72 Total Protein 8.0 Albumin 4.9 Globulin 3.1 Albumin/Globulin Ratio 1.6 Lipase 45 Prolactin 30.98 Urine Color Urine Clarity Urine pH Ur Specific [place] Urine Protein Urine Glucose (UA) Urine Ketones Urine Occult Blood Urine Nitrite Urine Bilirubin Urine Urobilinogen Ur Leukocyte Esterase Ur Microscopic Review Urine Culture Comments Urine HCG, Qual Salicylates < 6.0 Urine Opiates Screen Ur Oxycodone Screen Urine Methadone Screen Ur Propoxyphene Screen Acetaminophen < 10 L Ur Barbiturates Screen Ur Tricyclics Screen Ur Phencyclidine Scrn Ur Amphetamine Screen U Methamphetamines Scrn U Benzodiazepines Scrn Urine Cocaine Screen U Cannabinoids Screen Ethyl Alcohol < 5.0 SARS-CoV-2 (PCR) 10/14/21 10/14/21 21:20 23:28 WBC RBC Hgb Hct MCV MCH MCHC RDW Plt Count MPV Neut # (Auto) Lymph # (Auto) Hill # (Auto) Eos # (Auto) Baso # (Auto) Absolute Nucleated RBC Nucleated RBC % Sodium Potassium Chloride Carbon Dioxide Anion Gap BUN Creatinine Estimated GFR (MDRD) Glucose Calcium Magnesium Total Bilirubin AST ALT Alkaline Phosphatase Total Protein Albumin Globulin Albumin/Globulin Ratio Lipase Prolactin Urine Color YELLOW Urine Clarity CLEAR Urine pH 6.0 Ur Specific [place] >=1.030 H Urine Protein NEGATIVE Urine Glucose (UA) NEGATIVE Urine Ketones NEGATIVE Urine Occult Blood NEGATIVE Urine Nitrite NEGATIVE Urine Bilirubin NEGATIVE Urine Urobilinogen 0.2 (NORMAL) Ur Leukocyte Esterase NEGATIVE Ur Microscopic Review NOT INDICATED Urine Culture Comments NOT INDICATED Urine HCG, Qual NEGATIVE Salicylates Urine Opiates Screen NEGATIVE Ur Oxycodone Screen NEGATIVE Urine Methadone Screen NEGATIVE Ur Propoxyphene Screen NEGATIVE Acetaminophen Ur Barbiturates Screen NEGATIVE Ur Tricyclics Screen NEGATIVE Ur Phencyclidine Scrn NEGATIVE Ur Amphetamine Screen NEGATIVE U Methamphetamines Scrn NEGATIVE U Benzodiazepines Scrn POSITIVE H Urine Cocaine Screen NEGATIVE U Cannabinoids Screen POSITIVE H Ethyl Alcohol SARS-CoV-2 (PCR) NOT DETECTED Procedures - Intubation Provider: Emergency physician Medications: Propofol, Succinylcholine Blade: Glidescope Tube: Size-enter number (7.5), Cuffed, Marked at lips-enter cm (23) Route: Oral Confirmation: Direct visualization, Bilateral breath sounds, No abdominal breath sound, End tidal CO2, Pulse ox, Chest xray Complications: No compications PD MEDICAL DECISION MAKING - ED course Complexity details: re-evaluated patient, other (Attempted to call patient's but no answer at phone number given) ED course: Patient presenting with seizures.Patient had already received Versed from EMS. Patient was given an additional 2 doses of IV benzodiazepines (Ativan) without change. Patient was also given loading dose of Keppra.No change in seizure activity. Patient maintaining oxygen saturations But due to continued seizure activity and inability to protect her airway, decision made to intubate. Seizure activity stopped after propofol.We will continue patient on scheduled Keppra.Patient did require multiple bolus doses to achieve sedation on vent As she was reaching for her ET tube. A CT brain is negative for acute findings.[facility] [place] [facility] of patient but unfortunately no beds are currently available. 0250 - Discussed with Dr. Gill at [facility] in [place] who graciously accepts the patient for transfer. - Critical Care Time(min): 42 Time Includes: Direct patient care, Review records, Reassess patient, Document care, Coordinate care Procedures excluded from critical care time: Intubation Departure - Departure Disposition: 02 Transfer Acute Care Hosp Clinical Impression: Status epilepticus Condition: Serious
[2021-10-14] MEDS: PROPOFOL 1000 MG/100 ML 1,000 MG/100 ML BOTTLE IV SCH (23:00)
[2021-10-14] MEDS ORDERED: MIDAZOLAM 2 MG/2 ML VIAL IVP STA ×2 (23:07→23:36)
[2021-10-14] MEDS ORDERED: fentaNYL 100 MCG/2 ML VIAL IVP STA ×2 (23:17→23:37)
[2021-10-14 23:35] LABS: BILIRUBIN,URINE NEGATIVE (NEGATIVE); GLUCOSE, URINE (UA) NEGATIVE (NEGATIVE); KETONES,URINE (UA) NEGATIVE (NEGATIVE); LEUKOCYTE ESTERASE, URINE NEGATIVE (NEGATIVE); MUDS CUTOFF CONCENTRATIONS CUTOFF CONC BELOW:; NITRITE,URINE NEGATIVE (NEGATIVE); OCCULT BLOOD,URINE NEGATIVE (NEGATIVE); PROTEIN,URINE NEGATIVE (NEGATIVE); UROBILINOGEN,URINE 0.2 (NORMAL) E.U./dL (NORMAL)
[2021-10-14 23:37] LABS: CLARITY,URINE CLEAR (CLEAR); HCG UR QUAL NEGATIVE
[2021-10-14 23:48] LABS: AMPHETAMINE SCREEN,URINE NEGATIVE (NEGATIVE); BARBITURATE SCREEN,UR NEGATIVE (NEGATIVE); BENZODIAZEPINES SCREEN, URINE POSITIVE (NEGATIVE); COCAINE SCREEN URINE NEGATIVE (NEGATIVE); METHADONE SCREEN, URINE NEGATIVE (NEGATIVE); METHAMPHETAMINES SCREEN, URINE NEGATIVE (NEGATIVE); OPIATE SCREEN, URINE NEGATIVE (NEGATIVE); OXYCODONE SCREEN, URINE NEGATIVE (NEGATIVE); PROPOXYPHENE SCREEN, URINE NEGATIVE (NEGATIVE); THC CANNABINOID SCREEN, URINE POSITIVE (NEGATIVE); TRICYCLIC ANTIDEPRESSANT,URINE NEGATIVE (NEGATIVE)
[2021-10-15] MEDS ORDERED: MIDAZOLAM 10 MG/2 ML VIAL IVP STA (00:08)
[2021-10-15] MEDS ORDERED: fentaNYL 100 MCG/2 ML VIAL IVP STA (00:09)
[2021-10-15] MEDS ORDERED: fentaNYL 2,500 MCG in SODIUM CHLORIDE 0.9% 200 ML IV STA (00:28)
--- NOTE | 2021-10-15 00:30 | XRAY Report ---
PROCEDURE: Chest for Line Placement INDICATIONS: LINE PLACEMENT TECHNIQUE: One view of the chest was acquired. COMPARISON: 07/25/2021 FINDINGS: Surgical changes and devices: There is an endotracheal tube with the tip approximately 3.5 cm from t he rinku. An orogastric tube extends into the stomach with the tip not included on the current study . Lungs and pleura: There are low lung volumes. Mild pulmonary vascular prominence likely reflects vas cular crowding. No pleural effusions or pneumothorax. Mediastinum: Mediastinal contours appear unchanged. Heart size is normal. Bones and chest wall: No suspicious bony lesions. Overlying soft tissues appear unremarkable. IMPRESSION: 1. Endotracheal and orogastric tubes as described. Reviewed by: Héctor Corral MD on 10/15/2021 12:29 AM PDT Approved by: Héctor Corral MD on 10/15/2021 12:29 AM PDT Station ID: [id number]
--- NOTE | 2021-10-15 02:04 | CT Report ---
PROCEDURE: HEAD WO INDICATIONS: status epilepticus TECHNIQUE: Noncontrast 4.5 mm thick angled axial sections acquired from the foramen magnum to the vertex. For r adiation dose reduction, the following was used: automated exposure control, adjustment of mA and/or kV according to patient size. COMPARISON: CT head 08/24/2021. FINDINGS: Image quality: Excellent. CSF spaces: Basal cisterns are patent. No extra-axial fluid collections. Ventricles are normal in size and shape. Brain: No intracranial hemorrhage, mass, or mass effect. Mccray-white matter interface appears preser vanessa. Skull and face: Calvarium and visualized facial bones are intact, without suspicious lesions. There are endotracheal and nasogastric tubes partially visualized. Fluid is demonstrated within the nasoph arynx and oropharynx. Sinuses: Visualized sinuses and mastoids are clear. IMPRESSION: 1. No acute intracranial abnormality. Reviewed by: Héctor Corral MD on 10/15/2021 2:03 AM PDT Approved by: Héctor Corral MD on 10/15/2021 2:03 AM PDT Station ID: [id number]
[2021-10-15] MEDS: PROPOFOL 1000 MG/100 ML 1,000 MG/100 ML BOTTLE IV SCH (02:09)
[2021-10-15 04:33] VITALS: BP 143/105
[2021-10-15] MEDS ORDERED: MIDAZOLAM 2 MG/2 ML VIAL IVP STA (04:52)
[2021-10-15] MEDS ORDERED: MIDAZOLAM 10 MG/2 ML VIAL ONE (05:01)
== END 2021-10-15 04:40 | disposition short-term general hospital (02) ==
LOC: EDUNIT# → ED 20:34
DX: G40.901 Epilepsy, unspecified, not intractable, with status epilepticus (principal); I10 Essential (primary) hypertension; Z20.822 Contact with and (suspected) exposure to COVID-19
CPT/HCPCS: 31500; 36415; 43753; 51702; 70450; 80053; 80306; 80307; 80320; 80329; 81003; 81025; 83690; 83735; 84146; 85025; 87635; 93005; 94002; 94003; 96365; 96366; 96367; 96368; 96375; 96376; 99291; J0330; J2060; J2250; J3010; 81001; 87086; 94770

== ENCOUNTER 2022-08-11 18:47 | Emergency (ER) | payer MEDICAID ==
--- NOTE | 2022-08-11 19:48 | ED Physician Documentation ---
History of Present Illness - Stated complaint Stated Complaint: FEM - Chief complaint Chief Complaint: General - Additonal information Additional information: 37-year-old female presents emergency department for evaluation of inability to urinate and dysuria. States about a week ago she began noticing some pain when she urinated. Over time she started to dribble her urine and not fully empty her bladder. She last voided at 4 AM this morning and has been unable to void since. No fevers. Some nausea but no vomiting. No history of similar. Denies possibility of . Has no history of urinary obstruction in the past Patient does take aripriazole, duloxetine and Seroquel. 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: Ovarian cancer : None HEENT: None Psych: Depression, Anxiety, Bipolar disorder, Post traumatic stress disorder Musculoskeletal: None Derm: Eczema - Past Surgical History Past Surgical History: Yes /SENIOR STRUCTURAL ENGINEER: Dilation and currettage - Present Medications Home Medications: Ambulatory Orders Medication Instructions Recorded Confirmed Quetiapine Fumarate [Seroquel] 100 mg PO BID 08/19/17 08/11/22 EPINEPHrine [Epinephrine] 0.3 mg IJ PRN PRN 03/26/18 08/14/20 Lamotrigine [Lamotrigine ER] 50 mg PO DAILY 09/09/18 08/11/22 NIFEdipine [Nifedipine ER] 30 mg PO DAILY 09/09/18 08/14/20 Acetaminophen [Acetaminophen Extra 1,000 mg PO Q6H PRN #45 tab 03/22/20 08/14/20 Strength] Ibuprofen [Motrin] 600 mg PO Q6H PRN #30 tab 03/22/20 08/14/20 Meclizine [Antivert] 12.5 mg PO Q6H PRN #20 tablet 01/08/21 Ondansetron Odt [Zofran Odt] 4 mg TL Q6H PRN #10 tablet 01/08/21 Phentermine HCl 15 mg PO 01/08/21 DULoxetine [Cymbalta] 30 mg PO DAILY 08/11/22 08/11/22 - Allergies Allergies/Adverse Reactions: Allergies Allergy/AdvReac Type Severity Reaction Status Date / Time codeine Allergy Mild Nausea Verified 08/02/21 19:49 acetaminophen [From Vicodin] Allergy Nausea Verified 08/02/21 19:49 hydrocodone [From Vicodin] Allergy Nausea Verified 08/02/21 19:49 - Social History Does the pt smoke?: No Smoking Status: Never smoker Does the pt drink ETOH?: Yes Does the pt have substance abuse?: No - Immunizations Immunizations are current?: Yes - POLST Patient has POLST: No PD ED PE NORMAL - General General: Alert and oriented X 3, No acute distress - HEENT HEENT: PERRL - Neck Neck: Supple, no meningeal sign, No adenopathy - Cardiac Cardiac: RRR, No murmur - Respiratory Respiratory: No respiratory distress, Clear bilaterally - Abdomen Abdomen: Normal bowel sounds, Soft. 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 Eye Opening: Spontaneous Motor: Obeys Commands Verbal: Oriented GCS Score: 15 Results - Vitals Vitals: Vital Signs - 24 hr 08/11/22 19:03 Temperature 36.7 C Heart Rate 88 Respiratory 20 Rate Blood Pressure 143/107 H O2 Saturation 98 Oxygen O2 Source Room air - Labs Labs: Laboratory Tests 08/11/22 08/11/22 08/11/22 19:55 19:55 20:18 WBC 7.7 RBC 4.72 Hgb 13.7 Hct 41.4 MCV 87.7 MCH 29.0 MCHC 33.1 RDW 13.5 Plt Count 344 MPV 9.2 Neut # (Auto) 3.9 Lymph # (Auto) 3.2 Bowman # (Auto) 0.6 Eos # (Auto) 0.0 Baso # (Auto) 0.1 Absolute Nucleated RBC 0.00 Nucleated RBC % 0.0 Sodium 138 Potassium 4.6 Chloride 107 Carbon Dioxide 25 Anion Gap 6.0 BUN 15 Creatinine 1.1 H Estimated GFR (MDRD) 56 L Glucose 86 Calcium 9.4 Total Bilirubin 0.4 AST 22 ALT 29 Alkaline Phosphatase 58 Total Protein 7.6 Albumin 4.4 Globulin 3.2 Albumin/Globulin Ratio 1.4 Lipase 38 Urine Color YELLOW Urine Clarity CLEAR Urine pH 7.0 Ur Specific [place] 1.020 Urine Protein NEGATIVE Urine Glucose (UA) NEGATIVE Urine Ketones NEGATIVE Urine Occult Blood NEGATIVE Urine Nitrite NEGATIVE Urine Bilirubin NEGATIVE Urine Urobilinogen 0.2 (NORMAL) Ur Leukocyte Esterase NEGATIVE Ur Microscopic Review NOT INDICATED Urine Culture Comments NOT INDICATED Urine HCG, Qual NEGATIVE PD Medical Decision Making - ED course Complexity details: reviewed results, re-evaluated patient, considered differential, d/w patient ED course: 37-year-old female presents emergency department for evaluation of acute urinary retention and dysuria. States that about a week ago she began having some dysuria and noticed she was dribbling urine. Over time she has been progressively unable to empty her bladder. Last time she voided was at 4 this morning. On presentation to the emergency department she is alert and well-appearing though she does have some abdominal tenderness over her suprapubic area. ED bladder scan showed more than 500 mill residual. I did ask nursing staff to place a Gotti catheter and about 900 mL of clear yellow urine began to drain. I obtained CBC, electrolytes and urinalysis. Per my interpretation there are no acute findings with serum labs. Nothing to suggest infection of the urine. Clinically the patient presents with urinary obstruction. She has no low back pain, fevers or leukocytosis. Clinically this does not fit with a neurogenic bladder. She is noted to be on some atypical antipsychotics specifically Seroquel which can cause urinary retention. Subsequently I did obtain a CT of the abdomen pelvis looking for mechanical causes of urinary obstruction. Patient is being signed out to my nighttime colleague Dr. Acevedo to follow-up on CT results of the abdomen. If no mechanical cause of urinary retention is found patient is stable for discharge home with a Gotti catheter/leg bag. She will follow closely with her PCP. I discussed with her that she would likely benefit from the Gotti for a few days before trying to have a trial removal and void. She would benefit from referral to urology. Departure - Departure Clinical Impression: Acute urinary retention Condition: Stable Record reviewed to determine appropriate education?: Yes Instructions: Leg Bag Care Dc, ED Catheter Care Gotti, ED Retention Urinary Female Comments: Erica you are seen today in the emergency department because over the last week you have begun having pain when you pee and difficulty emptying your bladder. Your labs today show no signs of a urinary infection. Your kidney function is normal your CBC was normal. We did obtain a CT of your belly as we were looking for mechanical cause of urinary obstruction such as ureter stones. There were no findings to show a certain etiology for your obstruction. In some cases patients who have been taking a long-term atypical antipsychotic medications like Seroquel can begin to have urinary retention and I believe that may be your cause today. In the interim I have placed you with a gotti catheter and a leg bag. I would like this to remain in place for the next several days. When a bladder gets over distended it may not return to normal function for at least a few days. You can try a trial removal of the gotti in 5-7 days. You can have the Gotti removed either through your primary care doctor, any urgent care or return visit to the ER. If you are still unable to void a few hours after the gotti catheter is removed it will need to be replaced. It is at this point that I would have you consider discussing your medications with your primary care doctors to determine if a change in medications is necessary as they may be contributing to the urinary retention. In addition your primary care doctor should make a referral for you to urology for longer-term follow-up and evaluation of your urinary retention.
[2022-08-11 20:01] LABS: BASOPHILS # (AUTO) 0.1 10^3/uL (0.0-0.1); BASOPHILS % (AUTO) 0.9 %; HCT - HEMATOCRIT 41.4 % (37.0-47.0); HGB - HEMOGLOBIN 13.7 g/dL (12.0-16.0); LYMPHOCYTES # (AUTO) 3.2 10^3/uL (1.5-3.5); LYMPHOCYTES % (AUTO) 40.8 %; MEAN CORPUSCULAR HGB CONC 33.1 g/dL (32.0-36.0); MEAN CORPUSCULAR VOLUME 87.7 fL (81.0-99.0); MEAN PLATELET VOLUME 9.2 fL (7.9-10.8); MONOCYTES # (AUTO) 0.6 10^3/uL (0.0-1.0); MONOCYTES % (AUTO) 7.9 %; NEUTROPHILS # (AUTO) 3.9 10^3/uL (1.5-6.6); NEUTROPHILS % (AUTO) 50.1 %; PLT - PLATELET COUNT 344 10^3/uL (130-450); RED BLOOD COUNT 4.72 10^6/uL (4.20-5.40); RED CELL DISTRIBUTION WIDTH 13.5 % (12.0-15.0); WHITE BLOOD COUNT 7.7 x10^3/uL (4.8-10.8)
[2022-08-11 20:13] LABS: ALBUMIN 4.4 g/dL (3.2-5.5); ALBUMIN/GLOBULIN RATIO 1.4 (1.0-2.2); BILIRUBIN,TOTAL 0.4 mg/dL (0.2-1.0); CALCIUM 9.4 mg/dL (8.5-10.3); CREATININE 1.1 mg/dL (0.4-1.0); POTASSIUM 4.6 mmol/L (3.5-5.0); TOTAL PROTEIN 7.6 g/dL (6.7-8.2)
[2022-08-11 20:28] LABS: BILIRUBIN,URINE NEGATIVE (NEGATIVE); GLUCOSE, URINE (UA) NEGATIVE (NEGATIVE); KETONES,URINE (UA) NEGATIVE (NEGATIVE); LEUKOCYTE ESTERASE, URINE NEGATIVE (NEGATIVE); NITRITE,URINE NEGATIVE (NEGATIVE); OCCULT BLOOD,URINE NEGATIVE (NEGATIVE); PROTEIN,URINE NEGATIVE (NEGATIVE); UROBILINOGEN,URINE 0.2 (NORMAL) E.U./dL (NORMAL)
[2022-08-11 20:32] LABS: CLARITY,URINE CLEAR (CLEAR); HCG UR QUAL NEGATIVE
[2022-08-11] MEDS ORDERED: iohexoL-300 100 ML VIAL ONE (20:49)
[2022-08-11] MEDS ORDERED: iohexoL-300 100 ML VIAL IVP ONE (21:31)
--- NOTE | 2022-08-11 22:35 | CT Report ---
PROCEDURE: ABDOMEN/PELVIS W INDICATIONS: urinary obstruction CONTRAST: Omni 300 100ml TECHNIQUE: After the administration of intravenous contrast, 5 mm thick sections acquired from the diaphragms to the symphysis. 5 mm thick coronal and sagittal reformats were acquired. For radiation dose reducti on, the following was used: automated exposure control, adjustment of mA and/or kV according to pam ent size. COMPARISON: CT abdomen pelvis 01/07/2019 FINDINGS: Image quality: Excellent. Lung bases:There is mild dependent atelectasis. Heart: Heart is normal in size. ABDOMEN: Liver:There is diffuse hypoattenuation of the liver consistent with fatty infiltration. Gallbladder: Within normal limits without calcified gallstones. Biliary ducts: No biliary ductal dilatation. Pancreas: Unremarkable. Spleen: Normal in size. Adrenal Glands: No adrenal nodules. Kidneys and Ureters: No hydronephrosis. Kidneys demonstrate normal enhancement without perinephric s tranding or striated nephrograms. Stomach and Bowel: Stomach, small bowel loops, and colon are normal in caliber and wall thickness. Peritoneum: No abnormal intraperitoneal fluid. No free air. Ventral Wall: No hernia. Abdominal Nodes: No retroperitoneal or mesenteric adenopathy by size criteria. Vessels: Aorta and inferior vena cava are normal in size. PELVIS: Pelvic Organs:An IUD is demonstrated within the uterus. Bladder: There is a Duong catheter within a nondistended urinary bladder. Pelvic Nodes: No enlarged lymph nodes. Miscellaneous: No inguinal hernias. Bones: Visualized osseous structures demonstrate no suspicious lesions. IMPRESSION: 1. No hydronephrosis or definite evidence of polynephritis. 2. Hepatic steatosis. Reviewed by: Héctor Corral MD on 08/11/2022 10:34 PM PDT Approved by: Héctor Corral MD on 08/11/2022 10:34 PM PDT Station ID: [id number]
--- NOTE | 2022-08-11 22:39 | ED Physician Documentation ---
ED Addendum - Addendum Addendum: 08/11/22 22:39 Patient received a signout from outgoing physician, please see their do cumentation for further detail. Labs, imaging and Urine analysis reviewed. Clear etiology for patient's urinary retention is unsure however medication reaction given that she is on Seroquel as a possibility. Signed out to me with imaging pending, CT abdomen pelvis benign with the exception of mild hepatic steatosis. We will discharge at this time for follow-up with primary care. Clear return precautions given prior to discharge.
[2022-08-11 23:01] VITALS: BP 138/99
== END 2022-08-11 22:59 | disposition home or self-care (01) ==
LOC: ED 18:47
DX: R33.9 Retention of urine, unspecified (principal)
CPT/HCPCS: 36415; 51798; 74177; 80053; 81003; 81025; 83690; 85025; 99284; Q9967; 81001; 87086

== ENCOUNTER 2022-08-15 15:25 | Emergency (ER) | payer MEDICAID ==
--- NOTE | 2022-08-15 16:56 | ED Physician Documentation ---
PD HPI FEMALE - Stated complaint Stated Complaint: FEMALE - Chief complaint Chief Complaint: General - History obtained from History obtained from: Patient - History of Present Illness Timing - onset: Enter time (0900), Today Timing - duration: Hours Timing - details: Abrupt onset, Still present Associated symptoms: Other (unable to void) Contributing factors: Other (recent hx of urinary retention) Similar symptoms before: Diagnosis (acute urinary retention) Recently seen: Emergency Dept - Additional information Additional information: Erica Cedillo is a 37-year-old female with a history of schizoaffective disorder who is on a number of medications including Wellbutrin Cymbalta Seroquel and lamotrigine. Her most recent medication was Cymbalta which she began about 2 weeks ago. She has discontinued this medication when she was diagnosed with acute urinary retention. She was seen in the emergency department 4 days ago and a Duong catheter was placed draining more than 1000 mL of urine. The patient became frustrated with her catheter and removed it this morning. She has not been able to void since 9 AM. She indicates that she stopped taking her duloxetine after being on it for 2 weeks and this apparently has not resulted in resolution of the urinary retention. Review of Systems Constitutional: denies: Fever Eyes: denies: Decreased vision Ears: denies: Ear pain Nose: denies: Congestion Throat: denies: Sore throat Cardiac: denies: Chest pain / pressure, Palpitations Respiratory: denies: Dyspnea, Cough GI: reports: Abdominal Pain, Nausea. denies: Vomiting, Constipation, Diarrhea : reports: Duong Problem. 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: Ovarian cancer : None HEENT: None Psych: Depression, Anxiety, Bipolar disorder, Post traumatic stress disorder Musculoskeletal: None Derm: Eczema - Past Surgical History Past Surgical History: Yes /MICROSOFT CRM DEVELOPER: Dilation and currettage - Present Medications Home Medications: Ambulatory Orders Medication Instructions Recorded Confirmed Quetiapine Fumarate [Seroquel] 100 mg PO BID 08/19/17 08/15/22 EPINEPHrine [Epinephrine] 0.3 mg IJ PRN PRN 03/26/18 08/15/22 Lamotrigine [Lamotrigine ER] 50 mg PO DAILY 09/09/18 08/15/22 Acetaminophen [Acetaminophen Extra 1,000 mg PO Q6H PRN #45 tab 03/22/20 08/15/22 Strength] Ibuprofen [Motrin] 600 mg PO Q6H PRN #30 tab 03/22/20 08/15/22 Ondansetron Odt [Zofran Odt] 4 mg TL Q6H PRN #10 tablet 01/08/21 08/15/22 DULoxetine [Cymbalta] 30 mg PO DAILY 08/11/22 08/15/22 Propranolol [Inderal] 10 mg PO BID PRN 08/15/22 08/15/22 buPROPion [Wellbutrin Xl] 450 mg ORAL DAILY 08/15/22 08/15/22 - Allergies Allergies/Adverse Reactions: Allergies Allergy/AdvReac Type Severity Reaction Status Date / Time codeine Allergy Mild Nausea Verified 08/15/22 15:31 acetaminophen [From Vicodin] Allergy Nausea Verified 08/15/22 15:31 hydrocodone [From Vicodin] Allergy Nausea Verified 08/15/22 15:31 - Social History Does the pt smoke?: No Smoking Status: Never smoker Does the pt drink ETOH?: Yes Does the pt have substance abuse?: No - Immunizations Immunizations are current?: Yes - POLST Patient has POLST: No PD ED PE NORMAL - Vitals Vital signs reviewed: Yes (hypertensive) - General General: Alert and oriented X 3, No acute distress, Well developed/nourished - HEENT HEENT: Atraumatic, PERRL, EOMI - Cardiac Cardiac: RRR, No murmur - Respiratory Respiratory: No respiratory distress, Clear bilaterally - Abdomen Abdomen: Normal bowel sounds, Soft, Non distended, No organomegaly, Other (supra pubic tenderness is present) - Back Back: No CVA TTP, No spinal TTP - Derm Derm: Normal color, Warm and dry, No rash - Extremities Extremities: No deformity, No edema - Neuro Neuro: Alert and oriented X 3, 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, No motor deficit, No sensory deficit, Normal speech Eye Opening: Spontaneous Motor: Obeys Commands Verbal: Oriented GCS Score: 15 - Psych Psych: Normal mood, Normal affect Results - Vitals Vitals: Vital Signs - 24 hr 08/15/22 08/15/22 08/15/22 15:31 16:39 18:04 Temperature 36.5 C Heart Rate 90 87 88 Respiratory 18 18 18 Rate Blood Pressure 134/83 H 128/81 H 128/80 O2 Saturation 97 98 100 Oxygen O2 Source Room air - Labs Labs: Laboratory Tests 08/15/22 17:29 Urine Color YELLOW Urine Clarity HAZY Urine pH 6.5 Ur Specific [place] 1.025 Urine Protein TRACE Urine Glucose (UA) NEGATIVE Urine Ketones NEGATIVE Urine Occult Blood MODERATE H Urine Nitrite NEGATIVE Urine Bilirubin NEGATIVE Urine Urobilinogen 0.2 (NORMAL) Ur Leukocyte Esterase NEGATIVE Urine RBC 6-10 H Urine WBC 0-3 Ur Squamous Epith Cells FEW Squamous Amorphous Sediment Few Urine Bacteria Rare Urine Casts 0-2 Hyaline Casts Urine Mucus Few Strands Ur Microscopic Review INDICATED Urine Culture Comments NOT INDICATED PD Medical Decision Making - ED course Complexity details: reviewed results, re-evaluated patient, considered differential, d/w patient Reviewed Lab Results: We reviewed a urinalysis showing a hazy yellow urine with a specific gravity of 1.025 positive for moderate occult blood and 6-10 red blood cells per high-pow ered field negative for nitrite or leukocyte Estrace. My interpretation is urinalysis does not demonstrate evidence for infection. Occult blood likely been present from the presence of a catheter recently pulled out by the patient. ED course: 37-year-old female with a recent history of urinary retention presents back to the emergency department today after removing her Duong catheter and not being able to void. She did discontinue the use of her Cymbalta but this did not result in resolution of her urinary retention. She only had the catheter in place for 3 days and she had about 1000 mL out from this when we placed it. She may not have had the catheter in place long enough for the bladder to readjust or there may be another problem. She is referred to urology for follow-up. The catheter is placed with relief of symptoms and no evidence of infection Departure - Departure Disposition: 01 Home, Self Care Clinical Impression: Acute urinary retention Condition: Stable Instructions: ED Catheter Care Rhoda, ED Retention Urinary Female Follow-Up: Seng Enriquez MD [Provider Admit Priv/Credential] - Comments: Erica, today it looks like you have a recurrence of your urinary retention. This may be due to the fact that the catheter was just not in long enough or there may be other reasons. I would like you to follow-up with the urologist in the coming week. Usually if your bladder has been distended to over 1000 mL the catheter will need to likely be in place for 7 to [address] Enriquez's office to make an appointment. Discharge Date/Time: 08/15/22 18:24
[2022-08-15 17:38] LABS: BILIRUBIN,URINE NEGATIVE (NEGATIVE); GLUCOSE, URINE (UA) NEGATIVE (NEGATIVE); KETONES,URINE (UA) NEGATIVE (NEGATIVE); LEUKOCYTE ESTERASE, URINE NEGATIVE (NEGATIVE); NITRITE,URINE NEGATIVE (NEGATIVE); OCCULT BLOOD,URINE MODERATE (NEGATIVE); PH,URINE 6.5 PH (5.0-7.5); PROTEIN,URINE TRACE mg/dL (NEGATIVE); UROBILINOGEN,URINE 0.2 (NORMAL) E.U./dL (NORMAL)
[2022-08-15 17:41] LABS: CLARITY,URINE HAZY (CLEAR)
[2022-08-15 17:48] LABS: AMORPHOUS SEDIMENT,UR Few /LPF; BACTERIA,URINE Rare /HPF (None Seen); CASTS, URINE 0-2 Hyaline Casts /LPF; MUCUS,URINE Few Strands; SQUAMOUS EPITHELIAL CELL,UR FEW Squamous (<= Few); WBC,URINE 0-3 /HPF (0-5)
[2022-08-15 18:07] VITALS: BP 128/80
== END 2022-08-15 18:24 | disposition home or self-care (01) ==
LOC: ED 15:25
DX: R33.9 Retention of urine, unspecified (principal); I10 Essential (primary) hypertension; E03.9 Hypothyroidism, unspecified; Z79.899 Other long term (current) drug therapy
CPT/HCPCS: 51702; 81001; 81003; 87086; 99283

== ENCOUNTER 2022-08-22 08:00 | Outpatient (CLI) | payer MEDICAID ==
[2022-08-22 19:36] LABS: BACTERIAL VAGINOSIS DNA NEGATIVE (NEGATIVE); CANDIDA GROUP DNA NEGATIVE (NEGATIVE); CANDIDA KRUSEI DNA NEGATIVE (NEGATIVE); TRICHOMONAS VAGINALIS DNA NEGATIVE (NEGATIVE)
[2022-08-22 19:37] LABS: CANDIDA GLABRATA DNA NEGATIVE (NEGATIVE)
[2022-08-22 20:58] LABS: CHLAMYDIA TRACHOMATIS DNA NEGATIVE (NEGATIVE); NEISSERIA GONORRHOEAE DNA NEGATIVE (NEGATIVE)
== END 2022-08-22 23:59 | disposition home or self-care (01) ==
LOC: LAB.WC 08:00
PROVIDERS: ATTEND Obstetrics & Gynecology
DX: N76.0 Acute vaginitis (principal)
CPT/HCPCS: 81514; 87491; 87591; 87661

== ENCOUNTER 2022-10-15 17:34 | Emergency (ER) | payer MEDICAID ==
--- NOTE | 2022-10-15 17:55 | ED Physician Documentation ---
History of Present Illness - Stated complaint Stated Complaint: RT ANKLE,LT HIP PX - Chief complaint Chief Complaint: Trauma Ext - History obtained from History obtained from: Patient - History of Present Illness Timing: Yesterday Pain level max: 5 Pain level now: 4 - Additonal information Additional information: 37-year-old female states that yesterday she accidentally rolled her right ankle and caused pain in the anterior aspect of the left groin at the same time. Worse with walking, better with rest. States pain has increased today. States noted more swelling to the right ankle today. No head, neck, back pain. Denies any possibility of . No other injuries. 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: Ovarian cancer : None HEENT: None Psych: Depression, Anxiety, Bipolar disorder, Post traumatic stress disorder Musculoskeletal: None Derm: Eczema - Past Surgical History Past Surgical History: Yes /EDGING SUPERVISOR: Dilation and currettage - Present Medications Home Medications: Ambulatory Orders Medication Instructions Recorded Confirmed Quetiapine Fumarate [Seroquel] 100 mg PO BID 08/19/17 10/15/22 EPINEPHrine [Epinephrine] 0.3 mg IJ PRN PRN 03/26/18 10/15/22 Lamotrigine [Lamotrigine ER] 50 mg PO DAILY 09/09/18 10/15/22 Acetaminophen [Acetaminophen Extra 1,000 mg PO Q6H PRN #45 tab 03/22/20 10/15/22 Strength] Ibuprofen [Motrin] 600 mg PO Q6H PRN #30 tab 03/22/20 10/15/22 Ondansetron Odt [Zofran Odt] 4 mg TL Q6H PRN #10 tablet 01/08/21 10/15/22 DULoxetine [Cymbalta] 30 mg PO DAILY 08/11/22 10/15/22 Propranolol [Inderal] 10 mg PO BID PRN 08/15/22 10/15/22 buPROPion [Wellbutrin Xl] 450 mg ORAL DAILY 08/15/22 10/15/22 oxyBUTYnin chloride [Oxybutynin 2.5 mg PO BID #14 tab 08/16/22 10/15/22 Chloride] oxyCODONE [Roxicodone] 5 mg PO Q6H PRN #10 tablet MDD 6 10/15/22 - Allergies Allergies/Adverse Reactions: Allergies Allergy/AdvReac Type Severity Reaction Status Date / Time codeine Allergy Mild Nausea Verified 10/15/22 17:40 acetaminophen [From Vicodin] Allergy Nausea Verified 10/15/22 17:40 hydrocodone [From Vicodin] Allergy Nausea Verified 10/15/22 17:40 - Social History Does the pt smoke?: No Smoking Status: Never smoker Does the pt drink ETOH?: Yes Does the pt have substance abuse?: No - Immunizations Immunizations are current?: Yes - POLST Patient has POLST: No PD ED PE NORMAL - Vitals Vital signs reviewed: Yes - General General: Alert and oriented X 3, No acute distress - Back Back: No spinal TTP - Derm Derm: Warm and dry - Extremities Extremities: Other - Neuro Neuro: Alert and oriented X 3 - Free text exam Free text exam: R ankle - Mild swelling over the lateral malleolus. Mild tenderness over the base of the fifth metatarsal. Mild tenderness at the lateral malleolus. Otherwise normal examination of the right lower extremity. NVI Full range of motion of the left hip without any significant pain. No crepitus. No tenderness palpation. Neurovascular intact. Results - Vitals Vitals: Vital Signs - 24 hr 10/15/22 17:40 Temperature 36.8 C Heart Rate 100 Respiratory 16 Rate Blood Pressure 150/90 H O2 Saturation 98 Oxygen O2 Source Room air - Rads (name of study) R ankle xray Relevant Findings:: Final report received R foot xray Relevant Findings:: Final report received L hip xray Relevant Findings:: Final report received, See rad report PD Medical Decision Making - ED course Complexity details: reviewed results, re-evaluated patient, considered differential, d/w patient ED course: No acute findings on x-ray. Placed in a gel splint for comfort. Who prescribed a small amount of pain medication for home. We will have her follow-up with her doctor for further care. Likely right ankle sprain and left hip strain. Patient counseled regarding signs and symptoms for which I believe and urgent re-evaluation would be necessary. Patient with good understanding of and agreement to plan and is comfortable going home at this time This document was made in part using voice recognition software. While efforts are made to proofread this document, sound alike and grammatical errors may occur. Departure - Departure Disposition: 01 Home, Self Care Clinical Impression: Ankle sprain Qualifiers: Encounter type: initial encounter Involved ligament of ankle: unspecified ligament Laterality: right Qualified Code(s): S93.401A - Sprain of unspecified ligament of right ankle, initial encounter Hip strain Qualifiers: Encounter type: initial encounter Laterality: left Qualified Code(s): S76.012A - Strain of muscle, fascia and tendon of left hip, initial encounter Condition: Good Instructions: ED Sprain Ankle W X Ray, ED Strain Groin Follow-Up: Yasmeen Hines ARNP [Primary Care Provider] - Within 1 week Prescriptions: oxyCODONE [Roxicodone] 5 mg PO Q6H PRN #10 tablet MDD 6 PRN Reason: pain Comments: Your prescriptions were sent to [facility] in [place]. Your x-rays do not show any acute abnormalities today. You may bear weight as tolerated. Please follow-up with your doctor for further care. Return if you worsen. I am prescribing a short course of narcotic pain medication for you. These are potentially dangerous and addictive medications that should be used carefully. These medications may constipate you. Take an pwyt-sml-ikcskxn stool softener (docusate) twice daily with plenty of water while taking these medications. If you go 24 hours without a bowel movement, take ynqy-npa-kjexoob miralax, per package instructions. Do not drink or drive while taking these medications. If you received narcotic or sedating medications while in the emergency department, do not drive for 24 hours. Store this medication in a safe, secure place and out of reach of children. It is a violation of federal law to give or sell this medication to another person or to use in a manner other than prescribed. The ED will not refill narcotic prescriptions, including prescriptions lost or stolen. To dispose of unwanted medications: 1. [facility] [address] in [place] has a medication drop box. They accept prescription medications (in pill form) Sunday through Sunday 9:00 a.m. to 5:00 p.m. 2. [facility] accepts prescription medications (in pill form only) for disposal year round. Call for more information. 3. Contact the [facility] for the next [facility] sponsored prescription drug collection event. , [phone], or [phone]; Forms: PCP List Discharge Date/Time: 10/15/22 20:00
[2022-10-15 17:58] VITALS: BP 150/90; O2SAT 98
--- NOTE | 2022-10-15 19:32 | XRAY Report ---
PROCEDURE: Ankle 3 View RT INDICATIONS: fall, pain TECHNIQUE: 3 views of the ankle were acquired. COMPARISON: None. FINDINGS: Bones: No fractures or dislocations. Ankle mortise is normally aligned. No suspicious bony lesions . Soft tissues: No tibiotalar joint effusion. Achilles tendon appears normal. Lateral soft tissue sw elling IMPRESSION: Soft tissue swelling without fracture or foreign body Reviewed by: Domenic Padilla MD on 10/15/2022 6:30 PM AKDT Approved by: Domenic Padilla MD on 10/15/2022 6:30 PM AKDT Station ID: [id number]
--- NOTE | 2022-10-15 19:34 | XRAY Report ---
PROCEDURE: Foot 3 View RT INDICATIONS: fall, pain TECHNIQUE: 3 view(s) of the foot were acquired. COMPARISON: None FINDINGS: Bones: No fractures or dislocations. No suspicious bony lesions. Soft tissues: No tibiotalar joint effusion. Achilles tendon appears normal. IMPRESSION: Unremarkable right foot radiographs Reviewed by: Domenic Padilla MD on 10/15/2022 6:33 PM AKDT Approved by: Domenic Padilla MD on 10/15/2022 6:33 PM AKDT Station ID: [id number]
--- NOTE | 2022-10-15 19:35 | XRAY Report ---
PROCEDURE: Hip w/Pelvis 2-3V LT INDICATIONS: fall, pain TECHNIQUE: AP pelvis with lateral view(s) of the left hip(s). COMPARISON: None. FINDINGS: Bones: No fractures or dislocations. No suspicious bony lesions. Soft tissues: No suspicious soft tissue calcifications or masses. Intrauterine device projects over the midline IMPRESSION: No acute bony abnormality. No fracture Reviewed by: Domenic Padilla MD on 10/15/2022 6:34 PM AKDT Approved by: Domenic Padilla MD on 10/15/2022 6:34 PM AKDT Station ID: [id number]
[2022-10-15] MEDS ORDERED: oxyCODONE 5 MG TABLET PO STA (20:08)
== END 2022-10-15 20:00 | disposition home or self-care (01) ==
LOC: ED 17:34
DX: S93.401A Sprain of unspecified ligament of right ankle, initial encounter (principal); X50.1XXA Overexertion from prolonged static or awkward postures, initial encounter; I10 Essential (primary) hypertension; E03.9 Hypothyroidism, unspecified; Z79.899 Other long term (current) drug therapy
CPT/HCPCS: 99284

== ENCOUNTER 2023-06-14 09:24 | Outpatient (CLI) | payer MEDICAID ==
[2023-06-14 09:37] LABS: BASOPHILS # (AUTO) 0.1 10^3/uL (0.0-0.1); BASOPHILS % (AUTO) 0.9 %; EOSINOPHILS % (AUTO) 0.3 %; HCT - HEMATOCRIT 41.8 % (37.0-47.0); HGB - HEMOGLOBIN 13.5 g/dL (12.0-16.0); LYMPHOCYTES # (AUTO) 3.9 10^3/uL (1.5-3.5); LYMPHOCYTES % (AUTO) 49.8 %; MEAN CORPUSCULAR HEMOGLOBIN 29.5 pg (27.0-31.0); MEAN CORPUSCULAR HGB CONC 32.3 g/dL (32.0-36.0); MEAN CORPUSCULAR VOLUME 91.5 fL (81.0-99.0); MEAN PLATELET VOLUME 9.4 fL (7.9-10.8); MONOCYTES # (AUTO) 0.6 10^3/uL (0.0-1.0); MONOCYTES % (AUTO) 7.8 %; NEUTROPHILS # (AUTO) 3.2 10^3/uL (1.5-6.6); NEUTROPHILS % (AUTO) 40.7 %; PLT - PLATELET COUNT 335 10^3/uL (130-450); RED BLOOD COUNT 4.57 10^6/uL (4.20-5.40); WHITE BLOOD COUNT 7.9 x10^3/uL (4.8-10.8)
[2023-06-14 09:46] LABS: ESTIMATED AVERAGE GLUCOSE 123 mg/dL (70-100); HEMOGLOBIN A1c% 5.9 % (4.27-6.07)
[2023-06-14 09:53] LABS: ALBUMIN 4.4 g/dL (3.2-5.5); ALBUMIN/GLOBULIN RATIO 1.6 (1.0-2.2); BILIRUBIN,TOTAL 0.3 mg/dL (0.2-1.0); CALCIUM 9.8 mg/dL (8.5-10.3); CREATININE 1.3 mg/dL (0.6-1.3); POTASSIUM 4.2 mmol/L (3.5-4.5); TOTAL PROTEIN 7.2 g/dL (6.4-8.9)
[2023-06-14 10:32] LABS: THYROID STIMULATING HORMONE 89.91 uIU/mL (0.34-5.60)
== END 2023-06-14 09:25 | disposition home or self-care (01) ==
LOC: LAB 09:24
PROVIDERS: ATTEND Nurse Practitioner
DX: F20.9 Schizophrenia, unspecified (principal); Z79.899 Other long term (current) drug therapy
CPT/HCPCS: 36415; 80053; 83036; 84439; 84443; 85025

== ENCOUNTER 2023-06-24 18:57 | Outpatient (CLI) | payer MEDICAID ==
[2023-06-24 19:15] LABS: BASOPHILS # (AUTO) 0.1 10^3/uL (0.0-0.1); BASOPHILS % (AUTO) 1.1 %; EOSINOPHILS % (AUTO) 0.5 %; HGB - HEMOGLOBIN 13.4 g/dL (12.0-16.0); LYMPHOCYTES # (AUTO) 3.4 10^3/uL (1.5-3.5); MEAN CORPUSCULAR HEMOGLOBIN 29.6 pg (27.0-31.0); MEAN CORPUSCULAR HGB CONC 32.7 g/dL (32.0-36.0); MEAN CORPUSCULAR VOLUME 90.5 fL (81.0-99.0); MEAN PLATELET VOLUME 9.5 fL (7.9-10.8); MONOCYTES # (AUTO) 0.7 10^3/uL (0.0-1.0); MONOCYTES % (AUTO) 7.9 %; NEUTROPHILS # (AUTO) 4.1 10^3/uL (1.5-6.6); NEUTROPHILS % (AUTO) 49.3 %; PLT - PLATELET COUNT 342 10^3/uL (130-450); RED BLOOD COUNT 4.53 10^6/uL (4.20-5.40); RED CELL DISTRIBUTION WIDTH 13.5 % (12.0-15.0); WHITE BLOOD COUNT 8.3 x10^3/uL (4.8-10.8)
[2023-06-24 19:25] LABS: CALCIUM 10.6 mg/dL (8.5-10.3); CREATININE 1.4 mg/dL (0.6-1.3)
== END 2023-06-24 18:58 | disposition home or self-care (01) ==
LOC: LAB 18:57
PROVIDERS: ATTEND Nurse Practitioner
DX: F20.9 Schizophrenia, unspecified (principal); Z79.899 Other long term (current) drug therapy
CPT/HCPCS: 36415; 80048; 81599; 85025

== ENCOUNTER 2023-07-01 11:22 | Emergency (ER) | payer MEDICAID ==
--- NOTE | 2023-07-01 11:44 | ED Physician Documentation ---
PD HPI ABD PAIN - Stated complaint Stated Complaint: BACK PX,LETHARGIC - Chief complaint Chief Complaint: Abd Pain - History obtained from History obtained from: Patient - Additional information Additional information: 38-year-old with history of seizure disorder. She does not recall her last seizure, migraines, hypothyroidism. She is been dealing with left low back pain for some time but it worsened today while pivoting to get out of bed. He does radiate to the left lower quadrant. She denies urinary complaints to me. She does have some generalized feeling of unwellness with bodyaches as well and took a COVID test which was negative. 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: Ovarian cancer : None HEENT: None Psych: Depression, Anxiety, Bipolar disorder, Post traumatic stress disorder Musculoskeletal: None Derm: Eczema - Past Surgical History Past Surgical History: Yes /BANK TELLER: Dilation and currettage - Present Medications Home Medications: Ambulatory Orders Medication Instructions Recorded Confirmed Quetiapine Fumarate [Seroquel] 100 mg PO BID 08/19/17 10/15/22 EPINEPHrine [Epinephrine] 0.3 mg IJ PRN PRN 03/26/18 10/15/22 Lamotrigine [Lamotrigine ER] 50 mg PO DAILY 09/09/18 10/15/22 Acetaminophen [Acetaminophen Extra 1,000 mg PO Q6H PRN #45 tab 03/22/20 10/15/22 Strength] Ibuprofen [Motrin] 600 mg PO Q6H PRN #30 tab 03/22/20 10/15/22 Ondansetron Odt [Zofran Odt] 4 mg TL Q6H PRN #10 tablet 01/08/21 10/15/22 DULoxetine [Cymbalta] 30 mg PO DAILY 08/11/22 10/15/22 Propranolol [Inderal] 10 mg PO BID PRN 08/15/22 10/15/22 buPROPion [Wellbutrin Xl] 450 mg ORAL DAILY 08/15/22 10/15/22 oxyBUTYnin chloride [Oxybutynin 2.5 mg PO BID #14 tab 08/16/22 10/15/22 Chloride] oxyCODONE [Roxicodone] 5 mg PO Q6H PRN #10 tablet MDD 6 10/15/22 Ondansetron Odt [Zofran] 4 mg TL Q6H PRN #10 tablet 07/01/23 Oxycodone HCl/Acetaminophen 1 - 2 each PO Q6H PRN #14 tablet 07/01/23 [Percocet 5-325 mg Tablet] - Allergies Allergies/Adverse Reactions: Allergies Allergy/AdvReac Type Severity Reaction Status Date / Time codeine Allergy Mild Nausea Verified 07/01/23 11:31 acetaminophen [From Vicodin] Allergy Nausea Verified 07/01/23 11:31 hydrocodone [From Vicodin] Allergy Nausea Verified 07/01/23 11:31 - Social History Does the pt smoke?: No Smoking Status: Never smoker Does the pt drink ETOH?: Yes Does the pt have substance abuse?: No - Immunizations Immunizations are current?: Yes - POLST Patient has POLST: No PD ED PE NORMAL - Vitals Vital signs reviewed: Yes - General General: Alert and oriented X 3, No acute distress - Cardiac Cardiac: RRR, No murmur - Respiratory Respiratory: No respiratory distress, Clear bilaterally - Abdomen Abdomen: Soft, Non tender - Back Back: No spinal TTP, Other (Reproducible muscular tenderness of the left low back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 Results - Vitals Vitals: Vital Signs - 24 hr 07/01/23 07/01/23 07/01/23 11:27 13:32 15:58 Temperature 36.1 C L Heart Rate 103 H 93 86 Respiratory 16 18 15 Rate Blood Pressure 124/86 H 99/69 106/71 O2 Saturation 96 95 94 Oxygen O2 Source Room air - Labs Labs: Laboratory Tests 07/01/23 07/01/23 07/01/23 12:06 12:06 15:22 WBC 7.6 RBC 4.53 Hgb 13.3 Hct 41.7 MCV 92.1 MCH 29.4 MCHC 31.9 L RDW 13.2 Plt Count 281 MPV 9.7 Neut # (Auto) 5.1 Lymph # (Auto) 1.5 [place] # (Auto) 0.7 Eos # (Auto) 0.2 Baso # (Auto) 0.1 Absolute Nucleated RBC 0.00 Nucleated RBC % 0.0 Sodium 136 Potassium 3.8 Chloride 105 Carbon Dioxide 23 Anion Gap 8.0 BUN 11 Creatinine 1.2 Estimated GFR (MDRD) 50 L Glucose 118 H Calcium 9.8 Total Bilirubin 0.4 AST 35 ALT 64 H Alkaline Phosphatase 83 Total Protein 7.4 Albumin 4.5 Globulin 2.9 Albumin/Globulin Ratio 1.6 Urine Color YELLOW Urine Clarity CLEAR Urine pH 6.5 Ur Specific [place] 1.025 Urine Protein TRACE Urine Glucose (UA) NEGATIVE Urine Ketones NEGATIVE Urine Occult Blood NEGATIVE Urine Nitrite NEGATIVE Urine Bilirubin NEGATIVE Urine Urobilinogen 0.2 (NORMAL) Ur Leukocyte Esterase NEGATIVE Ur Microscopic Review NOT INDICATED Urine Culture Comments NOT INDICATED Urine HCG, Qual NEGATIVE PD Medical Decision Making - ED course ED course: 38-year-old woman presents with left low back pain that is motion related. It radiated to the left lower quadrant so there is a concern for intra-abdominal issue or kidney stone. As such we performed basic blood work which was notable for normal CBC with white count of 7.6, and unremarkable CMP. It took a while for her to produce urine but subsequent urine and urine test were negative. Retroperitoneal ultrasound was negative for abnormality of the left kidney and she did improve with medications here. She also has some flulike symptoms with neckache and chills but no measured fevers. She took a home COVID test that was negative. Departure - Departure Disposition: Home, Self Care Clinical Impression: Nausea Back pain Qualifiers: Back pain location: low back pain Chronicity: acute Back pain laterality: left Sciatica presence: without sciatica Qualified Code(s): M54.50 - Low back pain, unspecified Condition: Good Record reviewed to determine appropriate education?: Yes Instructions: ED Neck Back Pain General Prescriptions: Oxycodone HCl/Acetaminophen [Percocet 5-325 mg Tablet] 1 - 2 each PO Q6H PRN #14 tablet PRN Reason: pain Ondansetron Odt [Zofran] 4 mg TL Q6H PRN #10 tablet PRN Reason: Nausea / Vomiting Comments: I sent your prescription electronically to the [facility] in [place]. As discussed, there is no evidence of kidney stone on urinalysis nor infection. Your blood work was unremarkable. Call your doctor to arrange a follow-up appointment, make the next available appointment. In the interim, return anytime if worse or if new symptoms develop. I am prescribing a short course of narcotic pain medication for you. These are potentially dangerous and addictive medications that should be used carefully. These medications may constipate you. Take an hcgm-wdx-kuxzrsw stool softener (docusate) twice daily with plenty of water while taking these medications. If you go 24 hours without a bowel movement, take [id number] miralax, per package instructions. Do not drink or drive while taking these medications. If you received narcotic or sedating medications while in the emergency department, do not drive for 24 hours. Store this medication in a safe, secure place and out of reach of children. It is a violation of federal law to give or sell this medication to another person or to use in a manner other than prescribed. The ED will not refill narcotic prescriptions, including prescriptions lost or stolen. To dispose of unwanted medications: 1. [facility] provides a drop box for medication in pill form only (no liquids) 8:00 am to 4:30 p.m. Sunday-Sunday in the lobby of the [facility], [address] [place] [address]. Empty pills into ziplock bag before disposal. Call [phone] for information. 2.[employer] is a free service available to all [facility] residents. Go to [email or web address] Note that many narcotic pain relievers also contain Tylenol/acetaminophen. Please ensure that your total dose of acetaminophen from all sources does not exceed 3 g (3000 mg) per day. Forms: PCP List, Activity restrictions
[2023-07-01] MEDS: SODIUM CHLORIDE 0.9% 1,000 ML IV STA ×2 (12:00→14:48)
[2023-07-01] MEDS: HYDROmorphone 0.5 MG/0.5 ML SYRINGE IVP STA ×2 (12:00→16:28)
[2023-07-01] MEDS: KETOROLAC 15 MG/ML VIAL IVP STA ×2 (12:01→16:27)
[2023-07-01 12:11] LABS: BASOPHILS # (AUTO) 0.1 10^3/uL (0.0-0.1); BASOPHILS % (AUTO) 0.7 %; EOSINOPHILS # (AUTO) 0.2 10^3/uL (0.0-0.7); EOSINOPHILS % (AUTO) 3.2 %; HCT - HEMATOCRIT 41.7 % (37.0-47.0); HGB - HEMOGLOBIN 13.3 g/dL (12.0-16.0); LYMPHOCYTES # (AUTO) 1.5 10^3/uL (1.5-3.5); LYMPHOCYTES % (AUTO) 19.9 %; MEAN CORPUSCULAR HEMOGLOBIN 29.4 pg (27.0-31.0); MEAN CORPUSCULAR HGB CONC 31.9 g/dL (32.0-36.0); MEAN CORPUSCULAR VOLUME 92.1 fL (81.0-99.0); MEAN PLATELET VOLUME 9.7 fL (7.9-10.8); MONOCYTES # (AUTO) 0.7 10^3/uL (0.0-1.0); MONOCYTES % (AUTO) 8.7 %; NEUTROPHILS # (AUTO) 5.1 10^3/uL (1.5-6.6); NEUTROPHILS % (AUTO) 67.1 %; PLT - PLATELET COUNT 281 10^3/uL (130-450); RED BLOOD COUNT 4.53 10^6/uL (4.20-5.40); RED CELL DISTRIBUTION WIDTH 13.2 % (12.0-15.0); WHITE BLOOD COUNT 7.6 x10^3/uL (4.8-10.8)
[2023-07-01 12:24] LABS: ALBUMIN 4.5 g/dL (3.2-5.5); ALBUMIN/GLOBULIN RATIO 1.6 (1.0-2.2); BILIRUBIN,TOTAL 0.4 mg/dL (0.2-1.0); CALCIUM 9.8 mg/dL (8.5-10.3); CREATININE 1.2 mg/dL (0.6-1.3); POTASSIUM 3.8 mmol/L (3.5-4.5); TOTAL PROTEIN 7.4 g/dL (6.4-8.9)
[2023-07-01] MEDS: ONDANSETRON 4 MG/2 ML VIAL IVP STA ×2 (12:35→16:28)
[2023-07-01] MEDS: HYDROmorphone 1 MG/ML CARPUJECT IVP STA (13:40)
[2023-07-01] MEDS: METOCLOPRAMIDE 10 MG/2 ML VIAL IVP STA (13:40)
[2023-07-01 15:42] LABS: BILIRUBIN,URINE NEGATIVE (NEGATIVE); GLUCOSE, URINE (UA) NEGATIVE (NEGATIVE); KETONES,URINE (UA) NEGATIVE (NEGATIVE); LEUKOCYTE ESTERASE, URINE NEGATIVE (NEGATIVE); NITRITE,URINE NEGATIVE (NEGATIVE); OCCULT BLOOD,URINE NEGATIVE (NEGATIVE); PH,URINE 6.5 PH (5.0-7.5); PROTEIN,URINE TRACE mg/dL (NEGATIVE); UROBILINOGEN,URINE 0.2 (NORMAL) E.U./dL (NORMAL)
[2023-07-01 15:43] LABS: CLARITY,URINE CLEAR (CLEAR); HCG UR QUAL NEGATIVE
--- NOTE | 2023-07-01 15:58 | Ultrasound Report ---
PROCEDURE: Renal (Retroperitoneal) INDICATIONS: L flank pain TECHNIQUE: Real-time scanning was performed of the retroperitoneal organs, with image documentation. COMPARISON: CT abdomen pelvis 12/12/2022. FINDINGS: Kidneys: Kidneys are normal in size. Right kidney poorly visualized and incompletely evaluated. Lef t kidney measures 11.3 cm and renal cortical thickness is 0.6 cm. No solid masses, hydronephrosis, o r nephrolithiasis. Bladder: Pre-void bladder volume is 78.7 mL. Post-void residual is 5.5 mL. Pre-void images demonst rate no intraluminal masses or stones. On pre-void images, left ureteral jet is noted with color Dop pler interrogation. (Of note, ureteral jets may not be detectable in up to 25% of cases due to insuf ficient differences in specific gravity between ureteral and bladder urine). Miscellaneous: No free abdominal fluid. IMPRESSION: No left nephrolithiasis or hydronephrosis. Right kidney was not evaluated. Prevoid bladder volume of 78.7 cc with post void residual volume of 5.5 cc. Left ureteral jet visuali zed. Reviewed by: Debbie Ledezma MD, PhD on 07/01/2023 2:57 PM [facility] Approved by: Debbie Ledezma MD, PhD on 07/01/2023 2:57 PM [facility] Station ID: [id number]
[2023-07-01 16:55] VITALS: BP 110/76; O2SAT 95
== END 2023-07-01 17:33 | disposition home or self-care (01) ==
LOC: ED 11:22
DX: M54.50 Low back pain, unspecified (principal); R11.0 Nausea; R10.2 Pelvic and perineal pain; E03.9 Hypothyroidism, unspecified; Z97.5 Presence of (intrauterine) contraceptive device
CPT/HCPCS: 36415; 76536; 76770; 76830; 76856; 80053; 81003; 81025; 85025; 96374; 96375; 96376; 99284; 99285; J1170; J2765; 81001; 87086

== ENCOUNTER 2023-07-01 15:15 | Outpatient (CLI) | payer MEDICAID ==
--- NOTE | 2023-07-02 10:22 | Ultrasound Report ---
PROCEDURE: Pelvic w/Transvaginal INDICATIONS: PELVIC PAIN TECHNIQUE: Real-time scanning was performed of the pelvic organs, with image documentation. Additional endovagi nal scanning was necessary due to incomplete visualization of the adnexal and endometrial structures by transabdominal scanning. COMPARISON: CT abdomen pelvis 08/11/2022 FINDINGS: Uterus: Uterus is anteverted and borderline enlarged measuring 9.6 x 5.0 x 5.2 cm The myometrium is homogeneous. The endometrium measures 4 mm in combined thickness. IUD is present in appropriate pos ition. Ovaries: The right ovary measures 3.4 x 2.5 x 1.9 cm, with a calculated ovarian volume of 8.1 cc. T he left ovary is not visualized. Right ovary is unremarkable. Other: No pathologic free abdominal or pelvic fluid. IMPRESSION: Unremarkable exam. IUD is in appropriate location. Reviewed by: Maylin Dennis MD on 07/02/2023 10:20 AM PDT Approved by: Maylin Dennis MD on 07/02/2023 10:20 AM PDT Station ID: [id number]
--- NOTE | 2023-07-02 10:23 | Ultrasound Report ---
PROCEDURE: Soft Tissue Head or Neck INDICATIONS: HYPOTHYROID TECHNIQUE: Real-time scanning was performed of the thyroid gland, with image documentation. COMPARISON: None FINDINGS: Right: Thyroid lobe measures 3.9 x 2.0 x 1.5 cm. Left: Thyroid lobe measures 3.8 x 2.2 x 1.6 cm Isthmus: 0.5 cm thick. Echotexture: Heterogeneous. IMPRESSION: Heterogeneous appearance of the thyroid gland without distinctly identified focal mass. Reviewed by: Maylin Dennis MD on 07/02/2023 10:21 AM PDT Approved by: Maylin Dennis MD on 07/02/2023 10:21 AM PDT Station ID: [id number]
== END 2023-07-01 23:59 | disposition home or self-care (01) ==
LOC: DI 15:15
PROVIDERS: ATTEND Registered Nurse
DX: R10.2 Pelvic and perineal pain (principal); E03.9 Hypothyroidism, unspecified; Z97.5 Presence of (intrauterine) contraceptive device

== ENCOUNTER 2023-07-10 19:08 | Outpatient (CLI) | payer MEDICAID ==
[2023-07-10 19:19] LABS: BASOPHILS # (AUTO) 0.2 10^3/uL (0.0-0.1); BASOPHILS % (AUTO) 1.9 %; EOSINOPHILS # (AUTO) 0.6 10^3/uL (0.0-0.7); EOSINOPHILS % (AUTO) 6.3 %; HCT - HEMATOCRIT 41.9 % (37.0-47.0); HGB - HEMOGLOBIN 14.3 g/dL (12.0-16.0); LYMPHOCYTES # (AUTO) 2.5 10^3/uL (1.5-3.5); MEAN CORPUSCULAR HEMOGLOBIN 30.4 pg (27.0-31.0); MEAN CORPUSCULAR HGB CONC 34.1 g/dL (32.0-36.0); MEAN PLATELET VOLUME 9.4 fL (7.9-10.8); MONOCYTES # (AUTO) 0.7 10^3/uL (0.0-1.0); MONOCYTES % (AUTO) 7.5 %; NEUTROPHILS # (AUTO) 5.1 10^3/uL (1.5-6.6); NEUTROPHILS % (AUTO) 55.9 %; PLT - PLATELET COUNT 388 10^3/uL (130-450); RED BLOOD COUNT 4.71 10^6/uL (4.20-5.40); RED CELL DISTRIBUTION WIDTH 12.7 % (12.0-15.0); WHITE BLOOD COUNT 9.1 x10^3/uL (4.8-10.8)
[2023-07-10 19:31] LABS: CALCIUM 10.8 mg/dL (8.5-10.3); CREATININE 1.2 mg/dL (0.6-1.3); POTASSIUM 4.1 mmol/L (3.5-4.5)
== END 2023-07-10 19:09 | disposition home or self-care (01) ==
LOC: LAB 19:08
PROVIDERS: ATTEND Nurse Practitioner
DX: F20.9 Schizophrenia, unspecified (principal); Z79.899 Other long term (current) drug therapy
CPT/HCPCS: 36415; 80048; 85025

== ENCOUNTER 2023-07-24 10:16 | Outpatient (CLI) | payer MEDICAID ==
[2023-07-24 10:51] LABS: CALCIUM 9.9 mg/dL (8.5-10.3); POTASSIUM 3.8 mmol/L (3.5-4.5)
[2023-07-24 13:24] LABS: BASOPHILS # (AUTO) 0.1 10^3/uL (0.0-0.1); BASOPHILS % (AUTO) 1.2 %; EOSINOPHILS # (AUTO) 0.3 10^3/uL (0.0-0.7); EOSINOPHILS % (AUTO) 4.8 %; HCT - HEMATOCRIT 40.9 % (37.0-47.0); HGB - HEMOGLOBIN 13.4 g/dL (12.0-16.0); LYMPHOCYTES # (AUTO) 2.8 10^3/uL (1.5-3.5); LYMPHOCYTES % (AUTO) 40.8 %; MEAN CORPUSCULAR HEMOGLOBIN 29.5 pg (27.0-31.0); MEAN CORPUSCULAR HGB CONC 32.8 g/dL (32.0-36.0); MEAN CORPUSCULAR VOLUME 90.1 fL (81.0-99.0); MEAN PLATELET VOLUME 10.5 fL (7.9-10.8); MONOCYTES # (AUTO) 0.6 10^3/uL (0.0-1.0); MONOCYTES % (AUTO) 8.1 %; NEUTROPHILS # (AUTO) 3.1 10^3/uL (1.5-6.6); NEUTROPHILS % (AUTO) 45.1 %; PLT - PLATELET COUNT 367 10^3/uL (130-450); RED BLOOD COUNT 4.54 10^6/uL (4.20-5.40); RED CELL DISTRIBUTION WIDTH 12.5 % (12.0-15.0); WHITE BLOOD COUNT 6.9 x10^3/uL (4.8-10.8)
== END 2023-07-24 10:17 | disposition home or self-care (01) ==
LOC: LAB 10:16
PROVIDERS: ATTEND Nurse Practitioner
DX: F20.9 Schizophrenia, unspecified (principal); Z79.899 Other long term (current) drug therapy
CPT/HCPCS: 36415; 80048; 81599; 85025

== ENCOUNTER 2023-08-02 09:32 | Outpatient (CLI) | payer MEDICAID ==
[2023-08-02 12:54] LABS: CALCIUM 9.9 mg/dL (8.5-10.3); CREATININE 1.3 mg/dL (0.6-1.3)
[2023-08-02 13:40] LABS: THYROID STIMULATING HORMONE 0.09 uIU/mL (0.34-5.60)
== END 2023-08-02 09:33 | disposition home or self-care (01) ==
LOC: LAB.N 09:32
PROVIDERS: ATTEND Registered Nurse
DX: E03.9 Hypothyroidism, unspecified (principal); R94.4 Abnormal results of kidney function studies
CPT/HCPCS: 36415; 80048; 84436; 84439; 84443; 84480; 84481